=== PATIENT | male | born 1935 | race Caucasian/White ===

== ENCOUNTER 2016-11-27 09:15 | Inpatient (IN) | payer MEDICARE, BC, OTHER ==
[~2016-11-27] VITALS: Ht 175.3 cm; Wt 88.3 kg
[2016-11-27] VITALS (15 sets, daily range): BP systolic 95–121; BP diastolic 53–78; PULSE 64–70; RESP 16–18; TEMP 97.6–98.2; O2SAT 97–100
[~2016-11-27 09:15] MED LIST: AMLO2.5T PO; ARIC5TAB PO; ASPI81TA82 PO; ATEN-102 PO; CEFU1TAB43 PO; DIGO0.12 PO; FURO20TA PO; NAME10TA PO; POTA-267 PO; RIVA20 PO; SYNT175T PO
[2016-11-27] MEDS ORDERED: SODIUM CHLORIDE 0.9% FLUSH 5 ML FLUSH IVF PRN (09:30)
[2016-11-27] MEDS ORDERED: ASPIRIN 81 MG CHEW TAB CHEW ONE (09:30)
--- NOTE | 2016-11-27 09:45 | PD ---
HPI Chief Complaint: Respiratory Symptoms Time Seen by Provider: 09:29 Travel History International Travel<30 days: No Contact w/Intl Traveler<30days: No Traveled to known affect area: No History of Present Illness HPI This is an 81-year-old male who presents to the emergency department with a history of coronary artery disease and atrial fibrillation who this morning reportedly told his that he was feeling short of breath and having chest discomfort. He was transported to the emergency department. Patient has history of dementia. Currently he says he feels fine with no chest pain or shortness of breath. He says he doesn't remember what happened but he does feel somewhat nauseous. One year ago he was admitted for similar symptoms and found to have a urinary tract infection. PFSH Past Medical History Hx Anticoagulant Therapy: Yes (XARELTO) Arthritis: Yes Atrial Fibrillation: Yes Blood Disorders: No Heart Rhythm Problems: Yes (A FIB) Cancer: No Cardiac Catheterization: Yes (5 STENTS SINCE 1998) Cardiovascular Problems: Yes (5 STENTS) High Cholesterol: Yes Congestive Heart Failure: Yes Coronary Artery Disease: Yes Dementia: Yes Diabetes: No Endocrine: Yes Genitourinary: Yes Hypertension: Yes Immune Disorder: No Musculoskeletal: Yes Neurologic: No Psychiatric: Yes (DEMENTIA) Reproductive: No Respiratory: No Immunizations Current: No Thyroid Disease: Yes PNEUMOCCOCAL Vaccine (Year): 1 Past Surgical History Body Medical Devices: CORONARY STENTS Cardiac Surgery: Yes (CARDIAC CATH WITH STENTS PLACED) Coronary Stent: Yes Endocrine Surgery: Yes (THYROIDECTOMY) Other Surgery: Yes (3/4 THYROID REMOVED- BENIGN) Social History Alcohol Use: No Tobacco Use: No Substance Use: No Allergies-Medications (Allergen,Severity, Reaction): Coded Allergies: No Known Allergies (Verified , 11/27/16) Reported Meds & Prescriptions Reported Meds & Active Scripts Active Reported Aspirin 81 (Aspirin) 81 Mg Tabdr 81 Mg PO DAILY Nitrostat SL (Nitroglycerin) 0.4 Mg Subl 0.4 Mg SL DIRECTED PRN 1 tablet under the tongue as needed for chest pain. Repeat every 5 minutes for a total of 3 DOSES or call 911 if NO relief. Alprazolam 0.5 Mg Tab 0.5 Mg PO Q4H PRN Klor-Con M20 (Potassium Chloride Microencaps) 20 Meq Tab 0.5 Tab PO DAILY Donepezil 10 Mg Tab 10 Mg PO HS Memantine 10 Mg Tab 10 Mg PO BID Furosemide 40 Mg Tab 40 Mg PO DAILY Digoxin 0.25 Mg Tab 0.5 Tab PO DAILY PT TAKES THIS MEDICATION FRIDAY, FRIDAY, FRIDAY. Atorvastatin (Atorvastatin Calcium) 20 Mg Tab 20 Mg PO HS Amlodipine (Amlodipine Besylate) 2.5 Mg Tab 2.5 Mg PO DAILY Atenolol 50 Mg Tab 50 Mg PO BID Levothyroxine (Levothyroxine Sodium) 200 Mcg Tab 200 Mcg PO DAILY Xarelto (Rivaroxaban) 20 Mg Tab 20 Mg PO DAILY Review of Systems ROS Limitations: Poor Historian Physical Exam Narrative GENERAL:Well appearing, no acute distress SKIN: Warm and dry. HEAD: Atraumatic. Normocephalic. EYES: Pupils equal and round. No injection or drainage. ENT: Moist mucous membranes NECK: Trachea midline. CARDIOVASCULAR: Regular rate and rhythm. No murmur appreciated. Trace edema. RESPIRATORY: Clear to auscultation. Breath sounds equal bilaterally. GASTROINTESTINAL: Abdomen soft, non-tender, nondistended. MUSCULOSKELETAL: No obvious deformities. NEUROLOGICAL: Oriented to person but not place or time. Moving all extremities. PSYCHIATRIC: Poor insight and judgment. Data Data Last Documented VS Vital Signs Date Time Temp Pulse Resp B/P Pulse Ox O2 Delivery O2 Flow Rate FiO2 11/27/16 09:45 100 Nasal Cannula 2 11/27/16 09:45 66 18 109/56 11/27/16:15 97.8 Orders Electrocardiogram (11/27/16 09:29) Complete Blood Count With Diff (11/27/16 09:29) Comprehensive Metabolic Panel (11/27/16 09:29) Prothrombin Time / Inr (Pt) (11/27/16:29) Act Partial Throm Time (Ptt) (11/27/16 09:29) Troponin I (11/27/16 09:29) Chest, Single Ap (11/27/16:29) Ecg Monitoring (11/27/16 09:29) Bilateral Bp Monitoring (11/27/16:29) Iv Access Insert/Monitor (11/27/16:29) Oximetry (11/27/16 09:29) Oxygen Administration (11/27/16 09:29) Sodium Chloride 0.9% Flush (Ns Flush) (11/27/16 09:30) Aspirin Chew (Aspirin Chew) (2/15/17 09:30) Cath For Specimen (11/27/16 09:31) Urinalysis - C+S If Indicated (11/27/16 09:31) Digoxin (11/27/16 09:31) Type And Screen (11/27/16 10:09) B-Type Natriuretic Peptide (11/27/16 10:10) Red Blood Cells (Rbc) (11/27/16 10:10) Blood Product Administration .UPON TRANSFUSION (11/27/16 10:10) Sodium Chlor 0.9% 250 Ml Inj (Ns 250 Ml (11/27/16 10:15) Pantoprazole Inj (Protonix Inj) (11/27/16 10:15) Pantoprazole Inj (Protonix Inj) (11/27/16 10:15) Admit Order (Ed Use Only) (11/27/16 11:05) Furosemide Inj (Lasix Inj) (11/27/16 11:15) Labs Laboratory Tests Test 11/27/16 09:35 White Blood Count 9.8 TH/MM3 Red Blood Count 2.49 MIL/MM3 Hemoglobin 7.8 GM/DL Hematocrit 23.0 % Mean Corpuscular Volume 92.2 FL Mean Corpuscular Hemoglobin 31.3 PG Mean Corpuscular Hemoglobin 33.9 % Concent Red Cell Distribution Width 15.9 % Platelet Count 244 TH/MM3 Mean Platelet Volume 8.3 FL Neutrophils (%) (Auto) 68.9 % Lymphocytes (%) (Auto) 19.7 % Monocytes (%) (Auto) 9.2 % Eosinophils (%) (Auto) 1.7 % Basophils (%) (Auto) 0.5 % Neutrophils # (Auto) 6.7 TH/MM3 Lymphocytes # (Auto) 1.9 TH/MM3 Monocytes # (Auto) 0.9 TH/MM3 Eosinophils # (Auto) 0.2 TH/MM3 Basophils # (Auto) 0.1 TH/MM3 CBC Comment DIFF FINAL Differential Comment Prothrombin Time 18.1 SEC Prothromb Time International 1.6 RATIO Ratio Activated Partial 28.7 SEC Thromboplast Time Sodium Level 138 MEQ/L Potassium Level 3.8 MEQ/L Chloride Level 104 MEQ/L Carbon Dioxide Level 28.4 MEQ/L Anion Gap 6 MEQ/L Blood Urea Nitrogen 38 MG/DL Creatinine 1.16 MG/DL Estimat Glomerular Filtration 60 ML/MIN Rate Random Glucose 152 MG/DL Calcium Level 8.1 MG/DL Total Bilirubin 0.5 MG/DL Aspartate Amino Transf 21 U/L (AST/SGOT) Alanine Aminotransferase 20 U/L (ALT/SGPT) Alkaline Phosphatase 70 U/L Troponin I 0.08 NG/ML Total Protein 6.4 GM/DL Albumin 2.9 GM/DL MDM Medical Decision Making Medical Screen Exam Complete: Yes Emergency Medical Condition: Yes Interpretation(s) Afebrile, no tachycardia, normotensive No leukocytosis Hemoglobin is 7.8 BUN is 38 Troponin is 0.08 Differential Diagnosis Upper GI bleed, lower GI bleed, myocardial infarction, congestive heart failure , pneumonia Narrative Course This is an 81-year-old male who presents to the emergency Department with onset of chest pain and shortness of breath that started last evening. Patient is on xarelto and has a history of coronary artery disease. He was pale appearing on arrival. He is placed on a monitor and an IV was established. Labs are notable for hemoglobin of 7.8. Patient is Hemoccult positive. I suspect the patient's symptoms are due to GI bleed. He was started on IV pantoprazole and transfuse 1 unit of blood. He was given 40 mg IV Lasix Physician Communication Physician Communication Discussed with Resident team and Dr. Pope Diagnosis Primary Impression: GI bleed Qualified Code: K92.2 - Gastrointestinal hemorrhage, unspecified gastrointestinal hemorrhage type Admitting Information Admitting Physician Requests: Admit Barbara Castellanos MD Nov 27, 2016 09:45
--- NOTE | 2016-11-27 09:55 | RADRPT ---
EXAM DATE/TIME: 11/27/2016 09:29 [facility] COMPARISON: CHEST PA & LAT, December 14, 2014, 9:35. INDICATIONS : Chest pain, short of breath. MEDICAL HISTORY : None. SURGICAL HISTORY : Coronary artery stent. ENCOUNTER: Initial ACUITY: 1 day PAIN SCORE: 2/10 LOCATION: Bilateral chest FINDINGS: A single view of the chest demonstrates the lungs to be symmetrically aerated without evidence of mas s, infiltrate or effusion. The cardiomediastinal contours are unremarkable. Degenerative changes are present in the left glenohumeral joint with sclerosis and spurring. CONCLUSION: No acute disease. Domenic Sweeney MD on November 27, 2016 at 9:53 Board Certified Radiologist. This report was verified electronically.
[2016-11-27 09:58] LABS: AUTOMATED NEUTROPHIL # 6.7 TH/MM3 (1.8-7.7); BASOPHIL # 0.1 TH/MM3 (0-0.2); BASOPHIL % 0.5 % (0.0-2.0); EOSINOPHIL # 0.2 TH/MM3 (0-0.4); EOSINOPHIL % 1.7 % (0.0-4.0); HEMO FLAGS DIFF FINAL; LYMPH % 19.7 % (9.0-44.0); LYMPHOCYTE # 1.9 TH/MM3 (1.0-4.8); MEAN CELL VOLUME 92.2 FL (80.0-100.0); MEAN CORPUSCULAR HEMOGLOBIN 31.3 PG (27.0-34.0); MEAN CORPUSCULAR HGB CONC 33.9 % (32.0-36.0); MONO % 9.2 % (0.0-8.0); NEUT % 68.9 % (16.0-70.0); PLATELET COUNT 244 TH/MM3 (150-450); RED BLOOD COUNT 2.49 MIL/MM3 (4.50-5.90); RED CELL DISTRIBUTION WIDTH 15.9 % (11.6-17.2); WHITE BLOOD COUNT 9.8 TH/MM3 (4.0-11.0)
[2016-11-27] MEDS ORDERED: POTA-245 PO (10:06)
[2016-11-27] MEDS ORDERED: XARE20TA PO (10:06)
[2016-11-27] MEDS ORDERED: AMLO2.5T PO (10:06)
[2016-11-27] MEDS ORDERED: DIGO0.25 PO (10:06)
[2016-11-27] MEDS ORDERED: ALPR0.5T3 PO (10:06)
[2016-11-27] MEDS ORDERED: LEVO200T4 PO (10:06)
[2016-11-27] MEDS ORDERED: DONE10TA7 PO (10:06)
[2016-11-27] MEDS ORDERED: FURO40TA PO (10:06)
[2016-11-27] MEDS ORDERED: NITR0.4S SL (10:06)
[2016-11-27] MEDS ORDERED: ATEN50TA PO (10:06)
[2016-11-27] MEDS ORDERED: ASPI-110 PO (10:06)
[2016-11-27] MEDS ORDERED: MEMA1TAB2 PO (10:06)
[2016-11-27] MEDS ORDERED: ATOR20TA15 PO (10:06)
[2016-11-27 10:07] LABS: APTT (PATIENT) 28.7 SEC (24.3-30.1); INTERNATIONAL NORMALIZED RATIO 1.6 RATIO; PROTHROMBIN TIME - PATIENT 18.1 SEC (9.8-11.6)
[2016-11-27] MEDS ORDERED: PANTOPRAZOLE INJ 80 MG in SODIUM CHLORIDE 0.9% INJ 35 ML IV ONE (10:15)
[2016-11-27] MEDS ORDERED: SODIUM CHLOR 0.9% 250 ML INJ 250 ML IV ONE (10:15)
[2016-11-27 10:21] LABS: ANION GAP 6 MEQ/L (5-15); AST (GOT) 21 U/L (15-37); BICARBONATE 28.4 MEQ/L (21.0-32.0); BLOOD UREA NITROGEN 38 MG/DL (7-18); CHLORIDE 104 MEQ/L (98-107); GLOMERULAR FILTRATION RATE 60 ML/MIN (>89); POTASSIUM 3.8 MEQ/L (3.5-5.1); SODIUM (NA) 138 MEQ/L (136-145)
[2016-11-27 10:26] LABS: ALKALINE PHOSPHATASE 70 U/L (45-117); ALT (GPT) 20 U/L (12-78); TOTAL BILIRUBIN ADULT 0.5 MG/DL (0.2-1.0)
[2016-11-27] MEDS ORDERED: ONDANSETRON HCL 4 MG/2 ML VIAL IV PRN (11:15)
[2016-11-27] MEDS ORDERED: SODIUM CHLORIDE 0.9% FLUSH 5 ML FLUSH IV PRN (11:15)
[2016-11-27] MEDS ORDERED: FUROSEMIDE 40 MG/4 ML VIAL IV PUSH ONE (11:15)
--- NOTE | 2016-11-27 11:17 | HHI.HP ---
HPI Service Family Medicine Primary Care Physician No Primary Care Physician Admission Diagnosis gi bleed Diagnoses: Chief Complaint: lightheadedness International Travel<30 Days: No Contact w/Intl Traveler<30days: No Known Affected Area: No History of Present Illness 81 y/o male with history of dementia and Afib presents with overall malaise. Difficult historian due to dementia. States he woke up this morning, not feeling well. Had a headache, abdominal pain. No nausea/vomiting. No diarrhea/ constipation. Bowel movement yesterday. No blood in stool, not black or different color. Has a history of afib. No lightheadedness/dizziness. No history of GI bleed in the past. States he's never had a colonoscopy in the past. PCP is Dr. Tidwell. Called daughter, who states that he did have black stool yesterday, but otherwise had been taking medications as usual. (Gil Burkett MD R1) Review of Systems ROS Limitations: Poor Historian (Gil Burkett MD R1) Past Family Social History Past Medical History Dementia Afib CHF Past Surgical History Unable to obtain Reported Medications Reported Meds & Active Scripts Active Reported Aspirin 81 (Aspirin) 81 Mg Tabdr 81 Mg PO DAILY Nitrostat SL (Nitroglycerin) 0.4 Mg Subl 0.4 Mg SL DIRECTED PRN 1 tablet under the tongue as needed for chest pain. Repeat every 5 minutes for a total of 3 DOSES or call 911 if NO relief. Alprazolam 0.5 Mg Tab 0.5 Mg PO Q4H PRN Klor-Con M20 (Potassium Chloride Microencaps) 20 Meq Tab 0.5 Tab PO DAILY Donepezil 10 Mg Tab 10 Mg PO HS Memantine 10 Mg Tab 10 Mg PO BID Furosemide 40 Mg Tab 40 Mg PO DAILY Digoxin 0.25 Mg Tab 0.5 Tab PO DAILY PT TAKES THIS MEDICATION FRIDAY, FRIDAY, FRIDAY. Atorvastatin (Atorvastatin Calcium) 20 Mg Tab 20 Mg PO HS Amlodipine (Amlodipine Besylate) 2.5 Mg Tab 2.5 Mg PO DAILY Atenolol 50 Mg Tab 50 Mg PO BID Levothyroxine (Levothyroxine Sodium) 200 Mcg Tab 200 Mcg PO DAILY Xarelto (Rivaroxaban) 20 Mg Tab 20 Mg PO DAILY (Gil Burkett MD R1) Allergies: Coded Allergies: No Known Allergies (Verified , 11/27/16) Active Ordered Medications Active Medications Alprazolam (Xanax) 0.5 mg Q4H PRN PO; Start 11/27/16 at 11:30; Stop 11/27/16 at 11:30; Status DC Amlodipine Besylate (Norvasc) 2.5 mg DAILY PO; Start 11/28/16 at 09:00 Aspirin 162 mg 162 mg ONCE ONCE CHEW; Start 11/27/16 at 09:30; Stop 11/27/16 at 10:13; Status DC Atenolol (Tenormin) 50 mg BID PO; Start 11/27/16 at 21:00 Atorvastatin Calcium (Lipitor) 20 mg HS PO; Start 11/27/16 at 21:00 Digoxin (Lanoxin) 0.5 mg MoWeFr PO; Start 11/29/16 at 09:00 Donepezil HCl (Aricept) 10 mg HS PO; Start 11/27/16 at 21:00 Furosemide (Lasix Inj) 40 mg ONCE ONCE IV PUSH Last administered on 11/27/16t 11:53; Admin Dose 40 MG; Start 11/27/16 at 11:15; Stop 11/27/16 at 11:16; Status DC Furosemide (Lasix) 40 mg DAILY PO; Start 11/28/16 at 09:00 IV Flush (NS Flush) 2 ml BID IV; Start 11/27/16 at 21:00 IV Flush (NS Flush) 2 ml UNSCH PRN IV; Start 11/27/16 at 11:15 IV Flush (NS Flush) 2 ml UNSCH PRN IVF; Start 11/27/16 at 09:30; Stop 11/27/16 at 11:27; Status DC Levothyroxine Sodium (Synthroid) 200 mcg DAILY@0600 PO; Start 11/28/16 at 06:00 Memantine (Namenda) 10 mg BID PO; Start 11/27/16 at 21:00 Miscellaneous (Pill Splitter) 1 ea UNSCH PRN OTHER; Start 11/27/16 at 11:45 Ondansetron HCl (Zofran Inj) 4 mg Q6H PRN IV; Start 11/27/16 at 11:15 Pantoprazole Sodium (Protonix Inj) 40 mg DAILY IV; Start 11/28/16 at 09:00; Stop 11/28/16 at 09:00; Status DC Pantoprazole Sodium 80 mg/ Sodium Chloride 35 ml @ 420 mls/hr ONCE ONCE IV Last administered on 11/27/16 11:39; Admin Dose 420 MLS/HR; Start 11/27/16 at 10:15; Stop 11/27/16 at 10:19; Status DC Pantoprazole Sodium/Sodium Chloride (Protonix Inj/NS Inj) 100 ml @ 10 mls/hr Q10H IV Last administered on 11/27/16 11:39; Admin Dose 10 MLS/HR; Start at 10:15 Sodium Chloride 250 ml @ 15 mls/hr ONCE ONCE IV Last administered on 14:07; Admin Dose 15 MLS/HR; Start 11/27/16 at 10:15; Stop 11/28/16 at 02: 54 Family History Unable to obtain Social History Unable to obtain (Gil Burkett MD R1) Physical Exam Vital Signs Vital Signs Date Time Temp Pulse Resp B/P Pulse Ox O2 Delivery O2 Flow Rate FiO2 11/27/16 09:45 100 Nasal Cannula 2 11/27/16 09:45 66 18 109/56 98 Room Air 11/27/16 09:15 66 18 99 Room Air 11/27/16 09:15 97.8 66 18 95/53 97 Physical Exam GENERAL: This is a well-nourished, well-developed patient, in no apparent distress. SKIN: No rashes, ecchymoses or lesions. Cool and dry. Slight pallor. HEAD: Atraumatic. Normocephalic. No temporal or scalp tenderness. EYES: Pupils equal round and reactive. Extraocular motions intact. Conjunctival pallor. NECK: Trachea midline. No JVD or lymphadenopathy. Supple, nontender. CARDIOVASCULAR: Irregular rate and rhythm without murmurs, gallops, or rubs. RESPIRATORY: Clear to auscultation. Breath sounds equal bilaterally. No wheezes , rales, or rhonchi. GASTROINTESTINAL: Abdomen soft, non-tender, nondistended. No hepato-splenomegaly , or palpable masses. No guarding. MUSCULOSKELETAL: Extremities without clubbing, cyanosis, or edema. No joint tenderness, effusion, or edema noted. No calf tenderness. NEUROLOGICAL: Awake and alert, oriented x1. Motor and sensory grossly within normal limits. Normal speech, repeated several questions. Laboratory Laboratory Tests Test 11/27/16 09:35 White Blood Count 9.8 Red Blood Count 2.49 Hemoglobin 7.8 Hematocrit 23.0 Mean Corpuscular Volume 92.2 Mean Corpuscular Hemoglobin 31.3 Mean Corpuscular Hemoglobin 33.9 Concent Red Cell Distribution Width 15.9 Platelet Count 244 Mean Platelet Volume 8.3 Neutrophils (%) (Auto) 68.9 Lymphocytes (%) (Auto) 19.7 Monocytes (%) (Auto) 9.2 Eosinophils (%) (Auto) 1.7 Basophils (%) (Auto) 0.5 Neutrophils # (Auto) 6.7 Lymphocytes # (Auto) 1.9 Monocytes # (Auto) 0.9 Eosinophils # (Auto) 0.2 Basophils # (Auto) 0.1 CBC Comment DIFF FINAL Differential Comment Prothrombin Time 18.1 Prothromb Time International 1.6 Ratio Activated Partial 28.7 Thromboplast Time Sodium Level 138 Potassium Level 3.8 Chloride Level 104 Carbon Dioxide Level 28.4 Anion Gap 6 Blood Urea Nitrogen 38 Creatinine 1.16 Estimat Glomerular Filtration 60 Rate Random Glucose 152 Calcium Level 8.1 Total Bilirubin 0.5 Aspartate Amino Transf 21 (AST/SGOT) Alanine Aminotransferase 20 (ALT/SGPT) Alkaline Phosphatase 70 Troponin I 0.08 Total Protein 6.4 Albumin 2.9 (Gil Burkett MD R1) Result Diagram: 11/27/16 0935 11/27/16 0935 Imaging Last Impressions Chest X-Ray 11/27/16 0929 Signed Impressions: Service Date/Time: Sunday, November 27, 2016 09:29 - CONCLUSION: No acute disease. Domenic Sweeney MD (Gil Burkett MD R1) Assessment and Plan Assessment and Plan 81 y/o male with history of dementia and afib on xarelto, presents with GI bleed. Will admit for workup and management. Code Status Full Discussed Condition With Dr. Grubbs & Dr. Pimentel (Gil Burkett MD R1) Attending Attestation Patient seen and examined. Case reviewed and discussed with the resident team. Agree with plan of care as discussed with me and documented in the resident note. (Karla Grubbs MD) Problem List: (1) GI bleed Status: Acute Plan: DDx: gastric/duodenal ulcer, diverticulosis, angiodysplasia, colorectal cancer, polyps Pt has a h/o of A-fib on Coumadin. No h/o chronic NSAID use, alcohol abuse, smoking, anemia, or corticosteroids. No recent unintentional wt. loss. No reported hematemesis. Hemoccult in ED positive. H/H on admission was 7.8/23.0. MCV 92.2 BUN/Cr ratio 38/1.16; PT/INR 1.6 Ordered 1 unit of pRBC in ED Protonix 40 mg IV BID H/Hs Q6hrs- monitor results closely. Consult GI; NPO until pt. evaluated. Fall precautions. Supplemental O2 PRN. Pulse Ox. CBC, BMP, PT/INR, and Mg in the AM Zofran PRN nausea Hold all anticoagulation (Coumadin, Plavix, Aspirin). SCDs for DVT prophylaxis. (2) Dementia Status: Acute Plan: Continue home meds of donepezil and memantine (3) Atrial fibrillation Status: Acute Plan: On Eliquis at home. Atrial flutter on exam -Tele -Hold Eliquis -Continue amlodipine 2.5 mg daily and atenolol 50 mg twice a day (4) CHF (congestive heart failure) Status: Acute Plan: Continue Lasix 40 mg daily Digoxin 0.5 mg Friday (5) Hypothyroidism Status: Acute Plan: Continue home Synthroid 200 mcg daily (6) FEN Status: Acute Plan: Fluids: NS @ 15mls/hr Electrolytes: wnl Nutrition: NPO for possible intervention DVT ppx: SCDs, holding chemoprophylaxis for GI bleed (Gil Burkett MD R1) Physician Certification 2 Midnight Certification Type: Admission for Inpatient Services Order for Inpatient Services The services are ordered in accordance with Medicare regulations or non- Medicare payer requirements, as applicable. In the case of services not specified as inpatient-only, they are appropriately provided as inpatient services in accordance with the 2-midnight benchmark. Estimated LOS (days): 2 days is the estimated time the patient will need to remain in the hospital, assuming treatment plan goals are met and no additional complications. Post-Hospital Plan: Home (Gil Burkett MD R1) Problem Qualifiers (1) GI bleed: Qualified Code: K92.2 - Gastrointestinal hemorrhage, unspecified gastrointestinal hemorrhage type (2) Dementia: Qualified Code: F03.90 - Dementia without behavioral disturbance, unspecified dementia type (3) Atrial fibrillation: Qualified Code: I48.91 - Atrial fibrillation, unspecified type (4) CHF (congestive heart failure): Qualified Code: I50.9 - Congestive heart failure, unspecified congestive heart failure chronicity, unspecified congestive heart failure type (5) Hypothyroidism: Qualified Code: E03.9 - Hypothyroidism, unspecified type Gil Burkett MD R1 Nov 27, 2016 11:17 Karla Grubbs MD Nov 28, 2016 11:51
[2016-11-27] MEDS ORDERED: ALPRAZolam 0.5 MG TAB PO PRN (11:30)
[2016-11-27] MEDS: PANTOPRAZOLE INJ 80 MG in SODIUM CHLORIDE 0.9% INJ 100 ML IV SCH ×2 (11:39→22:33)
[2016-11-27] MEDS ORDERED: PILL SPLITTER OTHER PRN (11:45)
[2016-11-27 14:02] LABS: REVIEW FLAG FINAL
[2016-11-27 14:11] LABS: APTT (PATIENT) 29.4 SEC (24.3-30.1)
--- NOTE | 2016-11-27 14:24 | HHI.FPPN ---
Subjective Remarks Patient seen, examined and discussed with the medicine team. This is an 81-year-old male who awoke in the night with complaining of shortness of breath and chest discomfort. He looked very uncomfortable to his who took his blood pressure and found to be very low. She reported also that he had black stool yesterday. He is a patient of Dr. Tidwell and Dr. Ta. He is unable to give us history as he has dementia. denies any bright red blood per rectum any red myomatous. Patient is on Xarelto for atrial fibrillation. Please see history and physical examination for this patient for additional historical details which were obtained from the . Objective Vitals Vital Signs Date Time Temp Pulse Resp B/P Pulse Ox O2 Delivery O2 Flow Rate FiO2 11/27/16 14:10 97.6 66 16 115/63 100 Nasal Cannula 2 11/27/16 13:55 97.6 66 16 117/58 100 Nasal Cannula 2 11/27/16 11:52 99 Nasal Cannula 2.00 11/27/16 11:00 65 18 106/56 98 Nasal Cannula 2 11/27/16 09:45 100 Nasal Cannula 2 11/27/16 09:45 66 18 109/56 98 Room Air 11/27/16 09:15 66 18 99 Room Air 11/27/16 09:15 97.8 66 18 95/53 97 Result Diagram: 11/27/16 1325 11/27/16 0935 Other Results Laboratory Tests Test 11/27/16 11/27/16 11/27/16 11/27/16 09:35 10:10 10:20 12:27 White Blood Count 9.8 TH/MM3 Red Blood Count 2.49 MIL/MM3 Hemoglobin 7.8 GM/DL Hematocrit 23.0 % Mean Corpuscular Volume 92.2 FL Mean Corpuscular Hemoglobin 31.3 PG Mean Corpuscular Hemoglobin 33.9 % Concent Red Cell Distribution Width 15.9 % Platelet Count 244 TH/MM3 Mean Platelet Volume 8.3 FL Neutrophils (%) (Auto) 68.9 % Lymphocytes (%) (Auto) 19.7 % Monocytes (%) (Auto) 9.2 % Eosinophils (%) (Auto) 1.7 % Basophils (%) (Auto) 0.5 % Neutrophils # (Auto) 6.7 TH/MM3 Lymphocytes # (Auto) 1.9 TH/MM3 Monocytes # (Auto) 0.9 TH/MM3 Eosinophils # (Auto) 0.2 TH/MM3 Basophils # (Auto) 0.1 TH/MM3 CBC Comment DIFF FINAL Differential Comment Prothrombin Time 18.1 SEC Prothromb Time International 1.6 RATIO Ratio Activated Partial 28.7 SEC Thromboplast Time Sodium Level 138 MEQ/L Potassium Level 3.8 MEQ/L Chloride Level 104 MEQ/L Carbon Dioxide Level 28.4 MEQ/L Anion Gap 6 MEQ/L Blood Urea Nitrogen 38 MG/DL Creatinine 1.16 MG/DL Estimat Glomerular Filtration 60 ML/MIN Rate Random Glucose 152 MG/DL Calcium Level 8.1 MG/DL Total Bilirubin 0.5 MG/DL Aspartate Amino Transf 21 U/L (AST/SGOT) Alanine Aminotransferase 20 U/L (ALT/SGPT) Alkaline Phosphatase 70 U/L Troponin I 0.08 NG/ML Total Protein 6.4 GM/DL Albumin 2.9 GM/DL Crossmatch Leukocyte-Reduced Red Blood Cells Blood Bank Comment B-Type Natriuretic Peptide 250 PG/ML Digoxin Level 1.4 NG/ML Blood Type O POSITIVE O POSITIVE Antibody Screen NEGATIVE Test 11/27/16 13:25 Hemoglobin 7.9 GM/DL Hematocrit 23.0 % Activated Partial 29.4 SEC Thromboplast Time Imaging EKG shows atrial flutter with a rate of 66/m. Last Impressions Chest X-Ray 11/27/16 0978 Signed Impressions: Service Date/Time: Sunday, November 27, 2016 09:29 - CONCLUSION: No acute disease. Domenic Sweeney MD Objective Remarks O. CONSTITUTIONAL/GEN: normally nourished, in NAD. Confused and anxious. EYES: conjunctiva pale, PERRLA, EOMI. ENT: Mucous membranes moist, he has his own teeth. NECK: Supple, no lymphadenopathy noted, no supraclavicular nodes palpable LUNGS: clear A-P, respiratory effort is normal. CARDIOVASCULAR: Irregular, distant without murmur or gallop. No significant edema. GI/ABD: soft without masses, without organomegaly. Active bowel sounds NEURO: No focal deficits. SKIN: color pale, no rashes noted. HEME/LYMPH: no bruising, petechia or significant adenopathy MUSC: back is normal in appearance. Extremities are normal in appearance. PSYCH/MENTAL STATUS: Alert and oriented x 1. A/P Assessment and Plan 81-year-old male with dementia here with shortness of breath due to likely GI blood loss. History of atrial fibrillation on Xarelto. Attending Attestation Patient seen and examined. Case reviewed and discussed with the resident team. Agree with plan of care as discussed with me and documented in the resident note. Karla Grubbs MD Nov 27, 2016 14:24
--- NOTE | 2016-11-27 15:34 | PD.CONS ---
HPI History of Present Illness This is a 81 year old male who came to the ER for generalized fatigue and malaise. In the ER he was noted to have anemia with an HH of 7.8/23.0. 1 unit of PRBC was ordered and GI was consulted for further evaluation. The patient reports that he has not seen any obvious blood loss. He cannot tell me how long he has been having fatigue, but denies any shortness of breath. He denies any decreased appetite, abnormal weight loss, nausea, vomiting, heartburn, bowel changes, melena, or hematochezia. He reports that "once in a blue meyer" he will have a stomach ache, but denies any abdominal pain recently. He has never had any GI bleeding or peptic ulcer disease. He denies the use of ETOH or blood thinners. He has never had an egd or colonoscopy. D/W patient further evaluation with EGD/Colonoscopy- procedure, risks, benefits and he is okay with this, but given his hx of dementia I called and spoke to Erna Han . She is okay with procedures. She reports that he had Xarelto and atrial fibrillation this am and that shortly afterwards he did have a black stool. She also reports that he had a colonoscopy many years ago. (Ioana Garcia) PFSH Past Medical History Coronary artery disease, 5 stents Atrial Fibrillation Dementia BPH Hypothyroidism Hyperlipidemia HTN Benign growth on thyroid CHF Past Surgical History Subtotal thyroidectomy Remote hx colonoscopy (Ioana Garcia) Coded Allergies: No Known Allergies (Verified , 11/27/16) Medications Allergies Coded Allergies Type Severity Reaction Last Updated Verified No Known Allergies 11/27/16 Yes Active Scripts Medications Dose Route/Sig Days Date Category Dose Instructions Aspirin 81 (Aspirin) 81 Mg Tabdr 81 Mg PO DAILY 11/27/16 Reported Nitrostat SL (Nitroglycerin) 0.4 Mg Subl 0.4 Mg SL DIRECTED PRN 11/27/16 Reported 1 tablet under the tongue as needed for chest pain. Repeat every 5 minutes for a total of 3 DOSES or call 911 if NO relief. Alprazolam 0.5 Mg Tab 0.5 Mg PO Q4H PRN 11/27/16 Reported Klor-Con M20 (Potassium Chloride Microencaps) 20 Meq Tab 0.5 Tab PO DAILY 11/27/16 Reported Donepezil 10 Mg Tab 10 Mg PO HS 11/27/16 Reported Memantine 10 Mg Tab 10 Mg PO BID 11/27/16 Reported Furosemide 40 Mg Tab 40 Mg PO DAILY 11/27/16 Reported Digoxin 0.25 Mg Tab 0.5 Tab PO DAILY 11/27/16 Reported PT TAKES THIS MEDICATION FRIDAY, FRIDAY, FRIDAY. Atorvastatin (Atorvastatin Calcium) 20 Mg Tab 20 Mg PO HS 11/27/16 Reported Amlodipine (Amlodipine Besylate) 2.5 Mg Tab 2.5 Mg PO DAILY 11/27/16 Reported Atenolol 50 Mg Tab 50 Mg PO BID 11/27/16 Reported Levothyroxine (Levothyroxine Sodium) 200 Mcg Tab 200 Mcg PO DAILY 11/27/16 Reported Xarelto (Rivaroxaban) 20 Mg Tab 20 Mg PO DAILY 11/27/16 Reported Family History Noncontributory Social History No tobacco, ETOH (Ioana Garcia) Review of Systems Constitutional: COMPLAINS OF: Fatigue, DENIES: Weight loss, Change in appetite Respiratory: DENIES: Cough Cardiovascular: DENIES: Chest pain Gastrointestinal: COMPLAINS OF: Black stools, DENIES: Abdominal pain, Bloody stools, Constipation, Diarrhea, Nausea, Vomiting, Anorexia, Heartburn, Hematemesis Musculoskeletal: COMPLAINS OF: Joint pain Integumentary: DENIES: Abnormal pigmentation Hematologic/lymphatic: DENIES: Bruising Neurologic: DENIES: Headache Psychiatric: DENIES: Confusion (Ioana Garcia) GI Exam Vitals I&O Vital Signs Date Time Temp Pulse Resp B/P Pulse Ox O2 Delivery O2 Flow Rate FiO2 11/27/16 15:10 97.6 66 16 110/59 99 Nasal Cannula 2 11/27/16 14:10 97.6 66 16 115/63 100 Nasal Cannula 2 11/27/16 13:55 97.6 66 16 117/58 100 Nasal Cannula 2 11/27/16 13:00 64 18 110/57 98 Nasal Cannula 2 11/27/16 11:52 99 Nasal Cannula 2.00 11/27/16 11:00 65 18 106/56 98 Nasal Cannula 2 11/27/16 09:45 100 Nasal Cannula 2 11/27/16 09:45 66 18 109/56 98 Room Air 11/27/16 09:15 66 18 99 Room Air 11/27/16 09:15 97.8 66 18 95/53 97 Imaging Last Impressions Chest X-Ray 11/27/16 0929 Signed Impressions: Service Date/Time: Sunday, November 27, 2016 09:29 - CONCLUSION: No acute disease. Domenic Sweeney MD Laboratory Test 11/27/16 11/27/16 11/27/16 11/27/16 09:35 10:10 10:20 12:27 White Blood Count 9.8 TH/MM3 Red Blood Count 2.49 MIL/MM3 Hemoglobin 7.8 GM/DL Hematocrit 23.0 % Mean Corpuscular Volume 92.2 FL Mean Corpuscular Hemoglobin 31.3 PG Mean Corpuscular Hemoglobin 33.9 % Concent Red Cell Distribution Width 15.9 % Platelet Count 244 TH/MM3 Mean Platelet Volume 8.3 FL Neutrophils (%) (Auto) 68.9 % Lymphocytes (%) (Auto) 19.7 % Monocytes (%) (Auto) 9.2 % Eosinophils (%) (Auto) 1.7 % Basophils (%) (Auto) 0.5 % Neutrophils # (Auto) 6.7 TH/MM3 Lymphocytes # (Auto) 1.9 TH/MM3 Monocytes # (Auto) 0.9 TH/MM3 Eosinophils # (Auto) 0.2 TH/MM3 Basophils # (Auto) 0.1 TH/MM3 CBC Comment DIFF FINAL Differential Comment Prothrombin Time 18.1 SEC Prothromb Time International 1.6 RATIO Ratio Activated Partial 28.7 SEC Thromboplast Time Sodium Level 138 MEQ/L Potassium Level 3.8 MEQ/L Chloride Level 104 MEQ/L Carbon Dioxide Level 28.4 MEQ/L Anion Gap 6 MEQ/L Blood Urea Nitrogen 38 MG/DL Creatinine 1.16 MG/DL Estimat Glomerular Filtration 60 ML/MIN Rate Random Glucose 152 MG/DL Calcium Level 8.1 MG/DL Total Bilirubin 0.5 MG/DL Aspartate Amino Transf 21 U/L (AST/SGOT) Alanine Aminotransferase 20 U/L (ALT/SGPT) Alkaline Phosphatase 70 U/L Troponin I 0.08 NG/ML Total Protein 6.4 GM/DL Albumin 2.9 GM/DL Crossmatch Leukocyte-Reduced Red Blood Cells Blood Bank Comment B-Type Natriuretic Peptide 250 PG/ML Digoxin Level 1.4 NG/ML Blood Type O POSITIVE O POSITIVE Antibody Screen NEGATIVE Test 11/27/16 13:25 Hemoglobin 7.9 GM/DL Hematocrit 23.0 % Activated Partial 29.4 SEC Thromboplast Time Total Creatine Kinase 65 U/L Troponin I 0.07 NG/ML Physical Examination HEENT: Normocephalic; atraumatic; no jaundice. CHEST: CTA CARDIAC: Irregular ABDOMEN: Soft, nondistended, nontender; no hepatosplenomegaly; bowel sounds are present in all four quadrants. EXTREMITIES: No clubbing, cyanosis, or edema. SKIN: Normal; no rash; no jaundice. HEALTH EDUCATION SPECIALIST: No focal deficits; alert and oriented times to self and place (Ioana Garcia) Assessment and Plan Plan ASSESSMENT: - Anemia. Brought to ER and found to have HH of 7.8/23.0. 1 unit of PRBC going. Denies any GI symptoms or bleeding, but reports black stool. reports last colonoscopy was many years ago. Protonix gtt. Spoke to patient and Erna Han re: egd/colonoscopy- procedure, risks, benefits and they would both like to proceed. - Melena per - first noticed this am. - Atrial fibrillation, CAD, CHF. On Xarelto, had this earlier today per . Pt sees Dr. Rodriguez PLAN: - EGD/Colonoscopy, timing to be determined after seen by Dr. Meerdith (Had Xarelto this am- 11/27) - Obtain consents (spoke to patient and and they would like to proceed) - Clear liquids - NPO after MN - Golytely prep - Agree with transfusion - Monitor HH - Protonix Gtt - Hold Xarelto - CBC, BMP in am - Supportive care - Further recommendations to follow based on results of above - Pt seen and examined by Dr. Meredith and myself and this note is written on her behalf (Ioana Garcia) Physician Comments seen, examined agree with above (Maritza Meredith MD) Ioana Garcia Nov 27, 2016 15:34 Maritza Meredith MD Nov 27, 2016 19:11
[2016-11-27] MEDS ORDERED: PEG (High)/E-LYTE SOLN 4000 ML BTL PO ONE (16:00)
[2016-11-27 18:46] LABS: BLOOD, URINE NEG (NEG); GLUCOSE,URINE NEG (NEG); HYALINE CAST, URINE 2 /lpf (RARE); KETONE, URINE NEG (NEG); MUCUS URINE FEW /lpf (OCC); NITRITE,URINE NEG (NEG); PH, URINE 5.5 (5.0-8.5); URINE COLOR LIGHT-YELLOW (YELLW/STRAW)
[2016-11-27 18:49] LABS: COMMENT (UR) CATH-CULT NOT IND; CULTURE IF INDICATED CATH CULTURE NOT IND
[2016-11-27 20:18] LABS: HEMATOCRIT 26.1 % (39.0-51.0); REVIEW FLAG FINAL
[2016-11-27] MEDS ORDERED: HALOPERIDOL LACTATE 5 MG/ML AMP IM PRN (21:45)
[2016-11-27] MEDS ORDERED: MAGNESIUM HYDROXIDE SUSP 30 ML CUP PO PRN (22:00)
[2016-11-27] MEDS: ATENOLOL 50 MG TAB PO SCH (22:32)
[2016-11-27] MEDS: DONEPEZIL HCL 5 MG TAB PO SCH (22:32)
[2016-11-27] MEDS: MEMANTINE HCL 10 MG TAB PO SCH (22:32)
[2016-11-27] MEDS: SODIUM CHLORIDE 0.9% FLUSH 5 ML FLUSH IV SCH (22:33)
[2016-11-27] MEDS: ATORVASTATIN 20 MG TAB PO SCH (22:35)
--- NOTE | 2016-11-27 22:42 | EKG ---
Date Performed: 11/27/2016 Time Performed: 09:33:35 PTAGE: 81 years EKG: Regular rhythm Possible atrial arrhythmia Electrical interferences ABNORMAL RHYTHM ECG PREVIOUS TRACING : 12/14/2014 21.04 DOCTOR: Shara Cobian Interpretating Date/Time 11/27/2016 22:41:06
[2016-11-28] VITALS (11 sets, daily range): BP systolic 106–123; BP diastolic 58–63; PULSE 64–70; RESP 14–18; TEMP 96.3–98.4; O2SAT 96–99
[2016-11-28] MEDS: LEVOTHYROXINE SODIUM 200 MCG TAB PO SCH (06:00)
[2016-11-28 06:20] LABS: AUTOMATED NEUTROPHIL # 6.2 TH/MM3 (1.8-7.7); BASOPHIL % 0.4 % (0.0-2.0); EOSINOPHIL # 0.3 TH/MM3 (0-0.4); EOSINOPHIL % 3.1 % (0.0-4.0); HEMATOCRIT 24.3 % (39.0-51.0); HEMO FLAGS DIFF FINAL; LYMPH % 17.7 % (9.0-44.0); LYMPHOCYTE # 1.6 TH/MM3 (1.0-4.8); MEAN CELL VOLUME 91.1 FL (80.0-100.0); MEAN CORPUSCULAR HGB CONC 35.1 % (32.0-36.0); MONO % 11.4 % (0.0-8.0); NEUT % 67.4 % (16.0-70.0); PLATELET COUNT 199 TH/MM3 (150-450); RED BLOOD COUNT 2.67 MIL/MM3 (4.50-5.90); RED CELL DISTRIBUTION WIDTH 15.4 % (11.6-17.2); WHITE BLOOD COUNT 9.2 TH/MM3 (4.0-11.0)
[2016-11-28 06:43] LABS: BICARBONATE 28.5 MEQ/L (21.0-32.0); POTASSIUM 3.5 MEQ/L (3.5-5.1)
[2016-11-28] MEDS: PANTOPRAZOLE INJ 80 MG in SODIUM CHLORIDE 0.9% INJ 100 ML IV SCH ×2 (08:28→17:13)
[2016-11-28] MEDS: FUROSEMIDE 40 MG TAB PO SCH (08:29)
[2016-11-28] MEDS: DOCUSATE SODIUM 50 MG/SENNA 8.6 MG TAB PO SCH ×2 (08:29→21:00)
[2016-11-28] MEDS: MEMANTINE HCL 10 MG TAB PO SCH ×2 (08:30→21:00)
[2016-11-28] MEDS: ATENOLOL 50 MG TAB PO SCH ×2 (08:30→21:00)
[2016-11-28] MEDS: amLODIPine BESYLATE 5 MG TAB PO SCH (08:32)
[2016-11-28] MEDS: SODIUM CHLORIDE 0.9% FLUSH 5 ML FLUSH IV SCH ×2 (09:00→21:00)
[2016-11-28] MEDS ORDERED: PANTOPRAZOLE SODIUM 40 MG VIAL IV SCH (09:00)
--- NOTE | 2016-11-28 12:01 | HHI.FPPN ---
Subjective Remarks Patient seen and examined this morning. Overnight, had some confusion and took out his IV. Also, refused the Golytely prep. This morning, he states he is doing well. Demented at baseline. Called and discussed plan. She states she was unable to stay last night due to feeling ill. The pt's son will be coming in tonight to ensure he drinks the bowel prep. EGD scheduled for today. ( Gil Burkett MD R1) Objective Vitals Vital Signs Date Time Temp Pulse Resp B/P Pulse Ox O2 Delivery O2 Flow Rate FiO2 11/28/16 08:14 98 21 11/28/16 05:00 66 11/28/16 04:23 98.4 66 16 123/63 99 11/28/16 04:00 64 11/28/16 03:00 66 11/28/16 02:00 64 11/28/16 01:00 68 11/28/16 00:00 70 11/27/16 23:00 66 11/27/16 23:00 97.8 70 16 117/78 100 11/27/16 22:18 100 Nasal Cannula 2.00 11/27/16 20:00 70 11/27/16 19:57 98.2 67 16 121/67 100 11/27/16 19:00 66 11/27/16 17:30 66 18 102/55 98 Nasal Cannula 2 11/27/16 16:10 97.8 66 18 119/57 98 Nasal Cannula 2 11/27/16 16:10 66 18 119/57 98 Nasal Cannula 2 11/27/16 15:10 97.6 66 16 110/59 99 Nasal Cannula 2 11/27/16 14:10 97.6 66 16 115/63 100 Nasal Cannula 2 11/27/16 13:55 97.6 66 16 117/58 100 Nasal Cannula 2 11/27/16 13:00 64 18 110/57 98 Nasal Cannula 2 11/27/16 11:52 99 Nasal Cannula 2.00 I/O 11/27/16 11/27/16 11/27/16 11/28/16 11/28/16 11/28/16 07:00 15:00 23:00 07:00 15:00 23:00 Intake Total 250 ml 520 ml Balance 250 ml 520 ml Intake Oral 520 ml IV Total 0 ml Packed Cells 250 ml # Voids 2 # Bowel Movements 0 (Gil Burkett MD R1) Result Diagram: 11/28/1651911/28/16519 Objective Remarks O. CONSTITUTIONAL/GEN: normally nourished, in NAD. NECK: Supple, no lymphadenopathy noted LUNGS: clear A-P, respiratory effort is normal. CARDIOVASCULAR: RRR with distant without murmur or gallop. No significant edema. GI/ABD: soft without masses, without organomegaly. Active bowel sounds NEURO: No focal deficits. SKIN: color pale, no rashes noted. HEME/LYMPH: no bruising, petechia or significant adenopathy MUSC: back is normal in appearance. Extremities are normal in appearance. PSYCH/MENTAL STATUS: Alert and oriented x 1. (Gil Burkett MD R1) A/P Assessment and Plan 81 y/o male with history of dementia and afib on xarelto, presents with GI bleed. Will admit for workup and management. Discharge Planning Pending GI recs (Gil Burkett MD R1) Attending Attestation Patient seen and examined. Case reviewed and discussed with the resident team. Agree with plan of care as discussed with me and documented in the resident note. (Karla Grubbs MD) Problem List: (1) GI bleed Status: Acute Plan: DDx: gastric/duodenal ulcer, diverticulosis, angiodysplasia, colorectal cancer, polyps Pt has a h/o of A-fib on Coumadin. No h/o chronic NSAID use, alcohol abuse, smoking, anemia, or corticosteroids. No recent unintentional wt. loss. No reported hematemesis. Hemoccult in ED positive. H/H on admission was 7.8/23.0. MCV 92.2 BUN/Cr ratio 38/1.16; PT/INR 1.6 on admission s/p 1 unit of pRBC in ED -Protonix 40 mg IV BID -Consulted GI-appreciate recs -EGD today, possible colonoscopy tomorrow if bowel prep tonight -Fall precautions. Supplemental O2 PRN. Pulse Ox. -Daily CBCs -Zofran PRN nausea -Hold all oral anticoagulation -SCDs for DVT prophylaxis. (2) Dementia Status: Acute Plan: Continue home meds of donepezil and memantine (3) Atrial fibrillation Status: Acute Plan: -Continue monitor -Tele -Hold Eliquis -Continue amlodipine 2.5 mg daily and atenolol 50 mg twice a day (4) CHF (congestive heart failure) Status: Acute Plan: Continue Lasix 40 mg daily Digoxin 0.5 mg Friday (5) Hypothyroidism Status: Acute Plan: Continue home Synthroid 200 mcg daily (6) FEN Status: Acute Plan: Fluids: none, tolerating PO Electrolytes: wnl Nutrition: NPO for EGD DVT ppx: SCDs, holding chemoprophylaxis for GI bleed (Gil Burkett MD R1) Problem Qualifiers (1) GI bleed: Qualified Code: K92.2 - Gastrointestinal hemorrhage, unspecified gastrointestinal hemorrhage type (2) Dementia: Qualified Code: F03.90 - Dementia without behavioral disturbance, unspecified dementia type (3) Atrial fibrillation: Qualified Code: I48.91 - Atrial fibrillation, unspecified type (4) CHF (congestive heart failure): Qualified Code: I50.9 - Congestive heart failure, unspecified congestive heart failure chronicity, unspecified congestive heart failure type (5) Hypothyroidism: Qualified Code: E03.9 - Hypothyroidism, unspecified type Gil Burkett MD R1 Nov 28, 2016 12:01 Karla Grubbs MD Nov 28, 2016 12:19
[2016-11-28] MEDS ORDERED: PEG (High)/E-LYTE SOLN 4000 ML BTL PO ONE (16:00)
[2016-11-28] MEDS: DONEPEZIL HCL 5 MG TAB PO SCH (21:00)
[2016-11-28] MEDS: ATORVASTATIN 20 MG TAB PO SCH (21:00)
[2016-11-29] VITALS (10 sets, daily range): BP systolic 100–141; BP diastolic 51–69; PULSE 66–69; RESP 16–20; TEMP 96.5–98.2; O2SAT 94–98
[2016-11-29] MEDS: PANTOPRAZOLE INJ 80 MG in SODIUM CHLORIDE 0.9% INJ 100 ML IV SCH ×3 (02:15→21:48)
[2016-11-29] MEDS: LEVOTHYROXINE SODIUM 200 MCG TAB PO SCH (06:00)
[2016-11-29 07:01] LABS: BASOPHIL % 0.2 % (0.0-2.0); EOSINOPHIL # 0.3 TH/MM3 (0-0.4); EOSINOPHIL % 3.1 % (0.0-4.0); HEMATOCRIT 23.5 % (39.0-51.0); HEMO FLAGS DIFF FINAL; LYMPH % 22.6 % (9.0-44.0); LYMPHOCYTE # 1.9 TH/MM3 (1.0-4.8); MEAN CELL VOLUME 91.3 FL (80.0-100.0); MEAN CORPUSCULAR HEMOGLOBIN 31.3 PG (27.0-34.0); MEAN CORPUSCULAR HGB CONC 34.2 % (32.0-36.0); MONO % 13.1 % (0.0-8.0); PLATELET COUNT 208 TH/MM3 (150-450); RED BLOOD COUNT 2.58 MIL/MM3 (4.50-5.90); RED CELL DISTRIBUTION WIDTH 15.2 % (11.6-17.2); WHITE BLOOD COUNT 8.2 TH/MM3 (4.0-11.0)
[2016-11-29 07:20] LABS: BICARBONATE 30.4 MEQ/L (21.0-32.0); POTASSIUM 3.7 MEQ/L (3.5-5.1)
[2016-11-29] MEDS ORDERED: DIGOXIN 0.25 MG TAB PO SCH (09:00)
[2016-11-29] MEDS: SODIUM CHLORIDE 0.9% FLUSH 5 ML FLUSH IV SCH ×2 (09:46→21:47)
[2016-11-29] MEDS: DOCUSATE SODIUM 50 MG/SENNA 8.6 MG TAB PO SCH ×2 (09:47→21:46)
[2016-11-29] MEDS: amLODIPine BESYLATE 5 MG TAB PO SCH (09:48)
[2016-11-29] MEDS: ATENOLOL 50 MG TAB PO SCH ×2 (09:48→21:47)
[2016-11-29] MEDS: FUROSEMIDE 40 MG TAB PO SCH (09:48)
[2016-11-29] MEDS: MEMANTINE HCL 10 MG TAB PO SCH ×2 (09:48→21:47)
[2016-11-29] MEDS ORDERED: PROPOFOL 200 MG/20 ML AMP IV ONE (12:18)
--- NOTE | 2016-11-29 13:38 | HHI.FPPN ---
Subjective Remarks Pt seen and examined this morning. Did take golytely overnight. Able to answer questions, but repeats questions when talking. No complaints/concerns. Scheduled for colonoscopy today. (Gil Burkett MD R1) Objective Vitals Vital Signs Date Time Temp Pulse Resp B/P Pulse Ox O2 Delivery O2 Flow Rate FiO2 11/29/16 13:01 66 18 133/62 98 11/29/16 12:51 63 18 140/55 95 11/29/16 12:46 98.3 70 18 100/70 98 11/29/16 11:51 97.4 67 18 117/69 98 11/29/16 11:50 95 21 11/29/16 08:00 96.8 68 18 101/58 94 11/29/16 04:00 97.0 66 18 102/51 96 11/29/16 00:00 96.5 69 20 100/58 98 11/28/16 20:00 97.2 65 16 106/62 97 11/28/16 20:00 97.2 65 16 106/62 97 11/28/16 16:00 96.3 67 14 120/59 98 I/O 11/28/16 11/28/16 11/28/16 11/29/16 11/29/16 11/29/16 07:00 15:00 23:00 07:00 15:00 23:00 Intake Total 520 ml 240 ml 780 ml 200 ml Balance 520 ml 240 ml 780 ml 200 ml Intake Oral 520 ml 240 ml 780 ml IV Total 0 ml Other 200 ml # Voids 2 2 1 # Bowel Movements 0 2 6 (Gil Burkett MD R1) Result Diagram: 11/29/1633 11/29/16632 Objective Remarks O. CONSTITUTIONAL/GEN: normally nourished, in NAD. LUNGS: clear A-P, respiratory effort is normal. CARDIOVASCULAR: RRR with distant without murmur or gallop. No significant edema. GI/ABD: soft without masses, without organomegaly. Active bowel sounds NEURO: No focal deficits. SKIN: color pale, no rashes noted. HEME/LYMPH: no bruising, petechia or significant adenopathy MUSC: back is normal in appearance. Extremities are normal in appearance. PSYCH/MENTAL STATUS: Alert and oriented x 1. (Gil Burkett MD R1) A/P Assessment and Plan 81 y/o male with history of dementia and afib on xarelto, presents with GI bleed. Will admit for workup and management. Discharge Planning Pending GI recs (Gil Burkett MD R1) Attending Attestation Patient seen and examined. Case reviewed and discussed with the resident team. Agree with plan of care as discussed with me and documented in the resident note. (Karla Grubbs MD) Problem List: (1) GI bleed Status: Acute Plan: DDx: gastric/duodenal ulcer, diverticulosis, angiodysplasia, colorectal cancer, polyps Pt has a h/o of A-fib on Coumadin. Hemoccult in ED positive. H/H on admission was 7.8/23.0. MCV 92.2 BUN/Cr ratio 38/1.16; PT/INR 1.6 on admission s/p 1 unit of pRBC in ED -Protonix 40 mg IV BID -Consulted GI-appreciate recs -EGD/Colonoscopy today -Fall precautions. Supplemental O2 PRN. Pulse Ox. -Daily CBCs -Zofran PRN nausea -Hold oral anticoagulation -SCDs for DVT prophylaxis. (2) Dementia Status: Acute Plan: Continue home meds of donepezil and memantine (3) Atrial fibrillation Status: Acute Plan: -Continue monitor -Tele -Hold Eliquis -Continue amlodipine 2.5 mg daily and atenolol 50 mg twice a day (4) CHF (congestive heart failure) Status: Acute Plan: Continue Lasix 40 mg daily Digoxin 0.5 mg Friday (5) Hypothyroidism Status: Acute Plan: Continue home Synthroid 200 mcg daily (6) FEN Status: Acute Plan: Fluids: none, tolerating PO Electrolytes: wnl Nutrition: heart healthy diet after procedure DVT ppx: SCDs, holding chemoprophylaxis for GI bleed (Gil Burkett MD R1) Problem Qualifiers (1) GI bleed: Qualified Code: K92.2 - Gastrointestinal hemorrhage, unspecified gastrointestinal hemorrhage type (2) Dementia: Qualified Code: F03.90 - Dementia without behavioral disturbance, unspecified dementia type (3) Atrial fibrillation: Qualified Code: I48.91 - Atrial fibrillation, unspecified type (4) CHF (congestive heart failure): Qualified Code: I50.9 - Congestive heart failure, unspecified congestive heart failure chronicity, unspecified congestive heart failure type (5) Hypothyroidism: Qualified Code: E03.9 - Hypothyroidism, unspecified type Gil Burkett MD R1 Nov 29, 2016 13:38 Karla Grubbs MD Nov 30, 2016 12:56
[2016-11-29] MEDS ORDERED: DIATRIZOATE MEGLUM/DIATRIZOATE SOD 9 ML CUP PO ONE (15:15)
[2016-11-29] MEDS ORDERED: IOHEXOL 350 MG/ML 10 ML VIAL (for RAD DIAG) IV ONE (21:22)
[2016-11-29] MEDS: ATORVASTATIN 20 MG TAB PO SCH (21:47)
[2016-11-29] MEDS: DONEPEZIL HCL 5 MG TAB PO SCH (21:47)
--- NOTE | 2016-11-29 23:06 | RADRPT ---
EXAM DATE/TIME: 11/29/2016 21:17 [facility] COMPARISON: No previous studies available for comparison. INDICATIONS : Anemia; possible GI bleed. IV CONTRAST: 97 cc Omnipaque 350 (iohexol) IV ORAL CONTRAST: Prescribed oral contrast ingested. RADIATION DOSE: 17.91 CTDIvol (mGy) MEDICAL HISTORY : Dementia. Cardiovascular disease Hypertension. SURGICAL HISTORY : None. ENCOUNTER: Initial ACUITY: 1 day PAIN SCALE: 0/10 LOCATION: Abdomen TECHNIQUE: Volumetric scanning of the abdomen and pelvis was performed. Using automated exposure control and adjustment of the mA and/or kV according to patient size, radiation dose was kept as low as reasonably achievable to obtain optimal diagnostic quality images. FINDINGS: The liver, spleen, pancreas, and adrenal glands are normal. There is a 1.5 cm suspecte d cyst at the lateral inferior right kidney. No hydronephrosis is identified on either side. There are scattered atherosclerotic calcifications seen throughout the arterial system. No aneurysm is see n. The bowel is unremarkable. The prostate is enlarged. The prostate measures 6 cm in AP dimension , 7.5 cm transverse dimension and 6.9 cm in height. There is degenerative change throughout the lumba r spine. CONCLUSION: 1. No definite acute abnormality is seen. 2. Very prominent prostatic enlargement. 3. Degenerative change in the lumbar spine. Morgan Porter MD on November 29, 2016 at 22:10 Board Certified Radiologist. This report was verified electronically.
[2016-11-30 00:05] VITALS: BP 112/53; PULSE 66; RESP 16; TEMP 98.9; O2SAT 96
[2016-11-30 04:00] VITALS: BP 110/56; PULSE 67; RESP 16; TEMP 99.5; O2SAT 96
[2016-11-30] MEDS: LEVOTHYROXINE SODIUM 200 MCG TAB PO SCH (05:30)
[2016-11-30 07:40] LABS: AUTOMATED NEUTROPHIL # 5.3 TH/MM3 (1.8-7.7); BASOPHIL % 0.3 % (0.0-2.0); EOSINOPHIL # 0.3 TH/MM3 (0-0.4); EOSINOPHIL % 3.8 % (0.0-4.0); HEMATOCRIT 22.9 % (39.0-51.0); HEMO FLAGS DIFF FINAL; LYMPH % 18.2 % (9.0-44.0); LYMPHOCYTE # 1.5 TH/MM3 (1.0-4.8); MEAN CELL VOLUME 90.1 FL (80.0-100.0); MEAN CORPUSCULAR HEMOGLOBIN 31.3 PG (27.0-34.0); MEAN CORPUSCULAR HGB CONC 34.7 % (32.0-36.0); MONO % 12.5 % (0.0-8.0); NEUT % 65.2 % (16.0-70.0); PLATELET COUNT 212 TH/MM3 (150-450); RED BLOOD COUNT 2.54 MIL/MM3 (4.50-5.90); RED CELL DISTRIBUTION WIDTH 14.9 % (11.6-17.2); WHITE BLOOD COUNT 8.1 TH/MM3 (4.0-11.0)
[2016-11-30 08:00] VITALS: BP 119/62; PULSE 67; RESP 17; TEMP 98.3; O2SAT 94
[2016-11-30 08:03] LABS: BICARBONATE 31.4 MEQ/L (21.0-32.0); POTASSIUM 3.4 MEQ/L (3.5-5.1)
--- NOTE | 2016-11-30 08:51 | HHI.FPPN ---
Subjective Remarks Afebrile vital signs stable. No acute events overnight. Patient had his EGD/ colonoscopy done yesterday. Awaiting GI recommendations for further plan of care. Patient is pleasant and has no complaints this morning. Endorses: None Denies: Fever, chills, nausea, vomiting, shortness of breath, chest pain, headache, abdominal pain, calf pain Objective Vitals Vital Signs Date Time Temp Pulse Resp B/P Pulse Ox O2 Delivery O2 Flow Rate FiO2 11/30/16 04:00 99.5 67 16 110/56 96 11/30/16 00:05 98.9 66 16 112/53 96 11/29/16 20:54 67 11/29/16 20:00 98.2 68 16 141/62 97 11/29/16 18:58 97 21 11/29/16 17:25 97.7 69 16 120/64 97 11/29/16 13:35 97.3 66 16 116/59 97 11/29/16 13:01 66 18 133/62 98 11/29/16 12:51 63 18 140/55 95 11/29/16 12:46 98.3 70 18 100/70 98 11/29/16 11:51 97.4 67 18 117/69 98 11/29/16 11:50 95 21 I/O 11/29/16 11/29/16 11/29/16 11/30/16 11/30/16 11/30/16 07:00 15:00 23:00 07:00 15:00 23:00 Intake Total 780 ml 680 ml 160 ml 400 ml Output Total 150 ml Balance 780 ml 680 ml 160 ml 250 ml Intake Oral 780 ml 480 ml 240 ml IV Total 160 ml 160 ml Other 200 ml Output Urine Total 150 ml # Voids 1 2 # Bowel Movements 6 Result Diagram: 11/30/16 0710 11/30/16 0710 Imaging Last Impressions Chest X-Ray 11/27/16928 Signed Impressions: Service Date/Time: Sunday, November 27, 2016 09:29 - CONCLUSION: No acute disease. Domenic Sweeney MD Objective Remarks O. CONSTITUTIONAL/GEN: normally nourished, in NAD. LUNGS: clear A-P, respiratory effort is normal. CARDIOVASCULAR: RRR with distant without murmur or gallop. No significant edema. GI/ABD: soft without masses, without organomegaly. Active bowel sounds NEURO: No focal deficits. SKIN: color pale, no rashes noted. HEME/LYMPH: no bruising, petechia or significant adenopathy MUSC: back is normal in appearance. Extremities are normal in appearance. PSYCH/MENTAL STATUS: Alert and oriented x 1. Procedures 11/29/16: EGD/colonoscopy Medications and IVs Current Medications Medications (Trade) Dose Ordered Sig/Tori Route Start Time Stop Time Status Last Admin (Protonix Inj/NS Inj) 100 ml @ 10 mls/hr Q10H IV 11/27/16 10:15 11/29/16 21:48 (NS Flush) 2 ml UNSCH PRN IV 11/27/16 11:15 (NS Flush) 2 ml BID IV 11/27/16 21:00 11/29/16 21:47 (Zofran Inj) 4 mg Q6H PRN IV 11/27/16 11:15 11/28/16 11:00 (Norvasc) 2.5 mg DAILY PO 11/28/16 09:00 11/29/16 09:48 (Tenormin) 50 mg BID PO 11/27/16 21:00 11/29/16 21:47 (Lipitor) 20 mg HS PO 11/27/16 21:00 11/29/16 21:47 (Lanoxin) 0.5 mg MoWeFr PO 11/29/16 09:00 11/29/16 09:48 (Aricept) 10 mg HS PO 11/27/16 21:00 11/29/16 21:47 (Lasix) 40 mg DAILY PO 11/28/16 09:00 11/29/16 09:48 (Synthroid) 200 mcg DAILY@0600 PO 11/28/16 06:00 11/30/16 05:30 (Namenda) 10 mg BID PO 11/27/16 21:00 11/29/16 21:47 (Pill Splitter) 1 ea UNSCH PRN OTHER 11/27/16 11:45 (Nancy-Colace) 2 tab BID PO 11/28/16 09:00 11/29/16 21:46 (Milk Of Magnesia Liq) 30 ml Q6H PRN PO 11/27/16 22:00 11/29/16 21:46 A/P Assessment and Plan 81 y/o male with history of dementia and afib on xarelto, presents with GI bleed. Will admit for workup and management. Discharge Planning Discharge home today will follow up as an outpatient with GI Problem List: (1) GI bleed Status: Acute Plan: DDx: gastric/duodenal ulcer, diverticulosis, angiodysplasia, colorectal cancer, polyps Pt has a h/o of A-fib on Coumadin. Hemoccult in ED positive. H/H on admission was 7.8/23.0. MCV 92.2 BUN/Cr ratio 38/1.16; PT/INR 1.6 on admission s/p 1 unit of pRBC in ED -Protonix 40 mg IV BID -Consulted GI, patient will follow as an outpatient with GI -S/P EGD/Colonoscopy on 11/29/16, showed duodenitis, gastritis, esophagitis, diverticulosis -Fall precautions. Supplemental O2 PRN. Pulse Ox. -Will restart oral anticoagulation (2) Dementia Status: Acute Plan: Continue home meds of donepezil and memantine (3) Atrial fibrillation Status: Acute Plan: -Continue monitor -Tele -Hold Eliquis -Continue amlodipine 2.5 mg daily and atenolol 50 mg twice a day (4) CHF (congestive heart failure) Status: Acute Plan: Continue Lasix 40 mg daily Digoxin 0.5 mg Friday (5) Hypothyroidism Status: Acute Plan: Continue home Synthroid 200 mcg daily (6) FEN Status: Acute Plan: Fluids: none, tolerating PO Electrolytes: wnl Nutrition: heart healthy diet after procedure Problem Qualifiers (1) GI bleed: Qualified Code: K92.2 - Gastrointestinal hemorrhage, unspecified gastrointestinal hemorrhage type (2) Dementia: Qualified Code: F03.90 - Dementia without behavioral disturbance, unspecified dementia type (3) Atrial fibrillation: Qualified Code: I48.91 - Atrial fibrillation, unspecified type (4) CHF (congestive heart failure): Qualified Code: I50.9 - Congestive heart failure, unspecified congestive heart failure chronicity, unspecified congestive heart failure type (5) Hypothyroidism: Qualified Code: E03.9 - Hypothyroidism, unspecified type Luke Pimentel MD R2 Nov 30, 2016 08:51 (5) Hypothyroidism: Qualified Code: E03.9 - Hypothyroidism, unspecified type Luke Pimentel MD R2 Nov 30, 2016 08:51
[2016-11-30] MEDS: SODIUM CHLORIDE 0.9% FLUSH 5 ML FLUSH IV SCH (09:00)
[2016-11-30] MEDS: PANTOPRAZOLE INJ 80 MG in SODIUM CHLORIDE 0.9% INJ 100 ML IV SCH (09:27)
[2016-11-30] MEDS: amLODIPine BESYLATE 5 MG TAB PO SCH (09:27)
[2016-11-30] MEDS: FUROSEMIDE 40 MG TAB PO SCH (09:27)
[2016-11-30] MEDS: ATENOLOL 50 MG TAB PO SCH (09:27)
[2016-11-30] MEDS: DOCUSATE SODIUM 50 MG/SENNA 8.6 MG TAB PO SCH (09:27)
[2016-11-30] MEDS: MEMANTINE HCL 10 MG TAB PO SCH (09:28)
--- NOTE | 2016-11-30 11:14 | HHI.DCPOC ---
Discharge Care Plan Diagnosis: (1) GI bleed (2) Dementia (3) Chest pain Goals to Promote Your Health * To prevent worsening of your condition and complications * To maintain your health at the optimal level Taking medications as prescribed. Monitor bowel movements for bloody stools. Follow-up with PCP and GI. Directions to Meet Your Goals Take your medications as prescribed Follow your dietary instruction Follow activity as directed Keep your appointments as scheduled Take your immunizations and boosters as scheduled If your symptoms worsen call your PCP, if no PCP go to Urgent Care Center or Emergency Room Smoking is Dangerous to Your Health. Avoid second hand smoke Call the 24-hour hour crisis hotline for domestic abuse at Luke Pimentel MD R2 Nov 30, 2016 11:14
--- NOTE | 2016-11-30 11:41 | HHI.DS ---
Discharge Summary Admission Date Nov 27, 2016 at 11:06 Discharge Date: Nov 30, 2016 Admitting Diagnosis gi bleed (1) GI bleed Diagnosis: Principal Plan: DDx: gastric/duodenal ulcer, diverticulosis, angiodysplasia, colorectal cancer, polyps Pt has a h/o of A-fib on Coumadin. Hemoccult in ED positive. H/H on admission was 7.8/23.0. MCV 92.2 BUN/Cr ratio 38/1.16; PT/INR 1.6 on admission s/p 1 unit of pRBC in ED -Protonix 40 mg IV BID -Consulted GI, patient will follow as an outpatient with GI -S/P EGD/Colonoscopy on 11/29/16, showed duodenitis, gastritis, esophagitis, diverticulosis -Fall precautions. Supplemental O2 PRN. Pulse Ox. -Daily CBCs -Zofran PRN nausea -We'll restart oral anticoagulation -SCDs for DVT prophylaxis. (2) Dementia Diagnosis: Secondary Plan: Continue home meds of donepezil and memantine (3) Atrial fibrillation Diagnosis: Secondary Plan: -Continue monitor -Tele -Hold Eliquis -Continue amlodipine 2.5 mg daily and atenolol 50 mg twice a day (4) CHF (congestive heart failure) Diagnosis: Secondary Plan: Continue Lasix 40 mg daily Digoxin 0.5 mg Friday (5) Hypothyroidism Diagnosis: Secondary Plan: Continue home Synthroid 200 mcg daily (6) FEN Diagnosis: Secondary Plan: Fluids: none, tolerating PO Electrolytes: wnl Nutrition: heart healthy diet after procedure DVT ppx: SCDs, holding chemoprophylaxis for GI bleed Consultants GI Procedures 11/29/16: EGD/colonoscopy Brief History 81 y/o male with history of dementia and Afib presents with overall malaise. Difficult historian due to dementia. States he woke up this morning, not feeling well. Had a headache, abdominal pain. No nausea/vomiting. No diarrhea/ constipation. Bowel movement yesterday. No blood in stool, not black or different color. Has a history of afib. No lightheadedness/dizziness. No history of GI bleed in the past. States he's never had a colonoscopy in the past. PCP is Dr. Tidwell. Called daughter, who states that he did have black stool yesterday, but otherwise had been taking medications as usual. CBC/BMP: 11/30/16 0710 11/30/16 0710 Significant Findings Laboratory Tests Test 11/27/16 11/27/16 11/27/16 11/28/16 13:25 18:00 19:42 05:20 Hemoglobin 7.9 GM/DL 8.8 GM/DL 8.5 GM/DL (13.0-17.0) (13.0-17.0) (13.0-17.0) Hematocrit 23.0 % 26.1 % 24.3 % (39.0-51.0) (39.0-51.0) (39.0-51.0) Troponin I 0.07 NG/ML 0.08 NG/ML (0.02-0.05) (0.02-0.05) Urine Mucus FEW /lpf (OCC) Thyroid Stimulating Hormone 8.220 uIU/ML 3rd Gen (0.358-3.740) Red Blood Count 2.67 MIL/MM3 (4.50-5.90) Monocytes (%) (Auto) 11.4 % (0.0-8.0) Monocytes # (Auto) 1.1 TH/MM3 (0-0.9) Blood Urea Nitrogen 30 MG/DL (7-18) Estimat Glomerular Filtration 68 ML/MIN (>89) Rate Random Glucose 123 MG/DL (74-106) Calcium Level 8.0 MG/DL (8.5-10.1) Test 11/29/16 11/30/16 06:33 07:10 Red Blood Count 2.58 MIL/MM3 2.54 MIL/MM3 (4.50-5.90) (4.50-5.90) Hemoglobin 8.1 GM/DL 7.9 GM/DL (13.0-17.0) (13.0-17.0) Hematocrit 23.5 % 22.9 % (39.0-51.0) (39.0-51.0) Monocytes (%) (Auto) 13.1 % 12.5 % (0.0-8.0) (0.0-8.0) Monocytes # (Auto) 1.1 TH/MM3 1.0 TH/MM3 (0-0.9) (0-0.9) Blood Urea Nitrogen 20 MG/DL (7-18) Estimat Glomerular Filtration 61 ML/MIN (>89) 62 ML/MIN (>89) Rate Random Glucose 125 MG/DL 162 MG/DL (74-106) (74-106) Calcium Level 8.0 MG/DL 7.9 MG/DL (8.5-10.1) (8.5-10.1) Potassium Level 3.4 MEQ/L (3.5-5.1) Imaging Last Impressions Chest X-Ray 11/27/16 09 Signed Impressions: Service Date/Time: Sunday, November 27, 2016 09:29 - CONCLUSION: No acute disease. Domenic Sweeney MD PE at Discharge O. CONSTITUTIONAL/GEN: normally nourished, in NAD. LUNGS: clear A-P, respiratory effort is normal. CARDIOVASCULAR: RRR with distant without murmur or gallop. No significant edema. GI/ABD: soft without masses, without organomegaly. Active bowel sounds NEURO: No focal deficits. SKIN: color pale, no rashes noted. HEME/LYMPH: no bruising, petechia or significant adenopathy MUSC: back is normal in appearance. Extremities are normal in appearance. PSYCH/MENTAL STATUS: Alert and oriented x 1. Hospital Course Patient was admitted on 11/27/16 for GI bleed and chest pain. Troponins were trended and and ACS was ruled out. He has severe dementia and had some sundowning during this hospitalization. EGD and Colonoscopy was performed and no active bleeding was found. Patient's hemoglobin remains stable during the hospitalization. His bleeding had stabilized prior to being scoped. It was determined that he could go home and follow-up with GI as an outpatient. Pt Condition on Discharge: Stable Discharge Disposition: Discharge Home Discharge Instructions DIET: Follow Instructions for: As Tolerated, No Restrictions Activities you can perform: Regular-No Restrictions Follow up Referrals: Gastroenterology - 1 Week Physician - 1 Week with PCP Continued Medications: Alprazolam (Alprazolam) 0.5 Mg Tab 0.5 MG PO Q4H PRN ANXIETY Ref 0 TAB Amlodipine (Amlodipine) 2.5 Mg Tab 2.5 MG PO DAILY Blood Pressure Management #30 Ref [address] (Aspirin 81) 81 Mg Tabdr 81 MG PO DAILY Ref 0 TAB Atenolol (Atenolol) 50 Mg Tab 50 MG PO BID Blood Pressure Management #14 Ref 0 TAB Atorvastatin (Atorvastatin) 20 Mg Tab 20 MG PO HS Cholesterol Management #30 Ref 0 TAB Digoxin (Digoxin) 0.25 Mg Tab 0.5 TAB PO DAILY PT TAKES THIS MEDICATION FRIDAY, FRIDAY, FRIDAY. Regulate Heart Beat #30 Ref 0 TAB Donepezil (Donepezil) 10 Mg Tab 10 MG PO HS Dementia #30 Ref 0 TAB Furosemide (Furosemide) 40 Mg Tab 40 MG PO DAILY #30 Ref 0 TAB Levothyroxine (Levothyroxine) 200 Mcg Tab 200 MCG PO DAILY Thyroid #30 Ref 0 TAB Memantine (Memantine) 10 Mg Tab 10 MG PO BID Alzheimer's Dementia Ref 0 TAB Nitroglycerin SL (Nitrostat SL) 0.4 Mg Subl 0.4 MG SL DIRECTED 1 tablet under the tongue as needed for chest pain. Repeat every 5 minutes for a total of 3 DOSES or call 911 if NO relief. PRN CHEST PAIN #100 Ref 0 TAB.SL Potassium Chloride Microencaps (Klor-Con M20) 20 Meq Tab 0.5 TAB PO DAILY Electrolyte Replacement #30 Ref 0 TAB Rivaroxaban (Xarelto) 20 Mg Tab 20 MG PO DAILY Blood Clot Prevention Ref 0 TAB Luke Pimentel MD R2 Nov 30, 2016 11:40
[2016-11-30 12:00] VITALS: BP 108/55; PULSE 66; RESP 18; TEMP 97.8; O2SAT 98
--- NOTE | 2016-11-30 13:50 | HHI.GIFU ---
GI Follow-up Note Consult Follow-up Subjective: Patient laying in bed comfortably, confused . No active bleeding, hb stable.EGD/Colon essentially negative . CT noted Objective: PHYSICAL EXAMINATION: Vitals signs stable No fever Allergies Coded Allergies No Known Allergies (Verified11/27/16) HEENT: Pupils round and reactive to light; normocephalic; atraumatic; no jaundice. Throat is clear. NECK: Neck is supple, no JVD, no lymphadenopathy. CHEST: Chest is clear to auscultation and percussion. CARDIAC: Regular rate and rhythm with no murmur gallop or rubs. ABDOMEN: Soft, nondistended, nontender; no hepatosplenomegaly; bowel sounds are present in all four quadrants. EXTREMITIES: No clubbing, cyanosis, or edema. SKIN: Normal; no rash; no jaundice. 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 Available Data (labs, X- Rays, Procedues) : Laboratory Tests Test 11/29/16 11/30/16 06:33 07:10 White Blood Count 8.2 TH/MM3 8.1 TH/MM3 Red Blood Count 2.58 MIL/MM3 2.54 MIL/MM3 Hemoglobin 8.1 GM/DL 7.9 GM/DL Hematocrit 23.5 % 22.9 % Mean Corpuscular Volume 91.3 FL 90.1 FL Mean Corpuscular Hemoglobin 31.3 PG 31.3 PG Mean Corpuscular Hemoglobin 34.2 % 34.7 % Concent Red Cell Distribution Width 15.2 % 14.9 % Platelet Count 208 TH/MM3 212 TH/MM3 Mean Platelet Volume 7.9 FL 7.9 FL Neutrophils (%) (Auto) 61.0 % 65.2 % Lymphocytes (%) (Auto) 22.6 % 18.2 % Monocytes (%) (Auto) 13.1 % 12.5 % Eosinophils (%) (Auto) 3.1 % 3.8 % Basophils (%) (Auto) 0.2 % 0.3 % Neutrophils # (Auto) 5.0 TH/MM3 5.3 TH/MM3 Lymphocytes # (Auto) 1.9 TH/MM3 1.5 TH/MM3 Monocytes # (Auto) 1.1 TH/MM3 1.0 TH/MM3 Eosinophils # (Auto) 0.3 TH/MM3 0.3 TH/MM3 Basophils # (Auto) 0.0 TH/MM3 0.0 TH/MM3 CBC Comment DIFF FINAL DIFF FINAL Differential Comment Sodium Level 143 MEQ/L 140 MEQ/L Potassium Level 3.7 MEQ/L 3.4 MEQ/L Chloride Level 105 MEQ/L 102 MEQ/L Carbon Dioxide Level 30.4 MEQ/L 31.4 MEQ/L Anion Gap 8 MEQ/L 7 MEQ/L Blood Urea Nitrogen 20 MG/DL 16 MG/DL Creatinine 1.15 MG/DL 1.13 MG/DL Estimat Glomerular Filtration 61 ML/MIN 62 ML/MIN Rate Random Glucose 125 MG/DL 162 MG/DL Calcium Level 8.0 MG/DL 7.9 MG/DL ASSESSMENT/PLAN: anemia -egd/colon essentially negative enlarged prostate-fu urology Recommendations ok to dc home from [facility] start iron supplementation hematology consult op ok for anticoagulation from [facility] fu office capsule endoscopy op cbc next week It was a pleasure seeing Charlotte Benjamin Thank you for this consult. Entered by: Maritza Kovacs MD Nov 30, 2016 13:50
[2016-12-01] MEDS ORDERED: MULTIVITAMINS/IRON/MINERALS CHEWABLE TAB CHEW SCH (09:00)
== END 2016-11-30 16:58 | disposition home or self-care (01) | DRG 378 ==
LOC: NEPE 09:15 → NEDA 11:06 → HCIS 18:30 → N06B 11-28 11:42 → N06A 11-29 12:57
PROVIDERS: ADMIT Family Medicine; ATTEND Family Medicine
PROC: 0DB38ZX Excision of Lower Esophagus, Via Natural or Artificial Opening Endoscopic, Diagnostic (ICD-10-PCS; 2016-11-29)
PROC: 0DJD8ZZ Inspection of Lower Intestinal Tract, Via Natural or Artificial Opening Endoscopic (ICD-10-PCS; 2016-11-29)
PROC: 0DB98ZX Excision of Duodenum, Via Natural or Artificial Opening Endoscopic, Diagnostic (ICD-10-PCS; principal; 2016-11-29 12:00)
PROC: 0DB68ZX Excision of Stomach, Via Natural or Artificial Opening Endoscopic, Diagnostic (ICD-10-PCS; 2016-11-29 12:00)
DX: K92.1 Melena (principal); I48.92 Unspecified atrial flutter; I11.0 Hypertensive heart disease with heart failure; I50.9 Heart failure, unspecified; E03.9 Hypothyroidism, unspecified; N40.0 Benign prostatic hyperplasia without lower urinary tract symptoms; I25.10 Atherosclerotic heart disease of native coronary artery without angina pectoris; I48.91 Unspecified atrial fibrillation; K29.80 Duodenitis without bleeding; G30.9 Alzheimer's disease, unspecified; F02.80 Dementia in other diseases classified elsewhere, unspecified severity, without behavioral disturbance, psychotic disturbance, mood disturbance, and anxiety; K29.70 Gastritis, unspecified, without bleeding; K20.9 Esophagitis, unspecified; F41.9 Anxiety disorder, unspecified; K57.30 Diverticulosis of large intestine without perforation or abscess without bleeding; D64.9 Anemia, unspecified; Z79.01 Long term (current) use of anticoagulants; Z95.5 Presence of coronary angioplasty implant and graft
CPT/HCPCS: 36430; 71010; 74177; 76937; 80048; 80053; 80162; 81001; 82550; 83880; 84443; 84484; 85014; 85018; 85025; 85610; 85730; 86850; 86900; 86901; 86920; 88305; 93005; C9113; J1940; J2405; J7050; P9016; Q9963; Q9967

== ENCOUNTER 2016-12-05 12:10 | Inpatient (IN) | payer MEDICARE, BC ==
[~2016-12-05] VITALS: Ht 172.7 cm; Wt 85.0 kg
[2016-12-05] VITALS (8 sets, daily range): BP systolic 119–137; BP diastolic 57–63; PULSE 67–78; RESP 18–20; TEMP 97.9–98.6; O2SAT 95–100
[~2016-12-05 12:10] MED LIST changes: +ALPR0.5T3 PO; -ARIC5TAB PO; +ASPI-110 PO; -ASPI81TA82 PO; -ATEN-102 PO; +ATEN50TA PO; +ATOR20TA15 PO; -CEFU1TAB43 PO; -DIGO0.12 PO; +DIGO0.25 PO; +DONE10TA7 PO; -FURO20TA PO; +FURO40TA PO; +LEVO200T4 PO; +MEMA1TAB2 PO; -NAME10TA PO; +NITR0.4S SL; +POTA-245 PO; -POTA-267 PO; -RIVA20 PO; -SYNT175T PO; +XARE20TA PO
--- NOTE | 2016-12-05 12:58 | PD ---
HPI Chief Complaint: Chest Pain Time Seen by Provider: 12:54 Travel History International Travel<30 days: No Contact w/Intl Traveler<30days: No Traveled to known affect area: No History of Present Illness HPI 81-year-old male came to the emergency room brought by EMS with history of chest pain. Patient was sent to his supply room clerk's office this morning by his primary care because of the chest pain history and some EKG changes she had noticed. At his supply room clerk's office patient was given one sublingual nitroglycerin which brought the pain down to 0. EMS was called to transfer him to the emergency room. Patient has history of dementia and has been mostly sleeping. He pointed to pain upon asking to his substernal area. He was unable to describe any further given his dementia. He is not a reliable historian. He wakes upon calling his name and mentioned that he is chest pain- free currently. He has significant history of coronary artery disease with 5 stents. Vital signs were stable otherwise. Patient was admitted 2 weeks ago for shortness of breath, chest pain and GI bleed. Patient was given one unit of blood transfusion and upper and lower endoscopy. As per the GI consult note from there isn't any obvious source of bleeding. He was discharged home eventually. His is here who said that she did not notice any lead in his stool this time. [facility] Past Medical History Narrative Medical List of his past medical and social history is reviewed from the nursing note. Hx Anticoagulant Therapy: Yes (XARELTO) Arthritis: Yes Atrial Fibrillation: Yes Blood Disorders: No Heart Rhythm Problems: Yes (A FIB) Cancer: No Cardiac Catheterization: Yes (5 STENTS SINCE 1998) Cardiovascular Problems: Yes High Cholesterol: Yes Congestive Heart Failure: Yes Coronary Artery Disease: Yes Dementia: Yes Diabetes: No Endocrine: Yes Genitourinary: Yes Hypertension: Yes Immune Disorder: No Implanted Vascular Access Dvce: Yes Musculoskeletal: Yes Neurologic: No Psychiatric: Yes (DEMENTIA) Reproductive: No Respiratory: No Immunizations Current: No Thyroid Disease: Yes Tetanus Vaccination: Unknown PNEUMOCCOCAL Vaccine (Year): 1 Past Surgical History Body Medical Devices: CORONARY STENTS Cardiac Surgery: Yes (CARDIAC CATH WITH STENTS PLACED) Coronary Stent: Yes Endocrine Surgery: Yes (THYROIDECTOMY) Other Surgery: Yes (3/4 THYROID REMOVED- BENIGN) Social History Alcohol Use: No Tobacco Use: No Substance Use: No Allergies-Medications (Allergen,Severity, Reaction): Coded Allergies: No Known Allergies (Verified , 12/05/16) Comments No known drug allergies. Reported Meds & Prescriptions Reported Meds & Active Scripts Active Reported Aspirin 81 (Aspirin) 81 Mg Tabdr 81 Mg PO DAILY Nitrostat SL (Nitroglycerin) 0.4 Mg Subl 0.4 Mg SL DIRECTED PRN 1 tablet under the tongue as needed for chest pain. Repeat every 5 minutes for a total of 3 DOSES or call 911 if NO relief. Alprazolam 0.5 Mg Tab 0.5 Mg PO DAILY PRN Klor-Con M20 (Potassium Chloride Microencaps) 20 Meq Tab 10 Meq PO EVERY OTHER DAY Donepezil 10 Mg Tab 10 Mg PO HS Memantine 10 Mg Tab 10 Mg PO BID Furosemide 40 Mg Tab 20 Mg PO EVERY OTHER DAY Atorvastatin (Atorvastatin Calcium) 20 Mg Tab 20 Mg PO HS Amlodipine (Amlodipine Besylate) 2.5 Mg Tab 2.5 Mg PO DAILY Atenolol 50 Mg Tab 50 Mg PO BID Levothyroxine (Levothyroxine Sodium) 200 Mcg Tab 200 Mcg PO DAILY Xarelto (Rivaroxaban) 20 Mg Tab 20 Mg PO DAILY Narrative Medication List of his home medications reviewed from the nursing note. Review of Systems Except as stated in HPI: all other systems reviewed are Neg Physical Exam Narrative GENERAL: Sleeping but wakes up and calling his name, elderly, moderate distress SKIN: Warm and dry. Pale HEAD: Atraumatic. Normocephalic. EYES: Pupils equal and round. No scleral icterus. No injection or drainage. Pallor ENT: No nasal bleeding or discharge. Mucous membranes pink and moist. NECK: Trachea midline. No JVD. CARDIOVASCULAR: Regular rate and rhythm. Systolic apical murmur noticed which is 3 out of 5 RESPIRATORY: No accessory muscle use. Clear to auscultation. Breath sounds equal bilaterally. GASTROINTESTINAL: Abdomen soft, non-tender, nondistended. Hepatic and splenic margins not palpable. MUSCULOSKELETAL: No obvious deformities. No clubbing. No cyanosis. No edema. NEUROLOGICAL: Awake and alert. No obvious cranial nerve deficits. Motor grossly within normal limits. Normal speech. PSYCHIATRIC: Appropriate mood and affect; insight and judgment normal. Data Data Last Documented VS Orders Electrocardiogram (12/05/16 12:47) Basic Metabolic Panel (Bmp) (12/05/16 12:47) Ckmb (Isoenzyme) Profile (12/05/16 12:47) Complete Blood Count With Diff (12/05/16 12:47) Magnesium (Mg) (12/05/16 12:47) Prothrombin Time / Inr (Pt) (12/05/16 12:47) Act Partial Throm Time (Ptt) (12/05/16 12:47) Troponin I (12/05/16 12:47) Chest, Single Ap (12/05/16 12:47) Ecg Monitoring (12/05/16 12:47) Bilateral Bp Monitoring (12/05/16 12:47) Iv Access Insert/Monitor (12/05/16 12:47) Oximetry (12/05/16 12:47) Oxygen Administration (12/05/16 12:47) Sodium Chloride 0.9% Flush (Ns Flush) (12/05/16 13:00) Type And Screen (12/05/16 13:33) Red Blood Cells (Rbc) (12/05/16 13:33) Sodium Chlor 0.9% 250 Ml Inj (Ns 250 Ml (12/05/16 13:45) Admit Order (Ed Use Only) (12/05/16 13:56) Consult Cardiology (12/05/16 ) Labs MDM Medical Decision Making Medical Screen Exam Complete: Yes Emergency Medical Condition: Yes Medical Record Reviewed: Yes Interpretation(s) Twelve-lead EKG was reviewed by me. Normal sinus rhythm with motion artifact versus atrial flutter, left axis deviation, LVH, septal ST elevations which are unchanged from 11/27/2016. Heart rate of 68 bpm. Differential Diagnosis CAD, anemia, symptomatically anemia Narrative Course 1:42 PM blood test results are back. Patient's hemoglobin is 7.8. Given his significant coronary artery disease history have ordered 2 units of blood transfusion. I spoke with patient's supply room clerk Dr. Mendes who had called me regarding him and was concerned about the patient. He wanted the patient to be admitted and him consult it so that this could be worked up further. Given his negative troponin I a I'm not starting him on any anticoagulants yet. Patient is on Xarelto. Awaiting for the residents to call back for admission. Critical Care Narrative Aggregate critical care time was 30 minutes. Time to perform other separately billable procedures was not included in the critical care time. My time did not include minutes spent treating any other patients simultaneously or on activities that did not directly contribute to the patient's treatment. The services I provided to this patient were to treat and/or prevent clinically significant deterioration that could result in: Chest pain, rule out ACS, symptomatic anemia, units of blood transfusion I provided critical care services requiring my management, as noted below: Chart data review, documentation time, medication orders and management, vital sign assessments/reviewing monitor data, ordering and reviewing lab tests, ordering and interpreting/reviewing x-rays and diagnostic studies, care of the patient and discussion of the patient with the admitting physicians. Procedures EKG Prior to Arrival: Yes Physician Communication Physician Communication Dr. Mendes Diagnosis Primary Impression: Chest pain Qualified Code: R07.9 - Chest pain, unspecified type Additional Impression: Symptomatic anemia Admitting Information Admitting Physician Requests: Admit Scripts Isosorbide Mononitrate ER 30 Mg Taber30 Mg PO DAILY #30 TAB Prov:Serenity Collins MD R2 12/06/16 Que Aguilar MD Dec 05, 2016 12:58 Monocytes # (Auto) 0.9 TH/MM3 Eosinophils # (Auto) 0.2 TH/MM3 Basophils # (Auto) 0.0 TH/MM3 CBC Comment DIFF FINAL Differential Comment Prothrombin Time 13.4 SEC Prothromb Time International 1.2 RATIO Ratio Activated Partial 26.5 SEC Thromboplast Time Sodium Level 139 MEQ/L Potassium Level 4.1 MEQ/L Chloride Level 104 MEQ/L Carbon Dioxide Level 29.0 MEQ/L Anion Gap 6 MEQ/L Blood Urea Nitrogen 10 MG/DL Creatinine 1.03 MG/DL Estimat Glomerular Filtration 69 ML/MIN Rate Random Glucose 150 MG/DL Calcium Level 8.3 MG/DL Magnesium Level 2.2 MG/DL Total Creatine Kinase 60 U/L Troponin I 0.03 NG/ML MDM Medical Decision Making Medical Screen Exam Complete: Yes Emergency Medical Condition: Yes Medical Record Reviewed: Yes Interpretation(s) Twelve-lead EKG was reviewed by me. Normal sinus rhythm with motion artifact versus atrial flutter, left axis deviation, LVH, septal ST elevations which are unchanged from 11/27/2016. Heart rate of 68 bpm. Differential Diagnosis CAD, anemia, symptomatically anemia Narrative Course 1:42 PM blood test results are back. Patient's hemoglobin is 7.8. Given his significant coronary artery disease history have ordered 2 units of blood transfusion. I spoke with patient's supply room clerk Dr. Mendes who had called back and was concerned about the patient. He wanted the patient to be admitted and him consult it so that this could be worked up further. Given his negative troponin I a I'm not starting him on any anticoagulants yet. Patient is on Xarelto. Awaiting for the residents to call back for admission. Critical Care Narrative Aggregate critical care time was 30 minutes. Time to perform other separately billable procedures was not included in the critical care time. My time did not include minutes spent treating any other patients simultaneously or on activities that did not directly contribute to the patient's treatment. The services I provided to this patient were to treat and/or prevent clinically significant deterioration that could result in: Chest pain, rule out ACS, symptomatic anemia, units of blood transfusion I provided critical care services requiring my management, as noted below: Chart data review, documentation time, medication orders and management, vital sign assessments/reviewing monitor data, ordering and reviewing lab tests, ordering and interpreting/reviewing x-rays and diagnostic studies, care of the patient and discussion of the patient with the admitting physicians. Procedures EKG Prior to Arrival: Yes Physician Communication Physician Communication Dr. Mendes Diagnosis Primary Impression: Chest pain Qualified Code: R07.9 - Chest pain, unspecified type Additional Impression: Symptomatic anemia Admitting Information Admitting Physician Requests: Que Saldana MD Dec 05, 2016 12:58
[2016-12-05] MEDS ORDERED: SODIUM CHLORIDE 0.9% FLUSH 5 ML FLUSH IVF PRN (13:00)
[2016-12-05 13:10] LABS: AUTOMATED NEUTROPHIL # 5.6 TH/MM3 (1.8-7.7); BASOPHIL % 0.5 % (0.0-2.0); EOSINOPHIL # 0.2 TH/MM3 (0-0.4); EOSINOPHIL % 2.5 % (0.0-4.0); HEMATOCRIT 23.4 % (39.0-51.0); HEMO FLAGS DIFF FINAL; LYMPH % 14.9 % (9.0-44.0); LYMPHOCYTE # 1.2 TH/MM3 (1.0-4.8); MEAN CELL VOLUME 88.4 FL (80.0-100.0); MEAN CORPUSCULAR HEMOGLOBIN 29.3 PG (27.0-34.0); MEAN CORPUSCULAR HGB CONC 33.2 % (32.0-36.0); MONO % 11.8 % (0.0-8.0); NEUT % 70.3 % (16.0-70.0); PLATELET COUNT 279 TH/MM3 (150-450); RED BLOOD COUNT 2.65 MIL/MM3 (4.50-5.90); RED CELL DISTRIBUTION WIDTH 15.4 % (11.6-17.2)
[2016-12-05 13:25] LABS: MAGNESIUM 2.2 MG/DL (1.5-2.5); POTASSIUM 4.1 MEQ/L (3.5-5.1)
[2016-12-05 13:29] LABS: APTT (PATIENT) 26.5 SEC (24.3-30.1); INTERNATIONAL NORMALIZED RATIO 1.2 RATIO; PROTHROMBIN TIME - PATIENT 13.4 SEC (9.8-11.6)
[2016-12-05] MEDS ORDERED: SODIUM CHLOR 0.9% 250 ML INJ 250 ML IV ONE (13:45)
--- NOTE | 2016-12-05 13:52 | RADRPT ---
EXAM DATE/TIME: 12/05/2016 13:07 [facility] COMPARISON: CHEST SINGLE AP, November 27, 2016, 9:29. INDICATIONS : Short of breath and chest pain. MEDICAL HISTORY : Dementia. Cardiovascular disease Hypertension. SURGICAL HISTORY : Cardiac stents. ENCOUNTER: Initial ACUITY: 1 day PAIN SCORE: 3/10 LOCATION: Bilateral chest FINDINGS: A single view of the chest demonstrates the lungs to be symmetrically aerated without evidence of mas s, infiltrate or effusion. The cardiomediastinal contours are unremarkable. Stable tortuosity desce nding thoracic aorta. Stable advanced arthropathy in both shoulders.. CONCLUSION: The lungs are clear. Lam Richardson MD on December 05, 2016 at 13:50 Board Certified Radiologist. This report was verified electronically.
--- NOTE | 2016-12-05 14:07 | HHI.HP ---
HPI Service Family Medicine Primary Care Physician No Primary Care Physician Admission Diagnosis chest pain, symptomatic anemia Diagnoses: International Travel<30 Days: No Contact w/Intl Traveler<30days: No Known Affected Area: No History of Present Illness Patient is a 81-year-old male with PMH significant for dementia and significant CAD, A. fib, CHF. Patient was recently admitted on 11/27 and discharged on 11/30 for GI bleed. Admission H&H was 7.8 and Hemoccult was positive in the ED. EGD and colonoscopy was performed which showed duodenitis, gastritis, esophagitis, diverticulosis. GI recommended outpatient capsule endoscopy as follow-up. Per report from the ED physician and EMR review, this admission was prompted by his principal consulting engineer. Patient saw his PCP Dr. Tidwell and patient was complaining of chest pain. EKG was done in office and noted EKG changes. This prompted a follow up with his principal consulting engineer that day by Dr. Ta. While at his principal consulting engineer's office, he was given sublingual nitroglycerin which resolved his chest pain. He was then transferred via EMS to the ED. Upon my visit, patient was resting comfortably in bed. He reports no pain and understands that he is in the hospital but does not know why. He is oriented to self and place but not to time. He has no concerns at this time. Reports being asymptomatic. Further history is unobtainable and based off of EMR review. (Serenity Collins MD R2) Past Family Social History Past Medical History Per EMR Coronary artery disease, 5 stents Atrial Fibrillation Dementia BPH Hypothyroidism Hyperlipidemia HTN Benign growth on thyroid CHF Past Surgical History Per EMR Subtotal thyroidectomy (Serenity Collins MD R2) Allergies: Coded Allergies: No Known Allergies (Verified , 12/05/16) Family History Unobtainable Social History No tobacco or alcohol per EMR (Serenity Collins MD R2) Physical Exam Vital Signs Vital Signs Date Time Temp Pulse Resp B/P Pulse Ox O2 Delivery O2 Flow Rate FiO2 12/05/16 13:21 128/61 132/63 12/05/16 13:21 100 Nasal Cannula 2 12/05/16 13:21 18 100 Nasal Cannula 2 12/05/16 12:50 67 18 100 Nasal Cannula 2 12/05/16 12:27 97.9 68 20 128/61 100 Physical Exam GENERAL: This is a well-nourished, well-developed patient, in no apparent distress. Resting comfortably in bed. SKIN: No rashes, ecchymoses or lesions. Cool and dry. Mild erythema noted on left sacrum. No evidence of ulcer or lesion. EYES: Pupils equal round and reactive. Extraocular motions intact. No scleral icterus. No injection or drainage. ENT: Nose without bleeding, purulent drainage. Throat without erythema, tonsillar hypertrophy or exudate. Uvula midline. Airway patent. NECK: No JVD or lymphadenopathy. CARDIOVASCULAR: Regular rate and rhythm without murmurs, gallops, or rubs. RESPIRATORY: Clear to auscultation. Breath sounds equal bilaterally. No wheezes , rales, or rhonchi. GASTROINTESTINAL: Abdomen soft, non-tender, nondistended. No hepato-splenomegaly , or palpable masses. No guarding. ANUS: Rectal exam unremarkable. No evidence of fissures or hemorrhoids. Hemoccult negative. MUSCULOSKELETAL: Extremities without clubbing, cyanosis, or edema. No calf tenderness. NEUROLOGICAL: Awake and alert. Motor and sensory grossly within normal limits. Normal speech. Labile emotion. Laboratory Laboratory Tests Test 12/05/16 12:50 White Blood Count 8.0 Red Blood Count 2.65 Hemoglobin 7.8 Hematocrit 23.4 Mean Corpuscular Volume 88.4 Mean Corpuscular Hemoglobin 29.3 Mean Corpuscular Hemoglobin 33.2 Concent Red Cell Distribution Width 15.4 Platelet Count 279 Mean Platelet Volume 7.7 Neutrophils (%) (Auto) 70.3 Lymphocytes (%) (Auto) 14.9 Monocytes (%) (Auto) 11.8 Eosinophils (%) (Auto) 2.5 Basophils (%) (Auto) 0.5 Neutrophils # (Auto) 5.6 Lymphocytes # (Auto) 1.2 Monocytes # (Auto) 0.9 Eosinophils # (Auto) 0.2 Basophils # (Auto) 0.0 CBC Comment DIFF FINAL Differential Comment Prothrombin Time 13.4 Prothromb Time International 1.2 Ratio Activated Partial 26.5 Thromboplast Time Sodium Level 139 Potassium Level 4.1 Chloride Level 104 Carbon Dioxide Level 29.0 Anion Gap 6 Blood Urea Nitrogen 10 Creatinine 1.03 Estimat Glomerular Filtration 69 Rate Random Glucose 150 Calcium Level 8.3 Magnesium Level 2.2 Total Creatine Kinase 60 Troponin I 0.03 (Serenity Collins MD R2) Result Diagram: 12/05/16 1250 12/05/16 1250 Imaging Last Impressions Chest X-Ray 12/05/16 1247 Signed Impressions: Service Date/Time: , December 05, 2016 13:07 - CONCLUSION: The lungs are clear. Lam Richardson MD (Serenity Collins MD R2) Assessment and Plan Assessment and Plan Patient is an 81-year-old male with a PMH significant for dementia and extensive CAD. Admitted for chest pain and possible GI bleed. Code Status Full Discussed Condition With Dr. Grubbs (Serenity Collins MD R2) Attending Attestation Patient seen and examined. Case reviewed and discussed with the resident team. Agree with plan of care as discussed with me and documented in the resident note. (Karla Grubbs MD) Problem List: (1) Chest pain Status: Resolved Plan: Extensive cardiac history including A. fib, CHF, CAD. Acute chest pain that has been evaluated by patient's PCP and principal consulting engineer. Cardiology recommended admission for further evaluation. EKG had already been read by patient's principal consulting engineer and deemed to be unchanged from prior examinations. Troponin otherwise negative. -ACS evaluation -BNP, TSH ordered, pending -BMP, coags unremarkable -Cardiac telemetry -Chest x-ray normal Cardiology consulted: Appreciate recommendations * Will discuss with cardiology about using Pradaxa versus Xarelto for anticoagulation due to history of GI bleeds Medications: * Atenolol 50 mg BID * Atorvastatin 20mg HS * Digoxin 0.5mg Mon, Wed, Fri * Amlodipine 2.5 mg daily (2) GI bleed Status: Chronic Plan: Patient was admitted on 11/27 for GI bleed. EGD and colonoscopy was performed found duodenitis, gastritis, esophagitis, diverticulosis. Recommended outpatient capsule endoscopy. Patient's H&H is actually stable from the last admission. Hemoccult negative. Admission H&H 7.8/.4 -Home Xarelto held -Goal to keep hemoglobin above 8 due to cardiac history -Transfuse 1 unit, if repeat transfusion is needed, will need Lasix -Will hold on GI consult at this time as patient is clinically stable and can obtain outpatient follow-up. (3) Dementia Status: Acute Plan: Mental status limits obtaining history from patient. Currently holding home dementia medications. (4) Nutrition, metabolism, and development symptoms Status: Acute Plan: Diet: Heart healthy Fluids: None Electrolytes: Unremarkable, continue to monitor DVT prophylaxis: SCDs, patient already on anticoagulation (Xarelto) GI prophylaxis: Protonix (Serenity Collins MD R2) Physician Certification 2 Midnight Certification Type: Admission for Inpatient Services Order for Inpatient Services The services are ordered in accordance with Medicare regulations or non- Medicare payer requirements, as applicable. In the case of services not specified as inpatient-only, they are appropriately provided as inpatient services in accordance with the 2-midnight benchmark. Estimated LOS (days): 2 days is the estimated time the patient will need to remain in the hospital, assuming treatment plan goals are met and no additional complications. Post-Hospital Plan: Home (Serenity Collins MD R2) Problem Qualifiers (1) Chest pain: Qualified Code: R07.9 - Chest pain, unspecified type Serenity Collins MD R2 Dec 05, 2016 14:07 Karla Grubbs MD Dec 06, 2016 13:17
--- NOTE | 2016-12-05 14:39 | HHI.FPPN ---
Subjective Remarks Pt. seen, examined and discussed with Dr. Pepito Tolliver. this is an 81 yo male known to me from recent hospitalization for chest pain and GI bleed. He was transfused at that time and had upper and lower endoscopy and found to have gastritis, duodenitis and diverticulosis. He was to have outpatient capsule endoscopy. Today was seen by his PCP Dr. Tidwell with chest pain and was sent to see his hand compositor Dr. Ta who referred him to ED. He is seen today with no complaints but has dementia at baseline. He looks as he did a week ago. See H&P for this admission for additional historical details. ROS: no chest pain, no SOB, no abdominal pain, no cough, feels like he has to void. Objective Vitals Vital Signs Date Time Temp Pulse Resp B/P Pulse Ox O2 Delivery O2 Flow Rate FiO2 12/05/16 13:21 128/61 132/63 12/05/16 13:21 100 Nasal Cannula 2 12/05/16 13:21 18 100 Nasal Cannula 2 12/05/16 12:50 67 18 100 Nasal Cannula 2 12/05/16 12:27 97.9 68 20 128/61 100 Result Diagram: 12/05/16 1250 12/05/16 1250 Other Results H/H same as at the time of discharge from previous admission. EKG read by Dr. Ta, same as last EKG on 11-27-16. Imaging Last Impressions Chest X-Ray 12/05/16 1247 Signed Impressions: Service Date/Time: November 13:07 - CONCLUSION: The lungs are clear. Lam Richardson MD Objective Remarks O. CONSTITUTIONAL/GEN: normally nourished, in NAD. EYES: conjunctiva pale, PERRLA, EOMI. ENT: Mouth and pharynx normal. NECK: thyroid midline, carotids symmetrical. No lymphadenopathy. LUNGS: clear A-P, respiratory effort is normal. CARDIOVASCULAR: RR without murmur or gallop. No significant edema. GI/ABD: soft without masses, without organomegaly. BS +. Rectal exam hemoccult negative. NEURO: No focal deficits. SKIN: color pale, no rashes noted. HEME/LYMPH: no bruising, petechia or significant adenopathy MUSC: back is normal in appearance. Extremities are normal in appearance. PSYCH/MENTAL STATUS: Alert and oriented x 2, 2013, this is a hospital. A/P Assessment and Plan 81 yo with chest pain, seems to have resolved, also with hemoglobin 7.8 (stable ) with recent upper and lower endoscopy and negative hemoccult today. Attending Attestation Patient seen and examined. Case reviewed and discussed with the resident team. Agree with plan of care as discussed with me and documented in the resident note. Karla Grubbs MD Dec 05, 2016 14:39
[2016-12-05] MEDS ORDERED: MORPHINE SULFATE 4 MG/ML INJ IV PRN (14:45)
[2016-12-05] MEDS ORDERED: ACETAMINOPHEN/HYDROcodone 325 MG/5 MG TAB PO PRN (14:45)
[2016-12-05] MEDS ORDERED: ONDANSETRON HCL 4 MG/2 ML VIAL IVP PRN (14:45)
[2016-12-05] MEDS ORDERED: ALPRAZolam 0.5 MG TAB PO PRN (14:45)
[2016-12-05] MEDS ORDERED: ACETAMINOPHEN 325 MG TAB PO PRN (14:45)
[2016-12-05] MEDS ORDERED: ACETAMINOPHEN/HYDROcodone 325 MG/7.5 MG TAB PO PRN (14:45)
[2016-12-05] MEDS ORDERED: SODIUM CHLORIDE 0.9% FLUSH 5 ML FLUSH IV PRN (14:45)
[2016-12-05] MEDS ORDERED: PILL SPLITTER OTHER PRN (15:15)
[2016-12-05] MEDS ORDERED: ENALAPRILAT 1.25 MG/ML VIAL IV PRN (16:45)
[2016-12-05] MEDS ORDERED: ATORVASTATIN 20 MG TAB PO SCH (21:00)
--- NOTE | 2016-12-05 21:48 | MB ---
cc: MICK STRAUSS MD,EARL DANIELS,ASJRAF DATE OF CONSULTATION 12/05/16 HISTORY OF PRESENT ILLNESS Mr. Benjamin is an 80-year-old gentleman with history of dementia, persistent atrial fibrillation, coronary artery disease status post multiple PCI in the past, history of diastolic/systolic congestive heart failure in the past. He has had stable angina relieved with one nitroglycerin in the past and has been refusing ischemia evaluation and wants to continue on conservative medical therapy. He was recently admitted with GI bleed and upper and lower endoscopies that were unremarkable and GI cleared him to resume back his Xarelto. He was visiting Dr. Strauss's office today and had a bout of shortness of breath and possibly chest discomfort and was given nitroglycerin with some relief. He had an EKG in Dr. Strauss's office that showed supple lateral T-wave changes with no significant changes compared to his prior tracing. He was then sent by [facility] to the hospital for further evaluation. He is currently lying in bed getting blood transfusion, alert but disoriented to time and place (which is his usual baseline). Denies currently any chest pain or shortness of breath. He is lying flat in bed. Denies orthopnea, PND or leg swellings. Denies palpitations, dizziness or syncope. PAST MEDICAL AND SURGICAL HISTORY As mentioned above. 1. History of hyperlipidemia. 2. Hypertension. 3. Glaucoma 4. Prior stenting in 1998 and 2005. 5. Questionable history of noncompliance with medications at home. SOCIAL HISTORY Never a smoker. Denies ETOH abuse or recreational drug use. He is and lives with his . FAMILY HISTORY positive for coronary artery disease, hypertension and negative for diabetes or cancer. ALLERGIES NO KNOWN DRUG ALLERGIES. MEDICATIONS Medications at home 1. Ecotrin 81 p.o. daily. 2. Atenolol 50 mg by mouth b.i.d. 3. Atorvastatin 20 mg by mouth q.h.s. 4. Digoxin supposed to be on half 0.25 mg three times a week. 5. Donepezil 10 mg p.o. daily. 6. Namenda 10 mg by mouth b.i.d. 7. Norvasc 2.5 mg p.o. daily. 8. Xarelto 20 mg p.o. qhs 9. Levothyroxine 0.2 mg p.o. daily. 10. Lasix 20 mg three times a week with KCl 10 mEq with the Lasix. 11. Alprazolam 0.5 p.o. daily p.r.n. with anxiety and shortness of breath and it does help his symptoms. REVIEW OF SYSTEMS 12-point system review was unremarkable except what is mentioned in the history of present illness. PHYSICAL EXAMINATION GENERAL: An 80-year-old gentleman lying in bed in no apparent distress. VITAL SIGNS:: Blood pressure is 137/63 mmHg, pulse of 68 beats per minute, irregular irregular, respiration 14 per minute, afebrile. HEENT: Head is normocephalic. Pupils equal, active. Throat is within normal limits. NECK: Supple. No carotid bruit. No thyromegaly or jugular venous distension noted. LUNGS: Clear to auscultation and percussion. CARDIOVASCULAR: S1, S2 are variable in intensity with an S4 gallop and 1-2/6 systolic ejection murmur not significantly changed from prior exam. ABDOMEN: Exam is lax, nontender. Normoactive bowel sounds. No organomegaly or masses felt. EXTREMITIES: No clubbing, cyanosis or edema. Pulses 2+ bilaterally. Dorsalis pedis on the left is 1+. No bruit noted. NEUROLOGIC: Intact, nonfocal. RECTAL: Exam deferred. CARDIOLOGY STUDIES EKG shows atrial fibrillation with nonspecific ST-T wave changes, ventricular response rate of [address]-T wave changes more prominent in the lateral leads, however, not significantly changed from his baseline. LABORATORY DATA Troponin I 0.03 and 0.04. BNP nonspecific elevation 270. Sodium 139, potassium 4.1, BUN of 10, creatinine 1.03. Magnesium 2.20. On his prior admission last week, he had a digoxin level of 1.4. IMAGING STUDIES Chest x-ray was clear. ASSESSMENT 1. History of coronary artery disease status post PCI in the remote past and now with recurrent possible angina/anxiety. No evidence of acute coronary syndrome at the present time. With his age and comorbidity and his dementia, management would be conservative and that is per his wishes as well. He does not want to proceed with any invasive workup. I did discuss this also with his and she is in agreement. He is being transfused 1 unit of blood as he came with a hemoglobin of 7.8 and that should help as well. Imdur 30 mg by mouth daily will be added to his regimen and will continue on the beta blockers. 2. Atrial flutter/fibrillation. Rate is controlled. Because of his somewhat elevated level a few days ago, we will discontinue the digoxin and keep him on the metoprolol. His ventricular response rate will be followed as an outpatient. 3. Hypertension, controlled 4. Hyperlipidemia. Continue on atorvastatin and follow-up labs as an outpatient. 5. History of chronic systolic/diastolic heart failure currently no signs of congestive heart failure and will continue with same regimen. 6. Valvular heart disease can be followed as an outpatient. If he remains stable by tomorrow, can be discharged and follow up in my office in 2 weeks. I thank you for allowing me to participate in the care of this pleasant gentleman. Discussed with the patient, RN and the . MD ARLENE Clinton/ /8:31 PM /9:13 PM
[2016-12-05] MEDS: ATENOLOL 50 MG TAB PO SCH (21:59)
[2016-12-05] MEDS: SODIUM CHLORIDE 0.9% FLUSH 5 ML FLUSH IV SCH (21:59)
[2016-12-05 23:20] LABS: HEMATOCRIT 26.9 % (39.0-51.0); REVIEW FLAG FINAL
[2016-12-06] VITALS: BP 145/65; PULSE 62; RESP 18; TEMP 97.9; O2SAT 93
[2016-12-06 04:00] VITALS: BP 130/62; PULSE 65; RESP 18; TEMP 97.5; O2SAT 94
[2016-12-06] MEDS ORDERED: LEVOTHYROXINE SODIUM 200 MCG TAB PO SCH (06:00)
[2016-12-06 07:50] LABS: AUTOMATED NEUTROPHIL # 6.3 TH/MM3 (1.8-7.7); BASOPHIL % 0.4 % (0.0-2.0); EOSINOPHIL # 0.3 TH/MM3 (0-0.4); EOSINOPHIL % 3.5 % (0.0-4.0); HEMATOCRIT 25.4 % (39.0-51.0); HEMO FLAGS DIFF FINAL; LYMPH % 14.4 % (9.0-44.0); LYMPHOCYTE # 1.3 TH/MM3 (1.0-4.8); MEAN CELL VOLUME 87.6 FL (80.0-100.0); MEAN CORPUSCULAR HEMOGLOBIN 29.8 PG (27.0-34.0); MONO % 12.6 % (0.0-8.0); NEUT % 69.1 % (16.0-70.0); PLATELET COUNT 273 TH/MM3 (150-450); RED CELL DISTRIBUTION WIDTH 15.7 % (11.6-17.2); WHITE BLOOD COUNT 9.1 TH/MM3 (4.0-11.0)
[2016-12-06 08:00] VITALS: BP 141/85; PULSE 75; RESP 18; TEMP 98.3; O2SAT 93
[2016-12-06 08:04] LABS: BICARBONATE 27.3 MEQ/L (21.0-32.0)
[2016-12-06] MEDS ORDERED: ISOSORBIDE MONONITRATE 30 MG TAB PO SCH (09:00)
[2016-12-06] MEDS ORDERED: ASPIRIN EC 81 MG TABEC PO SCH (09:00)
[2016-12-06] MEDS ORDERED: PANTOPRAZOLE SOD 40 MG DELAYED RELEASE TAB PO SCH (09:00)
[2016-12-06] MEDS: SODIUM CHLORIDE 0.9% FLUSH 5 ML FLUSH IV SCH (09:00)
[2016-12-06] MEDS ORDERED: amLODIPine BESYLATE 5 MG TAB PO SCH (09:00)
[2016-12-06] MEDS: ATENOLOL 50 MG TAB PO SCH (09:53)
[2016-12-06] MEDS ORDERED: ISOS30TA3 PO (09:56)
--- NOTE | 2016-12-06 09:57 | HHI.DCPOC ---
Discharge Care Plan Diagnosis: (1) Chest pain (2) Atrial fibrillation with rapid ventricular response (3) GI bleed (4) CHF (congestive heart failure) Goals to Promote Your Health * To prevent worsening of your condition and complications * To maintain your health at the optimal level Directions to Meet Your Goals Take your medications as prescribed Follow your dietary instruction Follow activity as directed Keep your appointments as scheduled Take your immunizations and boosters as scheduled If your symptoms worsen call your PCP, if no PCP go to Urgent Care Center or Emergency Room Smoking is Dangerous to Your Health. Avoid second hand smoke Call the 24-hour hour crisis hotline for domestic abuse at Serenity Collins MD R2 Dec 06, 2016 09:57
--- NOTE | 2016-12-06 10:04 | HHI.FPPN ---
Subjective Remarks No acute events overnight. VS unremarkable. This morning patient remains asymptomatic without complaints. No change in his mental status, remains at baseline. (Serenity Collins MD R2) Objective Vitals Vital Signs Date Time Temp Pulse Resp B/P Pulse Ox O2 Delivery O2 Flow Rate FiO2 12/06/16 08:00 98.3 75 18 141/85 93 12/06/16 04:00 97.5 65 18 130/62 94 12/06/16 00:00 97.9 62 18 145/65 93 12/05/16 23:00 73 12/05/16 22:00 Room Air 12/05/16 20:45 98.6 67 20 129/60 95 12/05/16 20:00 98.6 68 20 119/57 98 12/05/16 18:20 68 18 137/63 98 Room Air 12/05/16 18:08 78 18 136/63 98 Room Air 12/05/16 14:51 98 21 12/05/16 13:21 128/61 132/63 12/05/16 13:21 100 Nasal Cannula 2 12/05/16 13:21 18 100 Nasal Cannula 2 12/05/16 12:50 67 18 100 Nasal Cannula 2 12/05/16 12:27 97.9 68 20 128/61 100 I/O 12/05/16 12/05/16 12/05/16 12/06/16 12/06/16 12/06/16 07:00 15:00 23:00 07:00 15:00 23:00 Intake Total 120 ml 50 ml Balance 120 ml 50 ml Intake Oral 120 ml 50 ml # Voids 2 2 # Bowel Movements 0 0 (Serenity Collins MD R2) Result Diagram: 12/06/16 0554 12/06/16 0554 Objective Remarks GENERAL: This is a well-nourished, well-developed patient, in no apparent distress. Resting comfortably in bed but very pleasant. CARDIOVASCULAR: Regular rate and rhythm without murmurs, gallops, or rubs. RESPIRATORY: Clear to auscultation. Breath sounds equal bilaterally. No wheezes , rales, or rhonchi. MUSCULOSKELETAL: Extremities without clubbing, cyanosis, or edema. No calf tenderness. NEUROLOGICAL: Awake and alert. Responsive and answers questions but is only oriented to self. Motor and sensory grossly within normal limits. Normal speech. (Serenity Collins MD R2) A/P Assessment and Plan Patient is an 81-year-old male with a PMH significant for dementia and extensive CAD. Admitted for chest pain and possible GI bleed. Discharge Planning Today as cleared by cardiology sdw Dr. Samayoa, Dr. Grubbs, Dr. Antunez, and Dr. Mathis (Serenity Collins MD R2) Attending Attestation Patient seen and examined. Case reviewed and discussed with the resident team. Agree with plan of care as discussed with me and documented in the resident note. (Karla Grubbs MD) Problem List: (1) Chest pain Status: Resolved Plan: Extensive cardiac history including A. fib, CHF, CAD. Acute chest pain that started as outpatient but has since resolved with no recurrence. Patient has been stable otherwise in the hospital. -ACS negative -BNP elevated at 270 bu pt is otherwise asymptomatic. -Chest x-ray normal Cardiology consulted: Appreciate recommendations * Discontinue digoxin * Add Imdur and continue with beta blockers * Okay to be discharged today with follow-up in 2 weeks if patient remains stable Medications: * Atenolol 50 mg BID * Atorvastatin 20mg HS * Imdur 30 mg daily * Amlodipine 2.5 mg daily (2) GI bleed Status: Chronic Plan: Patient was admitted on 11/27 for GI bleed. EGD and colonoscopy was performed found duodenitis, gastritis, esophagitis, diverticulosis. Recommended outpatient capsule endoscopy. Patient's H&H is actually stable from the last admission. Hemoccult negative. -Good response to transfusion, H&H currently 8.7/25.4 -Home Xarelto, resume at home -Goal to keep hemoglobin above 8 due to cardiac history -GI follow up as outpatient (3) Dementia Status: Acute Plan: Mental status limits obtaining history from patient. Currently holding home dementia medications. (4) Nutrition, metabolism, and development symptoms Status: Acute Plan: Diet: Heart healthy Fluids: None Electrolytes: Unremarkable, continue to monitor DVT prophylaxis: SCDs, patient already on anticoagulation (Xarelto) GI prophylaxis: Protonix (Serenity Collins MD R2) Problem Qualifiers (1) Chest pain: Qualified Code: R07.9 - Chest pain, unspecified type Serenity Collins MD R2 Dec 06, 2016 10:04 Karla Grubbs MD Dec 06, 2016 13:21
[2016-12-06 12:00] VITALS: BP 113/55; PULSE 66; RESP 20; TEMP 98.7; O2SAT 93
[2016-12-06] MEDS ORDERED: DIGOXIN 0.25 MG TAB PO SCH (16:00)
--- NOTE | 2016-12-06 16:38 | EKG ---
Date Performed: 12/05/2016 Time Performed: 12:25:30 PTAGE: 81 years EKG: ATRIAL FLUTTER/TACHYCARDIA NONSPECIFIC ST & T-WAVE ABNORMALITY ABNORMAL RHYTHM ECG PREVIOUS TRACING : 11/27/2016 09.33 Compared to previous tracing, the patient appears to be in atrial flutter. DOCTOR: Eneida Wilder Interpretating Date/Time 12/06/2016 16:36:54
--- NOTE | 2016-12-06 16:38 | EKG ---
Date Performed: 12/05/2016 Time Performed: 16:28:24 PTAGE: 81 years EKG: ATRIAL FLUTTER/TACHYCARDIA BORDERLINE LEFT AXIS DEVIATION POSSIBLE LEFT VENTRICULAR HYPERTR OPHY NONSPECIFIC ST & T-WAVE ABNORMALITY ABNORMAL ECG PREVIOUS TRACING : 12/05/2016 12.25 Since previous tracing, no significant change noted DOCTOR: Eneida Wilder Interpretating Date/Time 12/06/2016 16:37:56
--- NOTE | 2016-12-06 16:40 | EKG ---
Date Performed: 12/05/2016 Time Performed: 22:37:32 PTAGE: 81 years EKG: ATRIAL FLUTTER BORDERLINE LEFT AXIS DEVIATION NONSPECIFIC ST & T-WAVE ABNORMALITY ABNORMAL RHYTHM ECG PREVIOUS TRACING : 12/05/2016 16.28 Since previous tracing, no significant change noted DOCTOR: Eneida Wilder Interpretating Date/Time 12/06/2016 16:40:01
== END 2016-12-06 13:11 | disposition home or self-care (01) | DRG 313 ==
LOC: NEPE 12:10 → NEDA 13:58 → N04A 19:19
PROVIDERS: ADMIT Family Medicine; ATTEND Family Medicine
PROC: 30233N1 Transfusion of Nonautologous Red Blood Cells into Peripheral Vein, Percutaneous Approach (ICD-10-PCS; principal; 2016-12-05)
DX: R07.9 Chest pain, unspecified (principal); I25.10 Atherosclerotic heart disease of native coronary artery without angina pectoris; I38 Endocarditis, valve unspecified; F03.90 Unspecified dementia, unspecified severity, without behavioral disturbance, psychotic disturbance, mood disturbance, and anxiety; I50.42 Chronic combined systolic (congestive) and diastolic (congestive) heart failure; I48.1 Persistent atrial fibrillation; D64.9 Anemia, unspecified; Z95.5 Presence of coronary angioplasty implant and graft; E78.5 Hyperlipidemia, unspecified; I10 Essential (primary) hypertension; Z79.02 Long term (current) use of antithrombotics/antiplatelets; Z79.82 Long term (current) use of aspirin; E89.0 Postprocedural hypothyroidism; N40.0 Benign prostatic hyperplasia without lower urinary tract symptoms
CPT/HCPCS: 36430; 71010; 80048; 82550; 83735; 83880; 84443; 84484; 85014; 85018; 85025; 85610; 85730; 86850; 86900; 86901; 86920; 93005; J7050; P9016

== ENCOUNTER 2017-02-22 18:21 | Inpatient (IN) | payer MEDICARE, BC ==
[~2017-02-22] VITALS: Ht 182.9 cm; Wt 90.0 kg
[2017-02-22] VITALS (9 sets, daily range): BP systolic 150–189; BP diastolic 70–84; PULSE 65–70; RESP 17–22; TEMP 95–98.5; O2SAT 94–100
[~2017-02-22 18:21] MED LIST changes: -DIGO0.25 PO; +ISOS30TA3 PO
[2017-02-22] MEDS ORDERED: SODIUM CHLOR 0.9% 1000 ML INJ 1,000 ML IV ONE (18:30)
[2017-02-22 18:41] LABS: AUTOMATED NEUTROPHIL # 9.6 TH/MM3 (1.8-7.7); BASOPHIL % 0.3 % (0.0-2.0); EOSINOPHIL # 0.1 TH/MM3 (0-0.4); EOSINOPHIL % 0.8 % (0.0-4.0); HEMATOCRIT 35.5 % (39.0-51.0); LYMPH % 9.8 % (9.0-44.0); LYMPHOCYTE # 1.2 TH/MM3 (1.0-4.8); MEAN CELL VOLUME 70.7 FL (80.0-100.0); MEAN CORPUSCULAR HEMOGLOBIN 21.6 PG (27.0-34.0); MEAN CORPUSCULAR HGB CONC 30.5 % (32.0-36.0); NEUT % 79.1 % (16.0-70.0); PLATELET COUNT 227 TH/MM3 (150-450); RED BLOOD COUNT 5.02 MIL/MM3 (4.50-5.90); RED CELL DISTRIBUTION WIDTH 19.6 % (11.6-17.2); WHITE BLOOD COUNT 12.1 TH/MM3 (4.0-11.0)
[2017-02-22 18:45] LABS: HEMO FLAGS AUTO DIFF
--- NOTE | 2017-02-22 18:46 | RADRPT ---
EXAM DATE/TIME: 02/22/2017 18:34 [facility] COMPARISON: No previous studies available for comparison. INDICATIONS : Stroke alert. Chest pain and right facial weakness. RADIATION DOSE: 49.93 CTDIvol (mGy) MEDICAL HISTORY : Non-responsive. SURGICAL HISTORY : Non-responsive. ENCOUNTER: Initial ACUITY: 1 day PAIN SCALE: 0/10 LOCATION: Cranial TECHNIQUE: Multiple contiguous axial images were obtained of the head. Using automated exposure control and adj ustment of the mA and/or kV according to patient size, radiation dose was kept as low as reasonably a chievable to obtain optimal diagnostic quality images. FINDINGS: Severe diffuse atrophy is noted. Moderate periventricular and subcortical white matter small vessel ischemic changes are noted bilaterally. There is no acute infarct, acute hemorrhage, mass effect or extra-axial fluid collections. The bone windows are unremarkable. CONCLUSION: 1. No acute infarct, acute hemorrhage, mass effect or extra-axial fluid collections. 2. Severe diffuse atrophy. 3. Moderate periventricular and subcortical white matter small vessel ischemic changes bilaterally. 4. The findings were called to Dr. Reddy at 6:40 pm on 02/22/2017. Sherif Talley MD on February 22, 2017 at 18:40 Board Certified Radiologist. This report was verified electronically.
[2017-02-22 18:51] LABS: APTT (PATIENT) 32.7 SEC (24.3-30.1); INTERNATIONAL NORMALIZED RATIO 1.6 RATIO; PROTHROMBIN TIME - PATIENT 17.7 SEC (9.8-11.6)
[2017-02-22 18:52] LABS: I-STAT POTASSIUM 4.5 MMOL/L (3.5-4.9)
--- NOTE | 2017-02-22 19:03 | PD ---
HPI Chief Complaint: Stroke Alert Time Seen by Provider: 18:30 Travel History International Travel<30 days: No Contact w/Intl Traveler<30days: No History of Present Illness HPI 81yo M with PMH of dementia, CAD, CHF, afib on xarelto presents to the ED as stroke alert. Pt was having dinner and complained of chest pain. Then he was given a sublingual nitro. He was then found to be aphasic and leaned towards the right side with right sided weakness. Pt has dementia but normally talks but suddenly stopped talking. Pt has weakness in right arm. PFSH Past Medical History Hx Anticoagulant Therapy: Yes (xarelto) Arthritis: Yes Atrial Fibrillation: Yes Blood Disorders: No Anxiety: No Depression: No Heart Rhythm Problems: Yes (A FIB) Cancer: No Cardiac Catheterization: Yes (5 STENTS SINCE 1998) Cardiovascular Problems: Yes High Cholesterol: Yes Congestive Heart Failure: Yes Coronary Artery Disease: Yes Dementia: Yes Diabetes: No Endocrine: Yes Genitourinary: Yes Hypertension: Yes Immune Disorder: No Implanted Vascular Access Dvce: Yes Musculoskeletal: Yes Neurologic: No Psychiatric: Yes (DEMENTIA) Reproductive: No Respiratory: No Immunizations Current: No Thyroid Disease: Yes PNEUMOCCOCAL Vaccine (Year): 1 Past Surgical History Body Medical Devices: CORONARY STENTS Cardiac Surgery: Yes (CARDIAC CATH WITH STENTS PLACED) Coronary Stent: Yes Endocrine Surgery: Yes (THYROIDECTOMY) Other Surgery: Yes (3/4 THYROID REMOVED- BENIGN) Social History Alcohol Use: No Tobacco Use: No Substance Use: No Allergies-Medications (Allergen,Severity, Reaction): Coded Allergies: No Known Allergies (Verified , 12/05/16) Reported Meds & Prescriptions Reported Meds & Active Scripts Active Isosorbide Mononitrate ER (Isosorbide Mononitrate) 30 Mg Zaria 30 Mg PO DAILY Reported Aspirin 81 (Aspirin) 81 Mg Tabdr 81 Mg PO DAILY Nitrostat SL (Nitroglycerin) 0.4 Mg Subl 0.4 Mg SL DIRECTED PRN 1 tablet under the tongue as needed for chest pain. Repeat every 5 minutes for a total of 3 DOSES or call 911 if NO relief. Alprazolam 0.5 Mg Tab 0.5 Mg PO DAILY PRN Klor-Con M20 (Potassium Chloride Microencaps) 20 Meq Tab 10 Meq PO EVERY OTHER DAY Donepezil 10 Mg Tab 10 Mg PO HS Memantine 10 Mg Tab 10 Mg PO BID Furosemide 40 Mg Tab 20 Mg PO EVERY OTHER DAY Atorvastatin (Atorvastatin Calcium) 20 Mg Tab 20 Mg PO HS Amlodipine (Amlodipine Besylate) 2.5 Mg Tab 2.5 Mg PO DAILY Atenolol 50 Mg Tab 50 Mg PO BID Levothyroxine (Levothyroxine Sodium) 200 Mcg Tab 200 Mcg PO DAILY Xarelto (Rivaroxaban) 20 Mg Tab 20 Mg PO DAILY Review of Systems Except as stated in HPI: all other systems reviewed are Neg Physical Exam Narrative GENERAL: 81yo M in distress. SKIN: Focused skin assessment warm/dry. HEAD: Atraumatic. Normocephalic. EYES: Pupils equal and round. No scleral icterus. No injection or drainage. ENT: No nasal bleeding or discharge. Mucous membranes pink and moist. NECK: Trachea midline. No JVD. CARDIOVASCULAR: Regular rate and rhythm. No murmur appreciated. RESPIRATORY: No accessory muscle use. Expiratory wheezing bilaterally. Breath sounds equal bilaterally. GASTROINTESTINAL: Abdomen soft, non-tender, nondistended. Hepatic and splenic margins not palpable. MUSCULOSKELETAL: No obvious deformities. No clubbing. No cyanosis. No edema. NEUROLOGICAL: +Aphasia. Right upper extremity weakness 1/5. RLE: 3/. Data Data Last Documented VS Vital Signs Date Time Temp Pulse Resp B/P Pulse Ox O2 Delivery O2 Flow Rate FiO2 02/22/17 19:30 66 18 153/70 99 Nasal Cannula 2 02/22/17 18:32 97.8 Orders Diet Npo (02/22/17 Dinner) I-Stat Creatinine (02/22/17 18:30) I-Stat Profile (02/22/17 18:30) Prothrombin Time / Inr (Pt) (02/22/17 18:30) Act Partial Throm Time (Ptt) (02/22/17 18:30) Complete Blood Count With Diff (02/22/17 18:30) Fibrinogen (02/22/17 18:30) Creatine Kinase (Cpk) (02/22/17 18:30) Troponin I (02/22/17 18:30) Ua Includes Microscopic (02/22/17 18:30) Type And Screen (02/22/17 18:30) Ct Brain W/O Iv Contrast(Rout) (02/22/17 ) Chest, Single Ap (02/22/17 ) Cta Brain W Iv Contrast W 3d (02/22/17 18:30) Cta Neck W Iv Contrast W 3d (02/22/17 18:30) Consult Neurology (02/22/17 ) Blood Glucose (02/22/17 18:30) Ecg Monitoring (02/22/17 18:30) Neuro Checks Q2HX12,Q4H (02/22/17 18:30) Nursing Bedside Swallow Assess .ONCE (02/22/17 18:30) Iv Access Insert/Monitor (02/22/17 18:30) NPO (02/22/17 18:30) Oximetry (02/22/17 18:30) Oxygen Administration (02/22/17 18:30) Sodium Chlor 0.9% 1000 Ml Inj (Ns 1000 M (02/22/17 18:30) Resp Oxygen Jose C Titrat 1-4 L (02/22/17 18:30) Cath For Specimen (02/22/17 18:30) (Hub Use Only)Inp Phy Cons/Ref (02/22/17 ) Iohexol 350 Inj (Omnipaque 350 Inj) (02/22/17 19:15) Admit Order (Ed Use Only) (02/22/17 20:21) Labs Laboratory Tests Test 02/22/17 18:25 White Blood Count 12.1 TH/MM3 Red Blood Count 5.02 MIL/MM3 Hemoglobin 10.8 GM/DL Bedside Hemoglobin 12.9 G/DL Hematocrit 35.5 % Bedside Hematocrit 38.0 % Mean Corpuscular Volume 70.7 FL Mean Corpuscular Hemoglobin 21.6 PG Mean Corpuscular Hemoglobin 30.5 % Concent Red Cell Distribution Width 19.6 % Platelet Count 227 TH/MM3 Mean Platelet Volume 8.5 FL Neutrophils (%) (Auto) 79.1 % Lymphocytes (%) (Auto) 9.8 % Monocytes (%) (Auto) 10.0 % Eosinophils (%) (Auto) 0.8 % Basophils (%) (Auto) 0.3 % Neutrophils # (Auto) 9.6 TH/MM3 Lymphocytes # (Auto) 1.2 TH/MM3 Monocytes # (Auto) 1.2 TH/MM3 Eosinophils # (Auto) 0.1 TH/MM3 Basophils # (Auto) 0.0 TH/MM3 CBC Comment AUTO DIFF Differential Comment AUTO DIFF CONFIRMED Platelet Estimate NORMAL Platelet Morphology Comment NORMAL Ovalocytes 2+ Prothrombin Time 17.7 SEC Prothromb Time International 1.6 RATIO Ratio Activated Partial 32.7 SEC Thromboplast Time Fibrinogen 351 mg/dL Bedside Sodium 138 MMOL/L Bedside Potassium 4.5 MMOL/L Bedside Chloride 105 MMOL/L Bedside Blood Urea Nitrogen 18 MG/DL Bedside Creatinine 1.1 MG/DL Bedside Glucose 197 MG/DL Total Creatine Kinase 115 U/L Troponin I 0.05 NG/ML Blood Type O POSITIVE Antibody Screen NEGATIVE MDM Medical Decision Making Medical Screen Exam Complete: Yes Emergency Medical Condition: Yes Interpretation(s) EKG: NSR 72bpm. Normal axis. ST mildly elevated at V2, V3. Differential Diagnosis CVA vs. ICH Narrative Course 81yo M brought in as stroke alert with right sided weakness and aphasia. Pt is on xarelto for afib. Labs reviewed, mild leukocytosis. Troponin negative. CTA head and neck was ordered after I reviewed the CT joann in CT scan and it was negative for acute bleed. This was confirmed with radiology. CTA head showed focal occlusion of left middle cerebral artery approximately 8mm from its origin. CTA neck showed no significant stenosis or occlusion. CXR showed patchy perihilar infiltrates consistent with moderate pulmonary edema vs. pneumonia. Pt has CHF and likely has pulmonary edema from that. Discussed case with neurologist Dr. Conroy and pt is not a TPA candidate because he is on xarelto. Discussed with Dr. Del Cid and he is not a candidate for intervention because of the high risk of bleeding from anticoagulation. I discussed this with pt's and son at length and answered all questions. Confirmed that pt is on xarelto and last took it today. I discussed with Dr. Lockett and accepted to her service. Critical Care Narrative Aggregate critical care time was 45 minutes. Time to perform other separately billable procedures was not included in the critical care time. My time did not include minutes spent treating any other patients simultaneously or on activities that did not directly contribute to the patient's treatment. The services I provided to this patient were to treat and/or prevent clinically significant deterioration that could result in: cardiovascular collapse or . I provided critical care services requiring my management, as noted below: Chart data review, documentation time, medication orders and management, vital sign assessments/reviewing monitor data, ordering and reviewing lab tests, ordering and interpreting/reviewing x-rays and diagnostic studies, care of the patient and discussion of the patient with the admitting physicians. Diagnosis Primary Impression: CVA (cerebral vascular accident) Qualified Code: I63.412 - Cerebrovascular accident (CVA) due to embolism of left middle cerebral artery Admitting Information Admitting Physician Requests: Irma Harding DO February 22, 2017 19:03
[2017-02-22 19:05] LABS: OVALOCYTES 2+ (NORMAL)
[2017-02-22 19:06] LABS: PLATELET ESTIMATE SMEAR NORMAL (NORMAL); PLATELET MORPHOLOGY NORMAL (NORMAL); SCAN/DIFF AUTO DIFF CONFIRMED
[2017-02-22] MEDS ORDERED: IOHEXOL 350 MG/ML 10 ML VIAL (for RAD DIAG) IV ONE (19:15)
--- NOTE | 2017-02-22 19:38 | RADRPT ---
EXAM DATE/TIME: 02/22/2017 18:58 [facility] COMPARISON: No previous studies available for comparison. INDICATIONS : Stroke Alert. Right sided weakness. IV CONTRAST: 80 cc Omnipaque 350 (iohexol) IV ; Cumulative dose for multiple exams. RADIATION DOSE: 28.68 CTDIvol (mGy) ; Combined studies MEDICAL HISTORY : Non-responsive. SURGICAL HISTORY : Non-responsive. ENCOUNTER: Initial ACUITY: 1 day PAIN SCALE: Non-responsive LOCATION: carotids Elevated flow velocities and ICA/CCA ratios have been found to correlate with increased degrees of vessel stenosis, calculated as percentage of diameter relative to a normal segment of distal ICA/CCA. TECHNIQUE: Volumetric scanning was performed using a multirow detector CT scanner. The data was post processed with a variety of visualization algorithms including full-volume maximum intensity projection, multip lanar sliding thin-slab reformation, curved-planar reformation, and surface-rendering techniques. Us ing automated exposure control and adjustment of the mA and/or kV according to patient size, radiatio n dose was kept as low as reasonably achievable to obtain optimal diagnostic quality images. FINDINGS: AORTIC ARCH: There is an apparent bovine arch. No evidence of ostial narrowing. RIGHT CAROTID: The common carotid artery is intact. The carotid bulb has a normal configuration without ulceration o r narrowing. The internal carotid artery lumen is smooth without stenosis. The external carotid carl ry is intact. LEFT CAROTID: The common carotid artery is intact. The carotid bulb has a normal configuration without ulceration or narrowing. The internal carotid artery lumen is smooth without stenosis. The external carotid ar socorro is intact. VERTEBRALS: The vertebral arteries have a symmetric diameter. No stenotic lesions are seen. CONCLUSION: No significant stenosis or occlusion or aneurysm. Sherif Talley MD on February 22, 2017 at 19:33 Board Certified Radiologist. This report was verified electronically.
--- NOTE | 2017-02-22 19:40 | RADRPT ---
EXAM DATE/TIME: 02/22/2017 18:58 [facility] COMPARISON: CT BRAIN W/O CONTRAST, February 22, 2017, 18:34. INDICATIONS : Stroke Alert. Right-sided weakness. IV CONTRAST: 80 cc Omnipaque 350 (iohexol) IV ; Cumulative dose for multiple exams. RADIATION DOSE: 28.68 CTDIvol (mGy) ; Combined studies MEDICAL HISTORY : Non-responsive. SURGICAL HISTORY : Non-responsive. ENCOUNTER: Initial ACUITY: 1 day PAIN SCALE: Non-responsive LOCATION: Cranial TECHNIQUE: Volumetric scanning was performed using a multi-row detector CT scanner. The data was post processed with a variety of visualization algorithms including full volume maximum intensity projection, multi -planar sliding thin slab reformation, curved planar reformation, and surface rendering techniques. Using automated exposure control and adjustment of the mA and/or kV according to patient size, radiat ion dose was kept as low as reasonably achievable to obtain optimal diagnostic quality images. FINDINGS: There is focal occlusion of the left proximal middle cerebral artery which may be related to focal th rombus. The occlusion occurs approximately 8 mm from the origin of the left middle cerebral artery. There is some filling of the distal branches of the left middle cerebral artery. The right middle c erebral artery is patent. The anterior cerebral arteries are also patent. The basilar artery is patent without significant stenosis or occlusion. Moderate segmental stenoses are noted involving the proximal portions of the posterior cerebral arteries bilaterally. The distal branches of the posterior cerebral arteries are patent. CONCLUSION: 1. Focal occlusion of the left middle cerebral artery approximately 8 mm from its origin. 2. Focal moderate segmental stenoses involving the proximal portions of the posterior cerebral arter ies bilaterally. 3. The findings were called to Dr. Reddy at 1925 hours on 02/22/2017. Sherif Talley MD on February 22, 2017 at 19:21 Board Certified Radiologist. This report was verified electronically.
--- NOTE | 2017-02-22 19:53 | RADRPT ---
EXAM DATE/TIME: 02/22/2017 19:14 [facility] COMPARISON: CHEST SINGLE AP, December 05, 2016, 13:07. INDICATIONS : Stroke alert. Weakness. MEDICAL HISTORY : None. SURGICAL HISTORY : None. ENCOUNTER: Initial ACUITY: 1 day PAIN SCORE: Non-responsive. LOCATION: Bilateral chest FINDINGS: Perihilar infiltrates are noted consistent with moderate pulmonary edema versus pneumonia. Clinical correlation is recommended. The heart is prominent in size. Degenerative changes and scoliosis of t he thoracic spine are noted. Degenerative changes are also noted involving the shoulders bilaterally . CONCLUSION: 1. Patchy perihilar infiltrates consistent with moderate pulmonary edema versus pneumonia. Clinical correlation is recommended. 2. Degenerative changes and scoliosis of the thoracic spine. 3. Degenerative changes involving the shoulders bilaterally. Sherif Talley MD on February 22, 2017 at 19:48 Board Certified Radiologist. This report was verified electronically.
--- NOTE | 2017-02-22 20:31 | HHI.HP ---
[facility] Unknown Admission Diagnosis CVA Diagnoses: (1) CVA (cerebral vascular accident) Diagnosis: Principal (2) A-fib Diagnosis: Principal (3) Chronic anticoagulation Diagnosis: Principal (4) Leukocytosis Diagnosis: Principal (5) HTN (hypertension) Diagnosis: Principal (6) CHF (congestive heart failure) Diagnosis: Principal (7) Dementia Diagnosis: Principal Travel History International Travel<30 Days: No Contact w/Intl Traveler <30 Da: No History of Present Illness This is an 81-year-old male with a PMH of HTN, Dementia, CAD, CHF (Echo w/ EF 55-60%), Hyperlipidemia and A. fib on Xarelto who was brought to the ER by EMS as a Stroke Alert. Per report, patient had acute onset of chest pain while having dinner, had brief episode of unresponsiveness and upon arousal was found to have global aphasia, facial droop and right-sided hemiparesis. On arrival, BP 150/70, HR 68, O2 sat 98% on RA, Afebrile. WBC 12.1. Chemistry essentially unremarkable. Troponin 0.05. INR 1.6. UA negative for UTI. CT Head with no acute infarct, acute hemorrhage or mass effect. CXR with no acute findings. CTA Neck negative. CTA Head with focal occlusion of left middle cerebral artery and focal moderate segmental stenosis of proximal portions of posterior cerebral arteries bilaterally. Dr. Conroy consulted by ER physician, pt not TPA candidate in light of Xarelto. Dr. Del Cid also consulted, however pt not candidate for intervention in light of anticoagulation w/ high risk of bleed. Pt remains aphasic w/ right-sided hemiparesis. Review of Systems ROS: Unable to obtain secondary to aphasia. Past Family Social History Past Medical History PMH: HTN, Dementia, CAD, CHF (Echo 09/09/11 w/ EF 55-60%), Hyperlipidemia and A. fib on Xarelto Past Surgical History PAST SURGICAL HISTORY: Cardiac Stent, Thyroidectomy Allergies: Coded Allergies: No Known Allergies (Verified , 12/05/16) Family History PAST FAMILY HISTORY: Reviewed. No h/o DM or CAD Social History PAST SOCIAL HISTORY: Negative for alcohol, tobacco or drugs. Physical Exam Vital Signs Vital Signs Date Time Temp Pulse Resp B/P Pulse Ox O2 Delivery O2 Flow Rate FiO2 02/22/17 19:30 66 18 153/70 99 Nasal Cannula 2 02/22/17 19:14 70 20 155/70 98 Nasal Cannula 2 02/22/17 18:36 97 Nasal Cannula 5 02/22/17 18:34 98 02/22/17 18:32 97.8 68 18 150/70 98 02/22/17 18:20 98 2.00 02/22/17 18:20 100 Nasal Cannula 2.00 Physical Exam PE: GENERAL: Elderly white male in no acute distress. Aphasia HEENT: PERRLA, EOMI. No scleral icterus or conjunctival pallor. No lid lag or facial droop. CARDIOVASCULAR: Regular rate and rhythm. No obvious murmurs to auscultation. No chest tenderness to palpation. RESPIRATORY: No obvious rhonchi or wheezing. Clear to auscultation. Breath sounds equal bilaterally. GASTROINTESTINAL: Abdomen soft, non-tender, nondistended. BS normal. MUSCULOSKELETAL: Extremities without clubbing, cyanosis, or edema. No obvious deformities. NEUROLOGICAL: Awake, aphasia. Right-sided hemiparesis. Laboratory Laboratory Tests Test 02/22/17 18:25 White Blood Count 12.1 Red Blood Count 5.02 Hemoglobin 10.8 Bedside Hemoglobin 12.9 Hematocrit 35.5 Bedside Hematocrit 38.0 Mean Corpuscular Volume 70.7 Mean Corpuscular Hemoglobin 21.6 Mean Corpuscular Hemoglobin 30.5 Concent Red Cell Distribution Width 19.6 Platelet Count 227 Mean Platelet Volume 8.5 Neutrophils (%) (Auto) 79.1 Lymphocytes (%) (Auto) 9.8 Monocytes (%) (Auto) 10.0 Eosinophils (%) (Auto) 0.8 Basophils (%) (Auto) 0.3 Neutrophils # (Auto) 9.6 Lymphocytes # (Auto) 1.2 Monocytes # (Auto) 1.2 Eosinophils # (Auto) 0.1 Basophils # (Auto) 0.0 CBC Comment AUTO DIFF Differential Comment AUTO DIFF CONFIRMED Platelet Estimate NORMAL Platelet Morphology Comment NORMAL Ovalocytes 2+ Prothrombin Time 17.7 Prothromb Time International 1.6 Ratio Activated Partial 32.7 Thromboplast Time Fibrinogen 351 Bedside Sodium 138 Bedside Potassium 4.5 Bedside Chloride 105 Bedside Blood Urea Nitrogen 18 Bedside Creatinine 1.1 Bedside Glucose 197 Total Creatine Kinase 115 Troponin I 0.05 Blood Type O POSITIVE Antibody Screen NEGATIVE Result Diagram: 02/22/17 4842 Assessment and Plan Problem List: (1) CVA (cerebral vascular accident) ICD Code: I63.9 Status: Acute (2) A-fib ICD Code: I48.91 Status: Acute (3) Chronic anticoagulation ICD Code: Z79.01 Status: Acute (4) Leukocytosis ICD Code: D72.829 Status: Acute (5) HTN (hypertension) ICD Code: I10 Status: Acute (6) CHF (congestive heart failure) ICD Code: I50.9 Status: Acute (7) Dementia ICD Code: F03.90 Status: Acute Assessment and Plan A/P: 1. CVA: acute onset of aphasia, right-sided hemiparesis, CT Head w/ no acute findings, CTA Neck negative, CTA Head w/ focal occlusion of left middle cerebral artery and focal moderate segmental stenosis involving proximal portions of posterior cerebral arteries bilaterally, images reviewed by me. Dr. Conroy consulted by ER physician, not candidate for TPA in light of Xarelto. Dr. Del Cid also consulted, pt not candidate for intervention in light of anticoagulation. PT/OT/ST, NPO, IVF, HOB flat, Permissive HTN, ASA pr. 2. A-fib: Chronic. On anticoagulation w/ Xarelto. INR 1.6. Hold PO medications in light of aphasia. ASA TX 3. HTN: Will allow for permissive HTN in light of acute CVA. PRN for Systolic >220 4. CHF: Echo 09/04/16 w/ EF 55-60%, CXR w/ patchy perihilar infiltrates, pulmonary edema vs pneumonia, images reviewed by me. No evidence of PNA. Monitor for fluid overload. 5. Dementia: Hold PO meds, Ativan prn-however caution w/ acute CVA and need to assess neuro function. 6. DVT Prophylaxis: SCD/Teds. 7. Social work for d/c planning as needed. 8. Case discussed w/ ER physician at length. Physician Certification 2 Midnight Certification Type: Admission for Inpatient Services Order for Inpatient Services The services are ordered in accordance with Medicare regulations or non- Medicare payer requirements, as applicable. In the case of services not specified as inpatient-only, they are appropriately provided as inpatient services in accordance with the 2-midnight benchmark. Estimated LOS (days): 2 days is the estimated time the patient will need to remain in the hospital, assuming treatment plan goals are met and no additional complications. Post-Hospital Plan: Not yet determined Problem Qualifiers (1) CVA (cerebral vascular accident): Qualified Code: I63.412 - Cerebrovascular accident (CVA) due to embolism of left middle cerebral artery Carline Lockett MD February 22, 2017 20:31
[2017-02-22 21:42] LABS: BLOOD, URINE NEG (NEG); GLUCOSE,URINE TRACE mg/dL (NEG); KETONE, URINE NEG (NEG); MUCUS URINE FEW /lpf (OCC); NITRITE,URINE NEG (NEG); PH, URINE 5.5 (5.0-8.5); SQUAMOUS EPITHELIAL CELL URINE <1 /hpf (0-5); URINE COLOR YELLOW (YELLW/STRAW)
[2017-02-22] MEDS ORDERED: SODIUM CHLOR 0.9% 1000 ML INJ 1,000 ML IV SCH (23:20)
[2017-02-22] MEDS ORDERED: SODIUM CHLORIDE 0.9% FLUSH 10 ML FLUSH IV FLUSH PRN (23:30)
[2017-02-22] MEDS ORDERED: DEXTROSE 50% IN WATER 50 ML VIAL(D50) IV PUSH PRN (23:30)
[2017-02-22] MEDS ORDERED: GLUCAGON 1 MG/ML VIAL IM/SQ PRN (23:30)
[2017-02-22] MEDS ORDERED: ENALAPRILAT 1.25 MG/ML VIAL IV PRN (23:30)
[2017-02-23] VITALS (9 sets, daily range): BP systolic 129–163; BP diastolic 59–75; PULSE 60–72; RESP 18–28; TEMP 96.6–99.6; O2SAT 95–99
[2017-02-23] MEDS ORDERED: FUROSEMIDE 20 MG/2 ML VIAL IV PUSH ONE (04:15)
[2017-02-23] MEDS ORDERED: RESP: ALBUTEROL 2.5 MG/IPRATROPIUM 0.5 MG NEB (PRN) NEB (04:15)
[2017-02-23] MEDS ORDERED: ACETAMINOPHEN 650 MG SUPP RECTAL PRN (04:45)
[2017-02-23 06:13] LABS: BLOOD GAS CARBOXYHEMOGLOBIN 1.9 % (0-4); BLOOD GAS HCO3 25 mmol/L (22-26); BLOOD GAS METHEMOGLOBIN 0.8 % (0-2); BLOOD GAS O2 HGB SATURATION 93 % (90-100); BLOOD GAS OXYGEN CONTENT 15.3 Vol % (12.0-20.0); BLOOD GAS PCO2 40 mmHg (38-42); BLOOD GAS PO2 75 mmHg (61-120); BLOOD GAS TOTAL HGB 11.7 G/DL (12.0-16.0); CRITICAL VALUE NO; DRAW SITE LT RADIAL; LITER FLOW 3 L/M; NUMBER OF ARTERIAL PUNCTURES 1; OXYGEN DEVICE NASAL CANNULA; STAT YES; TEMP CORR TO 98.6; ULNAR PULSE PRESENT
[2017-02-23] MEDS: INSULIN ASPART SUPPLEMENTAL SCALE SQ SCH ×4 (07:00→21:00)
[2017-02-23 07:31] LABS: HDL CHOLESTEROL 43.4 MG/DL (40.0-60.0); LDL CHOLESTEROL 90 MG/DL (0-99)
[2017-02-23] MEDS: ASPIRIN 300 MG SUPP RECTAL SCH (07:51)
[2017-02-23] MEDS: SODIUM CHLORIDE 0.9% FLUSH 10 ML FLUSH IV FLUSH SCH ×2 (07:53→21:00)
--- NOTE | 2017-02-23 10:29 | HHI.PR ---
Subjective Remarks This is a pleasant 81 y/o male with Hypertension, Dementia, CAD, CHF (Echo 09/09 w/ EF 55-60%), Hyperlipidemia and A. fib on Xarelto who was brought to the ER by EMS as a Stroke Alert. Per report, patient had acute onset of chest pain while having dinner, had brief episode of unresponsiveness and upon arousal was found to have global aphasia, facial droop and right-sided hemiparesis. CT Head with no acute infarct, acute hemorrhage or mass effect. CXR with no acute findings. CTA Neck negative. CTA Head with focal occlusion of left middle cerebral artery and focal moderate segmental stenosis of proximal portions of posterior cerebral arteries bilaterally. Dr. Conroy consulted by ER physician, pt not TPA candidate in light of Xarelto. Dr. Del Cid also consulted, however pt not candidate for intervention in light of anticoagulation w/ high risk of bleed. Pt remains aphasic w/ right-sided hemiparesis. Consulted Neurology and Rehab medicine. Stable in his bedroom not following commands but stable no nausea, vomit or diarrhea, failed swallow test. Objective Vital Signs Date Time Temp Pulse Resp B/P Pulse Ox O2 Delivery O2 Flow Rate FiO2 02/23/17 08:08 99.3 71 20 163/73 95 02/23/17 08:00 72 02/23/17 04:29 95 Nasal Cannula 3.00 02/23/17 04:00 99.6 67 28 160/75 95 02/23/17 03:42 98 Nasal Cannula 3.00 02/22/17 23:05 98.5 65 22 176/79 94 02/22/17 22:41 67 18 189/84 97 Nasal Cannula 2 02/22/17 21:00 67 17 173/77 95 Nasal Cannula 2 02/22/17 19:30 66 18 153/70 99 Nasal Cannula 2 02/22/17 19:14 70 20 155/70 98 Nasal Cannula 2 02/22/17 18:36 97 Nasal Cannula 5 02/22/17 18:34 98 02/22/17 18:32 97.8 68 18 150/70 98 02/22/17 18:20 98 2.00 02/22/17 18:20 100 Nasal Cannula 2.00 I/O 02/22/17 02/22/17 02/22/17 02/23/17 02/23/17 02/23/17 07:00 15:00 23:00 07:00 15:00 23:00 Output Total 600 ml Balance -600 ml Output Urine Total 600 ml # Voids 1 # Bowel Movements 0 Result Diagram: 02/22/17 1825 Imaging Last Impressions Neck CTA 02/22/171829 Signed Impressions: Service Date/Time: Wednesday, February 22, 2017 18:58 - CONCLUSION: No significant stenosis or occlusion or aneurysm. Sherif Talley MD Head CTA 02/22/171829 Signed Impressions: Service Date/Time: Wednesday, February 22, 2017 18:58 - CONCLUSION: 1. Focal occlusion of the left middle cerebral artery approximately 8 mm from its origin. 2. Focal moderate segmental stenoses involving the proximal portions of the posterior cerebral arteries bilaterally. 3. The findings were called to Dr. Reddy at 1925 hours on 02/22/2017. Sherif Talley MD Head CT 02/22/17 0000 Signed Impressions: Service Date/Time: Wednesday, February 22, 2017 18:34 - CONCLUSION: 1. No acute infarct, acute hemorrhage, mass effect or extra-axial fluid collections. 2. Severe diffuse atrophy. 3. Moderate periventricular and subcortical white matter small vessel ischemic changes bilaterally. 4. The findings were called to Dr. Reddy at 6:40 pm on 02/22/2017. Sherif Talley MD Chest X-Ray 02/22/17 0000 Signed Impressions: Service Date/Time: Wednesday, February 22, 2017 19:14 - CONCLUSION: 1. Patchy perihilar infiltrates consistent with moderate pulmonary edema versus pneumonia. Clinical correlation is recommended. 2. Degenerative changes and scoliosis of the thoracic spine. 3. Degenerative changes involving the shoulders bilaterally. Sherif Talley MD Procedures No procedures performed. Other Results Laboratory Tests Test 02/22/17 02/22/17 02/23/17 02/23/17 18:25 21:30 05:50 06:10 White Blood Count 12.1 TH/MM3 Red Blood Count 5.02 MIL/MM3 Hemoglobin 10.8 GM/DL Bedside Hemoglobin 12.9 G/DL Hematocrit 35.5 % Bedside Hematocrit 38.0 % Mean Corpuscular Volume 70.7 FL Mean Corpuscular Hemoglobin 21.6 PG Mean Corpuscular Hemoglobin 30.5 % Concent Red Cell Distribution Width 19.6 % Platelet Count 227 TH/MM3 Mean Platelet Volume 8.5 FL Neutrophils (%) (Auto) 79.1 % Lymphocytes (%) (Auto) 9.8 % Monocytes (%) (Auto) 10.0 % Eosinophils (%) (Auto) 0.8 % Basophils (%) (Auto) 0.3 % Neutrophils # (Auto) 9.6 TH/MM3 Lymphocytes # (Auto) 1.2 TH/MM3 Monocytes # (Auto) 1.2 TH/MM3 Eosinophils # (Auto) 0.1 TH/MM3 Basophils # (Auto) 0.0 TH/MM3 CBC Comment AUTO DIFF Differential Comment AUTO DIFF CONFIRMED Platelet Estimate NORMAL Platelet Morphology Comment NORMAL Ovalocytes 2+ Prothrombin Time 17.7 SEC Prothromb Time International 1.6 RATIO Ratio Activated Partial 32.7 SEC Thromboplast Time Fibrinogen 351 mg/dL Bedside Sodium 138 MMOL/L Bedside Potassium 4.5 MMOL/L Bedside Chloride 105 MMOL/L Bedside Blood Urea Nitrogen 18 MG/DL Bedside Creatinine 1.1 MG/DL Bedside Glucose 197 MG/DL Total Creatine Kinase 115 U/L Troponin I 0.05 NG/ML Blood Type O POSITIVE Antibody Screen NEGATIVE Urine Color YELLOW Urine Turbidity CLEAR Urine pH 5.5 Urine Specific [place] 1.050 Urine Protein 30 mg/dL Urine Glucose (UA) TRACE mg/dL Urine Ketones NEG mg/dL Urine Occult Blood NEG Urine Nitrite NEG Urine Bilirubin NEG Urine Urobilinogen LESS THAN 2.0 MG/DL Urine Leukocyte Esterase NEG Urine RBC 2 /hpf Urine WBC LESS THAN 1 /hpf Urine Squamous Epithelial <1 /hpf Cells Urine Mucus FEW /lpf Microscopic Urinalysis Comment Blood Gas Puncture Site LT RADIAL Blood Gas Patient Temperature 98.6 Blood Gas HCO3 25 mmol/L Blood Gas Base Excess 1.0 mmol/L Blood Gas Oxygen Saturation 93 % Arterial Blood pH 7.41 Arterial Blood Partial 40 mmHg Pressure CO2 Arterial Blood Partial 75 mmHg Pressure O2 Arterial Blood Oxygen Content 15.3 Vol % Arterial Blood 1.9 % Carboxyhemoglobin Arterial Blood Methemoglobin 0.8 % Blood Gas Hemoglobin 11.7 G/DL Oxygen Delivery Device NASAL CANNULA Blood Gas Liter Flow 3 L/M Triglycerides Level 48 MG/DL Cholesterol Level 143 MG/DL LDL Cholesterol 90 MG/DL HDL Cholesterol 43.4 MG/DL Cholesterol/HDL Ratio 3.29 RATIO Objective Remarks GENERAL: No acute distress. Aphasia HEENT: PERRLA, EOMI. No scleral icterus or conjunctival pallor. No lid lag or facial droop. CARDIOVASCULAR: Regular rate and rhythm. No obvious murmurs to auscultation. No chest tenderness to palpation. RESPIRATORY: No obvious rhonchi or wheezing. Clear to auscultation. Breath sounds equal bilaterally. GASTROINTESTINAL: Abdomen soft, non-tender, nondistended. BS normal. MUSCULOSKELETAL: Extremities without clubbing, cyanosis, or edema. No obvious deformities. NEUROLOGICAL: Lethargic but awakes do not follow commands. . Right-sided hemiparesis. Medications and IVs Current Medications Medications (Trade) Dose Ordered Sig/Tori Route Start Time Stop Time Status Last Admin (NS Flush) 2 ml BID IV FLUSH 02/23/17 09:00 02/23/17 07:53 (NS Flush) 2 ml UNSCH PRN IV FLUSH 02/22/17 23:30 02/23/17 04:25 (Vasotec Inj) 1.25 mg Q4H PRN IV 02/22/17 23:30 (Aspirin Supp) 300 mg DAILY RECTAL 02/23/17 09:00 02/23/17 07:51 (D50w (Vial) Inj) 25 ml UNSCH PRN IV PUSH 02/22/17 23:30 (Glucagon Inj) 1 mg UNSCH PRN IM/SQ 02/22/17 23:30 (Tylenol Supp) 650 mg Q6H PRN RECTAL 02/23/17 04:45 A/P Assessment and Plan (1) CVA (cerebral vascular accident) ICD Code: I63.9 Status: Acute (2) A-fib ICD Code: I48.91 Status: Acute (3) Chronic anticoagulation ICD Code: Z79.01 Status: Acute (4) Leukocytosis ICD Code: D72.829 Status: Acute (5) HTN (hypertension) ICD Code: I10 Status: Acute (6) CHF (congestive heart failure) ICD Code: I50.9 Status: Acute (7) Dementia ICD Code: F03.90 Status: Acute 1. CVA: acute onset of aphasia, right-sided hemiparesis, CT Head w/ no acute findings, CTA Neck negative, CTA Head w/ focal occlusion of left middle cerebral artery and focal moderate segmental stenosis involving proximal portions of posterior cerebral arteries bilaterally, images reviewed by me. Dr. Conroy consulted by ER physician, not candidate for TPA in light of Xarelto. Dr. Del Cid also consulted, pt not candidate for intervention in light of anticoagulation. PT/OT/ST, NPO, IVF, HOB flat, Permissive HTN, ASA pr. Left Basal Ganglia infarct and left temporal lobe with petechial Hemorrhage. continue Lethargic but awakes try to engage but do not follow commands. 2. A-fib: Chronic. On anticoagulation w/ Xarelto. INR 1.6. Hold PO medications in light of aphasia. ASA MN 3. HTN: Will allow for permissive HTN in light of acute CVA. PRN for Systolic >220 4. CHF: Echo 09/04/16 w/ EF 55-60%, CXR w/ patchy perihilar infiltrates, No evidence of PNA. 5. Dementia: Hold PO meds, Ativan prn-however caution w/ acute CVA and need to assess neuro function. DVT Prophylaxis: SCD/Teds. Social work for d/c planning as needed. Discussed with Nurse patient with Aphasia. Discharge Planning Once cleared by Neurology and Physical therapy. Fermín Davis MD February 23, 2017 10:29
--- NOTE | 2017-02-23 10:31 | MB ---
cc: LEIGHA BOND M.D. DATE OF CONSULTATION: 02/23/2017 DATE OF : 1935 REASON FOR CONSULTATION Stroke alert. HISTORY OF PRESENT ILLNESS This is a 81-year-old man with history of hypertension, dementia, heart disease, CHF. Last echo was here in 2010 with EF of 55-60%, hyperlipidemia, atrial fibrillation, on Xarelto, brought into the ER as a stroke alert. Also had acute onset of chest pain while having dinner with a brief episode of unresponsiveness and upon arousal was found to be aphasic with a facial droop and right-sided weakness. CT of the head did not show anything acute. Chest x-ray was negative. CTA of the [id number] showed focal occluded left MCA with moderate segmental stenosis proximal portions of the posterior cerebral arteries bilaterally. The patient could not meet IV TPA criteria due to being on anticoagulation. The ER then consulted interventional radiology who also stated that he was not a candidate for intervention due to high risk of bleeding due to being on Xarelto. Currently he still remains aphasic with right-sided weakness. PAST MEDICAL HISTORY As stated. PAST SURGICAL HISTORY Cardiac stent, thyroid surgery. ALLERGIES None reported. FAMILY HISTORY Noncontributory. SOCIAL HISTORY No tobacco, alcohol or drugs. PHYSICAL EXAMINATION VITAL SIGNS: Temperature 99.3, pulse 71, respiratory rate 20, blood pressure 163/73. NECK: Neck is supple. No appreciable bruits. HEART: Currently his heart is regular. He is not in atrial fibrillation. NEURO: He is awake and alert, aphasic, nonverbal, does not understand commands, probably has both components expressive and receptive. He does exhibit a right-sided weakness. With his left hand he did squeeze and let go and he can move his left leg. He has some movement in the right leg, right toe is upgoing but cannot move his right arm. Tone is decreased. Cerebellar, gait cannot be assessed. LABORATORY DATA White count 12.1, hemoglobin 10.8, hematocrit 35.5, platelets 227,000. Coag panel PT 17.7, INR is 1.6, PTT 32.7. Chemistries, glucose 197, hemoglobin A1c is pending. Cholesterol 143, LDL 90, HDL 43.4, triglycerides 48. Urine shows few mucus, trace protein. IMAGING STUDIES Carotids were unremarkable. CT was unremarkable. [id number] shows an occluded left MCA 8 mm from the origin with focal moderate stenosis in both [place]STER bilaterally. IMPRESSION A 81-year-old man with what looks like a left MCA stroke. Unfortunately, he did not meet criteria for IV or interventional radiology procedure. At this point in time continue current stroke orders, get an MRI of the brain to better delineate the ___ of the stroke. We do not need an MRA since we have the CTA. PT, OT, speech therapy consult, rehab. Head of bed flat until this afternoon and then we can raise the head of bed. Permissible hypertension. He is already anticoagulated, I would continue with that and add aspirin rectally. We can repeat an echo. Hold his dementia meds until he has a swallow evaluation and can swallow and will continue current care. MD KYLAH Thorpe/TLL /9:47 AM /10:13 AM
[2017-02-23 10:38] LABS: HEMOGLOBIN A1a 1.4 %; HEMOGLOBIN A1b 1.6 %; HEMOGLOBIN LA1C 2.2 %; HEMOGLOBIN P3 5.3 %
[2017-02-23 11:23] LABS: AST (GOT) 34 U/L (15-37)
--- NOTE | 2017-02-23 11:33 | RADRPT ---
EXAM DATE/TIME: 02/23/2017 11:02 [facility] COMPARISON: CT BRAIN W/O CONTRAST, February 22, 2017, 18:34. INDICATIONS : Aphasia. Right side hemiparesis. Right facial droop. MEDICAL HISTORY : Hypertension. SURGICAL HISTORY : Coronary artery stent. ENCOUNTER: Initial ACUITY: 1 day PAIN SCORE: 0/10 LOCATION: cranial TECHNIQUE: Multiplanar, multisequence MRI of the brain was performed without contrast. FINDINGS: CEREBRUM: Acute infarction in the basal ganglia and left temporal lobe. Cerebral atrophy. The ventricles are pr ominent. Very minimal petechial hemorrhage within the left basal ganglia only seen on gradient echo s equences. No e vidence of midline shift, mass lesion. No extraaxial fluid collections are seen. The pituitary gland and suprasellar cistern are normal in configuration. WHITE MATTER: T2 bright signal abnormalities are seen in the periventricular white matter. POSTERIOR FOSSA: The cerebellum and brainstem are intact. The 4th ventricle is midline. The cerebellopontine angle is unremarkable. The cerebellar tonsils are normal in position. DIFFUSION IMAGING: There is restricted diffusion seen in the left basal ganglia and left temporal lobe. No evidence of acute infarction. EXTRACRANIAL: The visualized portions of the orbits and paranasal sinuses are unremarkable. CONCLUSION: 1. Acute infarction left basal ganglia and left temporal lobe. 2. Minimal petechial hemorrhage in the left basal ganglia. 3. Cerebral atrophy and chronic ischemic small vessel less likely. Maury Feng MD on February 23, 2017 at 11:26 Board Certified Radiologist. This report was verified electronically.
[2017-02-23 11:56] LABS: ALKALINE PHOSPHATASE 86 U/L (45-117); ALT (GPT) 22 U/L (12-78); FREE T4 1.47 NG/DL (0.76-1.46); INDIRECT BILIRUBIN 0.8 MG/DL (0.0-0.8)
--- NOTE | 2017-02-23 15:32 | EKG ---
Date Performed: 02/22/2017 Time Performed: 18:25:54 PTAGE: 81 years EKG: Sinus rhythm NONSPECIFIC ST & T-WAVE ABNORMALITY Nonspecific anterior ST segment elevation. Clinical corrolation is advised. When compared to previous tracing, there has been no significant Serial change. BORDERLIN E ECG PREVIOUS TRACING : 12/05/2016 22.37 DOCTOR: Lina Polk Interpretating Date/Time 02/23/2017 15:32:02
[2017-02-23] MEDS: SODIUM CHLOR 0.9% 1000 ML INJ 1,000 ML IV SCH (18:15)
[2017-02-24] VITALS (10 sets, daily range): BP systolic 126–168; BP diastolic 66–104; PULSE 52–120; RESP 18–24; TEMP 96–100.9; O2SAT 90–100
[2017-02-24] MEDS: INSULIN ASPART SUPPLEMENTAL SCALE SQ SCH ×4 (05:06→21:00)
[2017-02-24 07:02] LABS: AUTOMATED NEUTROPHIL # 9.1 TH/MM3 (1.8-7.7); BASOPHIL % 0.3 % (0.0-2.0); EOSINOPHIL # 0.1 TH/MM3 (0-0.4); EOSINOPHIL % 0.7 % (0.0-4.0); HEMATOCRIT 35.3 % (39.0-51.0); LYMPH % 8.1 % (9.0-44.0); LYMPHOCYTE # 0.9 TH/MM3 (1.0-4.8); MEAN CELL VOLUME 69.9 FL (80.0-100.0); MEAN CORPUSCULAR HGB CONC 31.5 % (32.0-36.0); MONO % 10.5 % (0.0-8.0); NEUT % 80.4 % (16.0-70.0); PLATELET COUNT 196 TH/MM3 (150-450); RED BLOOD COUNT 5.05 MIL/MM3 (4.50-5.90); RED CELL DISTRIBUTION WIDTH 19.8 % (11.6-17.2); WHITE BLOOD COUNT 11.3 TH/MM3 (4.0-11.0)
[2017-02-24 07:04] LABS: HEMO FLAGS AUTO DIFF
[2017-02-24 08:00] LABS: OVALOCYTES 1+ (NORMAL); SCAN/DIFF AUTO DIFF CONFIRMED
[2017-02-24] MEDS: ASPIRIN 300 MG SUPP RECTAL SCH (09:40)
[2017-02-24] MEDS: SODIUM CHLORIDE 0.9% FLUSH 10 ML FLUSH IV FLUSH SCH ×2 (09:42→21:00)
--- NOTE | 2017-02-24 12:02 | HHI.PR ---
Subjective Remarks more alert today tries to follow commands Objective Vital Signs Date Time Temp Pulse Resp B/P Pulse Ox O2 Delivery O2 Flow Rate FiO2 02/24/17 08:00 100.9 70 21 150/66 97 02/24/17 04:00 99.8 76 24 144/104 95 02/24/17 02:00 68 02/24/17 00:00 96.0 52 24 168/74 95 02/23/17 20:00 96.6 68 24 129/59 98 02/23/17 16:31 98.1 64 20 150/65 98 02/23/17 13:00 97.6 60 18 135/63 99 I/O 02/23/17 02/23/17 02/23/17 02/24/17 02/24/17 02/24/17 06:59 14:59 22:59 06:59 14:59 22:59 Intake Total 290 ml 570 ml Output Total 600 ml 500 ml 300 ml Balance -600 ml -210 ml 270 ml Intake IV Total 290 ml 570 ml Output Urine Total 600 ml 500 ml 300 ml # Voids 1 # Bowel Movements 0 0 0 Result Diagram: 02/24/17 0616 02/24/17 0616 Procedures No procedures performed. Other Results awake alert nad perrla aphasic right hemiparesis some gripping right hand w/d foot on right toe up Assessment and Plan Assessment and Plan left mca infarct a fib -needs AC in next few days if stable -pt-ot-st bp control scds lovenox dvt prevention. Anila Conroy MD February 24, 2017 12:02
[2017-02-24] MEDS: SODIUM CHLOR 0.9% 1000 ML INJ 1,000 ML IV SCH (17:06)
--- NOTE | 2017-02-24 18:06 | HHI.PR ---
Subjective Remarks This is a pleasant 81 y/o male with Hypertension, Dementia, CAD, CHF (Echo 09/09 w/ EF 55-60%), Hyperlipidemia and A. fib on Xarelto who was brought to the ER by EMS as a Stroke Alert. Per report, patient had acute onset of chest pain while having dinner, had brief episode of unresponsiveness and upon arousal was found to have global aphasia, facial droop and right-sided hemiparesis. CT Head with no acute infarct, acute hemorrhage or mass effect. CXR with no acute findings. CTA Neck negative. CTA Head with focal occlusion of left middle cerebral artery and focal moderate segmental stenosis of proximal portions of posterior cerebral arteries bilaterally. Dr. Conroy consulted by ER physician, pt not TPA candidate in light of Xarelto. Dr. Del Cid also consulted, however pt not candidate for intervention in light of anticoagulation w/ high risk of bleed. Pt remains aphasic w/ right-sided hemiparesis. Consulted Neurology and Rehab medicine. 02/24: Seen in the room in the presence of nurse Miss Delaney also seen in the room in the presence of Neurology specialist Doctor Marycarmen, he is trying to follow commands, will need anticoagulation in next few days if stable, to continue PT. OT and ST, blood pressure control. SCDs and Lovenox for DVT prophylaxis. Objective Vital Signs Date Time Temp Pulse Resp B/P Pulse Ox O2 Delivery O2 Flow Rate FiO2 02/24/17 16:00 99.6 67 21 159/72 100 02/24/17 13:32 99 Nasal Cannula 2.00 02/24/17 12:00 100.0 71 20 153/67 90 02/24/17 08:00 100.9 70 21 150/66 97 02/24/17 04:00 99.8 76 24 144/104 95 02/24/17 02:00 68 02/24/17 00:00 96.0 52 24 168/74 95 02/23/17 20:00 96.6 68 24 129/59 98 I/O 02/23/17 02/23/17 02/23/17 02/24/17 02/24/17 02/24/17 07:00 15:00 23:00 07:00 15:00 23:00 Intake Total 290 ml 570 ml Output Total 600 ml 500 ml 300 ml 650 ml Balance -600 ml -210 ml 270 ml -650 ml Intake IV Total 290 ml 570 ml Output Urine Total 600 ml 500 ml 300 ml 650 ml # Voids 1 # Bowel Movements 0 0 0 0 Result Diagram: 02/24/1716 02/24/1716 Imaging Last Impressions Brain MRI 02/23/17 0000 Signed Impressions: Service Date/Time: Thursday, February 23, 2017 11:02 - CONCLUSION: 1. Acute infarction left basal ganglia and left temporal lobe. 2. Minimal petechial hemorrhage in the left basal ganglia. 3. Cerebral atrophy and chronic ischemic small vessel less likely. Maury Feng MD Neck CTA 02/22/171829 Signed Impressions: Service Date/Time: Wednesday, February 22, 2017 18:58 - CONCLUSION: No significant stenosis or occlusion or aneurysm. Sherif Talley MD Head CTA 02/22/171829 Signed Impressions: Service Date/Time: Wednesday, February 22, 2017 18:58 - CONCLUSION: 1. Focal occlusion of the left middle cerebral artery approximately 8 mm from its origin. 2. Focal moderate segmental stenoses involving the proximal portions of the posterior cerebral arteries bilaterally. 3. The findings were called to Dr. Reddy at 1925 hours on 02/22/2017. Sherif Talley MD Head CT 02/22/17 0000 Signed Impressions: Service Date/Time: Wednesday, February 22, 2017 18:34 - CONCLUSION: 1. No acute infarct, acute hemorrhage, mass effect or extra-axial fluid collections. 2. Severe diffuse atrophy. 3. Moderate periventricular and subcortical white matter small vessel ischemic changes bilaterally. 4. The findings were called to Dr. Reddy at 6:40 pm on 02/22/2017. Sherif Talley MD Chest X-Ray 02/22/17 0000 Signed Impressions: Service Date/Time: Wednesday, February 22, 2017 19:14 - CONCLUSION: 1. Patchy perihilar infiltrates consistent with moderate pulmonary edema versus pneumonia. Clinical correlation is recommended. 2. Degenerative changes and scoliosis of the thoracic spine. 3. Degenerative changes involving the shoulders bilaterally. Sherif Talley MD Procedures No procedures performed. Other Results Laboratory Tests Test 02/22/17 02/22/17 02/23/17 02/23/17 18:25 21:30 05:50 06:10 Bedside Hemoglobin 12.9 G/DL Bedside Hematocrit 38.0 % Platelet Estimate NORMAL Platelet Morphology Comment NORMAL Prothrombin Time 17.7 SEC Prothromb Time International 1.6 RATIO Ratio Activated Partial 32.7 SEC Thromboplast Time Fibrinogen 351 mg/dL Bedside Sodium 138 MMOL/L Bedside Potassium 4.5 MMOL/L Bedside Chloride 105 MMOL/L Bedside Blood Urea Nitrogen 18 MG/DL Bedside Creatinine 1.1 MG/DL Bedside Glucose 197 MG/DL Total Creatine Kinase 115 U/L Troponin I 0.05 NG/ML Blood Type O POSITIVE Antibody Screen NEGATIVE Urine Color YELLOW Urine Turbidity CLEAR Urine pH 5.5 Urine Specific [place] 1.050 Urine Protein 30 mg/dL Urine Glucose (UA) TRACE mg/dL Urine Ketones NEG mg/dL Urine Occult Blood NEG Urine Nitrite NEG Urine Bilirubin NEG Urine Urobilinogen LESS THAN 2.0 MG/DL Urine Leukocyte Esterase NEG Urine RBC 2 /hpf Urine WBC LESS THAN 1 /hpf Urine Squamous Epithelial <1 /hpf Cells Urine Mucus FEW /lpf Microscopic Urinalysis Comment Blood Gas Puncture Site LT RADIAL Blood Gas Patient Temperature 98.6 Blood Gas HCO3 25 mmol/L Blood Gas Base Excess 1.0 mmol/L Blood Gas Oxygen Saturation 93 % Arterial Blood pH 7.41 Arterial Blood Partial 40 mmHg Pressure CO2 Arterial Blood Partial 75 mmHg Pressure O2 Arterial Blood Oxygen Content 15.3 Vol % Arterial Blood 1.9 % Carboxyhemoglobin Arterial Blood Methemoglobin 0.8 % Blood Gas Hemoglobin 11.7 G/DL Oxygen Delivery Device NASAL CANNULA Blood Gas Liter Flow 3 L/M Hemoglobin A1c 6.6 % Total Bilirubin 1.0 MG/DL Direct Bilirubin 0.2 MG/DL Indirect Bilirubin 0.8 MG/DL Aspartate Amino Transf 34 U/L (AST/SGOT) Alanine Aminotransferase 22 U/L (ALT/SGPT) Alkaline Phosphatase 86 U/L Total Protein 8.0 GM/DL Albumin 3.4 GM/DL Triglycerides Level 48 MG/DL Cholesterol Level 143 MG/DL LDL Cholesterol 90 MG/DL HDL Cholesterol 43.4 MG/DL Cholesterol/HDL Ratio 3.29 RATIO Vitamin B12 Level 408 PG/ML Folate GREATER THAN 20.0 NG/ML Free Thyroxine 1.47 NG/DL Thyroid Stimulating Hormone 0.664 uIU/ML 3rd Gen Test 02/24/17 06:16 White Blood Count 11.3 TH/MM3 Red Blood Count 5.05 MIL/MM3 Hemoglobin 11.1 GM/DL Hematocrit 35.3 % Mean Corpuscular Volume 69.9 FL Mean Corpuscular Hemoglobin 22.0 PG Mean Corpuscular Hemoglobin 31.5 % Concent Red Cell Distribution Width 19.8 % Platelet Count 196 TH/MM3 Mean Platelet Volume 8.5 FL Neutrophils (%) (Auto) 80.4 % Lymphocytes (%) (Auto) 8.1 % Monocytes (%) (Auto) 10.5 % Eosinophils (%) (Auto) 0.7 % Basophils (%) (Auto) 0.3 % Neutrophils # (Auto) 9.1 TH/MM3 Lymphocytes # (Auto) 0.9 TH/MM3 Monocytes # (Auto) 1.2 TH/MM3 Eosinophils # (Auto) 0.1 TH/MM3 Basophils # (Auto) 0.0 TH/MM3 CBC Comment AUTO DIFF Differential Comment AUTO DIFF CONFIRMED Ovalocytes 1+ Sodium Level 138 MEQ/L Potassium Level 4.0 MEQ/L Chloride Level 103 MEQ/L Carbon Dioxide Level 28.0 MEQ/L Anion Gap 7 MEQ/L Blood Urea Nitrogen 16 MG/DL Creatinine 0.99 MG/DL Estimat Glomerular Filtration 72 ML/MIN Rate Random Glucose 118 MG/DL Calcium Level 9.0 MG/DL B-Type Natriuretic Peptide 263 PG/ML Objective Remarks GENERAL: Elderly white male in no acute distress. Aphasia HEENT: PERRLA, EOMI. No scleral icterus or conjunctival pallor. No lid lag or facial droop. CARDIOVASCULAR: Regular rate and rhythm. No obvious murmurs to auscultation. No chest tenderness to palpation. RESPIRATORY: No obvious rhonchi or wheezing. Clear to auscultation. Breath sounds equal bilaterally. GASTROINTESTINAL: Abdomen soft, non-tender, nondistended. BS normal. MUSCULOSKELETAL: Extremities without clubbing, cyanosis, or edema. No obvious deformities. NEUROLOGICAL: Awake, aphasia. Right-sided hemiparesis. try to follow commands. Medications and IVs Current Medications Medications (Trade) Dose Ordered Sig/Tori Route Start Time Stop Time Status Last Admin (NS Flush) 2 ml BID IV FLUSH 02/23/17 09:00 02/24/17 09:42 (NS Flush) 2 ml UNSCH PRN IV FLUSH 02/22/17 23:30 02/23/17 04:25 (Vasotec Inj) 1.25 mg Q4H PRN IV 02/22/17 23:30 (Aspirin Supp) 300 mg DAILY RECTAL 02/23/17 09:00 02/24/17 09:40 (D50w (Vial) Inj) 25 ml UNSCH PRN IV PUSH 02/22/17 23:30 (Glucagon Inj) 1 mg UNSCH PRN IM/SQ 02/22/17 23:30 Acetaminophen 650 mg 650 mg Q6H PRN RECTAL 02/23/17 04:45 02/24/17 09:41 (NS 1000 ml Inj) 1,000 ml @ 84 mls/hr [id number] IV 02/23/17 18:15 02/24/17 17:06 A/P Problem List: (1) CVA (cerebral vascular accident) ICD Code: I63.9 (2) Chronic anticoagulation ICD Code: Z79.01 (3) HTN (hypertension) ICD Code: I10 (4) A-fib ICD Code: I48.91 (5) CHF (congestive heart failure) ICD Code: I50.9 (6) BPH (benign prostatic hyperplasia) ICD Code: N40.0 Assessment and Plan 1. CVA: acute onset of aphasia, right-sided hemiparesis, CT Head w/ no acute findings, CTA Neck negative, CTA Head w/ focal occlusion of left middle cerebral artery and focal moderate segmental stenosis involving proximal portions of posterior cerebral arteries bilaterally, images reviewed by me. Dr. Conroy consulted by ER physician, not candidate for TPA in light of Xarelto. Dr. Del Cid also consulted, pt not candidate for intervention in light of anticoagulation. PT/OT/ST, did not pass the Swallow test continue IV fluids, following Pulmonary congestion. as per Doctor Marycarmen he will need to get anticoagulation in the future. 2. A-fib: Chronic. On anticoagulation w/ Xarelto. INR 1.6. Hold PO medications in light of aphasia. ASA [place] 3. HTN: started on blood pressure medicines to try to control blood pressure slowly. 4. CHF: Echo 09/04/16 w/ EF 55-60%, CXR w/ patchy perihilar infiltrates, No evidence of PNA. 5. Dementia: Hold PO meds, Ativan prn-however caution w/ acute CVA and need to assess neuro function. DVT Prophylaxis: SCD/Teds. he has CVA with hemorrhage not recommended to give anticoagulation at this time Discussed with Patient who try to follow commands with nurse and with Neurology specialist Doctor Marycarmen. Discharge Planning awaiting final by Neurology to Discharge to Rehab facility. Problem Qualifiers (1) CVA (cerebral vascular accident): Qualified Code: I63.412 - Cerebrovascular accident (CVA) due to embolism of left middle cerebral artery Fermín Davis MD February 24, 2017 18:06
[2017-02-25] VITALS (10 sets, daily range): BP systolic 145–185; BP diastolic 65–87; PULSE 68–109; RESP 18–24; TEMP 97.8–99.4; O2SAT 94–97
[2017-02-25] MEDS: SODIUM CHLOR 0.9% 1000 ML INJ 1,000 ML IV SCH ×2 (06:00→15:15)
[2017-02-25] MEDS: INSULIN ASPART SUPPLEMENTAL SCALE SQ SCH ×4 (06:55→21:00)
[2017-02-25] MEDS: SODIUM CHLORIDE 0.9% FLUSH 10 ML FLUSH IV FLUSH SCH ×2 (07:33→21:31)
[2017-02-25] MEDS: LEVOTHYROXINE SODIUM 200 MCG TAB PO SCH (08:12)
[2017-02-25] MEDS ORDERED: PILL SPLITTER OTHER PRN (08:15)
[2017-02-25] MEDS: FUROSEMIDE 40 MG TAB PO SCH (08:20)
[2017-02-25] MEDS: amLODIPine BESYLATE 5 MG TAB PO SCH (08:20)
[2017-02-25] MEDS: ISOSORBIDE MONONITRATE 30 MG TAB PO SCH (08:20)
[2017-02-25] MEDS: ATENOLOL 50 MG TAB PO SCH ×2 (08:20→21:31)
[2017-02-25] MEDS: MEMANTINE HCL 10 MG TAB PO SCH ×2 (08:20→21:31)
[2017-02-25] MEDS: ASPIRIN 300 MG SUPP RECTAL SCH (08:28)
--- NOTE | 2017-02-25 17:11 | HHI.PR ---
Subjective Remarks This is a pleasant 81 y/o male with Hypertension, Dementia, CAD, CHF (Echo 09/09 w/ EF 55-60%), Hyperlipidemia and A. fib on Xarelto who was brought to the ER by EMS as a Stroke Alert. Per report, patient had acute onset of chest pain while having dinner, had brief episode of unresponsiveness and upon arousal was found to have global aphasia, facial droop and right-sided hemiparesis. CT Head with no acute infarct, acute hemorrhage or mass effect. CXR with no acute findings. CTA Neck negative. CTA Head with focal occlusion of left middle cerebral artery and focal moderate segmental stenosis of proximal portions of posterior cerebral arteries bilaterally. Dr. Conroy consulted by ER physician, pt not TPA candidate in light of Xarelto. Dr. Del Cid also consulted, however pt not candidate for intervention in light of anticoagulation w/ high risk of bleed. Pt remains aphasic w/ right-sided hemiparesis. Consulted Neurology and Rehab medicine. 02/25: Stable seen in his bedroom in the presence of his Son Mr. Petersen was commented about the basal ganglia Hemorrhage, will continue SCDs at this time and past the swallow test and now eating Heart healthy diet as Mechanical soft and Honey thickened liquids, no new issues, following recommendations for discharge. Objective Vital Signs Date Time Temp Pulse Resp B/P Pulse Ox O2 Delivery O2 Flow Rate FiO2 02/25/17 16:00 98.9 68 18 146/65 95 02/25/17 12:00 97.8 75 20 185/80 96 02/25/17 11:47 109 02/25/17 08:00 98.3 79 18 153/87 97 02/25/17 08:00 98.3 79 18 153/73 97 02/25/17 05:33 99.0 73 22 145/73 94 02/25/17 00:00 99.4 71 24 165/74 95 02/24/17 20:30 97 Nasal Cannula 2.00 02/24/17 20:00 97.4 72 24 161/73 99 02/24/17 19:00 71 I/O 02/24/17 02/24/17 02/24/17 02/25/17 02/25/17 02/25/17 07:00 15:00 23:00 07:00 15:00 23:00 Intake Total 570 ml 798 ml Output Total 300 ml 650 ml 550 ml 400 ml 375 ml Balance 270 ml -650 ml -550 ml -400 ml -375 ml 798 ml Intake IV Total 570 ml 798 ml Output Urine Total 300 ml 650 ml 550 ml 400 ml 375 ml # Voids 1 # Bowel Movements 0 0 0 0 0 Result Diagram: 02/24/17 0616 02/24/17 0616 Imaging Last Impressions Brain MRI 02/23/17 0000 Signed Impressions: Service Date/Time: Thursday, February 23, 2017 11:02 - CONCLUSION: 1. Acute infarction left basal ganglia and left temporal lobe. 2. Minimal petechial hemorrhage in the left basal ganglia. 3. Cerebral atrophy and chronic ischemic small vessel less likely. Mauyr Feng MD Neck CTA 02/22/171829 Signed Impressions: Service Date/Time: Wednesday, February 22, 2017 18:58 - CONCLUSION: No significant stenosis or occlusion or aneurysm. Sherif Talley MD Head CTA 02/22/171829 Signed Impressions: Service Date/Time: Wednesday, February 22, 2017 18:58 - CONCLUSION: 1. Focal occlusion of the left middle cerebral artery approximately 8 mm from its origin. 2. Focal moderate segmental stenoses involving the proximal portions of the posterior cerebral arteries bilaterally. 3. The findings were called to Dr. Reddy at 1925 hours on 02/22/2017. Sherif Talley MD Head CT 02/22/17 0000 Signed Impressions: Service Date/Time: Wednesday, February 22, 2017 18:34 - CONCLUSION: 1. No acute infarct, acute hemorrhage, mass effect or extra-axial fluid collections. 2. Severe diffuse atrophy. 3. Moderate periventricular and subcortical white matter small vessel ischemic changes bilaterally. 4. The findings were called to Dr. Reddy at 6:40 pm on 02/22/2017. Sherif Talley MD Chest X-Ray 02/22/17 0000 Signed Impressions: Service Date/Time: Wednesday, February 22, 2017 19:14 - CONCLUSION: 1. Patchy perihilar infiltrates consistent with moderate pulmonary edema versus pneumonia. Clinical correlation is recommended. 2. Degenerative changes and scoliosis of the thoracic spine. 3. Degenerative changes involving the shoulders bilaterally. Sherif Talley MD Procedures No procedures performed. Other Results Laboratory Tests Test 5/02/22/17 02/23/17 02/23/17 18:25 21:30 05:50 06:10 Bedside Hemoglobin 12.9 G/DL Bedside Hematocrit 38.0 % Platelet Estimate NORMAL Platelet Morphology Comment NORMAL Prothrombin Time 17.7 SEC Prothromb Time International 1.6 RATIO Ratio Activated Partial 32.7 SEC Thromboplast Time Fibrinogen 351 mg/dL Bedside Sodium 138 MMOL/L Bedside Potassium 4.5 MMOL/L Bedside Chloride 105 MMOL/L Bedside Blood Urea Nitrogen 18 MG/DL Bedside Creatinine 1.1 MG/DL Bedside Glucose 197 MG/DL Total Creatine Kinase 115 U/L Troponin I 0.05 NG/ML Blood Type O POSITIVE Antibody Screen NEGATIVE Urine Color YELLOW Urine Turbidity CLEAR Urine pH 5.5 Urine Specific [place] 1.050 Urine Protein 30 mg/dL Urine Glucose (UA) TRACE mg/dL Urine Ketones NEG mg/dL Urine Occult Blood NEG Urine Nitrite NEG Urine Bilirubin NEG Urine Urobilinogen LESS THAN 2.0 MG/DL Urine Leukocyte Esterase NEG Urine RBC 2 /hpf Urine WBC LESS THAN 1 /hpf Urine Squamous Epithelial <1 /hpf Cells Urine Mucus FEW /lpf Microscopic Urinalysis Comment Blood Gas Puncture Site LT RADIAL Blood Gas Patient Temperature 98.6 Blood Gas HCO3 25 mmol/L Blood Gas Base Excess 1.0 mmol/L Blood Gas Oxygen Saturation 93 % Arterial Blood pH 7.41 Arterial Blood Partial 40 mmHg Pressure CO2 Arterial Blood Partial 75 mmHg Pressure O2 Arterial Blood Oxygen Content 15.3 Vol % Arterial Blood 1.9 % Carboxyhemoglobin Arterial Blood Methemoglobin 0.8 % Blood Gas Hemoglobin 11.7 G/DL Oxygen Delivery Device NASAL CANNULA Blood Gas Liter Flow 3 L/M Hemoglobin A1c 6.6 % Total Bilirubin 1.0 MG/DL Direct Bilirubin 0.2 MG/DL Indirect Bilirubin 0.8 MG/DL Aspartate Amino Transf 34 U/L (AST/SGOT) Alanine Aminotransferase 22 U/L (ALT/SGPT) Alkaline Phosphatase 86 U/L Total Protein 8.0 GM/DL Albumin 3.4 GM/DL Triglycerides Level 48 MG/DL Cholesterol Level 143 MG/DL LDL Cholesterol 90 MG/DL HDL Cholesterol 43.4 MG/DL Cholesterol/HDL Ratio 3.29 RATIO Vitamin B12 Level 408 PG/ML Folate GREATER THAN 20.0 NG/ML Free Thyroxine 1.47 NG/DL Thyroid Stimulating Hormone 0.664 uIU/ML 3rd Gen Test 5/15/17 06:16 White Blood Count 11.3 TH/MM3 Red Blood Count 5.05 MIL/MM3 Hemoglobin 11.1 GM/DL Hematocrit 35.3 % Mean Corpuscular Volume 69.9 FL Mean Corpuscular Hemoglobin 22.0 PG Mean Corpuscular Hemoglobin 31.5 % Concent Red Cell Distribution Width 19.8 % Platelet Count 196 TH/MM3 Mean Platelet Volume 8.5 FL Neutrophils (%) (Auto) 80.4 % Lymphocytes (%) (Auto) 8.1 % Monocytes (%) (Auto) 10.5 % Eosinophils (%) (Auto) 0.7 % Basophils (%) (Auto) 0.3 % Neutrophils # (Auto) 9.1 TH/MM3 Lymphocytes # (Auto) 0.9 TH/MM3 Monocytes # (Auto) 1.2 TH/MM3 Eosinophils # (Auto) 0.1 TH/MM3 Basophils # (Auto) 0.0 TH/MM3 CBC Comment AUTO DIFF Differential Comment AUTO DIFF CONFIRMED Ovalocytes 1+ Sodium Level 138 MEQ/L Potassium Level 4.0 MEQ/L Chloride Level 103 MEQ/L Carbon Dioxide Level 28.0 MEQ/L Anion Gap 7 MEQ/L Blood Urea Nitrogen 16 MG/DL Creatinine 0.99 MG/DL Estimat Glomerular Filtration 72 ML/MIN Rate Random Glucose 118 MG/DL Calcium Level 9.0 MG/DL B-Type Natriuretic Peptide 263 PG/ML Objective Remarks GENERAL: No acute distress. Aphasia HEENT: PERRLA, EOMI. No scleral icterus or conjunctival pallor. No lid lag or facial droop. CARDIOVASCULAR: Regular rate and rhythm. No obvious murmurs to auscultation. No chest tenderness to palpation. RESPIRATORY: No obvious rhonchi or wheezing. Clear to auscultation. Breath sounds equal bilaterally. GASTROINTESTINAL: Abdomen soft, non-tender, nondistended. BS normal. MUSCULOSKELETAL: Extremities without clubbing, cyanosis, or edema. No obvious deformities. NEUROLOGICAL: Awake, aphasia. Right-sided hemiparesis. Medications and IVs Current Medications Medications (Trade) Dose Ordered Sig/Tori Route Start Time Stop Time Status Last Admin (NS Flush) 2 ml BID IV FLUSH 02/23/17 09:00 02/24/17 21:00 (NS Flush) 2 ml UNSCH PRN IV FLUSH 02/22/17 23:30 02/23/17 04:25 (Vasotec Inj) 1.25 mg Q4H PRN IV 02/22/17 23:30 (Aspirin Supp) 300 mg DAILY RECTAL 02/23/17 09:00 02/25/17 08:28 (D50w (Vial) Inj) 25 ml UNSCH PRN IV PUSH 02/22/17 23:30 (Glucagon Inj) 1 mg UNSCH PRN IM/SQ 02/22/17 23:30 Acetaminophen 650 mg 650 mg Q6H PRN RECTAL 02/23/17 04:45 02/24/17 09:41 (NS 1000 ml Inj) 1,000 ml @ 84 mls/hr [id number] IV 02/23/17 18:15 02/25/17 15:15 (Norvasc) 2.5 mg DAILY PO 02/25/17 09:00 (Tenormin) 50 mg BID PO 02/25/17 09:00 (Lipitor) 20 mg HS PO 02/25/17 21:00 (Aricept) 10 mg HS PO 02/25/17 21:00 (Imdur) 30 mg DAILY PO 02/25/17 09:00 (Synthroid) 200 mcg DAILY@06 PO 02/25/17 08:12 (Namenda) 10 mg BID PO 02/25/17 09:00 (Pill Splitter) 1 ea UNSCH PRN OTHER 02/25/17 08:15 A/P Problem List: (1) Atrial fibrillation with rapid ventricular response ICD Code: I48.91 (2) BPH (benign prostatic hyperplasia) ICD Code: N40.0 (3) CVA (cerebral vascular accident) ICD Code: I63.9 (4) Chronic anticoagulation ICD Code: Z79.01 (5) HTN (hypertension) ICD Code: I10 (6) Dementia ICD Code: F03.90 Assessment and Plan 1. CVA: acute onset of aphasia, right-sided hemiparesis, CT Head w/ no acute findings, CTA Neck negative, CTA Head w/ focal occlusion of left middle cerebral artery and focal moderate segmental stenosis involving proximal portions of posterior cerebral arteries bilaterally, images reviewed by me. Not Candidate for tPA in light of Xarelto Neurology specialist following Doctor Marycarmen Del Cid also consulted, pt not candidate for intervention in light of anticoagulation. past the swallow test and now on Heart Healthy diet, has Left Basal Ganglia infarct and left temporal lobe with petechial Hemorrhage. 2. A-fib: Chronic. On anticoagulation w/ Xarelto. INR 1.6. Hold PO medications in light of aphasia. ASA [place] to re start his home medicines. 3. HTN: better control now. 4. CHF: Echo 09/04/16 w/ EF 55-60%, CXR w/ patchy perihilar infiltrates, No evidence of PNA. 5. Dementia: Hold PO meds, Ativan prn-however caution w/ acute CVA and need to assess neuro function. DVT Prophylaxis: SCD/Teds. Discussed with Patient and his son in the room Mr. Petersen, all questions answered to the best of my abilities. Discharge Planning Awaiting final recommendations by Neurology for discharge. Problem Qualifiers (1) CVA (cerebral vascular accident): Qualified Code: I63.412 - Cerebrovascular accident (CVA) due to embolism of left middle cerebral artery Fermín Davis MD February 25, 2017 17:11
[2017-02-25] MEDS: ATORVASTATIN 20 MG TAB PO SCH (21:30)
[2017-02-25] MEDS: DONEPEZIL HCL 5 MG TAB PO SCH (21:31)
[2017-02-26] VITALS (9 sets, daily range): BP systolic 138–169; BP diastolic 64–78; PULSE 52–67; RESP 18–23; TEMP 96.6–99.7; O2SAT 94–100
[2017-02-26] MEDS: LEVOTHYROXINE SODIUM 200 MCG TAB PO SCH (05:41)
[2017-02-26] MEDS: SODIUM CHLOR 0.9% 1000 ML INJ 1,000 ML IV SCH (05:50)
[2017-02-26] MEDS: INSULIN ASPART SUPPLEMENTAL SCALE SQ SCH (07:00)
[2017-02-26] MEDS: SODIUM CHLORIDE 0.9% FLUSH 10 ML FLUSH IV FLUSH SCH ×2 (09:00→19:40)
[2017-02-26] MEDS: ASPIRIN 300 MG SUPP RECTAL SCH (09:11)
[2017-02-26] MEDS: ATENOLOL 50 MG TAB PO SCH ×2 (09:11→20:29)
[2017-02-26] MEDS: MEMANTINE HCL 10 MG TAB PO SCH ×2 (09:11→20:29)
[2017-02-26] MEDS: ISOSORBIDE MONONITRATE 30 MG TAB PO SCH (09:11)
[2017-02-26] MEDS: amLODIPine BESYLATE 5 MG TAB PO SCH (09:11)
--- NOTE | 2017-02-26 11:10 | RADRPT ---
EXAM DATE/TIME: 02/26/2017 10:28 [facility] COMPARISON: CHEST SINGLE AP, February 22, 2017, 19:14. INDICATIONS : Evaluate for pneumonia; shortness of breath. MEDICAL HISTORY : Dementia. Cardiovascular disease. Hypertension SURGICAL HISTORY : Cardiac stent. ENCOUNTER: Subsequent ACUITY: 4 - 6 days PAIN SCORE: 0/10 LOCATION: Bilateral chest FINDINGS: A single portable frontal view of the chest shows cardiomegaly with pulmonary vascular engorgement. P atchy parenchymal consolidation within the medial lung bases bilaterally. No effusions. A degenerativ e thoracic spine. Advanced degenerative changes of the shoulders including erosions. CONCLUSION: Cardiomegaly with pulmonary vascular engorgement. Bibasilar consolidation potentially related to belia y intra-alveolar pulmonary edema. Lam Blanton Jr., MD on February 26, 2017 at 11:08 Board Certified Radiologist. This report was verified electronically.
[2017-02-26] MEDS: ENOXAPARIN SODIUM 40 MG/0.4 ML SYRINGE SQ SCH (11:58)
--- NOTE | 2017-02-26 12:18 | HHI.PR ---
Subjective Remarks This is a pleasant 81 y/o male with Hypertension, Dementia, CAD, CHF (Echo 09/09 w/ EF 55-60%), Hyperlipidemia and A. fib on Xarelto who was brought to the ER by EMS as a Stroke Alert. Per report, patient had acute onset of chest pain while having dinner, had brief episode of unresponsiveness and upon arousal was found to have global aphasia, facial droop and right-sided hemiparesis. CT Head with no acute infarct, acute hemorrhage or mass effect. CXR with no acute findings. CTA Neck negative. CTA Head with focal occlusion of left middle cerebral artery and focal moderate segmental stenosis of proximal portions of posterior cerebral arteries bilaterally. Dr. Conroy consulted by ER physician, pt not TPA candidate in light of Xarelto. Dr. Del Cid also consulted, however pt not candidate for intervention in light of anticoagulation w/ high risk of bleed. Pt remains aphasic w/ right-sided hemiparesis. Consulted Neurology and Rehab medicine. 02/26: Seen in his bedroom, continue Improving condition, try to follow commands , discussed with nurse Miss Marquez no new issues seen by Physical therapy recommended all Rehab disciplines for discharge to Rehab facility, will discuss with Doctor Marycarmen as she wants the patient on anticoagulation in some days, will try to schedule for when she wants this to be started also now Eating heart Healthy diet, discussed with medical case worker for discharge to [facility]. Objective Vital Signs Date Time Temp Pulse Resp B/P Pulse Ox O2 Delivery O2 Flow Rate FiO2 02/26/17 10:21 57 02/26/17 08:02 96.6 55 20 139/67 100 02/26/17 06:16 98.3 58 18 169/72 99 02/26/17 00:00 98.2 67 22 148/72 100 02/25/17 20:55 71 02/25/17 20:00 99.1 73 22 166/72 97 02/25/17 18:09 95 Nasal Cannula 2.00 02/25/17 16:00 98.9 68 18 146/65 95 02/25/17 12:00 97.8 75 20 185/80 96 02/25/17 11:47 109 I/O 02/25/17 02/25/17 02/25/17 02/26/17 02/26/17 02/26/17 07:00 15:00 23:00 07:00 15:00 23:00 Intake Total 798 ml Output Total 400 ml 375 ml Balance -400 ml -375 ml 798 ml Intake IV Total 798 ml Output Urine Total 400 ml 375 ml # Voids 1 2 # Bowel Movements 0 0 0 Result Diagram: 02/24/17 0616 02/24/17 0616 Imaging Last Impressions Brain MRI 02/23/17 0000 Signed Impressions: Service Date/Time: Thursday, February 23, 2017 11:02 - CONCLUSION: 1. Acute infarction left basal ganglia and left temporal lobe. 2. Minimal petechial hemorrhage in the left basal ganglia. 3. Cerebral atrophy and chronic ischemic small vessel less likely. Maury Feng MD Neck CTA [id number]/22/[id number] Signed Impressions: Service Date/Time: Wednesday, February 22, 2017 18:58 - CONCLUSION: No significant stenosis or occlusion or aneurysm. Sherif Talley MD Head CTA [id number]/[id number] Signed Impressions: Service Date/Time: Wednesday, February 22, 2017 18:58 - CONCLUSION: 1. Focal occlusion of the left middle cerebral artery approximately 8 mm from its origin. 2. Focal moderate segmental stenoses involving the proximal portions of the posterior cerebral arteries bilaterally. 3. The findings were called to Dr. Reddy at 1925 hours on 02/22/2017. Sherif Talley MD Head CT 02/22/17 0000 Signed Impressions: Service Date/Time: Wednesday, February 22, 2017 18:34 - CONCLUSION: 1. No acute infarct, acute hemorrhage, mass effect or extra-axial fluid collections. 2. Severe diffuse atrophy. 3. Moderate periventricular and subcortical white matter small vessel ischemic changes bilaterally. 4. The findings were called to Dr. Reddy at 6:40 pm on 02/22/2017. Sherif Talley MD Chest X-Ray 02/22/17 0000 Signed Impressions: Service Date/Time: Wednesday, February 22, 2017 19:14 - CONCLUSION: 1. Patchy perihilar infiltrates consistent with moderate pulmonary edema versus pneumonia. Clinical correlation is recommended. 2. Degenerative changes and scoliosis of the thoracic spine. 3. Degenerative changes involving the shoulders bilaterally. Sherif Talley MD Procedures No procedures performed. Other Results Laboratory Tests Test 02/22/17 02/22/17 02/23/1702/23/17 18:25 21:30 05:50 06:10 Bedside Hemoglobin 12.9 G/DL Bedside Hematocrit 38.0 % Platelet Estimate NORMAL Platelet Morphology Comment NORMAL Prothrombin Time 17.7 SEC Prothromb Time International 1.6 RATIO Ratio Activated Partial 32.7 SEC Thromboplast Time Fibrinogen 351 mg/dL Bedside Sodium 138 MMOL/L Bedside Potassium 4.5 MMOL/L Bedside Chloride 105 MMOL/L Bedside Blood Urea Nitrogen 18 MG/DL Bedside Creatinine 1.1 MG/DL Bedside Glucose 197 MG/DL Total Creatine Kinase 115 U/L Troponin I 0.05 NG/ML Blood Type O POSITIVE Antibody Screen NEGATIVE Urine Color YELLOW Urine Turbidity CLEAR Urine pH 5.5 Urine Specific [place] 1.050 Urine Protein 30 mg/dL Urine Glucose (UA) TRACE mg/dL Urine Ketones NEG mg/dL Urine Occult Blood NEG Urine Nitrite NEG Urine Bilirubin NEG Urine Urobilinogen LESS THAN 2.0 MG/DL Urine Leukocyte Esterase NEG Urine RBC 2 /hpf Urine WBC LESS THAN 1 /hpf Urine Squamous Epithelial <1 /hpf Cells Urine Mucus FEW /lpf Microscopic Urinalysis Comment Blood Gas Puncture Site LT RADIAL Blood Gas Patient Temperature 98.6 Blood Gas HCO3 25 mmol/L Blood Gas Base Excess 1.0 mmol/L Blood Gas Oxygen Saturation 93 % Arterial Blood pH 7.41 Arterial Blood Partial 40 mmHg Pressure CO2 Arterial Blood Partial 75 mmHg Pressure O2 Arterial Blood Oxygen Content 15.3 Vol % Arterial Blood 1.9 % Carboxyhemoglobin Arterial Blood Methemoglobin 0.8 % Blood Gas Hemoglobin 11.7 G/DL Oxygen Delivery Device NASAL CANNULA Blood Gas Liter Flow 3 L/M Hemoglobin A1c 6.6 % Total Bilirubin 1.0 MG/DL Direct Bilirubin 0.2 MG/DL Indirect Bilirubin 0.8 MG/DL Aspartate Amino Transf 34 U/L (AST/SGOT) Alanine Aminotransferase 22 U/L (ALT/SGPT) Alkaline Phosphatase 86 U/L Total Protein 8.0 GM/DL Albumin 3.4 GM/DL Triglycerides Level 48 MG/DL Cholesterol Level 143 MG/DL LDL Cholesterol 90 MG/DL HDL Cholesterol 43.4 MG/DL Cholesterol/HDL Ratio 3.29 RATIO Vitamin B12 Level 408 PG/ML Folate GREATER THAN 20.0 NG/ML Free Thyroxine 1.47 NG/DL Thyroid Stimulating Hormone 0.664 uIU/ML 3rd Gen Test 02/24/17 06:16 White Blood Count 11.3 TH/MM3 Red Blood Count 5.05 MIL/MM3 Hemoglobin 11.1 GM/DL Hematocrit 35.3 % Mean Corpuscular Volume 69.9 FL Mean Corpuscular Hemoglobin 22.0 PG Mean Corpuscular Hemoglobin 31.5 % Concent Red Cell Distribution Width 19.8 % Platelet Count 196 TH/MM3 Mean Platelet Volume 8.5 FL Neutrophils (%) (Auto) 80.4 % Lymphocytes (%) (Auto) 8.1 % Monocytes (%) (Auto) 10.5 % Eosinophils (%) (Auto) 0.7 % Basophils (%) (Auto) 0.3 % Neutrophils # (Auto) 9.1 TH/MM3 Lymphocytes # (Auto) 0.9 TH/MM3 Monocytes # (Auto) 1.2 TH/MM3 Eosinophils # (Auto) 0.1 TH/MM3 Basophils # (Auto) 0.0 TH/MM3 CBC Comment AUTO DIFF Differential Comment AUTO DIFF CONFIRMED Ovalocytes 1+ Sodium Level 138 MEQ/L Potassium Level 4.0 MEQ/L Chloride Level 103 MEQ/L Carbon Dioxide Level 28.0 MEQ/L Anion Gap 7 MEQ/L Blood Urea Nitrogen 16 MG/DL Creatinine 0.99 MG/DL Estimat Glomerular Filtration 72 ML/MIN Rate Random Glucose 118 MG/DL Calcium Level 9.0 MG/DL B-Type Natriuretic Peptide 263 PG/ML Objective Remarks GENERAL: Aphasia, no acute distress. HEENT: PERRLA, EOMI. No scleral icterus or conjunctival pallor. No lid lag or facial droop. CARDIOVASCULAR: Regular rate and rhythm. No obvious murmurs to auscultation. No chest tenderness to palpation. RESPIRATORY: No obvious rhonchi or wheezing. Clear to auscultation. Breath sounds equal bilaterally. GASTROINTESTINAL: Abdomen soft, non-tender, nondistended. BS normal. MUSCULOSKELETAL: Extremities without clubbing, cyanosis, or edema. No obvious deformities. NEUROLOGICAL: Awake, aphasia. Right-sided hemiparesis. try to follow commands. Medications and IVs Current Medications Medications (Trade) Dose Ordered Sig/Tori Route Start Time Stop Time Status Last Admin (NS Flush) 2 ml BID IV FLUSH 02/23/17 09:00 02/24/17 21:00 (NS Flush) 2 ml UNSCH PRN IV FLUSH 02/22/17 23:30 02/23/17 04:25 (Vasotec Inj) 1.25 mg Q4H PRN IV 02/22/17 23:30 (Aspirin Supp) 300 mg DAILY RECTAL 02/23/17 09:00 02/26/17 09:11 Acetaminophen 650 mg 650 mg Q6H PRN RECTAL 02/23/17 04:45 02/24/17 09:41 (NS 1000 ml Inj) 1,000 ml @ 84 mls/hr [id number] IV 02/23/17 18:15 02/25/17 15:15 (Norvasc) 2.5 mg DAILY PO 02/25/17 09:00 02/26/17 09:11 (Tenormin) 50 mg BID PO 02/25/17 09:00 02/26/17 09:11 (Lipitor) 20 mg HS PO 02/25/17 21:00 02/25/17 21:30 (Aricept) 10 mg HS PO 02/25/17 21:00 02/25/17 21:31 (Imdur) 30 mg DAILY PO 02/25/17 09:00 02/26/17 09:11 (Synthroid) 200 mcg DAILY@06 PO 02/25/17 08:12 02/26/17 05:41 (Namenda) 10 mg BID PO 02/25/17 09:00 02/26/17 09:11 (Pill Splitter) 1 ea UNSCH PRN OTHER 02/25/17 08:15 A/P Problem List: (1) Atrial fibrillation with rapid ventricular response ICD Code: I48.91 (2) BPH (benign prostatic hyperplasia) ICD Code: N40.0 (3) CVA (cerebral vascular accident) ICD Code: I63.9 (4) Chronic anticoagulation ICD Code: Z79.01 (5) HTN (hypertension) ICD Code: I10 (6) Dementia ICD Code: F03.90 Assessment and Plan 1. CVA: acute onset of aphasia, right-sided hemiparesis, CT Head w/ no acute findings, CTA Neck negative, CTA Head w/ focal occlusion of left middle cerebral artery and focal moderate segmental stenosis involving proximal portions of posterior cerebral arteries bilaterally, images reviewed by me. Not Candidate for tPA in light of Xarelto Neurology specialist following Doctor Marycarmen Del Cid also consulted, pt not candidate for intervention in light of anticoagulation. past the swallow test and now on Heart Healthy diet, has Left Basal Ganglia infarct and left temporal lobe with petechial Hemorrhage. started on Lovenox for Prophylaxis as recommended by Neurology specialist and discussed with Upsetter Helper he can be now discharged to Rehab now that is taking by Mouth medicines. 2. A-fib: Chronic. On anticoagulation w/ Xarelto. INR 1.6. Hold PO medications in light of aphasia. ASA MT to re start his home medicines. 3. HTN: better control now. 4. CHF: Echo 09/04/16 w/ EF 55-60%, CXR w/ patchy perihilar infiltrates, No evidence of PNA. new CXR with some Congestion but do not see Pneumonia, discontinued IV fluids 5. Dementia: Hold PO meds, Ativan prn-however caution w/ acute CVA and need to assess neuro function. DVT Prophylaxis: SCD/Teds. Discussed with Patient and nurse Miss Marquez. Discharge Planning Awaiting final recommendations by Neurology for discharge. Problem Qualifiers (1) CVA (cerebral vascular accident): Qualified Code: I63.412 - Cerebrovascular accident (CVA) due to embolism of left middle cerebral artery Fermín Davis MD February 26, 2017 11:32
[2017-02-26 13:24] LABS: AUTOMATED NEUTROPHIL # 6.3 TH/MM3 (1.8-7.7); BASOPHIL % 0.4 % (0.0-2.0); EOSINOPHIL # 0.8 TH/MM3 (0-0.4); EOSINOPHIL % 8.1 % (0.0-4.0); HEMATOCRIT 33.4 % (39.0-51.0); LYMPH % 11.3 % (9.0-44.0); MEAN CELL VOLUME 70.3 FL (80.0-100.0); MEAN CORPUSCULAR HEMOGLOBIN 21.6 PG (27.0-34.0); MEAN CORPUSCULAR HGB CONC 30.8 % (32.0-36.0); NEUT % 68.2 % (16.0-70.0); PLATELET COUNT 199 TH/MM3 (150-450); RED BLOOD COUNT 4.75 MIL/MM3 (4.50-5.90); RED CELL DISTRIBUTION WIDTH 19.5 % (11.6-17.2); WHITE BLOOD COUNT 9.2 TH/MM3 (4.0-11.0)
[2017-02-26 13:25] LABS: HEMO FLAGS AUTO DIFF
[2017-02-26 13:58] LABS: OVALOCYTES 1+ (NORMAL); SCAN/DIFF AUTO DIFF CONFIRMED
[2017-02-26] MEDS: DONEPEZIL HCL 5 MG TAB PO SCH (20:29)
[2017-02-26] MEDS: ATORVASTATIN 20 MG TAB PO SCH (20:29)
--- NOTE | 2017-02-26 20:29 | PD.CONS ---
[facility] Rehabilitation Medicine Consult Requested By Anila Conroy MD Reason for Consult Comprehensive rehabilitation evaluation. Primary Care Physician Unknown History of Present Illness Charlotte Benjamin is an 81 year old male admitted to [facility] 02/22/17 after episode of chest chest pain or loss of consciousness with resultant aphasia and right hemiparesis. Head CT 02/22/17 showed no acute abnormality. Brain MRI 02/23/17 showed left basal ganglia and left temporal infarct with minimal petechial hemorrhage in left basal ganglia. Review of Systems ROS Limitations: Clinical Condition, Speech Impaired Past Family Social History Allergies: Coded Allergies: No Known Allergies (Verified , 12/05/16) Past Medical History Hypertension Dementia Coronary artery disease CHF Hyperlipidemia Atrial fibrillation Past Surgical History Cardiac stent Hemorrhoidectomy Current Medications Current Medications Medications (Trade) Dose Ordered Sig/Tori Route Start Time Stop Time Status Last Admin (NS Flush) 2 ml BID IV FLUSH 02/23/17 09:00 02/26/17 19:40 (NS Flush) 2 ml UNSCH PRN IV FLUSH 02/22/17 23:30 02/23/17 04:25 (Vasotec Inj) 1.25 mg Q4H PRN IV 02/22/17 23:30 (Aspirin Supp) 300 mg DAILY RECTAL 02/23/17 09:00 02/26/17 09:11 (Tylenol Supp) 650 mg Q6H PRN RECTAL 02/23/17 04:45 02/24/17 09:41 (Norvasc) 2.5 mg DAILY PO 02/25/17 09:00 02/26/17 09:11 (Tenormin) 50 mg BID PO 02/25/17 09:00 02/26/17 09:11 (Lipitor) 20 mg HS PO 02/25/17 21:00 02/25/17 21:30 (Aricept) 10 mg HS PO 02/25/17 21:00 02/25/17 21:31 (Imdur) 30 mg DAILY PO 02/25/17 09:00 02/26/17 09:11 (Synthroid) 200 mcg DAILY@06 PO 02/25/17 08:12 02/26/17 05:41 (Namenda) 10 mg BID PO 02/25/17 09:00 02/26/17 09:11 (Pill Splitter) 1 ea UNSCH PRN OTHER 02/25/17 08:15 (Lovenox Inj) 40 mg Q24H SQ 02/26/17 12:00 02/26/17 11:58 Family History Unable to obtain Social History Prior to admission patient lived in [place], [place] with his Exam I&O / VS 02/25/17 02/25/17 02/26/17 15:00 23:00 07:00 Intake Total 798 ml Output Total 375 ml Balance -375 ml 798 ml IV Total 798 ml Output Urine Total 375 ml # Voids 1 2 # Bowel Movements 0 0 Vital Signs Date Time Temp Pulse Resp B/P Pulse Ox O2 Delivery O2 Flow Rate FiO2 02/26/17 15:30 99.7 55 19 142/70 94 02/26/17 13:12 97.1 54 20 150/78 98 02/26/17 10:21 57 02/26/17 08:02 96.6 55 20 139/67 100 02/26/17 06:16 98.3 58 18 169/72 99 02/26/17 00:00 98.2 67 22 148/72 100 02/25/17 20:55 71 General: No acute distress Respiratory: Lungs CTA, Non-labored respirations, BS equal, Other (nasal cannula oxygen and placed) Gastrointestinal: Positive Bowel Sounds, Non-Distended Cardiovascular: Normal rate, Irregular Rhythm Skin: Other Musculoskeletal: Other Psychiatric: Cooperative Orientation: unable to asses Self, unable to asses Place, unable to asses Time , unable to asses Situation Neurologic: Pupils, EOM, Speech Motor: Right Upper Extremity (4-/5), Left Upper Extremity (5/5), Right Lower Extremity (4/5), Left Lower Extremity (5/5) Sensory Unable to accurately assess Babinski: Positive (right) Clonus: Negative Assessment and Plan Diagnosis: (1) CVA (cerebral vascular accident) CVA mechanism: embolism Precerebral and cerebral artery: middle cerebral artery Laterality of affected vessel: left Qualified Code: I63.412 - Cerebrovascular accident (CVA) due to embolism of left middle cerebral artery Assessment 1. 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 Atrial fibrillation 3. Hypertension 4. Coronary artery disease status post stent 5. Dementia 6. History of CHF 7. Hyperlipidemia Plan 1. Physical therapy is addressing mobility and patient is now max assist of 2 to transfer. Continue to mobilize to prevent deconditioning 2. Occupational therapy is addressing ADLs and currently dependent 3. Speech therapy has evaluated swallow and patient is tolerating mechanical soft diet with nectar thick liquids. Expressive and receptive aphasia being addressed 4. SCDs are in place for DVT prophylaxis 5. Patient will need ongoing inpatient rehabilitation at discharge and case management is beginning referrals in conjunction with family 6. Will follow-up hospitalized and at discharge Thank you for this consult Sharon Patel MD February 26, 2017 20:29
[2017-02-27] VITALS (7 sets, daily range): BP systolic 125–162; BP diastolic 60–70; PULSE 53–59; RESP 20–24; TEMP 95.6–98.3; O2SAT 93–97
[2017-02-27] MEDS: LEVOTHYROXINE SODIUM 200 MCG TAB PO SCH (05:16)
[2017-02-27] MEDS: ATENOLOL 50 MG TAB PO SCH (07:56)
[2017-02-27] MEDS: amLODIPine BESYLATE 5 MG TAB PO SCH (07:58)
[2017-02-27] MEDS: ISOSORBIDE MONONITRATE 30 MG TAB PO SCH (07:58)
[2017-02-27] MEDS: FUROSEMIDE 40 MG TAB PO SCH (07:58)
[2017-02-27] MEDS: MEMANTINE HCL 10 MG TAB PO SCH (07:58)
[2017-02-27] MEDS: ASPIRIN 300 MG SUPP RECTAL SCH (07:59)
[2017-02-27] MEDS: SODIUM CHLORIDE 0.9% FLUSH 10 ML FLUSH IV FLUSH SCH (07:59)
--- NOTE | 2017-02-27 09:39 | HHI.PR ---
Subjective Remarks This is a pleasant 81 y/o male with Hypertension, Dementia, CAD, CHF (Echo 09/09 w/ EF 55-60%), Hyperlipidemia and A. fib on Xarelto who was brought to the ER by EMS as a Stroke Alert. Per report, patient had acute onset of chest pain while having dinner, had brief episode of unresponsiveness and upon arousal was found to have global aphasia, facial droop and right-sided hemiparesis. CT Head with no acute infarct, acute hemorrhage or mass effect. CXR with no acute findings. CTA Neck negative. CTA Head with focal occlusion of left middle cerebral artery and focal moderate segmental stenosis of proximal portions of posterior cerebral arteries bilaterally. Dr. Conroy consulted by ER physician, pt not TPA candidate in light of Xarelto. Dr. Del Cid also consulted, however pt not candidate for intervention in light of anticoagulation w/ high risk of bleed. Pt remains aphasic w/ right-sided hemiparesis. Consulted Neurology and Rehab medicine. 02/27: Seen in his bedroom in the presence of nurse Miss Marquez, discussed with Information Clerk Cashier and with Physical Therapy team he is okay to be transferred to Inpatient Rehab, the patient is strong and wants to improve quickly and he is working with PT, OT and ST, as per Neurology specialist okay to discharge to Rehab, discussed also with his son Officer Shelton Benjamin to the Phone number [phone] also discussed with his Mrs. Erna Benjamin to the phone number [phone]. eating well with help. no nausea, vomit or diarrhea. Objective Vital Signs Date Time Temp Pulse Resp B/P Pulse Ox O2 Delivery O2 Flow Rate FiO2 02/27/17 08:00 98.3 53 20 162/70 93 02/27/17 05:00 97.7 54 23 125/60 96 02/27/17 00:15 98.0 56 24 128/65 97 02/26/17 22:00 96 Nasal Cannula 2.00 02/26/17 20:30 97.1 54 23 138/64 96 02/26/17 20:00 52 02/26/17 15:30 99.7 55 19 142/70 94 02/26/17 13:12 97.1 54 20 150/78 98 02/26/17 10:21 57 I/O 502/26/17 02/26/17 02/27/17 02/27/17 02/27/17 07:00 15:00 23:00 07:00 15:00 23:00 Intake Total 480 ml 300 ml 100 ml Output Total 550 ml 1 ml Balance -70 ml 299 ml 100 ml Intake Oral 480 ml 300 ml 100 ml Output Urine Total 550 ml 1 ml # Voids 2 # Bowel Movements 0 0 0 Result Diagram: 02/26/17 1310 02/24/17 0616 Imaging Last Impressions Chest X-Ray 02/26/17 0000 Signed Impressions: Service Date/Time: Sunday, February 26, 2017 10:28 - CONCLUSION: Cardiomegaly with pulmonary vascular engorgement. Bibasilar consolidation potentially related to early intra-alveolar pulmonary edema. Lam Blanton Jr., MD Brain MRI 02/23/17 0000 Signed Impressions: Service Date/Time: Thursday, February 23, 2017 11:02 - CONCLUSION: 1. Acute infarction left basal ganglia and left temporal lobe. 2. Minimal petechial hemorrhage in the left basal ganglia. 3. Cerebral atrophy and chronic ischemic small vessel less likely. Maury Feng MD Neck CTA 02/22/171829 Signed Impressions: Service Date/Time: Wednesday, February 22, 2017 18:58 - CONCLUSION: No significant stenosis or occlusion or aneurysm. Sherif Talley MD Head CTA 02/22/171829 Signed Impressions: Service Date/Time: Wednesday, February 22, 2017 18:58 - CONCLUSION: 1. Focal occlusion of the left middle cerebral artery approximately 8 mm from its origin. 2. Focal moderate segmental stenoses involving the proximal portions of the posterior cerebral arteries bilaterally. 3. The findings were called to Dr. Reddy at 1925 hours on 02/22/2017. Sherif Talley MD Head CT 02/22/17 0000 Signed Impressions: Service Date/Time: Wednesday, February 22, 2017 18:34 - CONCLUSION: 1. No acute infarct, acute hemorrhage, mass effect or extra-axial fluid collections. 2. Severe diffuse atrophy. 3. Moderate periventricular and subcortical white matter small vessel ischemic changes bilaterally. 4. The findings were called to Dr. Reddy at 6:40 pm on 02/22/2017. Sherif Talley MD Procedures No procedures performed. Other Results Laboratory Tests Test 02/23/17 02/23/17 02/24/17 02/26/17 05:50 06:10 06:16 13:10 Blood Gas Puncture Site LT RADIAL Blood Gas Patient Temperature 98.6 Blood Gas HCO3 25 mmol/L Blood Gas Base Excess 1.0 mmol/L Blood Gas Oxygen Saturation 93 % Arterial Blood pH 7.41 Arterial Blood Partial 40 mmHg Pressure CO2 Arterial Blood Partial 75 mmHg Pressure O2 Arterial Blood Oxygen Content 15.3 Vol % Arterial Blood 1.9 % Carboxyhemoglobin Arterial Blood Methemoglobin 0.8 % Blood Gas Hemoglobin 11.7 G/DL Oxygen Delivery Device NASAL CANNULA Blood Gas Liter Flow 3 L/M Hemoglobin A1c 6.6 % Total Bilirubin 1.0 MG/DL Direct Bilirubin 0.2 MG/DL Indirect Bilirubin 0.8 MG/DL Aspartate Amino Transf 34 U/L (AST/SGOT) Alanine Aminotransferase 22 U/L (ALT/SGPT) Alkaline Phosphatase 86 U/L Total Protein 8.0 GM/DL Albumin 3.4 GM/DL Triglycerides Level 48 MG/DL Cholesterol Level 143 MG/DL LDL Cholesterol 90 MG/DL HDL Cholesterol 43.4 MG/DL Cholesterol/HDL Ratio 3.29 RATIO Vitamin B12 Level 408 PG/ML Folate GREATER THAN 20.0 NG/ML Free Thyroxine 1.47 NG/DL Thyroid Stimulating Hormone 0.664 uIU/ML 3rd Gen Sodium Level 138 MEQ/L Potassium Level 4.0 MEQ/L Chloride Level 103 MEQ/L Carbon Dioxide Level 28.0 MEQ/L Anion Gap 7 MEQ/L Blood Urea Nitrogen 16 MG/DL Creatinine 0.99 MG/DL Estimat Glomerular Filtration 72 ML/MIN Rate Random Glucose 118 MG/DL Calcium Level 9.0 MG/DL B-Type Natriuretic Peptide 263 PG/ML White Blood Count 9.2 TH/MM3 Red Blood Count 4.75 MIL/MM3 Hemoglobin 10.3 GM/DL Hematocrit 33.4 % Mean Corpuscular Volume 70.3 FL Mean Corpuscular Hemoglobin 21.6 PG Mean Corpuscular Hemoglobin 30.8 % Concent Red Cell Distribution Width 19.5 % Platelet Count 199 TH/MM3 Mean Platelet Volume 8.5 FL Neutrophils (%) (Auto) 68.2 % Lymphocytes (%) (Auto) 11.3 % Monocytes (%) (Auto) 12.0 % Eosinophils (%) (Auto) 8.1 % Basophils (%) (Auto) 0.4 % Neutrophils # (Auto) 6.3 TH/MM3 Lymphocytes # (Auto) 1.0 TH/MM3 Monocytes # (Auto) 1.1 TH/MM3 Eosinophils # (Auto) 0.8 TH/MM3 Basophils # (Auto) 0.0 TH/MM3 CBC Comment AUTO DIFF Differential Comment AUTO DIFF CONFIRMED Ovalocytes 1+ Objective Remarks GENERAL: Aphasia, no acute distress. HEENT: PERRLA, EOMI. No scleral icterus or conjunctival pallor. No lid lag or facial droop. CARDIOVASCULAR: Regular rate and rhythm. No obvious murmurs to auscultation. No chest tenderness to palpation. RESPIRATORY: No obvious rhonchi or wheezing. Clear to auscultation. Breath sounds equal bilaterally. GASTROINTESTINAL: Abdomen soft, non-tender, nondistended. BS normal. MUSCULOSKELETAL: Extremities without clubbing, cyanosis, or edema. No obvious deformities. NEUROLOGICAL: Awake, aphasia. Right-sided hemiparesis. try to follow commands. Medications and IVs Current Medications Medications (Trade) Dose Ordered Sig/Tori Route Start Time Stop Time Status Last Admin (NS Flush) 2 ml BID IV FLUSH 02/23/17 09:00 02/27/17 07:59 (NS Flush) 2 ml UNSCH PRN IV FLUSH 02/22/17 23:30 02/23/17 04:25 (Vasotec Inj) 1.25 mg Q4H PRN IV 02/22/17 23:30 (Aspirin Supp) 300 mg DAILY RECTAL 02/23/17 09:00 02/26/17 09:11 (Tylenol Supp) 650 mg Q6H PRN RECTAL 02/23/17 04:45 02/24/17 09:41 (Norvasc) 2.5 mg DAILY PO 02/25/17 09:00 02/27/17 07:58 (Tenormin) 50 mg BID PO 02/25/17 09:00 02/26/17 20:29 (Lipitor) 20 mg HS PO 02/25/17 21:00 02/26/17 20:29 (Aricept) 10 mg HS PO 02/25/17 21:00 02/26/17 20:29 (Imdur) 30 mg DAILY PO 02/25/17 09:00 02/27/17 07:58 (Synthroid) 200 mcg DAILY@06 PO 02/25/17 08:12 02/27/17 05:16 (Namenda) 10 mg BID PO 02/25/17 09:00 02/27/17 07:58 (Pill Splitter) 1 ea UNSCH PRN OTHER 02/25/17 08:15 (Lovenox Inj) 40 mg Q24H SQ 02/26/17 12:00 02/26/17 11:58 A/P Problem List: (1) Atrial fibrillation with rapid ventricular response ICD Code: I48.91 (2) BPH (benign prostatic hyperplasia) ICD Code: N40.0 (3) CVA (cerebral vascular accident) ICD Code: I63.9 (4) Chronic anticoagulation ICD Code: Z79.01 (5) HTN (hypertension) ICD Code: I10 (6) Dementia ICD Code: F03.90 Assessment and Plan 1. CVA: acute onset of aphasia, right-sided hemiparesis, CT Head w/ no acute findings, CTA Neck negative, CTA Head w/ focal occlusion of left middle cerebral artery and focal moderate segmental stenosis involving proximal portions of posterior cerebral arteries bilaterally, images reviewed by me. Not Candidate for tPA in light of Xarelto Neurology specialist following Doctor Marycarmen Del Cid also consulted, pt not candidate for intervention in light of anticoagulation. past the swallow test and now on Heart Healthy diet, has Left Basal Ganglia infarct and left temporal lobe with petechial Hemorrhage. started on Lovenox for Prophylaxis as recommended by Neurology specialist, okay for discharge as per Neurology specialist and as per Physical Therapy. 2. A-fib: Chronic. On anticoagulation w/ Xarelto. INR 1.6. Hold PO medications in light of aphasia. ASA FL to re start his home medicines. 3. HTN: better control now. 4. CHF: Echo 09/04/16 w/ EF 55-60%, CXR w/ patchy perihilar infiltrates, No evidence of PNA. new CXR with some Congestion but do not see Pneumonia, discontinued IV fluids 5. Dementia: Hold PO meds, Ativan prn-however caution w/ acute CVA and need to assess neuro function. DVT Prophylaxis: SCD/Teds. Discussed with Patient in the room and with his Nurse Miss Marquez the patient is eating better with help, no nausea, vomit or diarrhea Physical Therapy okay to discharge Home Information Clerk Cashier patient ready to go to [facility] With his Son Becky Petersen and with his Mrs. Umanzor all questions answered to the best of my abilities. Discharge Planning Discharge to Rehab today. Problem Qualifiers (1) CVA (cerebral vascular accident): Qualified Code: I63.412 - Cerebrovascular accident (CVA) due to embolism of left middle cerebral artery Fermín Davis MD February 27, 2017 09:39
[2017-02-27] MEDS ORDERED: ASPI325T PO (10:05)
[2017-02-27] MEDS ORDERED: ATOR40TA16 PO (10:11)
--- NOTE | 2017-02-27 10:21 | HHI.DS ---
Discharge Summary Admission Date February 22, 2017 at 20:22 Discharge Date: February 27, 2017 Admitting Diagnosis CVA (1) CVA (cerebral vascular accident) ICD Code: I63.9 Diagnosis: Principal (2) A-fib ICD Code: I48.91 Diagnosis: Secondary (3) Chronic anticoagulation ICD Code: Z79.01 Diagnosis: Principal (4) HTN (hypertension) ICD Code: I10 Diagnosis: Principal (5) CHF (congestive heart failure) ICD Code: I50.9 Diagnosis: Secondary (6) Dementia ICD Code: F03.90 Diagnosis: Secondary Procedures No procedures performed. Brief History - From Admission This is an 81-year-old male with a PMH of HTN, Dementia, CAD, CHF (Echo w/ EF 55-60%), Hyperlipidemia and A. fib on Xarelto who was brought to the ER by EMS as a Stroke Alert. Per report, patient had acute onset of chest pain while having dinner, had brief episode of unresponsiveness and upon arousal was found to have global aphasia, facial droop and right-sided hemiparesis. On arrival, BP 150/70, HR 68, O2 sat 98% on RA, Afebrile. WBC 12.1. Chemistry essentially unremarkable. Troponin 0.05. INR 1.6. UA negative for UTI. CT Head with no acute infarct, acute hemorrhage or mass effect. CXR with no acute findings. CTA Neck negative. CTA Head with focal occlusion of left middle cerebral artery and focal moderate segmental stenosis of proximal portions of posterior cerebral arteries bilaterally. Dr. Conroy consulted by ER physician, pt not TPA candidate in light of Xarelto. Dr. Del Cid also consulted, however pt not candidate for intervention in light of anticoagulation w/ high risk of bleed. Pt remains aphasic w/ right-sided hemiparesis. CBC/BMP: 02/26/17 1310 02/24/17 0616 Significant Findings Laboratory Tests Test 02/26/17 13:10 Hemoglobin 10.3 GM/DL (13.0-17.0) Hematocrit 33.4 % (39.0-51.0) Mean Corpuscular Volume 70.3 FL (80.0-100.0) Mean Corpuscular Hemoglobin 21.6 PG (27.0-34.0) Mean Corpuscular Hemoglobin 30.8 % Concent (32.0-36.0) Red Cell Distribution Width 19.5 % (11.6-17.2) Monocytes (%) (Auto) 12.0 % (0.0-8.0) Eosinophils (%) (Auto) 8.1 % (0.0-4.0) Monocytes # (Auto) 1.1 TH/MM3 (0-0.9) Eosinophils # (Auto) 0.8 TH/MM3 (0-0.4) Ovalocytes 1+ (NORMAL) Imaging Last Impressions Chest X-Ray 02/26/17 0000 Signed Impressions: Service Date/Time: Sunday, February 26, 2017 10:28 - CONCLUSION: Cardiomegaly with pulmonary vascular engorgement. Bibasilar consolidation potentially related to early intra-alveolar pulmonary edema. Lam Blanton Jr., MD Brain MRI 02/23/17 0000 Signed Impressions: Service Date/Time: Thursday, February 23, 2017 11:02 - CONCLUSION: 1. Acute infarction left basal ganglia and left temporal lobe. 2. Minimal petechial hemorrhage in the left basal ganglia. 3. Cerebral atrophy and chronic ischemic small vessel less likely. Maury Feng MD Neck CTA 02/22/171829 Signed Impressions: Service Date/Time: Wednesday, February 22, 2017 18:58 - CONCLUSION: No significant stenosis or occlusion or aneurysm. Sherif Talley MD Head CTA 02/22/171829 Signed Impressions: Service Date/Time: Wednesday, February 22, 2017 18:58 - CONCLUSION: 1. Focal occlusion of the left middle cerebral artery approximately 8 mm from its origin. 2. Focal moderate segmental stenoses involving the proximal portions of the posterior cerebral arteries bilaterally. 3. The findings were called to Dr. Reddy at 1925 hours on 02/22/2017. Sherif Talley MD Head CT 02/22/17 0000 Signed Impressions: Service Date/Time: Wednesday, February 22, 2017 18:34 - CONCLUSION: 1. No acute infarct, acute hemorrhage, mass effect or extra-axial fluid collections. 2. Severe diffuse atrophy. 3. Moderate periventricular and subcortical white matter small vessel ischemic changes bilaterally. 4. The findings were called to Dr. Reddy at 6:40 pm on 02/22/2017. Sherif Talley MD PE at Discharge GENERAL: Aphasia, no acute distress. HEENT: PERRLA, EOMI. No scleral icterus or conjunctival pallor. No lid lag or facial droop. CARDIOVASCULAR: Regular rate and rhythm. No obvious murmurs to auscultation. No chest tenderness to palpation. RESPIRATORY: No obvious rhonchi or wheezing. Clear to auscultation. Breath sounds equal bilaterally. GASTROINTESTINAL: Abdomen soft, non-tender, nondistended. BS normal. MUSCULOSKELETAL: Extremities without clubbing, cyanosis, or edema. No obvious deformities. NEUROLOGICAL: Awake, aphasia. Right-sided hemiparesis. follow commands. Hospital Course This is a pleasant 81 y/o male with Hypertension, Dementia, CAD, CHF (Echo 09/09 w/ EF 55-60%), Hyperlipidemia and A. fib on Xarelto who was brought to the ER by EMS as a Stroke Alert. Per report, patient had acute onset of chest pain while having dinner, had brief episode of unresponsiveness and upon arousal was found to have global aphasia, facial droop and right-sided hemiparesis. CT Head with no acute infarct, acute hemorrhage or mass effect. CXR with no acute findings. CTA Neck negative. CTA Head with focal occlusion of left middle cerebral artery and focal moderate segmental stenosis of proximal portions of posterior cerebral arteries bilaterally. Dr. Conroy consulted by ER physician, pt not TPA candidate in light of Xarelto. Dr. Del Cid also consulted, however pt not candidate for intervention in light of anticoagulation w/ high risk of bleed. Pt remains aphasic w/ right-sided hemiparesis. Consulted Neurology and Rehab medicine. 02/27: Seen in his bedroom in the presence of nurse Miss Marquez, discussed with Metallurgical Inspector and with Physical Therapy team he is okay to be transferred to Inpatient Rehab, the patient is strong and wants to improve quickly and he is working with PT, OT and ST, as per Neurology specialist okay to discharge to Rehab, discussed also with his son Officer Shelton Benjamin to the Phone number [phone] also discussed with his Mrs. Erna Benjamin to the phone number [phone]. eating well with help. no nausea, vomit or diarrhea. Assessment and Plan 1. CVA: acute onset of aphasia, right-sided hemiparesis, CT Head w/ no acute findings, CTA Neck negative, CTA Head w/ focal occlusion of left middle cerebral artery and focal moderate segmental stenosis involving proximal portions of posterior cerebral arteries bilaterally, images reviewed by me. Not Candidate for tPA in light of Xarelto Neurology specialist following Doctor Marycarmen Del Cid also consulted, pt not candidate for intervention in light of anticoagulation. past the swallow test and now on Heart Healthy diet, has Left Basal Ganglia infarct and left temporal lobe with petechial Hemorrhage. started on Lovenox for Prophylaxis as recommended by Neurology specialist, okay for discharge as per Neurology specialist and as per Physical Therapy. 2. A-fib: Chronic. On anticoagulation w/ Xarelto. INR 1.6. Hold PO medications in light of aphasia. ASA CA to re start his home medicines. he has history of GI bleed and also petechial brain hemorrhage makes him a difficult candidate for Xarelto and he is sinus rhythm at this time will continue home medicines and follow with Neurology specialist to decide if needs to continue Xarelto this issue was discussed with relatives. 3. HTN: better control now. 4. CHF: Echo 09/04/16 w/ EF 55-60%, CXR w/ patchy perihilar infiltrates, No evidence of PNA. new CXR with some Congestion but do not see Pneumonia, discontinued IV fluids 5. Dementia: Hold PO meds, Ativan prn-however caution w/ acute CVA and need to assess neuro function. DVT Prophylaxis: SCD/Teds. Discussed with Patient in the room and with his Nurse Miss Marquez the patient is eating better with help, no nausea, vomit or diarrhea Physical Therapy okay to discharge Home Metallurgical Inspector patient ready to go to [facility] With his Son Becky Petersen and with his Mrs. Umanzor all questions answered to the best of my abilities. Discharge Planning Discharge to Rehab today. Pt Condition on Discharge: Fair Discharge Disposition: Discharge to SNF Discharge Time: > 30 minutes Discharge Instructions DIET: Follow Instructions for: Heart Healthy Diet Activities you can perform: Regular-No Restrictions Other Activity Instructions: Follow Instructions by Physical Therapy, Occupational therapy and Speech Therapy, Fermín Davis MD February 27, 2017 10:21
[2017-02-27] MEDS ORDERED: GLYCERIN ADULT 2 GM SUPP RECTAL ONE (10:30)
[2017-02-27] MEDS ORDERED: SOD PHOSPHATE/SOD BIPHOSPHATE (ADULT) ENEMA 133ML RECTAL PRN (10:30)
[2017-02-27] MEDS ORDERED: LACTULOSE SYRUP 20 GM/30 ML CUP PO ONE (10:30)
[2017-02-27] MEDS: ENOXAPARIN SODIUM 40 MG/0.4 ML SYRINGE SQ SCH (12:07)
== END 2017-02-27 18:05 | DRG 65 ==
LOC: NEPE 18:21 → NEDA 20:22 → N05B 22:56
PROVIDERS: ADMIT Internal Medicine; ATTEND Internal Medicine
DX: I63.412 Cerebral infarction due to embolism of left middle cerebral artery (principal); G81.91 Hemiplegia, unspecified affecting right dominant side; F03.90 Unspecified dementia, unspecified severity, without behavioral disturbance, psychotic disturbance, mood disturbance, and anxiety; I48.2 Chronic atrial fibrillation; I11.0 Hypertensive heart disease with heart failure; I50.9 Heart failure, unspecified; I25.10 Atherosclerotic heart disease of native coronary artery without angina pectoris; R47.01 Aphasia; E78.5 Hyperlipidemia, unspecified; N40.0 Benign prostatic hyperplasia without lower urinary tract symptoms; Z95.5 Presence of coronary angioplasty implant and graft; Z79.01 Long term (current) use of anticoagulants
CPT/HCPCS: 36600; 70450; 70496; 70498; 70551; 71010; 80048; 80061; 80076; 81001; 82435; 82550; 82565; 82607; 82746; 82805; 82947; 82948; 83036; 83880; 84132; 84295; 84439; 84443; 84484; 84520; 85025; 85384; 85610; 85730; 86850; 86900; 86901; 93005; 94664; 96360; J1650; J1940; J7030; Q9967

== ENCOUNTER 2017-03-18 14:51 | Inpatient (IN) | payer MEDICARE, BC ==
[~2017-03-18] VITALS: Ht 172.7 cm; Wt 110.4 kg
[2017-03-18] VITALS (9 sets, daily range): BP systolic 121–169; BP diastolic 56–70; PULSE 56–70; RESP 17–21; TEMP 98.2–98.5; O2SAT 95–97
[~2017-03-18 14:51] MED LIST changes: -ALPR0.5T3 PO; -ASPI-110 PO; +ASPI325T PO; -ATOR20TA15 PO; +ATOR40TA16 PO; -POTA-245 PO; -XARE20TA PO
[2017-03-18] MEDS ORDERED: SODIUM CHLORIDE 0.9% FLUSH 10 ML FLUSH IVF PRN (15:30)
[2017-03-18] MEDS ORDERED: SODIUM CHLORID 0.9% 500 ML INJ 500 ML IV ONE (15:30)
[2017-03-18] MEDS ORDERED: POTA10SO12 PO (15:36)
[2017-03-18] MEDS ORDERED: BAZACRE (15:36)
[2017-03-18] MEDS ORDERED: NAME10TA PO (15:36)
[2017-03-18] MEDS ORDERED: ISOS10TA3 PO (15:36)
[2017-03-18] MEDS ORDERED: MULT-142 (15:36)
[2017-03-18] MEDS ORDERED: DULC10SU3 RECTAL (15:36)
[2017-03-18 15:38] LABS: BASOPHIL % 0.6 % (0.0-2.0); EOSINOPHIL # 0.3 TH/MM3 (0-0.4); EOSINOPHIL % 4.2 % (0.0-4.0); HEMATOCRIT 36.3 % (39.0-51.0); HEMO FLAGS DIFF FINAL; LYMPHOCYTE # 1.5 TH/MM3 (1.0-4.8); MEAN CELL VOLUME 71.4 FL (80.0-100.0); MEAN CORPUSCULAR HGB CONC 32.3 % (32.0-36.0); MONO % 10.3 % (0.0-8.0); NEUT % 65.9 % (16.0-70.0); PLATELET COUNT 230 TH/MM3 (150-450); RED BLOOD COUNT 5.08 MIL/MM3 (4.50-5.90); WHITE BLOOD COUNT 7.7 TH/MM3 (4.0-11.0)
[2017-03-18 15:55] LABS: APTT (PATIENT) 26.6 SEC (24.3-30.1); INTERNATIONAL NORMALIZED RATIO 1.1 RATIO; PROTHROMBIN TIME - PATIENT 12.4 SEC (9.8-11.6)
--- NOTE | 2017-03-18 15:58 | RADRPT ---
EXAM DATE/TIME: 03/18/2017 15:32 [facility] COMPARISON: MRI BRAIN W/O CONTRAST, February 23, 2017, 11:02. CT BRAIN W/O CONTRAST, February 22, 2017, 18:34. INDICATIONS : Patient had CVA 3 weeks ago, right side deficit and speech loss. RADIATION DOSE: 42.22 CTDIvol (mGy) MEDICAL HISTORY : Cardiovascular disease. Hypertension. Congestive heart failure. SURGICAL HISTORY : Thyroidectomy. ENCOUNTER: Initial ACUITY: 1 day PAIN SCALE: 0/10 LOCATION: cranial TECHNIQUE: Multiple contiguous axial images were obtained of the head. Using automated exposure control and adj ustment of the mA and/or kV according to patient size, radiation dose was kept as low as reasonably a chievable to obtain optimal diagnostic quality images. FINDINGS: There is mild motion degradation of the lobe convexity images. Prior MRI on 02/23/17 had demonstrated multifocal acute infarctions in the left temporal lobe, left ba fernando ganglia, and in the cortex of the left low parietal and occipital cortex. There were some petech ial hemorrhages seen on gradient echo images located in the basal ganglia. On today's examination, there is prominent hyperdensity in the left temporal lobe correlating to the area of acute infarction; no petechial hemorrhages seen on the prior MRI in the left temporal lobe. The left basal ganglion infarction appears as a height pulled density. There is questionable subarac hnoid hemorrhage in the left mid parietal mid convexity region, best seen on image #21.. The lateral ventricles are dilated, symmetric, and similar to prior MR. The right hemisphere is grossly intact. CONCLUSION: 1. Evidence of acute or subacute blood products in the left temporal lobe developing in the same area as an acute infarction seen on 02/23/17. 2. There is also evidence of mild subarachnoid hemorrhage mid convexity left parietal region witho ut evidence of mass effect or ventricular effacement, new from 02/23/17. Lam Richardson MD on March 18, 2017 at 15:49 Board Certified Radiologist. This report was verified electronically.
--- NOTE | 2017-03-18 16:05 | PD ---
HPI Chief Complaint: General Weakness Time Seen by Provider: 15:10 Travel History International Travel<30 days: No Contact w/Intl Traveler<30days: No Traveled to known affect area: No History of Present Illness HPI Patient is an 81-year-old male with history of hypertension, dementia, coronary disease, CHF, hyperlipidemia and A. fib who was previously on Xarelto, presents to emergency room from [facility] for evaluation of generalized weakness. As per EMS, patient was recently admitted to the rehab center after he suffered a stroke on February 22, 2017. Patient was at the rehabilitation center and was doing well with his physical therapy, reports concerns as patient was weaker than normal today. Patient is aphasic, patient is unable to provide history of present illness at this time. He is currently on a full dose aspirin for his anticoagulation, he currently is not on Xarelto PFSH Past Medical History Hx Anticoagulant Therapy: Yes (xarelto) Arthritis: Yes Atrial Fibrillation: Yes Blood Disorders: No Anxiety: No Depression: No Heart Rhythm Problems: Yes (A FIB) Cancer: No Cardiac Catheterization: Yes (5 STENTS SINCE 1998) Cardiovascular Problems: Yes High Cholesterol: Yes Congestive Heart Failure: Yes Cerebrovascular Accident: Yes Coronary Artery Disease: Yes Dementia: Yes Diabetes: No Endocrine: Yes Genitourinary: Yes Hypertension: Yes Immune Disorder: No Implanted Vascular Access Dvce: Yes Medical other: Yes (hyper-hypo kalemia) Musculoskeletal: Yes Neurologic: No Psychiatric: Yes (DEMENTIA) Reproductive: No Respiratory: No Immunizations Current: No Thyroid Disease: Yes (HYPO) PNEUMOCCOCAL Vaccine (Year): 1 Past Surgical History Body Medical Devices: CORONARY STENTS Cardiac Surgery: Yes (CARDIAC CATH WITH STENTS PLACED) Coronary Stent: Yes Endocrine Surgery: Yes (THYROIDECTOMY) Other Surgery: Yes (3/4 THYROID REMOVED- BENIGN) Social History Alcohol Use: No Tobacco Use: No Substance Use: No Allergies-Medications (Allergen,Severity, Reaction): Coded Allergies: No Known Allergies (Verified , 03/18/17) Reported Meds & Prescriptions Reported Meds & Active Scripts Active Aspirin 325 Mg Tab 325 Mg PO DAILY Reported Multi Vitamin and Mineral (Multiple Vitamins W/ Minerals) 1 Tab Tab 1 Tab DAILY Gale Protect (Skin Protectants, Misc.) 1 Cre Cre DIRECTED r buttock, Q shift and PRN Isosorbide Mononitrate 10 Mg Tab 10 Mg PO TID Take 2 doses 7 hours apart. Potassium Chloride Liq (Potassium Chloride) 20 Meq/15 Ml Soln 10 Meq PO DAILY Namenda (Memantine) 10 Mg Tab 10 Mg PO BID Dulcolax Supp (Bisacodyl) 10 Mg Supp 10 Mg RECTAL DAILY PRN Nitrostat SL (Nitroglycerin) 0.4 Mg Subl 0.4 Mg SL DIRECTED PRN 1 tablet under the tongue as needed for chest pain. Repeat every 5 minutes for a total of 3 DOSES or call 911 if NO relief. Donepezil 10 Mg Tab 10 Mg PO HS Furosemide 40 Mg Tab 20 Mg PO EVERY OTHER DAY Amlodipine (Amlodipine Besylate) 2.5 Mg Tab 2.5 Mg PO DAILY Atenolol 50 Mg Tab 50 Mg PO BID Levothyroxine (Levothyroxine Sodium) 200 Mcg Tab 200 Mcg PO DAILY Review of Systems ROS Limitations: Altered Mental Status Physical Exam Narrative GENERAL: NAD SKIN: Focused skin assessment warm/dry. HEAD: Atraumatic. Normocephalic. EYES: Pupils equal and round. No scleral icterus. No injection or drainage. ENT: No nasal bleeding or discharge. Mucous membranes pink and moist. NECK: Trachea midline. No JVD. CARDIOVASCULAR: Regular rate and rhythm. No murmur appreciated. RESPIRATORY: No accessory muscle use. Clear to auscultation. Breath sounds equal bilaterally. GASTROINTESTINAL: Abdomen soft, non-tender, nondistended. Hepatic and splenic margins not palpable. MUSCULOSKELETAL: No obvious deformities. No clubbing. No cyanosis. No edema. NEUROLOGICAL: Patient responsive to painful stimuli, patient with flat affect Data Data Last Documented VS Vital Signs Date Time Temp Pulse Resp B/P Pulse Ox O2 Delivery O2 Flow Rate FiO2 03/18/17 16:05 58 17 123/58 95 Room Air 03/18/17 15:15 98.2 Orders Electrocardiogram (03/18/17 15:16) Complete Blood Count With Diff (03/18/17 15:16) Comprehensive Metabolic Panel (03/18/17 15:16) Magnesium (Mg) (03/18/17 15:16) B-Type Natriuretic Peptide (03/18/17 15:16) Ckmb (Isoenzyme) Profile (03/18/17 15:16) Troponin I (03/18/17 15:16) Act Partial Throm Time (Ptt) (03/18/17 15:16) Prothrombin Time / Inr (Pt) (03/18/17 15:16) Urinalysis - C+S If Indicated (03/18/17 15:16) Chest, Single Ap (03/18/17 15:16) Ecg Monitoring (03/18/17 15:16) Iv Access Insert/Monitor (03/18/17 15:16) Oximetry (03/18/17 15:16) Sodium Chloride 0.9% Flush (Ns Flush) (03/18/17 15:30) Sodium Chlorid 0.9% 500 Ml Inj (Ns 500 M (03/18/17 15:30) Ct Brain W/O Iv Contrast(Rout) (03/18/17 15:16) Admit To Inpatient (03/18/17 ) Vital Signs (Adult) Q4H (03/18/17 16:43) Activity Bed Rest (03/18/17 16:43) Consumer Studies Professor / Telemetry .CONTINUOUS (03/18/17 16:43) Intake + Output DANILO.QSHIFT (03/18/17 16:43) Diet Npo (03/18/17 Dinner) Sodium Chloride 0.9% Flush (Ns Flush) (03/18/17 16:45) Sodium Chloride 0.9% Flush (Ns Flush) (03/18/17 21:00) Ondansetron Inj (Zofran Inj) (03/18/17 16:45) Naloxone Inj (Narcan Inj) (03/18/17 16:45) Docusate Sodium-Senna (Nancy-Colace) (03/18/17 21:00) Magnesium Hydroxide Liq (Milk Of Magnesi (03/18/17 16:45) Sennosides (Senokot) (03/18/17 16:45) Bisacodyl Supp (Dulcolax Supp) (03/18/17 16:45) Lactulose Liq (Lactulose Liq) (03/18/17 16:45) Inpatient Certification (03/18/17 ) Consult Neurosurgery (03/18/17 ) (Hub Use Only)Inp Phy Cons/Ref (03/18/17 ) Labs Laboratory Tests Test 03/18/17 03/18/17 15:30 16:19 White Blood Count 7.7 TH/MM3 Red Blood Count 5.08 MIL/MM3 Hemoglobin 11.7 GM/DL Hematocrit 36.3 % Mean Corpuscular Volume 71.4 FL Mean Corpuscular Hemoglobin 23.0 PG Mean Corpuscular Hemoglobin 32.3 % Concent Red Cell Distribution Width 22.0 % Platelet Count 230 TH/MM3 Mean Platelet Volume 8.6 FL Neutrophils (%) (Auto) 65.9 % Lymphocytes (%) (Auto) 19.0 % Monocytes (%) (Auto) 10.3 % Eosinophils (%) (Auto) 4.2 % Basophils (%) (Auto) 0.6 % Neutrophils # (Auto) 5.0 TH/MM3 Lymphocytes # (Auto) 1.5 TH/MM3 Monocytes # (Auto) 0.8 TH/MM3 Eosinophils # (Auto) 0.3 TH/MM3 Basophils # (Auto) 0.0 TH/MM3 CBC Comment DIFF FINAL Differential Comment Prothrombin Time 12.4 SEC Prothromb Time International 1.1 RATIO Ratio Activated Partial 26.6 SEC Thromboplast Time Sodium Level 138 MEQ/L Potassium Level 4.0 MEQ/L Chloride Level 100 MEQ/L Carbon Dioxide Level 31.7 MEQ/L Anion Gap 6 MEQ/L Blood Urea Nitrogen 14 MG/DL Creatinine 0.98 MG/DL Estimat Glomerular Filtration 73 ML/MIN Rate Random Glucose 178 MG/DL Calcium Level 8.9 MG/DL Magnesium Level 2.0 MG/DL Total Bilirubin 0.3 MG/DL Aspartate Amino Transf 27 U/L (AST/SGOT) Alanine Aminotransferase 34 U/L (ALT/SGPT) Alkaline Phosphatase 100 U/L Total Creatine Kinase 69 U/L Troponin I 0.05 NG/ML B-Type Natriuretic Peptide 275 PG/ML Total Protein 7.4 GM/DL Albumin 3.0 GM/DL Urine Color YELLOW Urine Turbidity CLEAR Urine pH 5.5 Urine Specific [place] 1.017 Urine Protein NEG mg/dL Urine Glucose (UA) NEG mg/dL Urine Ketones NEG mg/dL Urine Occult Blood SMALL Urine Nitrite NEG Urine Bilirubin NEG Urine Urobilinogen LESS THAN 2.0 MG/DL Urine Leukocyte Esterase NEG Urine RBC 5 /hpf Urine WBC 1 /hpf Urine Squamous Epithelial <1 /hpf Cells Urine Hyaline Casts 7 /lpf Urine Mucus FEW /lpf Microscopic Urinalysis Comment CULT NOT INDICATED MDM Medical Decision Making Medical Screen Exam Complete: Yes Emergency Medical Condition: Yes Medical Record Reviewed: Yes Interpretation(s) EKG at 1548: Sinus francisco javier at 59bpm, qt/qtc: 445/443, st seg elevation V1-V4 - ekg is similar when compared to previous ekg from 02/22/17. Vital Signs Date Time Temp Pulse Resp B/P Pulse Ox O2 Delivery O2 Flow Rate FiO2 03/18/17 15:15 98.2 56 20 121/56 97 Differential Diagnosis CVA, pneumonia, UTI, electrolyte abnormality Narrative Course Patient is an 81-year-old male who was sent to the emergency room from his rehabilitation facility for generalized weakness. Patient has been undergoing rehabilitation as he has had a recent stroke with right-sided deficits, reports that patient has been weaker today than when compared to his baseline. Patient is unable to provide history of present illness this time. I did review patient's previous inpatient records as well as discharge summary. Patient was seen on February 22, 2017 with CVA, lytics were not given at that time as patient was on Xarelto for his afib. CTA did show focal occlusions of the left middle cervical artery as well as focal moderate segmental stenosis of the proximal portions of the posterior cerebral arteries bilaterally. Patient was discharged to rehab facility aphasic - continues to be aphasic and cannot provide hpi Patient was placed on electronic device monitor upon arrival to ER. CT of head and labs ordered. CBC & BMP Diagram 03/18/17 15:[address] 03/18/17 1516 Signed Impressions: Service Date/Time: Saturday, March 18, 2017 15:32 - CONCLUSION: 1. Evidence of acute or subacute blood products in the left temporal lobe developing in the same area as an acute infarction seen on 02/23/17. 2. There is also evidence of mild subarachnoid hemorrhage mid convexity left parietal region without evidence of mass effect or ventricular effacement, new from 02/23/17. Lam Richardson MD Chest X-Ray 03/18/17 1516 Signed Impressions: Service Date/Time: Saturday, March 18, 2017 15:30 - CONCLUSION: No infiltrate seen. No evidence of pneumothorax. Lam Richardson MD ct of head concerning for mild SAH, case reviewed with Dr. Miller, request close observation in ICU, family at bedside, son reports that patient has been moving his rue in rehab - reports that today, he appears weaker than normal. pt 's at bedside, call made to retail and promotions coordinator for admission to hospital. : madhavi [phone] son: Shelton: [phone] alejandro who accepts pt to service Critical Care Narrative Aggregate critical care time was 30 minutes. Time to perform other separately billable procedures was not included in the critical care time. My time did not include minutes spent treating any other patients simultaneously or on activities that did not directly contribute to the patient's treatment. The services I provided to this patient were to treat and/or prevent clinically significant deterioration that could result in: , decompensation, deterioration I provided critical care services requiring my management, as noted below: Chart data review, documentation time, medication orders and management, vital sign assessments/reviewing monitor data, ordering and reviewing lab tests, ordering and interpreting/reviewing x-rays and diagnostic studies, care of the patient and discussion of the patient with the admitting physicians. Diagnosis Primary Impression: Intracranial hemorrhage Additional Impression: Generalized weakness Admitting Information Admitting Physician Requests: Tamara Mclaughlin DO Mar 18, 2017 16:05
[2017-03-18 16:10] LABS: ALT (GPT) 34 U/L (12-78); ANION GAP 6 MEQ/L (5-15); AST (GOT) 27 U/L (15-37); BICARBONATE 31.7 MEQ/L (21.0-32.0); BLOOD UREA NITROGEN 14 MG/DL (7-18); CHLORIDE 100 MEQ/L (98-107); GLOMERULAR FILTRATION RATE 73 ML/MIN (>89); SODIUM (NA) 138 MEQ/L (136-145)
[2017-03-18 16:14] LABS: ALKALINE PHOSPHATASE 100 U/L (45-117); TOTAL BILIRUBIN ADULT 0.3 MG/DL (0.2-1.0)
[2017-03-18 16:17] LABS: CREATINE KINASE 69 U/L (39-308)
--- NOTE | 2017-03-18 16:26 | RADRPT ---
EXAM DATE/TIME: 03/18/2017 15:30 [facility] COMPARISON: CHEST SINGLE AP, February 26, 2017, 10:28. INDICATIONS : Syncopal episode. MEDICAL HISTORY : Dementia. Cardiovascular disease. Hypertension SURGICAL HISTORY : Cardiac stent. ENCOUNTER: Initial ACUITY: 1 day PAIN SCORE: Non-responsive. LOCATION: Bilateral chest FINDINGS: The lungs are symmetrically aerated and clear. No focal infiltrates seen. The heart is normal in si ze. Moderate tortuosity descending thoracic aorta. Both hemidiaphragms well delineated. Deformity of both humeral heads. CONCLUSION: No infiltrate seen. No evidence of pneumothorax. Lam Richardson MD on March 18, 2017 at 16:23 Board Certified Radiologist. This report was verified electronically.
[2017-03-18] MEDS ORDERED: SENNOSIDES 8.6 MG TAB PO PRN ×2 (16:45→17:45)
[2017-03-18] MEDS ORDERED: MAGNESIUM HYDROXIDE SUSP 30 ML CUP PO PRN ×2 (16:45→17:45)
[2017-03-18] MEDS ORDERED: ONDANSETRON HCL 4 MG/2 ML VIAL IVP PRN (16:45)
[2017-03-18] MEDS ORDERED: BISACODYL 10 MG SUPP RECTAL PRN ×2 (16:45→17:45)
[2017-03-18] MEDS ORDERED: SODIUM CHLORIDE 0.9% FLUSH 10 ML FLUSH IV FLUSH PRN ×2 (16:45→17:45)
[2017-03-18] MEDS ORDERED: LACTULOSE SYRUP 20 GM/30 ML CUP PO PRN ×2 (16:45→17:45)
[2017-03-18] MEDS ORDERED: NALOXONE HCL 0.4 MG/ML AMP IV PRN (16:45)
[2017-03-18 17:00] LABS: BLOOD, URINE SMALL (NEG); GLUCOSE,URINE NEG (NEG); HYALINE CAST, URINE 7 /lpf (RARE); KETONE, URINE NEG (NEG); MUCUS URINE FEW /lpf (OCC); NITRITE,URINE NEG (NEG); PH, URINE 5.5 (5.0-8.5); SQUAMOUS EPITHELIAL CELL URINE <1 /hpf (0-5); URINE COLOR YELLOW (YELLW/STRAW)
[2017-03-18 17:03] LABS: COMMENT (UR) CULT NOT INDICATED; CULTURE IF INDICATED CULT NOT INDICATED
--- NOTE | 2017-03-18 17:41 | HHI.HP ---
HPI Service Critical Care Medicine Primary Care Physician Unknown Admission Diagnosis Subarachnoid Hemorrhage Diagnosis: (1) Intracranial hemorrhage Diagnosis: Principal (2) Coronary artery disease Diagnosis: Principal (3) Incontinence Diagnosis: Principal (4) Hypertension Diagnosis: Principal (5) Hypothyroidism Diagnosis: Principal (6) Dementia Diagnosis: Principal (7) BPH (benign prostatic hyperplasia) Diagnosis: Principal (8) Subarachnoid hemorrhage Diagnosis: Principal (9) Microcytic anemia Diagnosis: Principal (10) Hyperglycemia Diagnosis: Principal (11) Hypoalbuminemia Diagnosis: Principal (12) Diverticulosis Diagnosis: Principal (13) Chronic diastolic heart failure Diagnosis: Principal Chief Complaint: Transfer from [facility] in [place] with new right-sided weakness Travel History International Travel<30 Days: No Contact w/Intl Traveler <30 Da: No Traveled to Known Affected Are: No History of Present Illness This is a 81-year-old male. Date of admission 03/18/2017. Past medical history dementia disorder, atrial fibrillation currently in sinus bradycardia, hypertension, coronary artery disease history of 5 stents, chronic diastolic heart failure with ejection fraction 55% 2010, diverticulosis, hypothyroidism, osteoarthritis, dyslipidemia. 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 CTA revealed occlusion in the left MCA distributions and focal stenosis throughout the bilateral posterior cerebral artery distributions. During this admission he was seen by neurology/Dr. Conroy. His symptomatology upon included aphasia both expressive and receptive, dysphagia, apraxia, right-sided weakness and a right facial droop. At that time he was on Xarelto due to atrial fibrillation and not deemed not a candidate for TPA. Not an interventional candidate per IR due to hypercoagulable state. Due to the petechial hemorrhage not a candidate for Xarelto. Prior to discharge patient improved strength in his right upper lower extremity with x-ray is left upper and lower extremity. He was sent to [facility] rehabilitation on aspirin 325 mill grams daily. Today, patient was noticed that facility with increasing weakness is a right upper lobe extremity. The [place] L4 CT head revealed acute versus subacute blood proximally and the prior sites of the left temporal CVA basal ganglia infarct. Also a small subarachnoid hemorrhage in the left mid parietal region. Dr. Miller was notified in which patient be admitted to neuro ICU overnight. Review of Systems Constitutional: COMPLAINS OF: Weight loss, DENIES: Weight gain, Chills, Dizziness Endocrine: DENIES: Polydipsia, Polyuria Eyes: DENIES: Diplopia, Double Vision Ears, nose, mouth, throat: COMPLAINS OF: Hearing loss, DENIES: Tinnitus, Odynophagia Respiratory: DENIES: Sputum production, Shortness of breath Cardiovascular: DENIES: Chest pain Gastrointestinal: DENIES: Abdominal pain Genitourinary: COMPLAINS OF: Urgency Musculoskeletal: COMPLAINS OF: Joint pain Integumentary: DENIES: Abnormal pigmentation Hematologic/lymphatic: DENIES: Bruising Immunologic/allergic: DENIES: Eczema Neurologic: COMPLAINS OF: Localized weakness, Poor Balance, DENIES: Abnormal gait, Headache, Speech Problems Psychiatric: COMPLAINS OF: Confusion Past Family Social History Allergies: Coded Allergies: No Known Allergies (Verified , 03/18/17) Past Medical History Dementia disorder NOS Atrial fibrillation Hypertension Dyslipidemia Chronic diastolic heart failure Osteoarthritis Coronary artery disease history of 5 stents Diverticulosis Hypothyroidism Microcytic anemia Past Surgical History Partial thyroidectomy Colonoscopy Coronary artery catheterization status post 5 stents Reported Medications Active Aspirin 325 Mg Tab 325 Mg PO DAILY Reported Multi Vitamin and Mineral (Multiple Vitamins W/ Minerals) 1 Tab Tab 1 Tab DAILY Gale Protect (Skin Protectants, Misc.) 1 Cre Cre DIRECTED r buttock, Q shift and PRN Isosorbide Mononitrate 10 Mg Tab 10 Mg PO TID Take 2 doses 7 hours apart. Potassium Chloride Liq (Potassium Chloride) 20 Meq/15 Ml Soln 10 Meq PO DAILY Namenda (Memantine) 10 Mg Tab 10 Mg PO BID Dulcolax Supp (Bisacodyl) 10 Mg Supp 10 Mg RECTAL DAILY PRN Nitrostat SL (Nitroglycerin) 0.4 Mg Subl 0.4 Mg SL DIRECTED PRN 1 tablet under the tongue as needed for chest pain. Repeat every 5 minutes for a total of 3 DOSES or call 911 if NO relief. Donepezil 10 Mg Tab 10 Mg PO HS Furosemide 40 Mg Tab 20 Mg PO EVERY OTHER DAY Amlodipine (Amlodipine Besylate) 2.5 Mg Tab 2.5 Mg PO DAILY Atenolol 50 Mg Tab 50 Mg PO BID Levothyroxine (Levothyroxine Sodium) 200 Mcg Tab 200 Mcg PO DAILY Active Ordered Medications Reviewed in EMR Family History Positive for coronary artery disease and hypertension Social History No documentation of tobaccoism, alcohol use or IV drug use. Physical Exam Vital Signs Vital Signs Date Time Temp Pulse Resp B/P Pulse Ox O2 Delivery O2 Flow Rate FiO2 03/18/17 16:05 58 17 123/58 95 Room Air 03/18/17 16:03 97 Room Air 03/18/17 15:15 98.2 56 20 121/56 97 Physical Exam GENERAL: 81-year-old male, critically ill currently resting in bed in no acute distress SKIN: Warm and dry. Rash to bilateral buttocks stage 0 ulcer HEAD: Atraumatic. Normocephalic. EYES: Pupils equal and round about 3 mm bilaterally. Positive arcus senilis. No scleral icterus. No injection or drainage. ENT: No nasal bleeding or discharge. Mucous membranes pink and moist. NECK: Trachea midline. No JVD. CARDIOVASCULAR: Ada cardiac, RRR. S1, S2. No S4. RESPIRATORY: clear to auscultation. Breath sounds equal bilaterally. GASTROINTESTINAL: Abdomen soft, non-tender, nondistended. Hypoactive sounds MUSCULOSKELETAL: Extremities without difficulty and peripheral edema. No obvious deformities. NEUROLOGICAL: GCS11 (E3,V2,M6) Awake and arousable and follows simple commands with yes and no answers. Tongue midline. Able to squeeze left upper extremity to command with 4-5 strength. Unable to move toes bilateral lower extremities. Strength one out of 5. Right upper extremity is flaccid. Sensation appears to be intact. DTRs are equal symmetric bilaterally. Gait and cerebellar not assessed.. Laboratory Laboratory Tests Test 03/18/17 03/18/17 15:30 16:19 White Blood Count 7.7 Red Blood Count 5.08 Hemoglobin 11.7 Hematocrit 36.3 Mean Corpuscular Volume 71.4 Mean Corpuscular Hemoglobin 23.0 Mean Corpuscular Hemoglobin 32.3 Concent Red Cell Distribution Width 22.0 Platelet Count 230 Mean Platelet Volume 8.6 Neutrophils (%) (Auto) 65.9 Lymphocytes (%) (Auto) 19.0 Monocytes (%) (Auto) 10.3 Eosinophils (%) (Auto) 4.2 Basophils (%) (Auto) 0.6 Neutrophils # (Auto) 5.0 Lymphocytes # (Auto) 1.5 Monocytes # (Auto) 0.8 Eosinophils # (Auto) 0.3 Basophils # (Auto) 0.0 CBC Comment DIFF FINAL Differential Comment Prothrombin Time 12.4 Prothromb Time International 1.1 Ratio Activated Partial 26.6 Thromboplast Time Sodium Level 138 Potassium Level 4.0 Chloride Level 100 Carbon Dioxide Level 31.7 Anion Gap 6 Blood Urea Nitrogen 14 Creatinine 0.98 Estimat Glomerular Filtration 73 Rate Random Glucose 178 Calcium Level 8.9 Magnesium Level 2.0 Total Bilirubin 0.3 Aspartate Amino Transf 27 (AST/SGOT) Alanine Aminotransferase 34 (ALT/SGPT) Alkaline Phosphatase 100 Total Creatine Kinase 69 Troponin I 0.05 B-Type Natriuretic Peptide 275 Total Protein 7.4 Albumin 3.0 Urine Color YELLOW Urine Turbidity CLEAR Urine pH 5.5 Urine Specific [place] 1.017 Urine Protein NEG Urine Glucose (UA) NEG Urine Ketones NEG Urine Occult Blood SMALL Urine Nitrite NEG Urine Bilirubin NEG Urine Urobilinogen LESS THAN 2.0 Urine Leukocyte Esterase NEG Urine RBC 5 Urine WBC 1 Urine Squamous Epithelial <1 Cells Urine Hyaline Casts 7 Urine Mucus FEW Microscopic Urinalysis Comment CULT NOT INDICATED Result Diagram: 03/18/17 1530 03/18/17 1530 Imaging Last Impressions Head CT 03/18/17 151 Signed Impressions: Service Date/Time: Saturday, March 18, 2017 15:32 - CONCLUSION: 1. Evidence of acute or subacute blood products in the left temporal lobe developing in the same area as an acute infarction seen on 02/23/17. 2. There is also evidence of mild subarachnoid hemorrhage mid convexity left parietal region without evidence of mass effect or ventricular effacement, new from 02/23/17. Lam Richardson MD Chest X-Ray 03/18/17 1516 Signed Impressions: Service Date/Time: Saturday, March 18, 2017 15:30 - CONCLUSION: No infiltrate seen. No evidence of pneumothorax. Lam Richardson MD Assessment and Plan Assessment and Plan Neuro/Psych: Left temporal intraparenchymal hemorrhage Left basal ganglia hemorrhage Left mid parietal subarachnoid hemorrhage/small Recent history of left MCA CVA with petechial hemorrhage left basal ganglia 02/26 Dementia disorder NOS Neurosurgery/Dr. Miller has been consulted. Recommended observation in ISC Goal keep systolic blood pressure less than 150 Neurochecks per [facility] protocol Keppra 500 mg IV twice a day 7 days for seizure prophylaxis Repeat head CT in a.m. and a CTA brain today Resume Aricept 10 mg daily and Namenda 10 mg twice a day in a.m. for dementia once passed swallow evaluation CV: Hypertension Coronary artery disease status post stents 5 Chronic diastolic heart failure ejection fraction 55-60% 2010 Dyslipidemia History of atrial fibrillation currently in sinus bradycardia Atherosclerotic vascular disease Home medications are atenolol 50 mg twice a day and Norvasc 2.5 mg daily for hypertension. Resume Home medications include Isordil 10 mg 3 times a day for underlying coronary disease. Hold in light of subarachnoid hemorrhage.. Patient is on aspirin 325 mg by mouth daily. Hold in light of acute intracranial hemorrhage. Patient is on Lasix 20 jennifer grams every other day. Resume when clinically indicated. EKG revealed sinus bradycardia rate of 59. Normal [place], QRS and QT intervals. Nonspecific ST-T changes in the anterior leads. Resp: Nasal cannula to maintain saturations greater than equal to 92% Incentive spirometry while awake Chest x-ray on admission 03/18/17 reveals no acute cardio pulmonary findings GI: History diverticulosis History of gastritis/esophagitis and duodenitis 11/29 Mild protein calorie malnutrition with hypoalbuminemia Patient is currently nothing by mouth Protonix for GI prophylaxis Nancy-Colace twice a day for bowel regimen : BPH Ball if indicated to maintain accurate I's and O's in a critically ill patient Endo: Hyperglycemia Hypothyroidism Sliding-scale insulin with Accu-Cheks to maintain euglycemia/low regimen Resume Levoxyl 200 mics grams daily. Recheck TSH in a.m. Renal: History of right renal cyst 1.5 cm Creatinine currently within normal limits Accurate I's and O's Currently on normal saline at 70 cc an hour Recheck BMP in a.m. Heme: Microcytic anemia Follow-up CBC in AM. ID: Monitor for infection UA shows no signs of infection FEN: History of hypokalemia Replace electrolytes as clinically indicated Only home medication of potassium chloride 10 mEq daily. If clinically indicated MSK: Osteoarthritis Lumbar degenerative disc disease PT evaluate and treat Access - Utilize peripheral IV. Central line if indicated Prophylaxis - GI - Protonix - DVT - SCD/pharmacological prophylaxis held in light of acute intracranial hemorrhage Level III admission Code Status Full code Discussed Condition With ED physician Dr. Bruno and spouse Erna Benjamin [phone]. Care plan discussed and all questions answered Problem Qualifiers (1) Coronary artery disease: Qualified Code: I25.10 - Coronary artery disease without angina pectoris, unspecified vessel or lesion type, unspecified whether [place] or transplanted heart (2) Incontinence: Qualified Code: R32 - Urinary incontinence, unspecified type (3) Hypertension: Qualified Code: I10 - Essential hypertension (4) Hypothyroidism: Qualified Code: E89.0 - Postoperative hypothyroidism (5) Dementia: Qualified Code: F03.90 - Dementia without behavioral disturbance, unspecified dementia type (6) BPH (benign prostatic hyperplasia): Qualified Code: N40.1 - Benign prostatic hyperplasia with lower urinary tract symptoms, unspecified morphology (7) Diverticulosis: Qualified Code: K57.90 - Diverticulosis of intestine without bleeding, unspecified intestinal tract location Talha Matthew MD Mar 18, 2017 17:41
[2017-03-18] MEDS ORDERED: DEXTROSE 50% IN WATER 50 ML VIAL(D50) IV PRN (17:45)
[2017-03-18] MEDS ORDERED: GLUCAGON 1 MG/ML VIAL OTHER PRN (17:45)
[2017-03-18] MEDS ORDERED: MISCELLANEOUS NURSING INFORMATION XX SCH (17:45)
[2017-03-18] MEDS ORDERED: cloNIDine HCL 0.1 MG TAB PO PRN (17:45)
[2017-03-18] MEDS ORDERED: LABETALOL HCL 100 MG/20 ML VIAL IV PRN ×2 (17:45→19:00)
[2017-03-18] MEDS ORDERED: ONDANSETRON HCL 4 MG/2 ML VIAL IV PRN (17:45)
[2017-03-18] MEDS ORDERED: CHLORHEXIDINE GLUCONATE 2 % 1 PACK (2 CLOTHS) TOP PRN (17:45)
[2017-03-18] MEDS ORDERED: GLUCAGON 1 MG/ML VIAL IM PRN (17:45)
[2017-03-18] MEDS ORDERED: RESP: ALBUTEROL 2.5 MG/3 ML NEB (PRN) INH (17:45)
[2017-03-18] MEDS ORDERED: niCARdipine INJ 25 MG in SODIUM CHLOR 0.9% 250 ML INJ 250 ML IV SCH (17:45)
[2017-03-18] MEDS: ARTIFICIAL TEARS OPTH SOLN 15 ML BTL EACH EYE SCH (18:00)
[2017-03-18] MEDS ORDERED: POTASSIUM PHOSPHATE MONOBASIC 500 MG TAB PO/TUBE PRN (18:15)
[2017-03-18] MEDS ORDERED: POTASSIUM PHOSPHATE INJ 30 MMOL in SODIUM CHLOR 0.9% 250 ML INJ 250 ML IV PRN (18:15)
[2017-03-18] MEDS ORDERED: POTASSIUM CHLOR 40 MEQ PREMIX 100 ML IV PRN ×2 (18:15)
[2017-03-18] MEDS ORDERED: NITROGLYCERIN 2% OINT 1 GM PACKET TOPICAL PRN (18:15)
[2017-03-18] MEDS ORDERED: SODIUM PHOSPHATE INJ 30 MMOL in SODIUM CHLOR 0.9% 250 ML INJ 240 ML IV PRN (18:15)
[2017-03-18] MEDS ORDERED: MAGNESIUM SULFATE INJ 4 GM in SODIUM CHLORIDE 0.9% INJ 92 ML IV PRN (18:15)
[2017-03-18] MEDS ORDERED: POTASSIUM CHLORIDE 25 MEQ EFFERVESCENT TAB PO PRN (18:15)
[2017-03-18] MEDS ORDERED: POTASSIUM PHOSPHATE MONOBASIC 500 MG TAB PO PRN (18:15)
[2017-03-18] MEDS ORDERED: MAGNESIUM OXIDE 400 MG TAB PO PRN (18:15)
[2017-03-18] MEDS ORDERED: ENALAPRILAT 1.25 MG/ML VIAL IV PUSH PRN (18:15)
[2017-03-18] MEDS ORDERED: POTASSIUM CHLOR 20 MEQ PREMIX 100 ML IV PRN ×2 (18:15)
[2017-03-18] MEDS ORDERED: MAGNESIUM SULFATE INJ 2 GM in SODIUM CHLORIDE 0.9% INJ 96 ML IV PRN (18:15)
[2017-03-18] MEDS ORDERED: hydrALAZINE HCL 20 MG/ML VIAL IV PUSH PRN (18:15)
[2017-03-18] MEDS ORDERED: PILL SPLITTER OTHER PRN (18:30)
[2017-03-18] MEDS: INSULIN NovoLIN REGULAR SUPPLEMENTAL SCALE SQ SCH ×2 (18:45→23:39)
[2017-03-18] MEDS: levETIRAcetam INJ 500 MG in SODIUM CHLORIDE 0.9% INJ 100 ML IV SCH (18:47)
[2017-03-18] MEDS: SODIUM CHLOR 0.9% 1000 ML INJ 1,000 ML IV SCH (18:49)
[2017-03-18] MEDS: niCARdipine INJ 25 MG in SODIUM CHLOR 0.9% 250 ML INJ 250 ML IV SCH ×2 (18:57→21:28)
--- NOTE | 2017-03-18 20:03 | MB ---
cc: FESTUS KAMARA M.D. DATE OF CONSULTATION 03/18/17 REASON FOR CONSULTATION Left temporal lobe hemorrhage. HISTORY OF PRESENT ILLNESS This is an 81-year-old gentleman who suffered from a stroke about 3 weeks ago on the left hemisphere with associated aphasia and right hemiplegia. He was on Xarelto for chronic atrial fibrillation prior to that which was discontinued and was placed on aspirin. 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 A CTA of the neck did not reveal any carotid stenosis. He had an MRI scan which revealed an acute infarction involving the left temporal lobe and basal ganglia with some small petechial hemorrhage in the basal ganglia. He was subsequently discharged to a snf home rehab facility. He is starting to move slightly on the right side and verbalize some words but this declined today and was sent to the emergency room. A CT scan of the head obtained reveals small areas of acute and subacute hemorrhages in the left temporal lobe. I do not appreciate any subarachnoid hemorrhage associated with this. There is no mass effect or midline shift. The patient has been started on Cardene drip for his hypertension. He does not verbalize or follow any commands given his aphasia but will open his eyes to verbal commands. No family currently is available. PAST MEDICAL HISTORY Recent left hemisphere stroke with MCA occlusion, atrial fibrillation, hypertension, congestive heart failure, coronary artery disease with multiple stents in the past, dementia, hyperlipidemia, osteoarthritis, hypothyroidism, chronic anemia, diverticulosis, partial thyroidectomy, colonoscopy, sinus bradycardia. MEDICATIONS Include: 1. Aspirin 325 milligrams daily. 2. Amlodipine 2.5 milligrams daily. 3. Atenolol 50 milligrams b.i.d. 4. Dulcolax suppository daily p.r.n. 5. Donepezil 10 milligrams q.h.s. 6. Lasix 20 milligrams every other day. 7. Isosorbide 10 milligrams t.i.d. 8. Synthroid 200 micrograms daily. 9. Namenda 10 milligrams b.i.d. 10. Nitroglycerin 0.4 milligrams sublingual p.r.n. 11. Potassium chloride supplements 10 milliequivalents daily. 12. Multivitamins. ALLERGIES NO KNOWN DRUG ALLERGIES. SOCIAL HISTORY He is . Currently resides in a snf home. There is no alcohol, tobacco use reported. LABORATORY FINDINGS White blood cell count 7.7, hemoglobin 11.7, platelet count of 230. PT 12.4, INR 1.1, PTT 26.6. Sodium 138, potassium 4.0, BUN 14, creatinine 0.98, glucose 178. REVIEW OF SYSTEMS Unobtainable, the patient is aphasic and cannot relate any history. PHYSICAL EXAMINATION VITAL SIGNS: Temperature 98.5, pulse is 58, respiratory rate 19, blood pressure 169/70, oxygen saturation 97% on room air. HEAD: Head no Moss's or raccoon sign. NECK: Neck is supple. CHEST: Clear. HEART: Irregular rhythm. Normal S1-S2. ABDOMEN: Soft, nontender. EXTREMITIES: No cyanosis or edema. NEUROLOGIC: He opens his eyes to command. He will track but does not verbalize or follow commands. He moves his left arm and left leg spontaneously and has hemiplegia on the right side with a slight withdrawal to painful stimulation. Pupils are 3 mm and reactive bilaterally. IMPRESSION 1. 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 He appears to have some small areas of hemorrhagic conversion, left temporal lobe stroke. 2. Multiple medical comorbidities in an elderly patient as mentioned above. PLAN The patient does not require any neurosurgical intervention at this point. Recommend be monitored closely for any hemorrhage progression or neurologic decline and regulation of his hypertension. Keep his head of bed elevated at 30 degrees. Sequential compression devices used for DVT prophylaxis. A followup CT scan of the head will be obtained tomorrow morning to rule out any progression of these areas of hemorrhage. MD CORNELIA Velazquez/LAZARO /7:16 PM /7:49 PM
[2017-03-18] MEDS ORDERED: IOHEXOL 350 MG/ML 10 ML VIAL (for RAD DIAG) IV ONE (20:41)
[2017-03-18] MEDS ORDERED: DOCUSATE SODIUM 50 MG/SENNA 8.6 MG TAB PO SCH (21:00)
[2017-03-18] MEDS ORDERED: SODIUM CHLORIDE 0.9% FLUSH 10 ML FLUSH IV FLUSH SCH ×2 (21:00)
[2017-03-18] MEDS: MEMANTINE HCL 10 MG TAB PO SCH (21:00)
[2017-03-18] MEDS: ATENOLOL 50 MG TAB PO SCH (21:00)
[2017-03-18] MEDS: DOCUSATE SODIUM 50 MG/SENNA 8.6 MG TAB PO SCH (21:00)
[2017-03-18] MEDS: DONEPEZIL HCL 5 MG TAB PO SCH (21:00)
--- NOTE | 2017-03-18 21:24 | RADRPT ---
EXAM DATE/TIME: 03/18/2017 20:13 [place] COMPARISON: No previous studies available for comparison. INDICATIONS : AV malformation,increasing weakness. IV CONTRAST: 70 cc Omnipaque 350 (iohexol) IV RADIATION DOSE: 18.42 CTDIvol (mGy) MEDICAL HISTORY : Cerebrovascular disease. Dementia. Cardiovascular diseaseHTN SURGICAL HISTORY : Thyroidectomy. ENCOUNTER: Initial ACUITY: 1 day PAIN SCALE: 0/10 LOCATION: CTA BRAIN TECHNIQUE: Volumetric scanning was performed using a multi-row detector CT scanner. The data was post processed with a variety of visualization algorithms including full volume maximum intensity pr ojection, multi-planar sliding thin slab reformation, curved planar reformation, and surface renderin g techniques. Using automated exposure control and adjustment of the mA and/or kV according to patie nt size, radiation dose was kept as low as reasonably achievable to obtain optimal diagnostic quality images. FINDINGS: No arteriovenous malformation. Left vertebral artery not seen. Dominant right vertebral artery. Ther e is irregularity of the posterior cerebral arteries and mild narrowing proximally. There is mild aimee rowing of the left A1 segment on the left. There is some irregularity of the anterior cerebral arteri es without significant stenosis. Anterior commuting artery noted. Hypoplastic posterior committing ar teries. CONCLUSION: 1. No arteriovenous malformation. 2. Atherosclerotic changes without significant large vessel stenosis. Maury Feng MD on March 18, 2017 at 21:15 Board Certified Radiologist. This report was verified electronically.
[2017-03-18] MEDS: SODIUM CHLORIDE 0.9% FLUSH 10 ML FLUSH IV FLUSH SCH (21:28)
[2017-03-19] VITALS (14 sets, daily range): BP systolic 123–152; BP diastolic 60–70; PULSE 50–67; RESP 18–20; TEMP 98–99.3; O2SAT 96–100
[2017-03-19] MEDS: CHLORHEXIDINE GLUCONATE 2 % 1 PACK (2 CLOTHS) TOP SCH (04:12)
[2017-03-19] MEDS: levETIRAcetam INJ 500 MG in SODIUM CHLORIDE 0.9% INJ 100 ML IV SCH ×2 (04:14→18:58)
[2017-03-19 05:07] LABS: AUTOMATED NEUTROPHIL # 6.4 TH/MM3 (1.8-7.7); BASOPHIL # 0.1 TH/MM3 (0-0.2); BASOPHIL % 0.7 % (0.0-2.0); EOSINOPHIL # 0.3 TH/MM3 (0-0.4); EOSINOPHIL % 3.2 % (0.0-4.0); HEMO FLAGS DIFF FINAL; LYMPH % 16.2 % (9.0-44.0); LYMPHOCYTE # 1.5 TH/MM3 (1.0-4.8); MEAN CELL VOLUME 72.4 FL (80.0-100.0); MEAN CORPUSCULAR HEMOGLOBIN 22.6 PG (27.0-34.0); MEAN CORPUSCULAR HGB CONC 31.2 % (32.0-36.0); MONO % 10.5 % (0.0-8.0); NEUT % 69.4 % (16.0-70.0); PLATELET COUNT 188 TH/MM3 (150-450); RED BLOOD COUNT 5.25 MIL/MM3 (4.50-5.90); RED CELL DISTRIBUTION WIDTH 21.9 % (11.6-17.2); WHITE BLOOD COUNT 9.3 TH/MM3 (4.0-11.0)
[2017-03-19 05:22] LABS: APTT (PATIENT) 27.8 SEC (24.3-30.1); INTERNATIONAL NORMALIZED RATIO 1.1 RATIO; PROTHROMBIN TIME - PATIENT 12.3 SEC (9.8-11.6)
[2017-03-19 05:29] LABS: ANION GAP 7 MEQ/L (5-15); AST (GOT) 25 U/L (15-37); BICARBONATE 29.2 MEQ/L (21.0-32.0); BLOOD UREA NITROGEN 9 MG/DL (7-18); CHLORIDE 102 MEQ/L (98-107); GLOMERULAR FILTRATION RATE 95 ML/MIN (>89); MAGNESIUM 1.9 MG/DL (1.5-2.5); SODIUM (NA) 138 MEQ/L (136-145)
[2017-03-19 05:41] LABS: ALKALINE PHOSPHATASE 93 U/L (45-117); ALT (GPT) 31 U/L (12-78); TOTAL BILIRUBIN ADULT 0.4 MG/DL (0.2-1.0)
[2017-03-19] MEDS: INSULIN NovoLIN REGULAR SUPPLEMENTAL SCALE SQ SCH ×4 (06:00→21:00)
[2017-03-19] MEDS ORDERED: LEVOTHYROXINE SODIUM 200 MCG TAB PO SCH (06:00)
[2017-03-19] MEDS: niCARdipine INJ 25 MG in SODIUM CHLOR 0.9% 250 ML INJ 250 ML IV SCH ×2 (06:10→12:39)
[2017-03-19] MEDS: SODIUM CHLOR 0.9% 1000 ML INJ 1,000 ML IV SCH ×2 (06:10→23:16)
--- NOTE | 2017-03-19 08:19 | HHI.CCPN ---
Subjective Remarks/Hospital Course This is a 81-year-old male. Date of admission 03/18/2017. Past medical history dementia disorder, atrial fibrillation currently in sinus bradycardia, hypertension, coronary artery disease history of 5 stents, chronic diastolic heart failure with ejection fraction 55% 2010, diverticulosis, hypothyroidism, osteoarthritis, dyslipidemia. 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 CTA revealed occlusion in the left MCA distributions and focal stenosis throughout the bilateral posterior cerebral artery distributions. During this admission he was seen by neurology/Dr. Conroy. His symptomatology upon included aphasia both expressive and receptive, dysphagia, apraxia, right-sided weakness and a right facial droop. At that time he was on Xarelto due to atrial fibrillation and not deemed not a candidate for TPA. Not an interventional candidate per IR due to hypercoagulable state. Due to the petechial hemorrhage not a candidate for Xarelto. Prior to discharge patient improved strength in his right upper lower extremity with x-ray is left upper and lower extremity. He was sent to [facility] on aspirin 325 mill grams daily. Today, patient was noticed that facility with increasing weakness is a right upper lobe extremity. The [place] L4 CT head revealed acute versus subacute blood proximally and the prior sites of the left temporal CVA basal ganglia infarct. Also a small subarachnoid hemorrhage in the left mid parietal region. Dr. Miller was notified in which patient be admitted to neuro ICU overnight. Subjective 03/19: Seen and examined. More lethargic this a.m. Will follow commands of left upper extremity only. Able to withdrawal and non-purposefully move left lower extremity. Right upper extremity flaccid. Inconsistent right lower extremity examination.. A.m. head CT pending Objective Vital Signs Date Time Temp Pulse Resp B/P Pulse Ox O2 Delivery O2 Flow Rate FiO2 03/19/17 08:01 96 03/19/17 06:00 64 03/19/17 04:00 98.3 18 152/70 03/18/17 20:40 Room Air 95 Intake and Output 03/18/17 03/18/17 03/19/17 08:00 16:00 00:00 Intake Total 288 ml Output Total 700 ml Balance -412 ml Result Diagram: 03/19/17 0409 03/19/17 0409 Imaging Last Impressions Head CT 03/18/17 1516 Signed Impressions: Service Date/Time: Saturday, March 18, 2017 15:32 - CONCLUSION: 1. Evidence of acute or subacute blood products in the left temporal lobe developing in the same area as an acute infarction seen on 02/23/17. 2. There is also evidence of mild subarachnoid hemorrhage mid convexity left parietal region without evidence of mass effect or ventricular effacement, new from 02/23/17. Lam Richardson MD Chest X-Ray 03/18/17 1516 Signed Impressions: Service Date/Time: Saturday, March 18, 2017 15:30 - CONCLUSION: No infiltrate seen. No evidence of pneumothorax. Lam Richardson MD Head CTA 03/18/17 0000 Signed Impressions: Service Date/Time: Saturday, March 18, 2017 20:13 - CONCLUSION: 1. No arteriovenous malformation. 2. Atherosclerotic changes without significant large vessel stenosis. Maury Feng MD Objective Remarks GENERAL: 81-year-old male, critically ill currently resting in bed in no acute distress SKIN: Warm and dry. Rash to bilateral buttocks stage 0 ulcer HEAD: Atraumatic. Normocephalic. EYES: Pupils equal and round about 3 mm bilaterally. Positive arcus senilis. No scleral icterus. No injection or drainage. ENT: No nasal bleeding or discharge. Mucous membranes pink and moist. NECK: Trachea midline. No JVD. CARDIOVASCULAR: Ada cardiac, RRR. S1, S2. No S4. RESPIRATORY: clear to auscultation. Breath sounds equal bilaterally. GASTROINTESTINAL: Abdomen soft, non-tender, nondistended. Hypoactive sounds MUSCULOSKELETAL: Extremities without difficulty and peripheral edema. No obvious deformities. NEUROLOGICAL: GCS11 (E3,V2,M6) Awake and arousable and follows simple commands with yes and no answers. Tongue midline. Able to squeeze left upper extremity to command with 4-5 strength. Unable to move toes bilateral lower extremities. Strength one out of 5. Right upper extremity is flaccid. Sensation appears to be intact. DTRs are equal symmetric bilaterally. Gait and cerebellar not assessed.. A/P Assessment and Plan Neuro/Psych: Left temporal intraparenchymal hemorrhage Left basal ganglia hemorrhage Left mid parietal subarachnoid hemorrhage/small Recent history of left MCA CVA with petechial hemorrhage left basal ganglia 02/26 Dementia disorder NOS Neurosurgery/Dr. Miller has been consulted. Recommended observation in [facility] Goal keep systolic blood pressure less than 150 Neurochecks per [facility] protocol Keppra 500 mg IV twice a day 7 days for seizure prophylaxis Repeat head CT in a.m. 03/19 pending CTA brain 03/18 revealed no aneurysm Resume Aricept 10 mg daily and Namenda 10 mg twice a day in a.m. for dementia once passed swallow evaluation CV: Sinus bradycardia Hypertension Coronary artery disease status post stents 5 Chronic diastolic heart failure ejection fraction 55-60% 2010 Dyslipidemia History of atrial fibrillation currently in sinus bradycardia Atherosclerotic vascular disease Home medications are atenolol 50 mg twice a day and Norvasc 2.5 mg daily for hypertension. Resume as clinically indicated Home medications include Isordil 10 mg 3 times a day for underlying coronary disease. Hold in light of subarachnoid hemorrhage.. Patient is on aspirin 325 mg by mouth daily. Hold in light of acute intracranial hemorrhage. Patient is on Lasix 20 jennifer grams every other day. Resume when clinically indicated. EKG revealed sinus bradycardia rate of 59. Normal AR, QRS and QT intervals. Nonspecific ST-T changes in the anterior leads. Resp: Nasal cannula to maintain saturations greater than equal to 92% Incentive spirometry while awake Chest x-ray on admission 03/18/17 reveals no acute cardio pulmonary findings GI: History diverticulosis History of gastritis/esophagitis and duodenitis 11/29 Mild protein calorie malnutrition with hypoalbuminemia Patient is currently nothing by mouth pending swallow evaluation Protonix for GI prophylaxis Nancy-Colace twice a day for bowel regimen : BPH Ball if indicated to maintain accurate I's and O's in a critically ill patient Endo: Hyperglycemia Hypothyroidism Sliding-scale insulin with Accu-Cheks to maintain euglycemia/low regimen Home medication Levoxyl 200 mics grams daily. Will be decreased to 175 mics grams daily. Recheck TSH in 3-6 weeks TSH in 0.223. Renal: History of right renal cyst 1.5 cm Creatinine currently within normal limits Accurate I's and O's Currently on normal saline at 70 cc an hour Recheck BMP in a.m. Heme: Microcytic anemia CBC essentially stable ID: Monitor for infection UA shows no signs of infection FEN: History of hypokalemia Replace electrolytes as clinically indicated Only home medication of potassium chloride 10 mEq daily. If clinically indicated MSK: Osteoarthritis Lumbar degenerative disc disease PT evaluate and treat Access - Utilize peripheral IV. Central line if indicated Prophylaxis - GI - Protonix - DVT - SCD/pharmacological prophylaxis held in light of acute intracranial hemorrhage Level II Talha Matthew MD Mar 19, 2017 08:19
[2017-03-19] MEDS ORDERED: amLODIPine BESYLATE 5 MG TAB PO SCH ×2 (09:00→21:00)
[2017-03-19] MEDS: ARTIFICIAL TEARS OPTH SOLN 15 ML BTL EACH EYE SCH ×3 (09:00→18:00)
[2017-03-19] MEDS: ATENOLOL 50 MG TAB PO SCH (09:00)
[2017-03-19] MEDS: ISOSORBIDE MONONITRATE 20 MG TAB PO SCH ×3 (09:00→18:00)
[2017-03-19] MEDS ORDERED: ATROPINE SULFATE 1 MG/10 ML SYRINGE ONE (09:03)
--- NOTE | 2017-03-19 09:43 | RADRPT ---
EXAM DATE/TIME: 03/19/2017 09:24 [place] COMPARISON: CT BRAIN W/O CONTRAST, March 18, 2017, 15:32. CTA BRAIN W 3D RECON, March 18, 2017, 20:13. INDICATIONS : Follow up, hemorrhagic stroke. RADIATION DOSE: 69.2 CTDIvol (mGy) MEDICAL HISTORY : Hypertension. Cardiac SURGICAL HISTORY : Cardiac stents, Thyroidectomy ENCOUNTER: Subsequent ACUITY: 2 days PAIN SCALE: Non-responsive LOCATION: cranial TECHNIQUE: Multiple contiguous axial images were obtained of the head. Using automated exposure control and adj ustment of the mA and/or kV according to patient size, radiation dose was kept as low as reasonably a chievable to obtain optimal diagnostic quality images. FINDINGS: The examination demonstrates an area of parenchymal hemorrhage involving the anterior aspect of the l eft temporal lobe. This is compared to previous dated 03/18/17 and is stable. No new areas of hemorrha ge within the brain are identified. No mass lesion is seen. The exam demonstrates advanced cortical atrophy. There is ventricular dilation with appears in propor tion to sulcal atrophy. The appearance of the posterior fossa is unremarkable. The osseous structures of the skull are grossly intact. CONCLUSION: 1. Intraparenchymal and extra-axial hemorrhage involving the anterior aspect of the left temporal lob e most consistent with hemorrhagic stroke this is relatively unchanged in appearance compared to prev ious exam. 2. Advanced cortical atrophy and microvascular ischemic demyelinative change. There is dilation of th e ventricular system. This appears in proportion to sulcal atrophy. This is stable compared to previo us exam. Jairon Bustos MD on March 19, 2017 at 9:40 Board Certified Radiologist. This report was verified electronically.
--- NOTE | 2017-03-19 10:27 | HHI.NSPN ---
(Maury Cooley) History Chief Complaint: ICH. (Maury Cooley) Interval History This is an 81-year-old gentleman who suffered from a stroke about 3 weeks ago on the left hemisphere with associated aphasia and right hemiplegia. He was on Xarelto for chronic atrial fibrillation prior to that which was discontinued and was placed on aspirin. 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 A CTA of the neck did not reveal any carotid stenosis. He had an MRI scan which revealed an acute infarction involving the left temporal lobe and basal ganglia with some small petechial hemorrhage in the basal ganglia. He was subsequently discharged to a assisted home rehab facility. He is starting to move slightly on the right side and verbalize some words but this declined today and was sent to the emergency room. A CT scan of the head obtained reveals small areas of acute and subacute hemorrhages in the left temporal lobe. I do not appreciate any subarachnoid hemorrhage associated with this. There is no mass effect or midline shift. The patient has been started on Cardene drip for his hypertension. He does not verbalize or follow any commands given his aphasia but will open his eyes to verbal commands. No family currently is available. 03/19/17: Pt opens eyes. Not following commands. Aphasic. Nods head to questions. Special Procedure Technologist left hand spontaneously. Right hemiparesis. (Maury Cooley) Exam Results Vital Signs Date Time Temp Pulse Resp B/P Pulse Ox O2 Delivery O2 Flow Rate FiO2 03/19/17 08:01 96 03/19/17 07:00 Room Air 03/19/17 06:00 64 03/19/17 04:00 98.3 18 152/70 03/18/17 20:40 95 Intake and Output 03/18/17 03/18/17 03/19/17 08:00 16:00 00:00 Intake Total 288 ml Output Total 700 ml Balance -412 ml (Maury Cooley) Physical Examination Resp: CTA bilaterally Heart: NSR no murmurs Abd: Soft positive bs Skin: No cyanosis or erythema Muscle: Not following commands for muscle testing. Special Procedure Technologist left hand spontaneously. Right hemiparesis compared to the left side. Neuro: Pt awakens to voice. Pupils equal. Not following commands. Special Procedure Technologist left hand spontaneously but not following commands. (Maury Cooley) Lab, Micro, Other Results Last Impressions Head CT 03/19/17 0000 Signed Impressions: Service Date/Time: Sunday, March 19, 2017 09:24 - CONCLUSION: 1. Intraparenchymal and extra-axial hemorrhage involving the anterior aspect of the left temporal lobe most consistent with hemorrhagic stroke this is relatively unchanged in appearance compared to previous exam. 2. Advanced cortical atrophy and microvascular ischemic demyelinative change. There is dilation of the ventricular system. This appears in proportion to sulcal atrophy. This is stable compared to previous exam. Jairon Busots MD Chest X-Ray 03/18/17 1516 Signed Impressions: Service Date/Time: Saturday, March 18, 2017 15:30 - CONCLUSION: No infiltrate seen. No evidence of pneumothorax. Lam Richardson MD Head CTA 03/18/17 0000 Signed Impressions: Service Date/Time: Saturday, March 18, 2017 20:13 - CONCLUSION: 1. No arteriovenous malformation. 2. Atherosclerotic changes without significant large vessel stenosis. Maury Feng MD Laboratory Tests Test 03/18/17 03/18/17 03/18/17 03/18/17 15:30 16:19 18:48 19:40 White Blood Count 7.7 TH/MM3 Red Blood Count 5.08 MIL/MM3 Hemoglobin 11.7 GM/DL Hematocrit 36.3 % Mean Corpuscular Volume 71.4 FL Mean Corpuscular Hemoglobin 23.0 PG Mean Corpuscular Hemoglobin 32.3 % Concent Red Cell Distribution Width 22.0 % Platelet Count 230 TH/MM3 Mean Platelet Volume 8.6 FL Neutrophils (%) (Auto) 65.9 % Lymphocytes (%) (Auto) 19.0 % Monocytes (%) (Auto) 10.3 % Eosinophils (%) (Auto) 4.2 % Basophils (%) (Auto) 0.6 % Neutrophils # (Auto) 5.0 TH/MM3 Lymphocytes # (Auto) 1.5 TH/MM3 Monocytes # (Auto) 0.8 TH/MM3 Eosinophils # (Auto) 0.3 TH/MM3 Basophils # (Auto) 0.0 TH/MM3 CBC Comment DIFF FINAL Differential Comment Prothrombin Time 12.4 SEC Prothromb Time International 1.1 RATIO Ratio Activated Partial 26.6 SEC Thromboplast Time Sodium Level 138 MEQ/L Potassium Level 4.0 MEQ/L Chloride Level 100 MEQ/L Carbon Dioxide Level 31.7 MEQ/L Anion Gap 6 MEQ/L Blood Urea Nitrogen 14 MG/DL Creatinine 0.98 MG/DL Estimat Glomerular Filtration 73 ML/MIN Rate Random Glucose 178 MG/DL 167 MG/DL Calcium Level 8.9 MG/DL Phosphorus Level 2.9 MG/DL Magnesium Level 2.0 MG/DL Total Bilirubin 0.3 MG/DL Aspartate Amino Transf 27 U/L (AST/SGOT) Alanine Aminotransferase 34 U/L (ALT/SGPT) Alkaline Phosphatase 100 U/L Total Creatine Kinase 69 U/L Troponin I 0.05 NG/ML B-Type Natriuretic Peptide 275 PG/ML Total Protein 7.4 GM/DL Albumin 3.0 GM/DL Urine Color YELLOW Urine Turbidity CLEAR Urine pH 5.5 Urine Specific [place] 1.017 Urine Protein NEG mg/dL Urine Glucose (UA) NEG mg/dL Urine Ketones NEG mg/dL Urine Occult Blood SMALL Urine Nitrite NEG Urine Bilirubin NEG Urine Urobilinogen LESS THAN 2.0 MG/DL Urine Leukocyte Esterase NEG Urine RBC 5 /hpf Urine WBC 1 /hpf Urine Squamous Epithelial <1 /hpf Cells Urine Hyaline Casts 7 /lpf Urine Mucus FEW /lpf Microscopic Urinalysis Comment CULT NOT INDICATED Blood Type O POSITIVE Antibody Screen NEGATIVE Test 03/18/17 03/19/17 21:00 04:09 Nasal Screen MRSA (PCR) MRSA NOT DETECTED White Blood Count 9.3 TH/MM3 Red Blood Count 5.25 MIL/MM3 Hemoglobin 11.8 GM/DL Hematocrit 38.0 % Mean Corpuscular Volume 72.4 FL Mean Corpuscular Hemoglobin 22.6 PG Mean Corpuscular Hemoglobin 31.2 % Concent Red Cell Distribution Width 21.9 % Platelet Count 188 TH/MM3 Mean Platelet Volume 8.3 FL Neutrophils (%) (Auto) 69.4 % Lymphocytes (%) (Auto) 16.2 % Monocytes (%) (Auto) 10.5 % Eosinophils (%) (Auto) 3.2 % Basophils (%) (Auto) 0.7 % Neutrophils # (Auto) 6.4 TH/MM3 Lymphocytes # (Auto) 1.5 TH/MM3 Monocytes # (Auto) 1.0 TH/MM3 Eosinophils # (Auto) 0.3 TH/MM3 Basophils # (Auto) 0.1 TH/MM3 CBC Comment DIFF FINAL Differential Comment Prothrombin Time 12.3 SEC Prothromb Time International 1.1 RATIO Ratio Activated Partial 27.8 SEC Thromboplast Time Sodium Level 138 MEQ/L Potassium Level 4.0 MEQ/L Chloride Level 102 MEQ/L Carbon Dioxide Level 29.2 MEQ/L Anion Gap 7 MEQ/L Blood Urea Nitrogen 9 MG/DL Creatinine 0.78 MG/DL Estimat Glomerular Filtration 95 ML/MIN Rate Random Glucose 125 MG/DL Calcium Level 8.7 MG/DL Phosphorus Level 2.9 MG/DL Magnesium Level 1.9 MG/DL Total Bilirubin 0.4 MG/DL Aspartate Amino Transf 25 U/L (AST/SGOT) Alanine Aminotransferase 31 U/L (ALT/SGPT) Alkaline Phosphatase 93 U/L Total Protein 7.3 GM/DL Albumin 2.9 GM/DL Thyroid Stimulating Hormone 0.223 uIU/ML 3rd Gen (Maury Cooley) Medical Decision Making Impression and Plan A: 81 y/o M with history of recent stroke involving the left basal ganglia and the temporal lobe with the MCA occlusion and 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 He appears to have some small areas of hemorrhagic conversion, left temporal lobe stroke. Follow up CT head this morning stable. 2. Multiple medical comorbidities in an elderly patient as mentioned above. PLAN Continue with current care. Continue with blood pressure control (Maury Cooley) Impression and Plan The exam, history, and the medical decision-making described in the above note were completed with the assistance of the mid-level provider. I reviewed and agree with the findings presented. I attest that I had a [id number] encounter with the patient on the same day, and personally performed and documented my assessment and findings in the medical record. Stable neurologic examination and follow-up CT scan head this morning. Continue with medical management and rehabilitation. (Chace Miller MD) Maury Cooley Mar 19, 2017 10:27 Chace Miller MD Mar 19, 2017 16:24
[2017-03-19] MEDS: PANTOPRAZOLE SODIUM 40 MG VIAL IVP SCH (10:42)
[2017-03-19] MEDS: SODIUM CHLORIDE 0.9% FLUSH 10 ML FLUSH IV FLUSH SCH ×2 (10:42→21:06)
[2017-03-19] MEDS: DOCUSATE SODIUM 50 MG/SENNA 8.6 MG TAB PO SCH ×2 (11:43→21:06)
[2017-03-19] MEDS: MEMANTINE HCL 10 MG TAB PO SCH ×2 (11:43→21:04)
[2017-03-19] MEDS: NUTRISOURCE FIBER POWDER 1 PACK G-TUBE SCH ×2 (13:00→18:00)
--- NOTE | 2017-03-19 16:54 | MG ---
cc: KIERA OQUENDO Lab No: [id number] Date: 03/19/17 Age: 81 Sex: M Race: TECHNIQUE 17 channel EEG. DESCRIPTION The background rhythm reveals generalized slow activity in the theta frequency at 6 Hz which appears to be more prominent over the left hemisphere. There are no epileptiform features seen. Photic stimulation was done with no significant driving response. INTERPRETATION Abnormal study on the basis of generalized slowing consistent with an encephalopathy. There is more prominent slowing over the left hemisphere, rule out left hemisphere structural lesion. MD ALLISON Palomino/LAZARO /4:29 PM /4:43 PM
--- NOTE | 2017-03-19 17:02 | ECHRPT ---
Indication: CVA/TIA CONCLUSIONS Normal left ventricular size. Wall thickness is measured at the upper limits of normal. The left ventricular systolic function is normal with an estimated ejection fraction of 60%. No regional wall motion abnormalities are present. The right ventricular wall thickness is normal. Mild mitral annular calcification. Trace mitral valve regurgitation. Mild aortic valve regurgitation. Aortic valve sclerosis and calcification. Mild to moderate aortic valve stenosis. There is trace tricuspid valve regurgitation. Normal estimated pulmonary pressures. There is no pericardial effusion. BP: 123 / 58 HR: 58 Rhythm: Sinus MEASUREMENTS (Male / Female) Normal Values Technical Quality:Fair 2D ECHO LV Diastolic Diameter PLAX 4.2 cm 4.2 - 5.9 / 3.9 - 5.3 cm LV Systolic Diameter PLAX 2.9 cm IVS Diastolic Thickness 1.3 cm 0.6 - 1.0 / 0.6 - 0.9 cm LVPW Diastolic Thickness 1.3 cm 0.6 - 1.0 / 0.6 - 0.9 cm LV Relative Wall Thickness 0.6 RV Internal Dim ED PLAX 2.6 cm LVOT Diameter 2.1 cm LA Systolic Diameter LX 4.0 cm 3.0 - 4.0 / 2.7 - 3.8 cm M-MODE Aortic Root Diameter MM 3.0 cm AV Cusp Separation MM 1.0 cm DOPPLER AV Peak Velocity 297.0 cm/s AV Peak Gradient 35.3 mmHg AV Mean Gradient 15.0 mmHg AV Velocity Time Integral 60.7 cm AI Peak Velocity 363.0 cm/s AI Peak Gradient 52.7 mmHg AI Pressure Half Time 497.0 ms LVOT Peak Velocity 100.0 cm/s LVOT Peak Gradient 4.0 mmHg LVOT Velocity Time Integral 24.5 cm LVOT Cardiac Index 2437.2 cm/minm AV Area Cont Eq vti 1.4 cm AV Area Cont Eq pk 1.2 cm MV Peak Velocity 109.0 cm/s MV Peak Gradient 4.8 mmHg MV Mean Velocity 50.2 cm/s MV Mean Gradient 1.0 mmHg MV Area PHT 3.5 cm Mitral E Point Velocity 88.4 cm/s Mitral A Point Velocity 39.0 cm/s Mitral E to A Ratio 2.3 LV E' Lateral Velocity 6.8 cm/s Mitral E to LV E' Lateral Ratio 13.0 LV E' Septal Velocity 3.3 cm/s Mitral E to LV E' Septal Ratio 26.7 TV Peak Velocity 181.0 cm/s PV Peak Velocity 93.7 cm/s PV Peak Gradient 3.5 mmHg FINDINGS Left Ventricle The left ventricular systolic function is normal with an estimated ejection fraction of 60%. No regional wall motion abnormalities are present. Right Ventricle Normal right ventricular size and systolic function. Left Atrium The left atrial size is normal. Right Atrium The right atrial size is normal. Atrial Septum Normal atrial septal thickness without atrial level shunting by limited color doppler interrogation. Aorta The aortic root and proximal ascending aorta are normal in size on limited imaging. Mitral Valve Mild mitral annular calcification. Trace mitral valve regurgitation. Aortic Valve Trileaflet aortic valve. Mild aortic valve regurgitation. Mild to moderate aortic valve stenosis. Aortic sclerosis and calcification. Tricuspid Valve There is trace tricuspid valve regurgitation. Vessels The inferior vena cava is normal in size. Pericardium No pericardial effusion. Lawanda Sanchez MD, FACC Edited by: Locish CV Chief Port Director (Electronically Signed) Final Date:19 March 2017 17:02 Amended: 20 March 2017 13:26 MTDD
--- NOTE | 2017-03-19 19:39 | EKG ---
Date Performed: 03/18/2017 Time Performed: 15:48:13 PTAGE: 81 years EKG: SINUS BRADYCARDIA NONSPECIFIC ST & T-WAVE ABNORMALITY ABNORMAL ECG PREVIOUS TRACING : 02/22/2017 18.25 Compared to prior tracing no significant change DOCTOR: Fredy Anguiano Interpretating Date/Time 03/19/2017 19:37:50
[2017-03-19] MEDS ORDERED: LISINOPRIL 5 MG TAB PO SCH (21:00)
[2017-03-19] MEDS: DONEPEZIL HCL 5 MG TAB PO SCH (21:04)
[2017-03-20] VITALS (13 sets, daily range): BP systolic 112–138; BP diastolic 59–74; PULSE 62–129; RESP 14–21; TEMP 98.3–99.2; O2SAT 96–100
[2017-03-20] MEDS: CHLORHEXIDINE GLUCONATE 2 % 1 PACK (2 CLOTHS) TOP SCH (04:00)
[2017-03-20 04:11] LABS: HEMATOCRIT 37.5 % (39.0-51.0); MEAN CELL VOLUME 71.8 FL (80.0-100.0); MEAN CORPUSCULAR HEMOGLOBIN 22.7 PG (27.0-34.0); MEAN CORPUSCULAR HGB CONC 31.6 % (32.0-36.0); PLATELET COUNT 176 TH/MM3 (150-450); RED BLOOD COUNT 5.23 MIL/MM3 (4.50-5.90); RED CELL DISTRIBUTION WIDTH 22.6 % (11.6-17.2); REVIEW FLAG FINAL
[2017-03-20 04:50] LABS: BICARBONATE 27.5 MEQ/L (21.0-32.0); POTASSIUM 3.9 MEQ/L (3.5-5.1)
[2017-03-20 04:52] LABS: FREE T4 1.41 NG/DL (0.76-1.46)
[2017-03-20] MEDS ORDERED: METOPROLOL TARTRATE 5 MG/5 ML VIAL ONE (05:49)
[2017-03-20] MEDS ORDERED: MAGNESIUM SULFATE 1 GM PREMIX 100 ML IV ONE (06:00)
[2017-03-20] MEDS ORDERED: METOPROLOL TARTRATE 5 MG/5 ML VIAL IV PUSH ONE (06:00)
[2017-03-20] MEDS ORDERED: SODIUM CHLOR 0.9% 1000 ML INJ 1,000 ML IV ONE (06:00)
[2017-03-20] MEDS: INSULIN NovoLIN REGULAR SUPPLEMENTAL SCALE SQ SCH ×4 (06:22→21:00)
[2017-03-20] MEDS: levETIRAcetam INJ 500 MG in SODIUM CHLORIDE 0.9% INJ 100 ML IV SCH ×2 (06:22→17:32)
[2017-03-20] MEDS: LEVOTHYROXINE SODIUM 150 MCG TAB PO SCH (06:22)
[2017-03-20] MEDS: amLODIPine BESYLATE 5 MG TAB PO SCH (06:22)
[2017-03-20] MEDS: LEVOTHYROXINE SODIUM 25 MCG TAB PO SCH (06:22)
[2017-03-20] MEDS: ARTIFICIAL TEARS OPTH SOLN 15 ML BTL EACH EYE SCH ×3 (08:30→17:09)
[2017-03-20] MEDS: SODIUM CHLORIDE 0.9% FLUSH 10 ML FLUSH IV FLUSH SCH ×2 (08:30→21:39)
[2017-03-20] MEDS: MEMANTINE HCL 10 MG TAB PO SCH ×2 (08:30→20:21)
[2017-03-20] MEDS: ISOSORBIDE MONONITRATE 20 MG TAB PO SCH ×3 (08:30→17:08)
[2017-03-20] MEDS: PANTOPRAZOLE SODIUM 40 MG VIAL IVP SCH (08:30)
[2017-03-20] MEDS: NUTRISOURCE FIBER POWDER 1 PACK G-TUBE SCH ×3 (08:30→17:08)
[2017-03-20] MEDS: DOCUSATE SODIUM 50 MG/SENNA 8.6 MG TAB PO SCH ×2 (08:31→20:21)
--- NOTE | 2017-03-20 08:57 | HHI.NSPN ---
(Maury Cooley) History Chief Complaint: ICH. (Maury Cooley) Interval History This is an 81-year-old gentleman who suffered from a stroke about 3 weeks ago on the left hemisphere with associated aphasia and right hemiplegia. He was on Xarelto for chronic atrial fibrillation prior to that which was discontinued and was placed on aspirin. 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 A CTA of the neck did not reveal any carotid stenosis. He had an MRI scan which revealed an acute infarction involving the left temporal lobe and basal ganglia with some small petechial hemorrhage in the basal ganglia. He was subsequently [facility]. He is starting to move slightly on the right side and verbalize some words but this declined today and was sent to the emergency room. A CT scan of the head obtained reveals small areas of acute and subacute hemorrhages in the left temporal lobe. I do not appreciate any subarachnoid hemorrhage associated with this. There is no mass effect or midline shift. The patient has been started on Cardene drip for his hypertension. He does not verbalize or follow any commands given his aphasia but will open his eyes to verbal commands. No family currently is available. 03/19/17: Pt opens eyes. Not following commands. Aphasic. Nods head to questions. 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 Right hemiparesis. 03/20/17: Pt opens eyes. Not following commands. Global aphasia. Nods head yes to all questions. 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 Right hemiparesis. ( Maury Cooley) System Review Comments Not able to obtain given clinical exam. (Maury Cooley) Exam Results Vital Signs Date Time Temp Pulse Resp B/P Pulse Ox O2 Delivery O2 Flow Rate FiO2 03/20/17 07:00 95 Room Air 03/20/17 06:00 122 03/20/17 04:00 98.9 18 138/59 03/19/17 19:00 1.50 99 Intake and Output 03/19/17 03/19/17 03/20/17 08:00 16:00 00:00 Intake Total 931 ml 1088 ml 531 ml Output Total 1350 ml 1050 ml 350 ml Balance -419 ml 38 ml 181 ml (Maury Cooley) Physical Examination Resp: CTA bilaterally Heart: NSR no murmurs Abd: Soft positive bs Skin: No cyanosis or erythema Muscle: Not following commands for muscle testing. 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 Right hemiparesis compared to the left side. Neuro: Pt awakens to voice. Pupils equal. Not following commands. 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 (Maury Cooley) Lab, Micro, Other Results Last Impressions Head CT 03/19/17 0000 Signed Impressions: Service Date/Time: Sunday, March 19, 2017 09:24 - CONCLUSION: 1. Intraparenchymal and extra-axial hemorrhage involving the anterior aspect of the left temporal lobe most consistent with hemorrhagic stroke this is relatively unchanged in appearance compared to previous exam. 2. Advanced cortical atrophy and microvascular ischemic demyelinative change. There is dilation of the ventricular system. This appears in proportion to sulcal atrophy. This is stable compared to previous exam. Jairon Bustos MD Chest X-Ray 03/18/17 1516 Signed Impressions: Service Date/Time: Saturday, March 18, 2017 15:30 - CONCLUSION: No infiltrate seen. No evidence of pneumothorax. Lam Richardson MD Head CTA 03/18/17 0000 Signed Impressions: Service Date/Time: Saturday, March 18, 2017 20:13 - CONCLUSION: 1. No arteriovenous malformation. 2. Atherosclerotic changes without significant large vessel stenosis. Maury Feng MD Laboratory Tests Test 03/20/17 03:36 White Blood Count 9.0 TH/MM3 Red Blood Count 5.23 MIL/MM3 Hemoglobin 11.9 GM/DL Hematocrit 37.5 % Mean Corpuscular Volume 71.8 FL Mean Corpuscular Hemoglobin 22.7 PG Mean Corpuscular Hemoglobin 31.6 % Concent Red Cell Distribution Width 22.6 % Platelet Count 176 TH/MM3 Mean Platelet Volume 8.4 FL Sodium Level 137 MEQ/L Potassium Level 3.9 MEQ/L Chloride Level 100 MEQ/L Carbon Dioxide Level 27.5 MEQ/L Anion Gap 10 MEQ/L Blood Urea Nitrogen 11 MG/DL Creatinine 0.79 MG/DL Estimat Glomerular Filtration 94 ML/MIN Rate Random Glucose 114 MG/DL Calcium Level 8.8 MG/DL Free Thyroxine 1.41 NG/DL 03/19/17 03/19/17 03/20/17 15:00 23:00 07:00 Intake Total 1088 ml 531 ml 636 ml Output Total 1050 ml 350 ml 650 ml Balance 38 ml 181 ml -14 ml IV Total 1088 ml 531 ml 636 ml Output Urine Total 1050 ml 350 ml 650 ml (Maury Cooley) Medical Decision Making Impression and Plan A: 81 y/o M with history of recent stroke involving the left basal ganglia and the temporal lobe with the MCA occlusion and 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 He appears to have some small areas of hemorrhagic conversion, left temporal lobe stroke. Follow up CT head this morning stable. 2. Multiple medical comorbidities in an elderly patient as mentioned above. PLAN Continue with current care. Continue with blood pressure control Rehab efforts. (Maury Cooley) Attending Statement The exam, history, and the medical decision-making described in the above note were completed with the assistance of the mid-level provider. I reviewed and agree with the findings presented. I attest that I had a [id number] encounter with the patient on the same day, and personally performed and documented my assessment and findings in the medical record. No change in his neurologic examination. He does have a pulmonary embolus on CT angiogram of the lungs and now is to given the recent left temporal lobe hemorrhage is not a candidate for full anticoagulation but okay for DVT prophylaxis doses of Lovenox. 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 Continue with rehabilitation and supportive care. (Chace Miller MD) Maury Cooley Mar 20, 2017 08:57 Chace Miller MD Mar 20, 2017 16:14
--- NOTE | 2017-03-20 08:57 | HHI.CCPN ---
Subjective Remarks/Hospital Course This is a 81-year-old male. Date of admission 03/18/2017. Past medical history dementia disorder, atrial fibrillation currently in sinus bradycardia, hypertension, coronary artery disease history of 5 stents, chronic diastolic heart failure with ejection fraction 55% 2010, diverticulosis, hypothyroidism, osteoarthritis, dyslipidemia. 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 CTA revealed occlusion in the left MCA distributions and focal stenosis throughout the bilateral posterior cerebral artery distributions. During this admission he was seen by neurology/Dr. Conroy. His symptomatology upon included aphasia both expressive and receptive, dysphagia, apraxia, right-sided weakness and a right facial droop. At that time he was on Xarelto due to atrial fibrillation and not deemed not a candidate for TPA. Not an interventional candidate per IR due to hypercoagulable state. Due to the petechial hemorrhage not a candidate for Xarelto. Prior to discharge patient improved strength in his right upper lower extremity with x-ray is left upper and lower extremity. He was sent to [facility] on aspirin 325 mill grams daily. Today, patient was noticed that facility with increasing weakness is a right upper lobe extremity. The [place] L4 CT head revealed acute versus subacute blood proximally and the prior sites of the left temporal CVA basal ganglia infarct. Also a small subarachnoid hemorrhage in the left mid parietal region. Dr. Miller was notified in which patient be admitted to neuro ICU overnight. 03/19: Seen and examined. More lethargic this a.m. Will follow commands of left upper extremity only. Able to withdrawal and non-purposefully move left lower extremity. Right upper extremity flaccid. Inconsistent right lower extremity examination.. A.m. head CT pending Subjective 03/20: Examination neurologically similar. Arousable. He consumes bites mouth. GCS currently 9 [id number] Objective Vital Signs Date Time Temp Pulse Resp B/P Pulse Ox O2 Delivery O2 Flow Rate FiO2 03/20/17 07:00 95 Room Air 03/20/17 06:00 122 03/20/17 04:00 98.9 18 138/59 03/19/17 19:00 1.50 99 Intake and Output 03/19/17 03/19/17 03/20/17 08:00 16:00 00:00 Intake Total 931 ml 1088 ml 531 ml Output Total 1350 ml 1050 ml 350 ml Balance -419 ml 38 ml 181 ml Result Diagram: 03/20/17 0336 03/20/17 0336 Imaging Last Impressions Head CT 03/18/17 1516 Signed Impressions: Service Date/Time: Saturday, March 18, 2017 15:32 - CONCLUSION: 1. Evidence of acute or subacute blood products in the left temporal lobe developing in the same area as an acute infarction seen on 02/23/17. 2. There is also evidence of mild subarachnoid hemorrhage mid convexity left parietal region without evidence of mass effect or ventricular effacement, new from 02/23/17. Lam Richardson MD Chest X-Ray 03/18/176 Signed Impressions: Service Date/Time: Saturday, March 18, 2017 15:30 - CONCLUSION: No infiltrate seen. No evidence of pneumothorax. Lam Richardson MD Head CTA 03/18/17 0000 Signed Impressions: Service Date/Time: Saturday, March 18, 2017 20:13 - CONCLUSION: 1. No arteriovenous malformation. 2. Atherosclerotic changes without significant large vessel stenosis. Maury Feng MD Objective Remarks GENERAL: 81-year-old male, critically ill currently resting in bed in no acute distress SKIN: Warm and dry. Rash to bilateral buttocks stage 0 ulcer HEAD: Atraumatic. Normocephalic. EYES: Pupils equal and round about 3 mm bilaterally. Positive arcus senilis. No scleral icterus. No injection or drainage. ENT: No nasal bleeding or discharge. Mucous membranes pink and moist. NECK: Trachea midline. No JVD. CARDIOVASCULAR: Ada cardiac, RRR. S1, S2. No S4. RESPIRATORY: clear to auscultation. Breath sounds equal bilaterally. GASTROINTESTINAL: Abdomen soft, non-tender, nondistended. Hypoactive sounds MUSCULOSKELETAL: Extremities without difficulty and peripheral edema. No obvious deformities. NEUROLOGICAL: GCS11 (E3,V2,M6) Awake and arousable and follows simple commands with yes and no answers. Tongue midline. Able to squeeze left upper extremity to command with 4-5 strength. Unable to move toes bilateral lower extremities. Strength one out of 5. Right upper extremity is flaccid. Sensation appears to be intact. DTRs are equal symmetric bilaterally. Gait and cerebellar not assessed.. A/P Assessment and Plan Neuro/Psych: Left temporal intraparenchymal hemorrhage Left basal ganglia hemorrhage Left mid parietal subarachnoid hemorrhage/small Recent history of left MCA CVA with petechial hemorrhage left basal ganglia 02/26 Dementia disorder NOS Neurosurgery/Dr. Miller has been consulted. Recommended observation in [facility] Goal keep systolic blood pressure less than 150 Neurochecks per [facility] protocol Keppra 500 mg IV twice a day 7 days for seizure prophylaxis Repeat head CT in a.m. 03/19 V stable delayed hemorrhage CTA brain 03/18 revealed no aneurysm Resume Aricept 10 mg daily and Namenda 10 mg twice a day in a.m. for dementia as patient has passed swallow evaluation CV: Sinus bradycardia sinus tachycardia while off atenolol Hypertension Coronary artery disease status post stents 5 Chronic diastolic heart failure ejection fraction 55-60% 2010 Dyslipidemia History of atrial fibrillation currently in sinus bradycardia Atherosclerotic vascular disease Home medications are atenolol 50 mg twice a day and Norvasc 2.5 mg daily for hypertension. Resume as clinically indicated Home medications include Isordil 10 mg 3 times a day for underlying coronary disease. Hold in light of subarachnoid hemorrhage.. Patient is on aspirin 325 mg by mouth daily. Hold in light of acute intracranial hemorrhage. Patient is on Lasix 20 jennifer grams every other day. Resume when clinically indicated. Possibly tomorrow EKG revealed sinus bradycardia rate of 59. Normal [place], QRS and QT intervals. Nonspecific ST-T changes in the anterior leads. Lopressor 5 mg IV 1 now. Restart atenolol. EKG revealed likely sinus tachycardia with a P waves hidden Resp: Nasal cannula to maintain saturations greater than equal to 92% Incentive spirometry while awake Chest x-ray on admission 03/18/17 reveals no acute cardio pulmonary findings GI: History diverticulosis History of gastritis/esophagitis and duodenitis 11/29 Mild protein calorie malnutrition with hypoalbuminemia Patient is on nectar thick and pured diet or poor intake Protonix for GI prophylaxis Nancy-Colace twice a day for bowel regimen : BPH Ball if indicated to maintain accurate I's and O's in a critically ill patient Endo: Hyperglycemia Hypothyroidism Sliding-scale insulin with Accu-Cheks to maintain euglycemia/low regimen Home medication Levoxyl 200 mics grams daily. Will be decreased to 175 mics grams daily. Recheck TSH in 3-6 weeks TSH in 0.223. Renal: History of right renal cyst 1.5 cm Creatinine currently within normal limits Accurate I's and O's Currently on normal saline at 70 cc an hour Recheck BMP in a.m. Heme: Microcytic anemia CBC essentially stable ID: Monitor for infection UA shows no signs of infection FEN: History of hypokalemia Replace electrolytes as clinically indicated Only home medication of potassium chloride 10 mEq daily. If clinically indicated MSK: Osteoarthritis Lumbar degenerative disc disease PT evaluate and treat Access - Utilize peripheral IV. Central line if indicated Prophylaxis - GI - Protonix - DVT - SCD/pharmacological prophylaxis held in light of acute intracranial hemorrhage Level II CTA of the chest was performed secondary to sinus tachycardia in a patient with left thalamic/left basal ganglia hemorrhage. Positive for right lower lobe pulmonary embolism. Call out to Dr. Miller regarding anticoagulation with Lovenox and he recommends DVT prophylaxis only 30 mg subcutaneous twice a day. Extreme high risk for full anticoagulation omar risk outweigh benefits.. Bilateral lower extremity Dopplers ordered. Discussed with Erna. IR consult IVC filter ordered today. She expresses understanding regarding her huthband's current condition. Care plan discussed all questions answered. Discussed with RN at bedside. Talha Matthew MD Mar 20, 2017 08:57
[2017-03-20] MEDS: ATENOLOL 50 MG TAB PO SCH ×2 (09:00→20:21)
[2017-03-20] MEDS ORDERED: IOHEXOL 350 MG/ML 10 ML VIAL (for RAD DIAG) IV ONE ×2 (11:45→11:54)
[2017-03-20] MEDS: SODIUM CHLOR 0.9% 1000 ML INJ 1,000 ML IV SCH (12:14)
--- NOTE | 2017-03-20 12:25 | RADRPT ---
EXAM DATE/TIME: 03/20/2017 11:37 [facility] COMPARISON: CT BRAIN W/O CONTRAST, March 19, 2017, 9:24. INDICATIONS : Tachycardia; evaluate for embolism. IV CONTRAST: 61 cc Omnipaque 350 (iohexol) IV RADIATION DOSE: 23.03 CTDIvol (mGy) MEDICAL HISTORY : Cardiovascular disease. Dementia. SURGICAL HISTORY : Thyroidectomy. ENCOUNTER: Initial ACUITY: 1 day PAIN SCALE: Non-responsive LOCATION: chest TECHNIQUE: Volumetric scanning of the chest was performed using a pulmonary embolism protocol MIP images were re constructed. Using automated exposure control and adjustment of the mA and/or kV according to patien t size, radiation dose was kept as low as reasonably achievable to obtain optimal diagnostic quality images. FINDINGS: The examination is of good diagnostic quality. Note is made of pulmonary embolus in the second order pulmonary arterial branches to the right lower lobe. The heart is mildly enlarged. There is atherosclerotic plaquing in the coronary arteries. There is ca lcification of the aortic annulus and leaflets of the aortic valve. No hilar or mediastinal adenopathy is seen. No axillary adenopathy is present. The pulmonary parenchyma demonstrates chronic interstitial changes but is otherwise clear. The limited portions of upper abdomen visualized are unremarkable There degenerative changes within the spine. Note is made of advanced arthritic changes within the shoulders bilaterally. CONCLUSION: 1. The examination is positive for pulmonary embolus. 2. Incidental findings as noted above. Jairon Bustos MD on March 20, 2017 at 12:20 Board Certified Radiologist. This report was verified electronically.
--- NOTE | 2017-03-20 14:27 | EKG ---
Date Performed: 03/20/2017 Time Performed: 04:56:46 PTAGE: 81 years EKG: Sinus vs atrial tachycardia Possible left anterior fascicular block Anterolateral ST elevat ion - possible early repolarization Abnormal ECG Compared to PREVIOUS TRACING , the complex tachycardia as described above is new. J-point elevation i s seen in V3 through V6 but given the patients age, early repolarization is less common. Would consid er an acute myocardial injury in an appropriate clinical setting. Clinical correlation is required. Conrad NATH TRACIN03/18/2017 15.48 DOCTOR: Luke Lucero Interpretating Date/Time 03/20/2017 14:25:03
--- NOTE | 2017-03-20 16:40 | RADRPT ---
EXAM DATE/TIME: 03/20/2017 14:53 [facility] COMPARISON: US ABDOMEN - COMPLETE, March 20, 2017, 14:37. INDICATIONS : Bilateral leg swelling. MEDICAL HISTORY : Hypercholesterolemia. Hypertension. Congestive heart failure. Dementia. CVA. CAD. A-fib. BPH. SURGICAL HISTORY : Coronary artery stent. Cardiac cath. ENCOUNTER: Initial ACUITY: 1 day PAIN SCORE: Non-responsive LOCATION: Bilateral legs. TECHNIQUE: Venous ultrasound of the left and right leg was performed from the inguinal ligament to the proximal calf. Real-time, color Doppler and spectral tracing, compression and augmentation techniques were us ed. FINDINGS: RIGHT LEG: There is normal compressibility of the deep venous system from the inguinal region to the proximal ca lf. No echogenic clot is seen in the lumen of the common femoral, femoral, popliteal, and posterior tibial veins. There is a normal response of the venous system to proximal and distal augmentation an d respiration. LEFT LEG: There is normal compressibility of the deep venous system from the inguinal region to the proximal ca lf. No echogenic clot is seen in the lumen of the common femoral, femoral, popliteal, and posterior tibial veins. There is a normal response of the venous system to proximal and distal augmentation an d respiration. CONCLUSION: 1. No DVT identified within either lower extremity. Jairon Bustos MD on March 20, 2017 at 16:38 Board Certified Radiologist. This report was verified electronically.
--- NOTE | 2017-03-20 16:51 | RADRPT ---
EXAM DATE/TIME: 03/20/2017 14:37 [facility] COMPARISON: No previous studies available for comparison. INDICATIONS : Abdomen pain. MEDICAL HISTORY : Hypercholesterolemia. Congestive heart failure. Hypertension. Dementia. CVA. CAD. A-fib. BPH. SURGICAL HISTORY : Coronary artery stent. Cardiac cath. ENCOUNTER: Initial ACUITY: 1 day PAIN SCORE: Nonresponsive. LOCATION: Abdomen. MEASUREMENTS: LIVER: 17.6 cm length COMMON DUCT: 4 mm RIGHT KIDNEY: 11.1 x 5.4 x 5.4 cm LEFT KIDNEY: 11.4 x 6.1 x 5.0 cm SPLEEN: 10.5 cm length AORTA: 1.6cm maximal FINDINGS: the the examination was limited due to overlying bowel gas. LIVER: The left lobe of the liver was not well-visualized. The right lobe of the liver is intact without magali dence of mass or intrahepatic biliary ductal dilation. COMMON DUCT: No intraluminal mass or stone visualized. GALLBLADDER: There is a small amount of sludge within the dependent portion of the gallbladder. No significant gal lbladder wall thickening or pericholecystic fluid is identified. PANCREAS: The pancreas was not visualized due to to overlying bowel gas. RIGHT KIDNEY: No hydronephrosis, stone or mass. LEFT KIDNEY: No hydronephrosis, stone or mass. SPLEEN: No focal lesion. AORTA: Not visualized IVC: Nonvisualized CONCLUSION: 1. There is a small amount of sludge within the dependent portion the gallbladder. There is no signif icant pericholecystic fluid. The common duct is normal in caliber. 2. Limited examination due to overlying bowel gas. Jairon Bustos MD on March 20, 2017 at 16:46 Board Certified Radiologist. This report was verified electronically.
--- NOTE | 2017-03-20 19:48 | MB ---
cc: YASHIRA HATCH MD DATE OF CONSULTATION 03/20/[address] Matthew REASON FOR CONSULTATION Hematology is consulted to render an opinion regarding patient with intracerebral hemorrhage and pulmonary embolism. HISTORY OF PRESENT ILLNESS The patient is an 81-year-old male with a history of dementia and multiple medical problems brought in from the nursing facility with increased right upper extremity weakness. He was admitted in the middle of February with left MCA stroke with petechial hemorrhage. At that time, he was on Xarelto which was discontinued due to the hemorrhage. He was also not a candidate for TPA at that time. He was then discharged to a [facility]. He has now developed increased right upper extremity weakness. CT showed acute blood product in the left temporal lobe in the same area as previous stroke. There was also a small subarachnoid hemorrhage in the left parietal area. He was admitted to the ICU for observation. This morning, he was noted to have sinus tachycardia. CT angiogram showed right lower lobe pulmonary embolism. The patient is not able to provide any history. There is no family members at the bedside. He as able to open eyes and follow simple command. He, however, is not able to talk. PAST MEDICAL HISTORY 1. Dementia. 2. Chronic atrial fibrillation, 3. Hypertension. 4. Coronary artery disease 5. Congestive heart failure 6. Hypothyroidism 7. Diverticulosis 8. Osteoarthritis 9. Hyperlipidemia. 10. Recent stroke 11. Chronic anemia. PAST SURGICAL HISTORY 1. Coronary stent times five. 2. Partial thyroidectomy 3. Colonoscopy. FAMILY HISTORY Noncontributory. SOCIAL HISTORY No reported tobacco or alcohol use. ALLERGIES No known drug allergies. MEDICATIONS Current, 1. Lovenox 30 mg q.12 h 2. Levothyroxine 3. Amlodipine. 4. Nancy-Colace. 5. Atenolol 6. Aricept 7. Namenda. 8. Keppra. REVIEW OF SYSTEMS Not obtainable. PHYSICAL EXAMINATION VITAL SIGNS: Temperature 98.3, blood pressure 132/74, O2 saturation 97%. GENERAL: He is awake and opens his eyes. He is not able to communicate. HEENT: Atraumatic, normocephalic. Pupils equal round reactive to light. NECK: No thyromegaly. No palpable mass. LYMPHATICS: No palpable cervical, clavicular, axillary lymph node CARDIOVASCULAR: Irregular S1-S2. LUNGS: Clear to auscultation anteriorly. ABDOMEN: Soft, nontender. I Could not palpate liver or spleen. EXTREMITIES: No cyanosis, trace ankle edema. No calf tenderness. SKIN: No rash or petechia. NEUROLOGIC: He is not talking, able to move his left upper extremity. He is only able to move the left lower extremity slightly. He is very weak on the right side. LABORATORY DATA Reviewed ASSESSMENT 1. Pulmonary embolism. He developed sinus tachycardia this morning. CT angiogram showed pulmonary embolism in the right lower lobe second order pulmonary arteries. Ultrasound of lower extremity did not show any residual deep venous thrombosis. I think patient may have developed a thromboembolic event due to immobility. He presented with increased right-sided weakness and CT showed acute and subacute intracerebral hemorrhage. He is not a candidate for full anticoagulation. Neurosurgery has cleared the patient to receive low dose Lovenox for DVT prophylaxis. Given the fact that he cannot have full anticoagulation, I agree that he will be a good candidate for IVC filter placement. 2. Hemorrhagic stroke. He first presented in February with cerebral stroke with petechial hemorrhage. At that time, he was on Xarelto which was stopped. He now has developed a hemorrhagic stroke in the same area as his previous stroke. There is also small subarachnoid hemorrhage in the left parietal area. He is currently being monitored. 3. Dementia. 4. Chronic atrial fibrillation 5. Hypertension. 6. Hypothyroidism. 7. Hyperlipidemia. 8. Coronary artery disease. RECOMMENDATIONS 1. Agree that IVC filter placement is indicated given that the patient has pulmonary embolism and not a candidate for full anticoagulation due to intracerebral hemorrhage. 2. Agree with low-dose Lovenox for DVT prophylaxis. 3. I discussed case with Dr. Matthew. Thank you, Dr. Matthew, for asking me to see this patient. MD KATHERINE Deleon/ /6:04 PM /7:13 PM [facility]
[2017-03-20] MEDS: DONEPEZIL HCL 5 MG TAB PO SCH (20:21)
[2017-03-20] MEDS: ENOXAPARIN SODIUM 30 MG/0.3 ML SYRINGE SQ SCH (20:22)
[2017-03-21] VITALS (14 sets, daily range): BP systolic 100–124; BP diastolic 63–82; PULSE 126–132; RESP 13–22; TEMP 97.9–98.9; O2SAT 94–100
[2017-03-21 04:24] LABS: AUTOMATED NEUTROPHIL # 4.7 TH/MM3 (1.8-7.7); BASOPHIL % 0.4 % (0.0-2.0); EOSINOPHIL # 0.3 TH/MM3 (0-0.4); EOSINOPHIL % 3.6 % (0.0-4.0); HEMATOCRIT 37.7 % (39.0-51.0); HEMO FLAGS DIFF FINAL; LYMPHOCYTE # 1.6 TH/MM3 (1.0-4.8); MEAN CELL VOLUME 71.8 FL (80.0-100.0); MEAN CORPUSCULAR HEMOGLOBIN 22.8 PG (27.0-34.0); MEAN CORPUSCULAR HGB CONC 31.8 % (32.0-36.0); MONO % 12.6 % (0.0-8.0); NEUT % 62.4 % (16.0-70.0); PLATELET COUNT 184 TH/MM3 (150-450); RED BLOOD COUNT 5.25 MIL/MM3 (4.50-5.90); RED CELL DISTRIBUTION WIDTH 22.3 % (11.6-17.2); WHITE BLOOD COUNT 7.5 TH/MM3 (4.0-11.0)
--- NOTE | 2017-03-21 04:53 | RADRPT ---
EXAM DATE/TIME: 03/21/2017 04:22 [facility] COMPARISON: CT BRAIN W/O CONTRAST, March 19, 2017, 9:24. INDICATIONS : Follow up hemorrhage. RADIATION DOSE: 46.88 CTDIvol (mGy) MEDICAL HISTORY : Cardiovascular disease. Dementia. SURGICAL HISTORY : None. ENCOUNTER: Subsequent ACUITY: 2 days PAIN SCALE: Non-responsive LOCATION: TECHNIQUE: Multiple contiguous axial images were obtained of the head. Using automated exposure control and adj ustment of the mA and/or kV according to patient size, radiation dose was kept as low as reasonably a chievable to obtain optimal diagnostic quality images. FINDINGS: Mild parenchymal hemorrhage anteriorly the left temporal lobe again noted. There is a small amount of adjacent subdural blood that is coming lower in density and not significantly changed in size. There is no associated mass effect or midline shift. No new or increasing hemorrhage demonstrated. Chronic low attenuation in the periventricular white matter again seen. No mass lesion. No evide nce of an acute ischemic event. CONCLUSION: Small left temporal parenchymal and subdural blood unchanged. No new/acute intracranial abnormality. Chronic white matter changes are again noted. Morgan Perkins MD on March 21, 2017 at 4:50 Board Certified Radiologist. This report was verified electronically.
[2017-03-21 04:55] LABS: BICARBONATE 25.9 MEQ/L (21.0-32.0); MAGNESIUM 1.9 MG/DL (1.5-2.5)
[2017-03-21] MEDS: levETIRAcetam INJ 500 MG in SODIUM CHLORIDE 0.9% INJ 100 ML IV SCH ×2 (06:00→17:51)
[2017-03-21] MEDS: LEVOTHYROXINE SODIUM 150 MCG TAB PO SCH (06:00)
[2017-03-21] MEDS: amLODIPine BESYLATE 5 MG TAB PO SCH (06:00)
[2017-03-21] MEDS: LEVOTHYROXINE SODIUM 25 MCG TAB PO SCH (06:00)
[2017-03-21] MEDS: CHLORHEXIDINE GLUCONATE 2 % 1 PACK (2 CLOTHS) TOP SCH (06:02)
--- NOTE | 2017-03-21 06:20 | HHI.CCPN ---
Subjective Remarks/Hospital Course This is a 81-year-old male. Date of admission 03/18/2017. Past medical history dementia disorder, atrial fibrillation currently in sinus bradycardia, hypertension, coronary artery disease history of 5 stents, chronic diastolic heart failure with ejection fraction 55% 2010, diverticulosis, hypothyroidism, osteoarthritis, dyslipidemia. 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 CTA revealed occlusion in the left MCA distributions and focal stenosis throughout the bilateral posterior cerebral artery distributions. During this admission he was seen by neurology/Dr. Conroy. His symptomatology upon included aphasia both expressive and receptive, dysphagia, apraxia, right-sided weakness and a right facial droop. At that time he was on Xarelto due to atrial fibrillation and not deemed not a candidate for TPA. Not an interventional candidate per IR due to hypercoagulable state. Due to the petechial hemorrhage not a candidate for Xarelto. Prior to discharge patient improved strength in his right upper lower extremity with x-ray is left upper and lower extremity. He was sent to [facility] on aspirin 325 mill grams daily. Today, patient was noticed that facility with increasing weakness is a right upper lobe extremity. The [place] L4 CT head revealed acute versus subacute blood proximally and the prior sites of the left temporal CVA basal ganglia infarct. Also a small subarachnoid hemorrhage in the left mid parietal region. Dr. Miller was notified in which patient be admitted to neuro ICU overnight. 03/19: Seen and examined. More lethargic this a.m. Will follow commands of left upper extremity only. Able to withdrawal and non-purposefully move left lower extremity. Right upper extremity flaccid. Inconsistent right lower extremity examination.. A.m. head CT pending 03/20: Examination neurologically similar. Arousable. He consumes bites mouth. GCS currently 9 [id number] Subjective 03/21: Tmax 99.1. Patient with slightly with cough this AM. Will reassess swallow evaluation today. Plan iron to place IVC filter today. Dopplers legs negative. No obvious signs of infection. Will check chest x-ray for possible silent aspiration. Objective Vital Signs Date Time Temp Pulse Resp B/P Pulse Ox O2 Delivery O2 Flow Rate FiO2 03/21/17 06:00 128 03/20/17 22:10 96 21 03/20/17 20:00 99.1 18 112/71 03/20/17 19:00 Nasal Cannula 2.00 Intake and Output 03/20/17 03/20/17 03/21/17 08:00 16:00 00:00 Intake Total 636 ml 1788 ml 575 ml Output Total 650 ml 1400 ml 1600 ml Balance -14 ml 388 ml -1025 ml Result Diagram: 03/21/17 0331 03/21/17 0331 Imaging Last Impressions Head CT 03/21/17 0600 Signed Impressions: Service Date/Time: Tuesday, March 21, 2017 04:22 - CONCLUSION: Small left temporal parenchymal and subdural blood unchanged. No new/acute intracranial abnormality. Chronic white matter changes are again noted. Morgan Perkins MD Lower Extremity Ultrasound 03/20/17 0000 Signed Impressions: Service Date/Time: March 14:53 - CONCLUSION: 1. No DVT identified within either lower extremity. Jairon Bustos MD CT Angiography 03/20/17 0000 Signed Impressions: Service Date/Time: March 11:37 - CONCLUSION: 1. The examination is positive for pulmonary embolus. 2. Incidental findings as noted above. Jairon Bustos MD Abdomen Ultrasound 03/20/17 0000 Signed Impressions: Service Date/Time: March 14:37 - CONCLUSION: 1. There is a small amount of sludge within the dependent portion the gallbladder. There is no significant pericholecystic fluid. The common duct is normal in caliber. 2. Limited examination due to overlying bowel gas. Jairon Bustos MD Chest X-Ray 03/18/17 1516 Signed Impressions: Service Date/Time: Saturday, March 18, 2017 15:30 - CONCLUSION: No infiltrate seen. No evidence of pneumothorax. Lam Richardson MD Head CTA 03/18/17 0000 Signed Impressions: Service Date/Time: Saturday, March 18, 2017 20:13 - CONCLUSION: 1. No arteriovenous malformation. 2. Atherosclerotic changes without significant large vessel stenosis. Maury Feng MD Objective Remarks GENERAL: 81-year-old male, critically ill currently resting in bed in no acute distress SKIN: Warm and dry. Rash to bilateral buttocks stage 0 ulcer HEAD: Atraumatic. Normocephalic. EYES: Pupils equal and round about 3 mm bilaterally. Positive arcus senilis. No scleral icterus. No injection or drainage. ENT: No nasal bleeding or discharge. Mucous membranes pink and moist. NECK: Trachea midline. No JVD. CARDIOVASCULAR: Ada cardiac, RRR. S1, S2. No S4. RESPIRATORY: clear to auscultation. Breath sounds equal bilaterally. GASTROINTESTINAL: Abdomen soft, non-tender, nondistended. Hypoactive sounds MUSCULOSKELETAL: Extremities without difficulty and peripheral edema. No obvious deformities. NEUROLOGICAL: GCS9 (E2,V1,M6) Awake and arousable and follows simple commands with yes and no answers. Tongue midline. Able to squeeze left upper extremity to command with 4-5 strength. Unable to move toes bilateral lower extremities. Did withdraw to left lower extremity. Strength one out of 5. Right upper extremity is flaccid. Sensation appears to be intact. DTRs are equal symmetric bilaterally. Gait and cerebellar not assessed.. A/P Assessment and Plan Neuro/Psych: Left temporal intraparenchymal hemorrhage Left basal ganglia hemorrhage Left mid parietal subarachnoid hemorrhage/small Recent history of left MCA CVA with petechial hemorrhage left basal ganglia 02/26 Dementia disorder NOS Neurosurgery/Dr. Miller has been consulted. Recommended observation in ISC Goal keep systolic blood pressure less than 150 Neurochecks per [facility] protocol Keppra 500 mg IV twice a day 7 days for seizure prophylaxis Repeat head CT in a.m. 03/19 revealed stable delayed hemorrhage CTA brain 03/18 revealed no aneurysm Repeat head CT 03/21 revealed no expansion of current interpretable hemorrhage left thalamus/basal ganglia. Continue Aricept 10 mg daily and Namenda 10 mg twice a day in a.m. for dementia as patient has passed swallow evaluation CV: Sinus tachycardia Hypertension Coronary artery disease status post stents 5 Chronic diastolic heart failure ejection fraction 55-60% 2010 Dyslipidemia History of atrial fibrillation currently in sinus bradycardia Atherosclerotic vascular disease Home medications are atenolol 50 mg twice a day and Norvasc 2.5 mg daily for hypertension. On atenolol 25 twice a day and Norvasc 2.5 mg daily with holding parameters for heart rate and blood pressure Home medications include Isordil 10 mg 3 times a day for underlying coronary disease. Patient is on aspirin 325 mg by mouth daily. Hold in light of acute intracranial hemorrhage. Patient is on Lasix 20 jennifer grams every other day. Resume when clinically indicated. Possibly tomorrow EKG revealed sinus bradycardia rate of 59. Normal NV, QRS and QT intervals. Nonspecific ST-T changes in the anterior leads. Resp: Right lower lobe PE CT pulmonary angiogram 03/20 revealed second subsegmental right lower lobe pulmonary embolus. Dopplers bilateral lower extremity negative See Heme Nasal cannula to maintain saturations greater than equal to 92% Incentive spirometry while awake Chest x-ray on admission 03/18/17 reveals no acute cardio pulmonary findings GI: History diverticulosis History of gastritis/esophagitis and duodenitis 11/29 Mild protein calorie malnutrition with hypoalbuminemia Patient is on nectar thick and pured diet but with poor intake Protonix for GI prophylaxis Nancy-Colace twice a day for bowel regimen Abdominal ultrasound 03/20 revealed some sludge in the gallbladder LFTs negative/ asymptomatic examination. Otherwise negative : BPH Ball if indicated to maintain accurate I's and O's in a critically ill patient Endo: Hyperglycemia Hypothyroidism Sliding-scale insulin with Accu-Cheks to maintain euglycemia/low regimen Home medication Levoxyl 200 mics grams daily. Will be decreased to 175 mics grams daily. Recheck TSH in 3-6 weeks TSH in 0.223. Renal: History of right renal cyst 1.5 cm Creatinine currently within normal limits Accurate I's and O's Currently on normal saline at 70 cc an hour with poor oral intake Recheck BMP in a.m. Heme: Microcytic anemia On Lovenox 30 mg subcutaneous twice a day for PE. Unable to fully anticoagulate secondary to intracerebral hemorrhage. Dr. Feldman/hematology oncology has seen the patient. Okay with IVC filter. To be placed today Bilateral lower extremities negative for DVT CBC stable ID: Monitor for infection UA shows no signs of infection FEN: History of hypokalemia Replace electrolytes as clinically indicated Only home medication of potassium chloride 10 mEq daily. If clinically indicated MSK: Osteoarthritis Lumbar degenerative disc disease PT evaluate and treat Access - Utilize peripheral IV. Central line if indicated Prophylaxis - GI - Protonix - DVT - SCD/pharmacological prophylaxis held in light of acute intracranial hemorrhage Level II Talha Matthew MD Mar 21, 2017 06:20
[2017-03-21] MEDS: INSULIN NovoLIN REGULAR SUPPLEMENTAL SCALE SQ SCH ×4 (06:41→21:00)
--- NOTE | 2017-03-21 06:51 | RADRPT ---
EXAM DATE/TIME: 03/21/2017 06:27 [facility] COMPARISON: CHEST SINGLE AP, March 18, 2017, 15:30. INDICATIONS : Evaluate aspiration. MEDICAL HISTORY : Cardiovascular disease. Thyroid disease SURGICAL HISTORY : None. ENCOUNTER: Subsequent ACUITY: 2 days PAIN SCORE: 7/10 LOCATION: Bilateral chest FINDINGS: No infiltrate, effusion or pneumothorax demonstrated. Heart size stable, thin normal limits. Thoracic aorta and other mediastinal vessels are tortuous. Severe arthropathy seen of the right glenohumeral joint. There is chronic-appearing fragmentation of the right humeral head. CONCLUSION: No infiltrate or other acute cardiopulmonary disease demonstrated. Morgan Perkins MD on March 21, 2017 at 6:48 Board Certified Radiologist. This report was verified electronically.
[2017-03-21] MEDS ORDERED: ROCURONIUM INJ 50 MG/5 ML VIAL IV ONE (07:00)
[2017-03-21] MEDS ORDERED: ETOMIDATE 20 MG/10 ML VIAL IV PUSH ONE (07:00)
[2017-03-21] MEDS ORDERED: fentaNYL DRIP 250 ML IV SCH (07:00)
[2017-03-21] MEDS ORDERED: PROPOFOL 1000 MG/100 ML INJ 100 ML IV SCH (07:00)
[2017-03-21] MEDS: SODIUM CHLOR 0.9% 1000 ML INJ 1,000 ML IV SCH ×2 (07:24→16:20)
[2017-03-21] MEDS: ARTIFICIAL TEARS OPTH SOLN 15 ML BTL EACH EYE SCH ×3 (07:25→18:27)
[2017-03-21] MEDS: MEMANTINE HCL 10 MG TAB PO SCH ×2 (07:25→20:10)
[2017-03-21] MEDS: NUTRISOURCE FIBER POWDER 1 PACK G-TUBE SCH ×3 (07:25→18:00)
[2017-03-21] MEDS: SODIUM CHLORIDE 0.9% FLUSH 10 ML FLUSH IV FLUSH SCH ×2 (07:25→20:07)
[2017-03-21] MEDS: DOCUSATE SODIUM 50 MG/SENNA 8.6 MG TAB PO SCH ×2 (07:25→20:06)
[2017-03-21] MEDS: ISOSORBIDE MONONITRATE 20 MG TAB PO SCH ×3 (07:25→17:51)
[2017-03-21] MEDS ORDERED: MAGNESIUM SULFATE 1 GM PREMIX 100 ML IV ONE (07:30)
[2017-03-21] MEDS: CHLORHEXIDINE 0.12% (ORAL KIT) 15 ML CUP MT SCH ×2 (07:45→19:51)
[2017-03-21] MEDS: ENOXAPARIN SODIUM 30 MG/0.3 ML SYRINGE SQ SCH ×2 (07:47→19:50)
[2017-03-21 08:27] LABS: BLOOD GAS CARBOXYHEMOGLOBIN 1.5 % (0-4); BLOOD GAS HCO3 25 mmol/L (22-26); BLOOD GAS METHEMOGLOBIN 0.9 % (0-2); BLOOD GAS O2 HGB SATURATION 95 % (90-100); BLOOD GAS OXYGEN CONTENT 16.5 Vol % (12.0-20.0); BLOOD GAS PCO2 40 mmHg (38-42); BLOOD GAS PO2 91 mmHg (61-120); BLOOD GAS TOTAL HGB 12.3 G/DL (12.0-16.0); CRITICAL VALUE NO; DRAW SITE LT RADIAL; FIO2 21 %; NUMBER OF ARTERIAL PUNCTURES 1; STAT NO; TEMP CORR TO 98.6; ULNAR PULSE PRESENT
[2017-03-21] MEDS: BENEPROTEIN POWDER 1 PACK G-TUBE SCH ×3 (08:50→18:00)
[2017-03-21] MEDS: ATENOLOL 50 MG TAB PO SCH ×2 (08:51→20:07)
[2017-03-21] MEDS ORDERED: IOHEXOL 350 MG/ML 50 ML BTL (for RAD DIAG) IV ONE (09:48)
--- NOTE | 2017-03-21 09:55 | PD.RAD ---
Post Procedure Progress Note Pre Procedure Diagnosis: (1) Subarachnoid hemorrhage (2) Chronic anticoagulation Post Procedure Diagnosis: (1) Subarachnoid hemorrhage (2) Chronic anticoagulation Procedure Date: Mar 21, 2017 Supervising Radiologist: Nelson Menendez Proceduralist/Assist: Mustapha Jordan, RT(R), Francisco Medina RT(R)() Estimated blood loss: <5 ml Anesthesia: Local Plan of Activity Patient to Unit: Nursing Unit Patient Condition: Good Additional Comments: Placed IVC filter See PACS Report for procedural detail/treatment Nelson Menendez MD Mar 21, 2017 09:55
--- NOTE | 2017-03-21 10:31 | RADRPT ---
EXAM DATE/TIME: 03/21/2017 09:49 [facility] COMPARISON: No previous studies available for comparison. INDICATIONS : Patient with history of intracerebral and pulomary embolism in need of IVC filter placement. MEDICAL HISTORY : Dementia disorder NOS Atrial fibrillation Hypertension Dyslipidemia Chronic diastolic heart failure Osteoarthritis Coronary artery disease history of 5 stents Diverticulosis Hypothyroidism Microcytic anemia SURGICAL HISTORY : Partial thyroidectomy Colonoscopy Coronary artery catheterization status post 5 stents Reported Medications ENCOUNTER: Initial ACUITY: 1 week PAIN SCORE: 0/10 FLUORO TIME: 2.8 minutes IMAGE SERIES: ACCESS SITE: Right Internal jugular vein CONTRAST: 1.) 20 cc Omnipaque (iohexol) 350 DEVICE(S): 1.) Inferior vena cava B Trinidad Venatech filter PROCEDURE : 1. Ultrasound-guided venipuncture. 2. Inferior venacavogram. 3. Inferior vena cava filter placement. 4. Conscious sedation with continuous EKG and oximetry monitoring. The risks, benefits and alternatives to the procedure were explained and verbal and written consent w as obtained. The site was prepped in sterile fashion. Full sterile technique was used, including ca p, mask, sterile gloves and gown and a large sterile sheet. Hand hygiene and 2% chlorhexidine and/or betadine/alcohol prep was utilized per protocol for cutaneous antisepsis. The skin and subcutaneous tissues were infiltrated with local anesthetic solution. With ultrasound and fluoroscopic guidance the targeted vein was punctured and a vascular sheath was p laced. Inferior venacavogram was performed to demonstrate level of renal veins. No caval thrombus was identified. The prescribed filter was deployed in the infrarenal inferior vena cava. Following deplo yment the filter was identified in good position. Conscious sedation was performed with the prescribed dosages and duration as above in the presence of an independent trained radiology nurse to assist in the monitoring of the patient. EKG and oximetry remained stable throughout the procedure. The patient tolerated the procedure well and there were n o complications. The patient was sent to post anesthesia recovery in stable condition. CONCLUSION: Uncomplicated inferior vena cava filter placement as above. Nelson Menendez MD on March 21, 2017 at 10:15 Board Certified Radiologist. This report was verified electronically.
[2017-03-21] MEDS: PANTOPRAZOLE SODIUM 40 MG VIAL IVP SCH (10:35)
--- NOTE | 2017-03-21 11:26 | PD.ONC.PN ---
Subjective Subjective Remarks Afebrile overnight. Just back from IVC filter placement this morning. Somnolent and non-verbal, per nursing this is his baseline. Objective Data Date Time Temp Pulse Resp B/P Pulse Ox O2 Delivery O2 Flow Rate FiO2 03/21/17 11:00 94 21 03/21/17 10:00 126 03/21/17 08:00 98.2 128 13 119/77 100 03/21/17 08:00 128 03/21/17 07:00 100 Nasal Cannula 2.00 03/21/17 06:00 128 03/21/17 04:00 127 03/21/17 04:00 97.9 128 14 106/69 100 03/21/17 02:00 128 03/21/17 00:00 126 03/21/17 00:00 98.9 127 20 100/63 100 03/20/17 22:10 96 21 03/20/17 22:00 125 03/20/17 20:00 99.1 129 18 112/71 99 03/20/17 20:00 125 03/20/17 19:00 98 Nasal Cannula 2.00 03/20/17 18:00 128 03/20/17 16:00 127 03/20/17 16:00 98.3 127 21 132/74 97 03/20/17 14:00 127 03/20/17 12:00 98.7 122 14 117/67 96 03/20/17 12:00 122 03/21/17 03/21/17 03/21/17 07:00 15:00 23:00 Intake Total 331 ml Output Total 200 ml Balance 131 ml Result Diagram: 03/21/17 0331 03/21/17 0331 Laboratory Results Laboratory Tests Test 03/21/17 03/21/17 03:31 08:12 White Blood Count 7.5 TH/MM3 Red Blood Count 5.25 MIL/MM3 Hemoglobin 12.0 GM/DL Hematocrit 37.7 % Mean Corpuscular Volume 71.8 FL Mean Corpuscular Hemoglobin 22.8 PG Mean Corpuscular Hemoglobin 31.8 % Concent Red Cell Distribution Width 22.3 % Platelet Count 184 TH/MM3 Mean Platelet Volume 8.5 FL Neutrophils (%) (Auto) 62.4 % Lymphocytes (%) (Auto) 21.0 % Monocytes (%) (Auto) 12.6 % Eosinophils (%) (Auto) 3.6 % Basophils (%) (Auto) 0.4 % Neutrophils # (Auto) 4.7 TH/MM3 Lymphocytes # (Auto) 1.6 TH/MM3 Monocytes # (Auto) 0.9 TH/MM3 Eosinophils # (Auto) 0.3 TH/MM3 Basophils # (Auto) 0.0 TH/MM3 CBC Comment DIFF FINAL Differential Comment Sodium Level 136 MEQ/L Potassium Level 4.0 MEQ/L Chloride Level 101 MEQ/L Carbon Dioxide Level 25.9 MEQ/L Anion Gap 9 MEQ/L Blood Urea Nitrogen 11 MG/DL Creatinine 0.85 MG/DL Estimat Glomerular Filtration 86 ML/MIN Rate Random Glucose 119 MG/DL Calcium Level 8.4 MG/DL Phosphorus Level 3.4 MG/DL Magnesium Level 1.9 MG/DL Blood Gas Puncture Site LT RADIAL Blood Gas Patient Temperature 98.6 Blood Gas HCO3 25 mmol/L Blood Gas Base Excess 1.0 mmol/L Blood Gas Oxygen Saturation 95 % Arterial Blood pH 7.42 Arterial Blood Partial 40 mmHg Pressure CO2 Arterial Blood Partial 91 mmHg Pressure O2 Arterial Blood Oxygen Content 16.5 Vol % Arterial Blood 1.5 % Carboxyhemoglobin Arterial Blood Methemoglobin 0.9 % Blood Gas Hemoglobin 12.3 G/DL Blood Gas Inspired Oxygen 21 % Imaging Studies Last [address] 03/21/17 0600 Signed Impressions: Service Date/Time: Tuesday, March 21, 2017 04:22 - CONCLUSION: Small left temporal parenchymal and subdural blood unchanged. No new/acute intracranial abnormality. Chronic white matter changes are again noted. Morgan Perkins MD IVC Filter Placement X-Ray 03/21/17 0000 Signed Impressions: Service Date/Time: Tuesday, March 21, 2017 09:49 - CONCLUSION: Uncomplicated inferior vena cava filter placement as above. Nelson Menendez MD Chest X-Ray 03/21/17 0000 Signed Impressions: Service Date/Time: Tuesday, March 21, 2017 06:27 - CONCLUSION: No infiltrate or other acute cardiopulmonary disease demonstrated. Morgan Perkins MD Administered Medications Medications (Trade) Dose Ordered Sig/Tori Route PRN Reason Start Time Stop Time Status Last Admin Dose Admin Sodium Chloride (NS 1000 ml Inj) 1,000 ml @ 70 mls/hr [id number] IV 03/18/17 18:00 03/21/17 07:24 Pantoprazole Sodium 40 mg 40 mg DAILY IVP 03/19/17 09:00 03/21/17 10:35 Levetriacetam/ Sodium Chloride (Keppra Inj/NS Inj) 105 ml @ 400 mls/hr Q12H IV 03/18/17 18:00 03/21/17 06:00 Sodium Chloride (NS Flush) 2 ml BID IV FLUSH 03/18/17 21:00 03/20/17 21:39 Artificial Tears (Tears Naturale Opth Soln) 1 drop TID EACH EYE 03/18/17 18:00 03/21/17 07:25 Chlorhexidine Gluconate (Chlorhexidine 2% Cloth) 3 pack Taper DAILY@04 TOP 03/19/17 04:00 03/15/18 03:59 03/21/17 06:02 Senna/Docusate Sodium (Nancy-Colace) 1 tab BID PO 03/18/17 21:00 03/20/17 20:21 Donepezil HCl (Aricept) 10 mg HS PO 03/18/17 21:00 03/20/17 20:21 Memantine 10 mg 10 mg BID PO 03/18/17 21:00 03/20/17 20:21 Nicardipine HCl/ Sodium Chloride (Cardene Inj/NS 250 ml Inj) 260 ml @ 0 mls/hr TITRATE IV 03/18/17 20:00 03/19/17 12:39 Levothyroxine Sodium (Synthroid) 150 mcg DAILY@06 PO 03/20/17 06:00 03/20/17 06:22 Levothyroxine Sodium (Synthroid) 25 mcg DAILY@06 PO 03/20/17 06:00 03/20/17 06:22 Amlodipine Besylate (Norvasc) 2.5 mg DAILY@0600 PO 03/20/17 06:00 03/20/17 06:22 Enoxaparin Sodium 30 mg 30 mg Q12HR SQ 03/20/17 21:00 03/20/17 20:22 Propofol (Diprivan 1000 Mg/100ml Inj) 100 ml @ 0 mls/hr TITRATE IV 03/21/17 07:00 03/21/17 06:58 Objective Remarks GENERAL: Elderly male, lying in bed, somnolent. SKIN: Warm and dry. HEAD: Normocephalic. EYES: No injection or drainage. NECK: Supple, trachea midline. CARDIOVASCULAR: +S1/S2, tachy RESPIRATORY: anterior zurita clear. GASTROINTESTINAL: Abdomen soft nondistended. EXTREMITIES: No cyanosis MUSCULOSKELETAL: Adequate muscle tone. Assessment/Plan Problem List: (1) Pulmonary embolism Status: Acute Plan: --CTA showed pulmonary embolism in the right lower lobe --Ultrasound of lower extremity did not show any residual deep venous thrombosis. --s/p IVC filter placement; (2) Intracranial hemorrhage Status: Acute Plan: --first presented in February with cerebral stroke with petechial hemorrhage. At that time, he was on Xarelto which was stopped. --now has hemorrhagic stroke in the same area as his previous stroke. --also small subarachnoid hemorrhage in the left parietal area. Assessment 81y/o male with h/o intracerebral hemorrhage and pulmonary embolism. h/o Dementia. Chronic atrial fibrillation, Hypertension. Coronary artery disease. Congestive heart failure. Hypothyroidism. Diverticulosis. Osteoarthritis hyperlipidemia. Recent stroke. Chronic anemia. Coronary stent times five. Partial thyroidectomy. Colonoscopy. Plan 1. IVC filter placement 2. continue Lovenox for DVT prophylaxis 3. supportive care Attending Statement The exam, history, and the medical decision-making described in the above note were completed with the assistance of the mid-level provider. I reviewed and agree with the findings presented. I attest that I had a [id number] encounter with the patient on the same day, and personally performed and documented my assessment and findings in the medical record. Pt is somnolent, not following command. CT head stable. He will have IVC filter placement, Continue lovenox for DVT prophy. Anna Boyd Mar 21, 2017 11:26 Mookie Feldman MD Mar 21, 2017 16:55
--- NOTE | 2017-03-21 12:08 | HHI.NSPN ---
(Maury Cooley) History Chief Complaint: ICH. (Mauyr Cooley) Interval History This is an 81-year-old gentleman who suffered from a stroke about 3 weeks ago on the left hemisphere with associated aphasia and right hemiplegia. He was on Xarelto for chronic atrial fibrillation prior to that which was discontinued and was placed on aspirin. 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 A CTA of the neck did not reveal any carotid stenosis. He had an MRI scan which revealed an acute infarction involving the left temporal lobe and basal ganglia with some small petechial hemorrhage in the basal ganglia. He was subsequently [facility]. He is starting to move slightly on the right side and verbalize some words but this declined today and was sent to the emergency room. A CT scan of the head obtained reveals small areas of acute and subacute hemorrhages in the left temporal lobe. I do not appreciate any subarachnoid hemorrhage associated with this. There is no mass effect or midline shift. The patient has been started on Cardene drip for his hypertension. He does not verbalize or follow any commands given his aphasia but will open his eyes to verbal commands. No family currently is available. 03/19/17: Pt opens eyes. Not following commands. Aphasic. Nods head to questions. Research Geologist left hand spontaneously. Right hemiparesis. 03/20/17: Pt opens eyes. Not following commands. Global aphasia. Nods head yes to all questions. Research Geologist left hand spontaneously. Right hemiparesis. 03/21/17: Patient opens eyes to voice. He is a aphasic. He nods head to all questions. Patient does not follow commands. He icu clerk his left hand spontaneously. He has a right hemiparesis. (Maury Cooley) System Review Comments Not able to obtain given clinical condition. (Maury Cooley) Exam Results Vital Signs Date Time Temp Pulse Resp B/P Pulse Ox O2 Delivery O2 Flow Rate FiO2 03/21/17 11:00 94 21 03/21/17 10:00 126 03/21/17 08:00 98.2 13 119/77 03/21/17 07:00 Nasal Cannula 2.00 Intake and Output 03/20/17 03/20/17 03/21/17 08:00 16:00 00:00 Intake Total 636 ml 1788 ml 575 ml Output Total 650 ml 1400 ml 1600 ml Balance -14 ml 388 ml -1025 ml (Maury Cooley) Physical Examination Resp: CTA bilaterally Heart: NSR no murmurs Abd: Soft positive bs Skin: No cyanosis or erythema Muscle: Not following commands for muscle testing. Research Geologist left hand spontaneously. Right hemiparesis compared to the left side. Neuro: Pt awakens to voice. Pupils equal 3mm bilaterally. Not following commands. Research Geologist left hand spontaneously but not following commands. (Maury Cooley) Lab, Micro, Other Results Last Impressions Head CT 03/21/17 0600 Signed Impressions: Service Date/Time: Tuesday, March 21, 2017 04:22 - CONCLUSION: Small left temporal parenchymal and subdural blood unchanged. No new/acute intracranial abnormality. Chronic white matter changes are again noted. Morgan Perkins MD IVC Filter Placement X-Ray 03/21/17 0000 Signed Impressions: Service Date/Time: Tuesday, March 21, 2017 09:49 - CONCLUSION: Uncomplicated inferior vena cava filter placement as above. Nelson Menendez MD Chest X-Ray 03/21/17 0000 Signed Impressions: Service Date/Time: Tuesday, March 21, 2017 06:27 - CONCLUSION: No infiltrate or other acute cardiopulmonary disease demonstrated. Morgan Perkins MD Lower Extremity Ultrasound 03/20/17 0000 Signed Impressions: Service Date/Time: March 14:53 - CONCLUSION: 1. No DVT identified within either lower extremity. Jairon Bustos MD CT Angiography 03/20/17 0000 Signed Impressions: Service Date/Time: March 11:37 - CONCLUSION: 1. The examination is positive for pulmonary embolus. 2. Incidental findings as noted above. Jairon Bustos MD Abdomen Ultrasound 6/8/17 0000 Signed Impressions: Service Date/Time: March 14:37 - CONCLUSION: 1. There is a small amount of sludge within the dependent portion the gallbladder. There is no significant pericholecystic fluid. The common duct is normal in caliber. 2. Limited examination due to overlying bowel gas. Jairon Bustos MD Head CTA 03/18/17 0000 Signed Impressions: Service Date/Time: Saturday, March 18, 2017 20:13 - CONCLUSION: 1. No arteriovenous malformation. 2. Atherosclerotic changes without significant large vessel stenosis. Maury Feng MD Laboratory Tests Test 03/21/17 03/21/17 03:31 08:12 White Blood Count 7.5 TH/MM3 Red Blood Count 5.25 MIL/MM3 Hemoglobin 12.0 GM/DL Hematocrit 37.7 % Mean Corpuscular Volume 71.8 FL Mean Corpuscular Hemoglobin 22.8 PG Mean Corpuscular Hemoglobin 31.8 % Concent Red Cell Distribution Width 22.3 % Platelet Count 184 TH/MM3 Mean Platelet Volume 8.5 FL Neutrophils (%) (Auto) 62.4 % Lymphocytes (%) (Auto) 21.0 % Monocytes (%) (Auto) 12.6 % Eosinophils (%) (Auto) 3.6 % Basophils (%) (Auto) 0.4 % Neutrophils # (Auto) 4.7 TH/MM3 Lymphocytes # (Auto) 1.6 TH/MM3 Monocytes # (Auto) 0.9 TH/MM3 Eosinophils # (Auto) 0.3 TH/MM3 Basophils # (Auto) 0.0 TH/MM3 CBC Comment DIFF FINAL Differential Comment Sodium Level 136 MEQ/L Potassium Level 4.0 MEQ/L Chloride Level 101 MEQ/L Carbon Dioxide Level 25.9 MEQ/L Anion Gap 9 MEQ/L Blood Urea Nitrogen 11 MG/DL Creatinine 0.85 MG/DL Estimat Glomerular Filtration 86 ML/MIN Rate Random Glucose 119 MG/DL Calcium Level 8.4 MG/DL Phosphorus Level 3.4 MG/DL Magnesium Level 1.9 MG/DL Blood Gas Puncture Site LT RADIAL Blood Gas Patient Temperature 98.6 Blood Gas HCO3 25 mmol/L Blood Gas Base Excess 1.0 mmol/L Blood Gas Oxygen Saturation 95 % Arterial Blood pH 7.42 Arterial Blood Partial 40 mmHg Pressure CO2 Arterial Blood Partial 91 mmHg Pressure O2 Arterial Blood Oxygen Content 16.5 Vol % Arterial Blood 1.5 % Carboxyhemoglobin Arterial Blood Methemoglobin 0.9 % Blood Gas Hemoglobin 12.3 G/DL Blood Gas Inspired Oxygen 21 % 03/20/17 03/20/17 03/21/17 15:00 23:00 07:00 Intake Total 1788 ml 575 ml 331 ml Output Total 1400 ml 1600 ml 200 ml Balance 388 ml -1025 ml 131 ml Intake Oral 480 ml IV Total 1308 ml 575 ml 331 ml Output Urine Total 1400 ml 1600 ml 200 ml Stool Total 0 ml (Maury Cooley) Medical Decision Making Impression and Plan A: 81 y/o M with history of recent stroke involving the left basal ganglia and the temporal lobe with the MCA occlusion and moderate stenosis of bilateral continuous drier helper. He appears to have some small areas of hemorrhagic conversion, left temporal lobe stroke. Follow up CT head this morning stable. 2. Multiple medical comorbidities in an elderly patient as mentioned above. 3. Pulmonary embolus. Pt had zoila filter placed this morning. PLAN Continue with current care. Continue with blood pressure control Rehab efforts. (Maury Cooley) Attending Statement The exam, history, and the medical decision-making described in the above note were completed with the assistance of the mid-level provider. I reviewed and agree with the findings presented. I attest that I had a [id number] encounter with the patient on the same day, and personally performed and documented my assessment and findings in the medical record. (Chace Miller MD) Maury Cooley Mar 21, 2017 12:08 Chace Miller MD Mar 21, 2017 14:33
--- NOTE | 2017-03-21 12:16 | PD.CONS ---
Consult Service Palliative Care Consult Requested By Dr. Matthew . Primary Care Physician Unknown . Reason for Consultation a. To assist with evaluation and management of symptoms including: Dysphagia , restlessness b. To assist medical decision maker(s) with: better understanding of current medical conditions; weighing benefits/burdens of medical treatment options; making medical treatment decisions. . HPI History of Present Illness This 81-year-old male, with a past history of ischemic stroke 02/22/17, as well as dementia, atrial fibrillation, CHF, CAD, and GI bleeding, has been declining significantly over the past year. The patient was admitted to the hospital here 11/27/16 because of GI bleeding, and was found to have duodenitis/esophagitis/gastritis, and he required transfusion. He was then admitted again on 12/05/16 because of chest pain. The patient suffered an acute ischemic stroke left MCA distribution on 02/22/17 resulting in aphasia and right hemiplegia. He was not a candidate for TPA or for an interventional radiology procedure. He was transferred to [facility] , and was reportedly beginning to make some improvements in right arm movement and strength and to be able to say a few words. However, on 03/18/17 the patient was noted to be weaker, was nonverbal again, and his right arm was weaker again. He was brought back to the emergency department, where findings included : * Nonverbal, lethargic * Temp 98.2, pulse 58, respirations 17, blood pressure 123/58, oxygen saturation 95% on room air * White count 7.7, hemoglobin 11.7 * Sodium 138, creatinine 0.98, albumin 3.0 * CT brain scan revealed some acute hemorrhage in the area of the previous ischemic infarct on the left and in the left basal ganglia, as well as some acute subarachnoid blood in the left parietal area. * Chest x-ray revealed no acute disease Neurosurgery saw the patient and did not feel that any surgical intervention was warranted. The patient was admitted to the [facility], and by the next day was noted to be more lethargic. An EEG at that time revealed encephalopathy, worse on the left. By 03/20/17, his GCS was 9 but the patient was able to swallow. The patient became more tachycardic, and a CT angiogram revealed an acute right lower lobe pulmonary embolism. Follow-up scanning of the legs did not reveal any residual clot. The patient became even more lethargic. On the morning of , the patient was taken to IR where an IVC filter was placed. He had been noted to have some apneic episodes during the night, and he seemed to be having more dysphagia with some coughing this morning. Palliative Care was consulted to assist with symptom management, and to enter into discussions with the patient's and family regarding the recent history, the current medical problems, and the benefits and burdens of the various treatment options going forward. . Function/Cognitive Trajectory The patient has had moderate dementia with significant confusion, but was able to carry on a conversation prior to his stroke 3 weeks ago. The patient had "good days and bad days," and he was still feeding himself, but he did have some difficulty getting around independently, and his "looked after him all the time." . Review of Systems ROS Limitations: Altered Mental Status Constitutional: COMPLAINS OF: Fatigue, DENIES: Weight gain Endocrine: DENIES: Polyuria Eyes: DENIES: Eye inflammation Ears, nose, mouth, throat: DENIES: Oral lesions, Epistaxis Respiratory: COMPLAINS OF: Cough (apparently due to dysphagia), DENIES: Shortness of breath Cardiovascular: COMPLAINS OF: Chest pain (in November) Gastrointestinal: DENIES: Bloody stools, Constipation, Vomiting Genitourinary: DENIES: Hematuria Musculoskeletal: DENIES: Joint Swelling, Back pain Integumentary: DENIES: Rash Hematologic/Lymphatics: DENIES: Bruising Immunologic/Allergic: DENIES: Urticaria Neurologic: COMPLAINS OF: Localized weakness (R), DENIES: Seizures Psychiatric: COMPLAINS OF: Confusion Past Family Social History Coded Allergies: No Known Allergies (Verified , 03/18/17) Past Medical History * Acute and subacute strokes, with lethargy, aphasia, right hemiplegia, dysphagia * Moderate dementia * Atrial fibrillation, recently on aspirin * Anemia * CHF * CAD, status post multiple stents * Hypertension * Hyperlipidemia * BPH * Hypothyroidism * GI bleeding secondary to duodenitis/esophagitis/gastritis November 2016 * Diverticulosis * Degenerative joint disease . Past Surgical History * Multiple coronary stents * Subtotal thyroidectomy for benign disease . Reported Medications Aspirin 325 Mg Tab 325 Mg PO DAILY Reported Multi Vitamin and Mineral (Multiple Vitamins W/ Minerals) 1 Tab Tab 1 Tab DAILY Gale Protect (Skin Protectants, Misc.) 1 Cre Cre DIRECTED r buttock, Q shift and PRN Isosorbide Mononitrate 10 Mg Tab 10 Mg PO TID Take 2 doses 7 hours apart. Potassium Chloride Liq (Potassium Chloride) 20 Meq/15 Ml Soln 10 Meq PO DAILY Namenda (Memantine) 10 Mg Tab 10 Mg PO BID Dulcolax Supp (Bisacodyl) 10 Mg Supp 10 Mg RECTAL DAILY PRN Nitrostat SL (Nitroglycerin) 0.4 Mg Subl 0.4 Mg SL DIRECTED PRN 1 tablet under the tongue as needed for chest pain. Repeat every 5 minutes for a total of 3 DOSES or call 911 if NO relief. Donepezil 10 Mg Tab 10 Mg PO HS Furosemide 40 Mg Tab 20 Mg PO EVERY OTHER DAY Amlodipine (Amlodipine Besylate) 2.5 Mg Tab 2.5 Mg PO DAILY Atenolol 50 Mg Tab 50 Mg PO BID Levothyroxine (Levothyroxine Sodium) 200 Mcg Tab 200 Mcg PO DAILY . Current Medications Medications (Trade) Dose Ordered Sig/Tori Route Start Time Stop Time Status Last Admin Naloxone HCl 0.4 mg 0.4 mg UNSCH PRN IV 03/18/17 16:45 (NS 1000 ml Inj) 1,000 ml @ 70 mls/hr [id number] IV 03/18/17 18:00 03/21/17 07:24 (Catapres) 0.1 mg Q6H PRN PO 03/18/17 17:45 Pantoprazole Sodium 40 mg 40 mg DAILY IVP 03/19/17 09:00 03/21/17 10:35 (Keppra Inj/NS Inj) 105 ml @ 400 mls/hr Q12H IV 03/18/17 18:00 03/21/17 06:00 (NS Flush) 2 ml UNSCH PRN IV FLUSH 03/18/17 17:45 (NS Flush) 2 ml BID IV FLUSH 03/18/17 21:00 03/20/17 21:39 (Tylenol) 650 mg Q6H PRN PO 03/18/17 17:45 ([place] 5-325 Mg) 1 tab Q4H PRN PO 03/18/17 17:45 (Morphine Inj) 2 mg Q2H PRN IV 03/18/17 17:45 (Tears Naturale Opth Soln) 1 drop TID EACH EYE 03/18/17 18:00 03/21/17 07:25 (Zofran Inj) 4 mg Q6H PRN IV 03/18/17 17:45 Miscellaneous Information 1 [id number] XX 03/18/17 17:45 (Chlorhexidine 2% Cloth) 3 pack Taper DAILY@04 TOP 03/19/17 04:00 03/15/18 03:59 03/21/17 06:02 (Chlorhexidine 2% Cloth) 3 pack UNSCH PRN TOP 03/18/17 17:45 (Nancy-Colace) 1 tab BID PO 03/18/17 21:00 03/20/17 20:21 (Milk Of Magnesia Liq) 30 ml Q12H PRN PO 03/18/17 17:45 (Senokot) 17.2 mg Q12H PRN PO 03/18/17 17:45 (Dulcolax Supp) 10 mg DAILY PRN RECTAL 03/18/17 17:45 (Lactulose Liq) 30 ml DAILY PRN PO 03/18/17 17:45 (D50w (Vial) Inj) 50 ml UNSCH PRN IV 03/18/17 17:45 (Glucagon Inj) 1 mg UNSCH PRN OTHER 03/18/17 17:45 (Aricept) 10 mg HS PO 03/18/17 21:00 03/20/17 20:21 (Ismo) 10 mg TID PO 03/19/17 09:00 Memantine 10 mg 10 mg BID PO 03/18/17 21:00 03/20/17 20:21 Potassium Chloride 100 ml @ 50 mls/hr Q2H PRN IV 03/18/17 18:15 (KCl 20 Meq Premix Inj) 100 ml @ 50 mls/hr Q2H PRN IV 03/18/17 18:15 Potassium Bicarb/ Potassium Chloride 50 meq 50 meq UNSCH PRN PO 03/18/17 18:15 Potassium Chloride 100 ml @ 25 mls/hr UNSCH PRN IV 03/18/17 18:15 Potassium Chloride 100 ml @ 50 mls/hr Q2H PRN IV 03/18/17 18:15 (Magnesium Sulfate Inj/NS Inj) 100 ml @ 50 mls/hr UNSCH PRN IV 03/18/17 18:15 Magnesium Oxide 800 mg 800 mg UNSCH PRN PO 03/18/17 18:15 (Magnesium Sulfate Inj/NS Inj) 100 ml @ 50 mls/hr UNSCH PRN IV 03/18/17 18:15 Potassium Phosphate 2000 mg 2,000 mg Q4H PRN PO 03/18/17 18:15 (Sodium Phosphate Inj/NS 250 ml Inj) 250 ml @ 42 mls/hr UNSCH PRN IV 03/18/17 18:15 Potassium Phosphate 2000 mg 2,000 mg UNSCH PRN PO/TUBE 03/18/17 18:15 (Cardene Inj/NS 250 ml Inj) 260 ml @ 0 mls/hr TITRATE IV 03/18/17 20:00 03/19/17 12:39 (Trandate Inj) 10 mg Q1HR PRN IV 03/18/17 19:00 (Apresoline Inj) 10 mg Q1HR PRN IV PUSH 03/18/17 18:15 (Nitroglycerin 2% Oint) 2 inch Q6HR PRN TOPICAL 03/18/17 18:15 (Vasotec Inj) 1.25 mg Q6H PRN IV PUSH 03/18/17 18:15 (Pill Splitter) 1 ea UNSCH PRN OTHER 03/18/17 18:30 (Synthroid) 150 mcg DAILY@06 PO 03/20/17 06:00 03/20/17 06:22 (Synthroid) 25 mcg DAILY@06 PO 03/20/17 06:00 03/20/17 06:22 (Nutrisource Fiber Powder) 1 pack TID G-TUBE 03/19/17 13:00 (NovoLIN R SUPPLEMENTAL SCALE) 1 ACHS SQ 03/19/17 16:00 (Norvasc) 2.5 mg DAILY@0600 PO 03/20/17 06:00 03/20/17 06:22 (Lovenox Inj) 30 mg Q12HR SQ 03/20/17 21:00 03/20/17 20:22 (Tenormin) 25 mg BID PO 03/21/17 09:00 Chlorhexidine Gluconate 15 ml 15 ml BID@08,20 MT 03/21/17 08:00 Propofol 100 ml @ 0 mls/hr TITRATE IV 03/21/17 07:00 03/21/17 06:58 (fentaNYL DRIP) 250 ml @ 0 mls/hr TITRATE IV 03/21/17 07:00 (Beneprotein Powder) 1 pack TID G-TUBE 03/21/17 09:00 Family History There is no family history of stroke or brain tumor or diabetes, but there is a family history of coronary disease. . Substance Use Tobacco: None Alcohol: None Prescription med abuse: None Illicits: None . Psychosocial History The patient was born and raised in [place], and lived to their until moving to this area 13 years ago. His lived with his , and their son lives next door and helps them at times. 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 He has been once, for more than 60 years to Erna (they met in elementary school and went through high school together), and they have one son living here, and one son and a daughter living in [place]. . Spiritual/Cultural Factors The patient is [employer], and the family does think that the patient would want a cotton gin yard supervisor to visit him. . Living Will: Never completed Health Care Surrogate: Never completed Durable Power of Residence Supervisor: Never completed Today's verbally stated goals: Patient is not able to participate in the discussion of goals. . Family/friends goals: The patient's says "we have to keep him alive longer," and the patient's son wants to honor her wishes. 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 . Ethical and Legal Issues There are no ethical issues that would impact her care or decision-making at this time. The patient lacks capacity for decision-making, and he will not regain that capacity. The patient's spouse would be the decision-maker, but she wants to defer decision making to her 3 children but at the same time participate in the discussions about goals and treatment choices. The patient's and his son Van both request that any phone calls go first to the son and not to the . . Physical Exam Vital Signs Date Time Temp Pulse Resp B/P Pulse Ox O2 Delivery O2 Flow Rate FiO2 03/21/17 11:00 94 21 03/21/17 10:00 126 03/21/17 08:00 98.2 128 13 119/77 100 03/21/17 08:00 128 03/21/17 07:00 100 Nasal Cannula 2.00 03/21/17 06:00 128 03/21/17 04:00 127 03/21/17 04:00 97.9 128 14 106/69 100 03/21/17 02:00 128 03/21/17 00:00 126 03/21/17 00:00 98.9 127 20 100/63 100 03/20/17 22:10 96 21 03/20/17 22:00 125 03/20/17 20:00 99.1 129 18 112/71 99 03/20/17 20:00 125 03/20/17 19:00 98 Nasal Cannula 2.00 03/20/17 18:00 128 03/20/17 16:00 127 03/20/17 16:00 98.3 127 21 132/74 97 03/20/17 14:00 127 03/20/17 12:00 98.7 122 14 117/67 96 03/20/17 12:00 122 03/20/17 03/21/17 19:00 07:00 Intake Total 1788 ml 906 ml Output Total 1400 ml 1800 ml Balance 388 ml -894 ml Intake Oral 480 ml IV Total 1308 ml 906 ml Output Urine Total 1400 ml 1800 ml Stool Total 0 ml Exam CONSTITUTIONAL/GENERAL: This is an adequately nourished patient, very lethargic , in no apparent distress. TUBES/LINES/DRAINS: Nasal cannula oxygen, Ball catheter, Dobbhoff tube SKIN: No jaundice, rashes, or lesions. Ecchymoses on upper extremities. No wounds seen anteriorly. Skin temperature appropriate. Not diaphoretic. HEAD: Atraumatic. Normocephalic. EYES: Pupils equal and round and reactive. No scleral icterus. No injection or drainage. Fundi not examined. ENT: Nose without bleeding or purulent drainage. NECK: Trachea midline. Supple, nontender. No palpable thyroid enlargement or nodularity. CARDIOVASCULAR: Regular rate and rhythm, with grade 1-2 systolic murmur. No JVD. RESPIRATORY/CHEST: Symmetric, unlabored respirations. Scattered rhonchi GASTROINTESTINAL: Abdomen soft, non-tender, nondistended. No hepato-splenomegaly , or palpable masses. No guarding. Bowel sounds present. GENITOURINARY: Without palpable bladder distension. Ball catheter in place. MUSCULOSKELETAL: Extremities without clubbing, cyanosis, or edema. No joint tenderness or effusion noted. No calf tenderness. No mottling or clubbing. LYMPHATICS: No palpable cervical or supraclavicular adenopathy. NEUROLOGICAL: Quite lethargic, opens eyes briefly when his name is called loudly , does not follow commands, right hemiplegia, occasionally moves left hand/ fingers. PSYCHIATRIC: No obvious anxiety/agitation . Diagnostic Tests Laboratory Laboratory Tests Test 03/18/17 03/18/17 03/18/17 03/18/17 15:30 16:19 18:48 19:40 White Blood Count 7.7 TH/MM3 (4.0-11.0) Red Blood Count 5.08 MIL/MM3 (4.50-5.90) Hemoglobin 11.7 GM/DL (13.0-17.0) Hematocrit 36.3 % (39.0-51.0) Mean Corpuscular Volume 71.4 FL (80.0-100.0) Mean Corpuscular Hemoglobin 23.0 PG (27.0-34.0) Mean Corpuscular Hemoglobin 32.3 % Concent (32.0-36.0) Red Cell Distribution Width 22.0 % (11.6-17.2) Platelet Count 230 TH/MM3 (150-450) Mean Platelet Volume 8.6 FL (7.0-11.0) Neutrophils (%) (Auto) 65.9 % (16.0-70.0) Lymphocytes (%) (Auto) 19.0 % (9.0-44.0) Monocytes (%) (Auto) 10.3 % (0.0-8.0) Eosinophils (%) (Auto) 4.2 % (0.0-4.0) Basophils (%) (Auto) 0.6 % (0.0-2.0) Neutrophils # (Auto) 5.0 TH/MM3 (1.8-7.7) Lymphocytes # (Auto) 1.5 TH/MM3 (1.0-4.8) Monocytes # (Auto) 0.8 TH/MM3 (0-0.9) Eosinophils # (Auto) 0.3 TH/MM3 (0-0.4) Basophils # (Auto) 0.0 TH/MM3 (0-0.2) CBC Comment DIFF FINAL Differential Comment Prothrombin Time 12.4 SEC (9.8-11.6) Prothromb Time International 1.1 RATIO Ratio Activated Partial 26.6 SEC Thromboplast Time (24.3-30.1) Sodium Level 138 MEQ/L (136-145) Potassium Level 4.0 MEQ/L (3.5-5.1) Chloride Level 100 MEQ/L (98-107) Carbon Dioxide Level 31.7 MEQ/L (21.0-32.0) Anion Gap 6 MEQ/L (5-15) Blood Urea Nitrogen 14 MG/DL (7-18) Creatinine 0.98 MG/DL (0.60-1.30) Estimat Glomerular Filtration 73 ML/MIN (>89) Rate Random Glucose 178 MG/DL 167 MG/DL (74-106) (74-106) Calcium Level 8.9 MG/DL (8.5-10.1) Phosphorus Level 2.9 MG/DL (2.5-4.9) Magnesium Level 2.0 MG/DL (1.5-2.5) Total Bilirubin 0.3 MG/DL (0.2-1.0) Aspartate Amino Transf 27 U/L (15-37) (AST/SGOT) Alanine Aminotransferase 34 U/L (12-78) (ALT/SGPT) Alkaline Phosphatase 100 U/L (45-117) Total Creatine Kinase 69 U/L (39-308) Troponin I 0.05 NG/ML (0.02-0.05) B-Type Natriuretic Peptide 275 PG/ML (0-100) Total Protein 7.4 GM/DL (6.4-8.2) Albumin 3.0 GM/DL (3.4-5.0) Urine Color YELLOW (YELLW/STRAW) Urine Turbidity CLEAR (CLEAR) Urine pH 5.5 (5.0-8.5) Urine Specific [place] 1.017 (1.002-1.035) Urine Protein NEG mg/dL (NEG-TRACE) Urine Glucose (UA) NEG mg/dL (NEG) Urine Ketones NEG mg/dL (NEG) Urine Occult Blood SMALL (NEG) Urine Nitrite NEG (NEG) Urine Bilirubin NEG (NEG) Urine Urobilinogen LESS THAN 2.0 MG/DL (LESS THAN 2.0) Urine Leukocyte Esterase NEG (NEG) Urine RBC 5 /hpf (0-3) Urine WBC 1 /hpf (0-5) Urine Squamous Epithelial <1 /hpf (0-5) Cells Urine Hyaline Casts 7 /lpf (RARE) Urine Mucus FEW /lpf (OCC) Microscopic Urinalysis Comment CULT NOT INDICATED Blood Type O POSITIVE Antibody Screen NEGATIVE Test 03/18/17 03/19/17 03/20/17 03/21/17 21:00 04:09 03:36 03:31 Nasal Screen MRSA (PCR) MRSA NOT DETECTED (NOT DETECT) White Blood Count 9.3 TH/MM3 9.0 TH/MM3 7.5 TH/MM3 (4.0-11.0) (4.0-11.0) (4.0-11.0) Red Blood Count 5.25 MIL/MM3 5.23 MIL/MM3 5.25 MIL/MM3 (4.50-5.90) (4.50-5.90) (4.50-5.90) Hemoglobin 11.8 GM/DL 11.9 GM/DL 12.0 GM/DL (13.0-17.0) (13.0-17.0) (13.0-17.0) Hematocrit 38.0 % 37.5 % 37.7 % (39.0-51.0) (39.0-51.0) (39.0-51.0) Mean Corpuscular Volume 72.4 FL 71.8 FL 71.8 FL (80.0-100.0) (80.0-100.0) (80.0-100.0) Mean Corpuscular Hemoglobin 22.6 PG 22.7 PG 22.8 PG (27.0-34.0) (27.0-34.0) (27.0-34.0) Mean Corpuscular Hemoglobin 31.2 % 31.6 % 31.8 % Concent (32.0-36.0) (32.0-36.0) (32.0-36.0) Red Cell Distribution Width 21.9 % 22.6 % 22.3 % (11.6-17.2) (11.6-17.2) (11.6-17.2) Platelet Count 188 TH/MM3 176 TH/MM3 184 TH/MM3 (150-450) (150-450) (150-450) Mean Platelet Volume 8.3 FL 8.4 FL 8.5 FL (7.0-11.0) (7.0-11.0) (7.0-11.0) Neutrophils (%) (Auto) 69.4 % 62.4 % (16.0-70.0) (16.0-70.0) Lymphocytes (%) (Auto) 16.2 % 21.0 % (9.0-44.0) (9.0-44.0) Monocytes (%) (Auto) 10.5 % 12.6 % (0.0-8.0) (0.0-8.0) Eosinophils (%) (Auto) 3.2 % (0.0-4.0) 3.6 % (0.0-4.0) Basophils (%) (Auto) 0.7 % (0.0-2.0) 0.4 % (0.0-2.0) Neutrophils # (Auto) 6.4 TH/MM3 4.7 TH/MM3 (1.8-7.7) (1.8-7.7) Lymphocytes # (Auto) 1.5 TH/MM3 1.6 TH/MM3 (1.0-4.8) (1.0-4.8) Monocytes # (Auto) 1.0 TH/MM3 0.9 TH/MM3 (0-0.9) (0-0.9) Eosinophils # (Auto) 0.3 TH/MM3 0.3 TH/MM3 (0-0.4) (0-0.4) Basophils # (Auto) 0.1 TH/MM3 0.0 TH/MM3 (0-0.2) (0-0.2) CBC Comment DIFF FINAL DIFF FINAL Differential Comment Prothrombin Time 12.3 SEC (9.8-11.6) Prothromb Time International 1.1 RATIO Ratio Activated Partial 27.8 SEC Thromboplast Time (24.3-30.1) Sodium Level 138 MEQ/L 137 MEQ/L 136 MEQ/L (136-145) (136-145) (136-145) Potassium Level 4.0 MEQ/L 3.9 MEQ/L 4.0 MEQ/L (3.5-5.1) (3.5-5.1) (3.5-5.1) Chloride Level 102 MEQ/L 100 MEQ/L 101 MEQ/L (98-107) (98-107) (98-107) Carbon Dioxide Level 29.2 MEQ/L 27.5 MEQ/L 25.9 MEQ/L (21.0-32.0) (21.0-32.0) (21.0-32.0) Anion Gap 7 MEQ/L (5-15) 10 MEQ/L (5-15) 9 MEQ/L (5-15) Blood Urea Nitrogen 9 MG/DL (7-18) 11 MG/DL (7-18) 11 MG/DL (7-18) Creatinine 0.78 MG/DL 0.79 MG/DL 0.85 MG/DL (0.60-1.30) (0.60-1.30) (0.60-1.30) Estimat Glomerular Filtration 95 ML/MIN (>89) 94 ML/MIN (>89) 86 ML/MIN (>89) Rate Random Glucose 125 MG/DL 114 MG/DL 119 MG/DL (74-106) (74-106) (74-106) Calcium Level 8.7 MG/DL 8.8 MG/DL 8.4 MG/DL (8.5-10.1) (8.5-10.1) (8.5-10.1) Phosphorus Level 2.9 MG/DL 3.4 MG/DL (2.5-4.9) (2.5-4.9) Magnesium Level 1.9 MG/DL 1.9 MG/DL (1.5-2.5) (1.5-2.5) Total Bilirubin 0.4 MG/DL (0.2-1.0) Aspartate Amino Transf 25 U/L (15-37) (AST/SGOT) Alanine Aminotransferase 31 U/L (12-78) (ALT/SGPT) Alkaline Phosphatase 93 U/L (45-117) Total Protein 7.3 GM/DL (6.4-8.2) Albumin 2.9 GM/DL (3.4-5.0) Thyroid Stimulating Hormone 0.223 uIU/ML 3rd Gen (0.358-3.740) Free Thyroxine 1.41 NG/DL (0.76-1.46) Test 03/21/17 08:12 Blood Gas Puncture Site LT RADIAL Blood Gas Patient Temperature 98.6 Blood Gas HCO3 25 mmol/L (22-26) Blood Gas Base Excess 1.0 mmol/L (-2-2) Blood Gas Oxygen Saturation 95 % (90-100) Arterial Blood pH 7.42 (7.380-7.420) Arterial Blood Partial 40 mmHg (38-42) Pressure CO2 Arterial Blood Partial 91 mmHg Pressure O2 (61-120) Arterial Blood Oxygen Content 16.5 Vol % (12.0-20.0) Arterial Blood 1.5 % (0-4) Carboxyhemoglobin Arterial Blood Methemoglobin 0.9 % (0-2) Blood Gas Hemoglobin 12.3 G/DL (12.0-16.0) Blood Gas Inspired Oxygen 21 % Result Diagram: 03/21/17 0331 03/21/17 0331 Imaging Last Impressions Head CT 03/21/17 0600 Signed Impressions: Service Date/Time: Tuesday, March 21, 2017 04:22 - CONCLUSION: Small left temporal parenchymal and subdural blood unchanged. No new/acute intracranial abnormality. Chronic white matter changes are again noted. Morgan Perkins MD IVC Filter Placement X-Ray 03/21/17 0000 Signed Impressions: Service Date/Time: Tuesday, March 21, 2017 09:49 - CONCLUSION: Uncomplicated inferior vena cava filter placement as above. Nelson Menendez MD Chest X-Ray 03/21/17 0000 Signed Impressions: Service Date/Time: Tuesday, March 21, 2017 06:27 - CONCLUSION: No infiltrate or other acute cardiopulmonary disease demonstrated. Morgan Perkins MD Abdomen X-Ray 03/21/17 0000 Signed Impressions: Service Date/Time: Tuesday, March 21, 2017 10:17 - CONCLUSION: 1. Weighted feeding tube with the tip in the expected location of the gastric body. 2. Nonobstructive bowel gas pattern. No pneumoperitoneum. Cedric Tran MD Lower Extremity Ultrasound 03/20/17 0000 Signed Impressions: Service Date/Time: March 14:53 - CONCLUSION: 1. No DVT identified within either lower extremity. Jairon Bustos MD CT Angiography 03/20/17 0000 Signed Impressions: Service Date/Time: March 11:37 - CONCLUSION: 1. The examination is positive for pulmonary embolus. 2. Incidental findings as noted above. Jairon Bustos MD Abdomen Ultrasound 03/20/17 0000 Signed Impressions: Service Date/Time: March 14:37 - CONCLUSION: 1. There is a small amount of sludge within the dependent portion the gallbladder. There is no significant pericholecystic fluid. The common duct is normal in caliber. 2. Limited examination due to overlying bowel gas. Jairon Bustos MD Head CTA 03/18/17 0000 Signed Impressions: Service Date/Time: Saturday, March 18, 2017 20:13 - CONCLUSION: 1. No arteriovenous malformation. 2. Atherosclerotic changes without significant large vessel stenosis. Maury Feng MD Patient/Family Conference Present at Family Conference: Erna, son Shelton . Family Conference Time (mins): 42 Family Conference Location: Other (parking lot with the , comfort room with the son) Issues Discussed: * Palliative care role, purpose, approach * Hospice care role, purpose, approach * Additional medical, psychosocial, and spiritual history * Patients general health, functional status, and cognitive changes in the months leading up to the current hospitalization * Patient/family understanding of the current medical problems * Patient/family understanding of prognosis * Patients goals of care as best understood from advance directives and/or conversations and/or values * Current medical treatment options and benefits/burdens of those options * Likely scenarios comparing ongoing aggressive care with a transition to comfort measures only * Questions answered to the best of my ability * Palliative care contact information provided The patient's says "we have to keep him alive longer," and the patient's son wants to honor her wishes. 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 . Assessment and Plan Disease Oriented Problem List: (1) acute and subacute strokes, with lethargy, aphasia, right hemiplegia, (2) moderate dementia (3) CAD, status post multiple stents (4) GI bleeding, November 2016, secondary to duodenitis/esophagitis/gastritis (5) atrial fibrillation, recently on aspirin (6) diverticulosis (7) Pulmonary embolism (8) degenerative joint disease (9) hyperlipidemia (10) hypertension (11) hypothyroidism (12) anemia (13) CHF Symptom Scale: (1) restlessness 0-10 Scale: Unable to quantify (2) dyspnea 0-10 Scale: Unable to quantify (3) pain 0-10 Scale: Unable to quantify Pertinent Non-Medical Issues Psychosocial: , 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 Legal: The patient lacks capacity for decision-making, and he will not regain that capacity. The patient's spouse would be the decision-maker, but she wants to defer decision making to her 3 children but at the same time participate in the discussions about goals and treatment choices. Ethical issues impacting care: None . Important Contacts Son: Shelton Benjamin (CALL FIRST) [phone] Spouse: Erna [phone] Son: Tony (in [place]) Daughter: Shalini (in [place]) . Prognosis The patient's prognosis is quite poor. He has underlying moderate dementia, has been declining for the past year, suffered an ischemic stroke with right hemiplegia 3 weeks prior to this admission, and now has hemorrhagic stroke. He is appropriate for hospice services if/when the goals become comfort oriented. . Code Status: Full Code Plan * FULL CODE * DECISION-MAKING: The patient lacks capacity for decision-making, and he will not regain that capacity. The patient's spouse would be the proxy decision- maker, but she wants to defer decision making to her 3 children but at the same time participate in the discussions about goals and treatment choices. The patient's and his son Shelton both request that any phone calls go first to the son (Shelton [phone]) and not to the . * GOALS: The patient's says "we have to keep him alive longer," and the patient's son wants to honor her wishes. 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 * Note: The says she is unable to come into the hospital or see her " in this condition." I met her in the parking lot for the initial discussion, and she does not think she will be able to come into the hospital in the upcoming days. Their son Shelton will be the one coming to the patient's room and interacting with healthcare providers. * SYMPTOMS: The patient does not appear to be in pain or to be dyspneic at this time. He has significant dysphagia, is not protecting his airway well, and I anticipate that he will develop respiratory failure and be intubated. * Palliative Care will continue to follow the patient during this hospitalization. . Time Spent Total Floor Time (mins): 78 Face to Face Time (mins): 13 >50% Counseling/Coord of Care: Yes (discussed with Dr. Matthew and with RN) Thank you for the opportunity to participate in the care of Mr. Benjamin. Attestation To help prompt me to consider important information that might be impacting today's encounter and assessment, information from prior notes written by myself or my colleagues may have been "brought forward" into today's note. My signature on this note, however, is an attestation that I personally performed the exam, history, and/or decision-making noted today, and, unless otherwise indicated, the interactions with patient, family, and staff as well as the review of records all occurred today. I also attest that the listed assessment and stated plan reflect my best clinical judgment today based on the combination of historical information, prior notes, and today's exam/ interactions. When time spent is documented, it refers only to time spent today by the signer, or if indicated, combined time spent today by collaborating physician/nurse practitioner. Katie Martínez MD Mar 21, 2017 12:15
--- NOTE | 2017-03-21 12:53 | RADRPT ---
EXAM DATE/TIME: 03/21/2017 10:17 [facility] COMPARISON: No previous studies available for comparison. INDICATIONS : Confirm nasogastric tube placement. MEDICAL HISTORY : Cardiovascular disease. Hypertension dementia SURGICAL HISTORY : None. cardiac stents ENCOUNTER: Initial ACUITY: 3 days PAIN SCORE: Non-responsive. LOCATION: Bilateral abdomen FINDINGS: Examination of the abdomen demonstrates a normal bowel gas pattern. No free air is identified. No o rganomegaly is evident. Osseous structures are intact with some degenerative changes in the thoracol umbar spine. [id number] filter projects over the expected location of the IVC. Weighted feeding t ube is identified with the tip expected location of the gastric body. CONCLUSION: 1. Weighted feeding tube with the tip in the expected location of the gastric body. 2. Nonobstructive bowel gas pattern. No pneumoperitoneum. Cedric Tran MD on March 21, 2017 at 12:49 Board Certified Radiologist. This report was verified electronically.
--- NOTE | 2017-03-21 17:40 | RADRPT ---
EXAM DATE/TIME: 03/21/2017 17:00 [facility] COMPARISON: ABDOMEN SINGLE VIEW, March 21, 2017, 10:17. INDICATIONS : Evaluate for Dobbhoff placement. MEDICAL HISTORY : None. SURGICAL HISTORY : None. ENCOUNTER: Subsequent ACUITY: 1 day PAIN SCORE: Non-responsive. LOCATION: Abdomen FINDINGS: Feeding tube is coiled in the stomach. Vena cava filter is noted. Scattered small and large bowel g as is evident without dilatation. CONCLUSION: Feeding tube is coiled in the stomach. Po Bustos MD FACR on March 21, 2017 at 17:37 Board Certified Radiologist. This report was verified electronically.
[2017-03-21] MEDS: DONEPEZIL HCL 5 MG TAB PO SCH (20:06)
[2017-03-22] VITALS (15 sets, daily range): BP systolic 120–131; BP diastolic 61–88; PULSE 76–131; RESP 15–21; TEMP 97.5–98.6; O2SAT 95–99
[2017-03-22] MEDS ORDERED: AMIODARONE 200 MG TAB PO SCH (01:15)
[2017-03-22] MEDS: CHLORHEXIDINE GLUCONATE 2 % 1 PACK (2 CLOTHS) TOP SCH (04:00)
[2017-03-22 04:28] LABS: HEMATOCRIT 38.4 % (39.0-51.0); MEAN CELL VOLUME 72.3 FL (80.0-100.0); MEAN CORPUSCULAR HEMOGLOBIN 23.1 PG (27.0-34.0); PLATELET COUNT 172 TH/MM3 (150-450); RED BLOOD COUNT 5.32 MIL/MM3 (4.50-5.90); RED CELL DISTRIBUTION WIDTH 22.2 % (11.6-17.2); REVIEW FLAG FINAL; WHITE BLOOD COUNT 8.4 TH/MM3 (4.0-11.0)
[2017-03-22 04:58] LABS: BICARBONATE 25.9 MEQ/L (21.0-32.0); POTASSIUM 3.9 MEQ/L (3.5-5.1)
[2017-03-22] MEDS: LEVOTHYROXINE SODIUM 150 MCG TAB PO SCH (05:23)
[2017-03-22] MEDS: amLODIPine BESYLATE 5 MG TAB PO SCH (05:23)
[2017-03-22] MEDS: LEVOTHYROXINE SODIUM 25 MCG TAB PO SCH (05:23)
[2017-03-22] MEDS: levETIRAcetam INJ 500 MG in SODIUM CHLORIDE 0.9% INJ 100 ML IV SCH ×2 (05:23→18:22)
[2017-03-22] MEDS: INSULIN NovoLIN REGULAR SUPPLEMENTAL SCALE SQ SCH ×4 (06:41→21:31)
[2017-03-22] MEDS: CHLORHEXIDINE 0.12% (ORAL KIT) 15 ML CUP MT SCH ×2 (07:44→20:00)
[2017-03-22] MEDS: NUTRISOURCE FIBER POWDER 1 PACK G-TUBE SCH ×3 (07:45→16:59)
[2017-03-22] MEDS: BENEPROTEIN POWDER 1 PACK G-TUBE SCH ×3 (07:45→17:00)
[2017-03-22] MEDS: SODIUM CHLORIDE 0.9% FLUSH 10 ML FLUSH IV FLUSH SCH ×2 (07:45→21:16)
[2017-03-22] MEDS: SODIUM CHLOR 0.9% 1000 ML INJ 1,000 ML IV SCH ×2 (07:45→21:16)
[2017-03-22] MEDS: ARTIFICIAL TEARS OPTH SOLN 15 ML BTL EACH EYE SCH ×3 (07:45→17:00)
[2017-03-22] MEDS: ISOSORBIDE MONONITRATE 20 MG TAB PO SCH ×3 (07:46→17:00)
--- NOTE | 2017-03-22 08:03 | HHI.CCPN ---
Subjective Remarks/Hospital Course This is a 81-year-old male. Date of admission 03/18/2017. Past medical history dementia disorder, atrial fibrillation currently in sinus bradycardia, hypertension, coronary artery disease history of 5 stents, chronic diastolic heart failure with ejection fraction 55% 2010, diverticulosis, hypothyroidism, osteoarthritis, dyslipidemia. 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 CTA revealed occlusion in the left MCA distributions and focal stenosis throughout the bilateral posterior cerebral artery distributions. During this admission he was seen by neurology/Dr. Conroy. His symptomatology upon included aphasia both expressive and receptive, dysphagia, apraxia, right-sided weakness and a right facial droop. At that time he was on Xarelto due to atrial fibrillation and not deemed not a candidate for TPA. Not an interventional candidate per IR due to hypercoagulable state. Due to the petechial hemorrhage not a candidate for Xarelto. Prior to discharge patient improved strength in his right upper lower extremity with x-ray is left upper and lower extremity. He was sent to [facility] on aspirin 325 mill grams daily. Today, patient was noticed that facility with increasing weakness is a right upper lobe extremity. The [place] L4 CT head revealed acute versus subacute blood proximally and the prior sites of the left temporal CVA basal ganglia infarct. Also a small subarachnoid hemorrhage in the left mid parietal region. Dr. Miller was notified in which patient be admitted to neuro ICU overnight. 03/19: Seen and examined. More lethargic this a.m. Will follow commands of left upper extremity only. Able to withdrawal and non-purposefully move left lower extremity. Right upper extremity flaccid. Inconsistent right lower extremity examination.. A.m. head CT pending 03/20: Examination neurologically similar. Arousable. He consumes bites mouth. GCS currently 9 [id number] 03/21: Tmax 99.1. Patient with slightly with cough this AM. Will reassess swallow evaluation today. Plan ir to place IVC filter today. Dopplers legs negative. No obvious signs of infection. Will check chest x-ray for possible silent aspiration. Subjective 03/22: Afebrile. Protecting airway. Moves left upper extremity to command and spontaneously. Pulled out NG tube yesterday. Objective Vital Signs Date Time Temp Pulse Resp B/P Pulse Ox O2 Delivery O2 Flow Rate FiO2 03/22/17 07:00 98 Room Air 03/22/17 06:00 129 03/22/17 05:00 97.7 17 125/85 03/21/17 11:00 21 03/21/17 07:00 2.00 Intake and Output 03/21/17 03/21/17 03/22/17 08:00 16:00 00:00 Intake Total 331 ml 459 ml 881 ml Output Total 200 ml 401 ml 400 ml Balance 131 ml 58 ml 481 ml Result Diagram: 03/22/17 0352 03/22/17 0352 Imaging Last Impressions Head CT 03/21/17 0600 Signed Impressions: Service Date/Time: Tuesday, March 21, 2017 04:22 - CONCLUSION: Small left temporal parenchymal and subdural blood unchanged. No new/acute intracranial abnormality. Chronic white matter changes are again noted. Morgan Perkins MD Lower Extremity Ultrasound 03/20/17 0000 Signed Impressions: Service Date/Time: March 14:53 - CONCLUSION: 1. No DVT identified within either lower extremity. Jairon Bustos MD CT Angiography 03/20/17 0000 Signed Impressions: Service Date/Time: March 11:37 - CONCLUSION: 1. The examination is positive for pulmonary embolus. 2. Incidental findings as noted above. Jairon Bustos MD Abdomen Ultrasound 03/20/17 0000 Signed Impressions: Service Date/Time: March 14:37 - CONCLUSION: 1. There is a small amount of sludge within the dependent portion the gallbladder. There is no significant pericholecystic fluid. The common duct is normal in caliber. 2. Limited examination due to overlying bowel gas. Jairon Bustos MD Chest X-Ray 03/18/17 1516 Signed Impressions: Service Date/Time: Saturday, March 18, 2017 15:30 - CONCLUSION: No infiltrate seen. No evidence of pneumothorax. Lam Richardson MD Head CTA 03/18/17 0000 Signed Impressions: Service Date/Time: Saturday, March 18, 2017 20:13 - CONCLUSION: 1. No arteriovenous malformation. 2. Atherosclerotic changes without significant large vessel stenosis. Maury Feng MD Objective Remarks GENERAL: 81-year-old male, critically ill currently resting in bed in no acute distress SKIN: Warm and dry. Rash to bilateral buttocks stage 0 ulcer HEAD: Atraumatic. Normocephalic. EYES: Pupils equal and round about 3 mm bilaterally. Positive arcus senilis. No scleral icterus. No injection or drainage. ENT: No nasal bleeding or discharge. Mucous membranes pink and moist. NECK: Trachea midline. No JVD. CARDIOVASCULAR: Ada cardiac, RRR. S1, S2. No S4. RESPIRATORY: clear to auscultation. Breath sounds equal bilaterally. GASTROINTESTINAL: Abdomen soft, non-tender, nondistended. Hypoactive sounds MUSCULOSKELETAL: Extremities without difficulty and peripheral edema. No obvious deformities. NEUROLOGICAL: GCS9 (E2,V1,M6) Awake and arousable and follows simple commands with yes and no answers. Tongue midline. Able to squeeze left upper extremity to command with 4-5 strength. Unable to move toes bilateral lower extremities. Did withdraw to left lower extremity. Strength one out of 5. Right upper extremity is flaccid. Sensation appears to be intact. DTRs are equal symmetric bilaterally. Gait and cerebellar not assessed.. A/P Assessment and Plan Neuro/Psych: Left temporal intraparenchymal hemorrhage Left basal ganglia hemorrhage Left mid parietal subarachnoid hemorrhage/small Recent history of left MCA CVA with petechial hemorrhage left basal ganglia 02/26 Dementia disorder NOS Neurosurgery/Dr. Miller has been consulted. Recommended observation in [facility] Goal keep systolic blood pressure less than 150 Neurochecks per [facility] protocol Keppra 500 mg IV twice a day 7 days for seizure prophylaxis Repeat head CT in a.m. 03/19 revealed stable delayed hemorrhage CTA brain 03/18 revealed no aneurysm Repeat head CT 03/21 revealed no expansion of current interpretable hemorrhage left thalamus/basal ganglia. Continue Aricept 10 mg daily and Namenda 10 mg twice a day in a.m. for dementia as patient has passed swallow evaluation CV: Sinus tachycardia Hypertension Coronary artery disease status post stents 5 Chronic diastolic heart failure ejection fraction 55-60% 2010 Dyslipidemia History of atrial fibrillation currently in sinus bradycardia Atherosclerotic vascular disease Home medications are atenolol 50 mg twice a day and Norvasc 2.5 mg daily for hypertension. On atenolol 25 twice a day and Norvasc 2.5 mg daily with holding parameters for heart rate and blood pressure Home medications include Isordil 10 mg 3 times a day for underlying coronary disease. Patient is on aspirin 325 mg by mouth daily. Hold in light of acute intracranial hemorrhage. Patient is on Lasix 20 jennifer grams every other day. Resume when clinically indicated. Possibly tomorrow EKG revealed sinus bradycardia rate of 59. Normal CT, QRS and QT intervals. Nonspecific ST-T changes in the anterior leads. Resp: Right lower lobe PE CT pulmonary angiogram 03/20 revealed second subsegmental right lower lobe pulmonary embolus. Dopplers bilateral lower extremity negative See Heme Nasal cannula to maintain saturations greater than equal to 92% Incentive spirometry while awake Chest x-ray on admission 03/18/17 reveals no acute cardio pulmonary findings GI: History diverticulosis History of gastritis/esophagitis and duodenitis 11/29 Mild protein calorie malnutrition with hypoalbuminemia Patient is on nectar thick and pured diet but with poor intake Protonix for GI prophylaxis Nancy-Colace twice a day for bowel regimen Abdominal ultrasound 03/20 revealed some sludge in the gallbladder LFTs negative/ asymptomatic examination. Otherwise negative : BPH Ball if indicated to maintain accurate I's and O's in a critically ill patient Endo: Hyperglycemia Hypothyroidism Sliding-scale insulin with Accu-Cheks to maintain euglycemia/low regimen Home medication Levoxyl 200 mics grams daily. Will be decreased to 175 mics grams daily. Recheck TSH in 3-6 weeks TSH in 0.223. Renal: History of right renal cyst 1.5 cm Creatinine currently within normal limits Accurate I's and O's Currently on normal saline at 70 cc an hour with poor oral intake Recheck BMP in a.m. Heme: Microcytic anemia On Lovenox 30 mg subcutaneous twice a day for PE. Unable to fully anticoagulate secondary to intracerebral hemorrhage. Dr. Feldman/hematology oncology has seen the patient. Okay with IVC filter. To be placed today Bilateral lower extremities negative for DVT CBC stable ID: Monitor for infection UA shows no signs of infection FEN: History of hypokalemia Replace electrolytes as clinically indicated Only home medication is potassium chloride 10 mEq daily. Resume only if clinically indicated MSK: Osteoarthritis Lumbar degenerative disc disease PT evaluate and treat Access - Utilize peripheral IV. Central line if indicated Prophylaxis - GI - Protonix - DVT - SCD/pharmacological prophylaxis held in light of acute intracranial hemorrhage Level II Noted palliative care consulted yesterday. Patient remains full code. We'll intubate if needed. Talha Matthew MD Mar 22, 2017 08:03 Accurate I's and O's Currently on normal saline at 70 cc an hour with poor oral intake Recheck BMP in a.m. Heme: Microcytic anemia On Lovenox 30 mg subcutaneous twice a day for PE. Unable to fully anticoagulate secondary to intracerebral hemorrhage. Dr. Feldman/hematology oncology has seen the patient. Okay with IVC filter. To be placed today Bilateral lower extremities negative for DVT CBC stable ID: Monitor for infection UA shows no signs of infection FEN: History of hypokalemia Replace electrolytes as clinically indicated Only home medication of potassium chloride 10 mEq daily. If clinically indicated MSK: Osteoarthritis Lumbar degenerative disc disease PT evaluate and treat Access - Utilize peripheral IV. Central line if indicated Prophylaxis - GI - Protonix - DVT - SCD/pharmacological prophylaxis held in light of acute intracranial hemorrhage Level II Talha Matthew MD Mar 22, 2017 08:03
[2017-03-22] MEDS ORDERED: METOPROLOL TARTRATE 5 MG/5 ML VIAL IV PUSH ONE (08:15)
[2017-03-22] MEDS: DOCUSATE SODIUM 50 MG/SENNA 8.6 MG TAB PO SCH ×2 (08:51→21:16)
[2017-03-22] MEDS: ENOXAPARIN SODIUM 30 MG/0.3 ML SYRINGE SQ SCH ×2 (08:51→21:16)
[2017-03-22] MEDS: PANTOPRAZOLE SODIUM 40 MG VIAL IVP SCH (08:52)
[2017-03-22] MEDS: MEMANTINE HCL 10 MG TAB PO SCH ×2 (08:52→21:16)
[2017-03-22] MEDS: ATENOLOL 50 MG TAB PO SCH (08:52)
--- NOTE | 2017-03-22 08:53 | HHI.NSPN ---
(Maury Cooley) History Chief Complaint: ICH. (Maury Cooley) Interval History This is an 81-year-old gentleman who suffered from a stroke about 3 weeks ago on the left hemisphere with associated aphasia and right hemiplegia. He was on Xarelto for chronic atrial fibrillation prior to that which was discontinued and was placed on aspirin. 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 A CTA of the neck did not reveal any carotid stenosis. He had an MRI scan which revealed an acute infarction involving the left temporal lobe and basal ganglia with some small petechial hemorrhage in the basal ganglia. [facility] He is starting to move slightly on the right side and verbalize some words but this declined today and was sent to the emergency room. A CT scan of the head obtained reveals small areas of acute and subacute hemorrhages in the left temporal lobe. I do not appreciate any subarachnoid hemorrhage associated with this. There is no mass effect or midline shift. The patient has been started on Cardene drip for his hypertension. He does not verbalize or follow any commands given his aphasia but will open his eyes to verbal commands. No family currently is available. 03/19/17: Pt opens eyes. Not following commands. Aphasic. Nods head to questions. 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 Right hemiparesis. 03/20/17: Pt opens eyes. Not following commands. Global aphasia. Nods head yes to all questions. 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 Right hemiparesis. 03/21/17: Patient opens eyes to voice. He is a aphasic. He nods head to all questions. Patient does not follow commands. 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 He has a right hemiparesis. 03/22/17: Patient opens eyes to voice. Pupils are equal. He is aphasic. Does not follow commands. Right hemiparesis. 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 (Maury Cooley) System Review Comments Not able to obtain given clinical condition. (Maury Cooley) Exam Results Vital Signs Date Time Temp Pulse Resp B/P Pulse Ox O2 Delivery O2 Flow Rate FiO2 03/22/17 08:27 95 21 03/22/17 08:00 97.7 123 16 126/87 03/22/17 07:00 Room Air 03/21/17 07:00 2.00 Intake and Output 03/21/17 03/21/17 03/22/17 08:00 16:00 00:00 Intake Total 331 ml 459 ml 881 ml Output Total 200 ml 401 ml 400 ml Balance 131 ml 58 ml 481 ml (Maury Cooley) Physical Examination Resp: CTA bilaterally Heart: Tachycardia. no murmurs Abd: Soft positive bs Skin: No cyanosis or erythema Muscle: Not following commands for muscle testing. 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 Right hemiparesis compared to the left side. Neuro: Pt awakens to voice. Pupils equal 3mm bilaterally. Not following commands. 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 (Maury Cooley) Lab, Micro, Other Results Last Impressions Head CT 03/21/17 0600 Signed Impressions: Service Date/Time: Tuesday, March 21, 2017 04:22 - CONCLUSION: Small left temporal parenchymal and subdural blood unchanged. No new/acute intracranial abnormality. Chronic white matter changes are again noted. Morgan Perkins MD IVC Filter Placement X-Ray 03/21/17 0000 Signed Impressions: Service Date/Time: Tuesday, March 21, 2017 09:49 - CONCLUSION: Uncomplicated inferior vena cava filter placement as above. Nelson Menendez MD Chest X-Ray 03/21/17 0000 Signed Impressions: Service Date/Time: Tuesday, March 21, 2017 06:27 - CONCLUSION: No infiltrate or other acute cardiopulmonary disease demonstrated. Morgan Perkins MD Abdomen X-Ray 03/21/17 0000 Signed Impressions: Service Date/Time: Tuesday, March 21, 2017 17:00 - CONCLUSION: Feeding tube is coiled in the stomach. Po Bustos MD FACR Lower Extremity Ultrasound 03/20/17 0000 Signed Impressions: Service Date/Time: March 14:53 - CONCLUSION: 1. No DVT identified within either lower extremity. Jairon Bustos MD CT Angiography 03/20/17 0000 Signed Impressions: Service Date/Time: March 11:37 - CONCLUSION: 1. The examination is positive for pulmonary embolus. 2. Incidental findings as noted above. Jairon Bustos MD Abdomen Ultrasound 03/20/17 0000 Signed Impressions: Service Date/Time: March 14:37 - CONCLUSION: 1. There is a small amount of sludge within the dependent portion the gallbladder. There is no significant pericholecystic fluid. The common duct is normal in caliber. 2. Limited examination due to overlying bowel gas. Jairon Bustos MD Head CTA 03/18/17 0000 Signed Impressions: Service Date/Time: Saturday, March 18, 2017 20:13 - CONCLUSION: 1. No arteriovenous malformation. 2. Atherosclerotic changes without significant large vessel stenosis. Maury Feng MD Laboratory Tests Test 03/22/17 03:52 White Blood Count 8.4 TH/MM3 Red Blood Count 5.32 MIL/MM3 Hemoglobin 12.3 GM/DL Hematocrit 38.4 % Mean Corpuscular Volume 72.3 FL Mean Corpuscular Hemoglobin 23.1 PG Mean Corpuscular Hemoglobin 32.0 % Concent Red Cell Distribution Width 22.2 % Platelet Count 172 TH/MM3 Mean Platelet Volume 8.5 FL Sodium Level 138 MEQ/L Potassium Level 3.9 MEQ/L Chloride Level 104 MEQ/L Carbon Dioxide Level 25.9 MEQ/L Anion Gap 8 MEQ/L Blood Urea Nitrogen 14 MG/DL Creatinine 0.79 MG/DL Estimat Glomerular Filtration 94 ML/MIN Rate Random Glucose 139 MG/DL Calcium Level 8.6 MG/DL 03/21/17 03/21/17 03/22/17 15:00 23:00 07:00 Intake Total 459 ml 881 ml 1097 ml Output Total 401 ml 400 ml 401 ml Balance 58 ml 481 ml 696 ml IV Total 459 ml 659 ml 700 ml Tube Feeding 102 ml 277 ml Tube Irrigant 120 ml 120 ml Output Urine Total 400 ml 400 ml 400 ml Stool Total 1 ml 0 ml 1 ml (Maury Cooley) Medical Decision Making Impression and Plan A: 81 y/o M with history of recent stroke involving the left basal ganglia and the temporal lobe with the MCA occlusion and 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 He appears to have some small areas of hemorrhagic conversion, left temporal lobe stroke. Follow up CT head this morning stable. 2. Multiple medical comorbidities in an elderly patient as mentioned above. 3. Pulmonary embolus. Pt had zoila filter placed. PLAN Continue with current care. Continue with blood pressure control Rehab efforts. (Maury Cooley) Attending Statement The exam, history, and the medical decision-making described in the above note were completed with the assistance of the mid-level provider. I reviewed and agree with the findings presented. I attest that I had a [id number] encounter with the patient on the same day, and personally performed and documented my assessment and findings in the medical record. (Chace Miller MD) Maury Cooley Mar 22, 2017 08:53 Chace Miller MD Mar 22, 2017 11:02
[2017-03-22] MEDS ORDERED: DILTIAZEM HCL 25 MG/5 ML VIAL IV ONE ×2 (12:30→16:15)
[2017-03-22] MEDS: DILTIAZEM INJ 125 MG in SODIUM CHLORIDE 0.9% INJ 100 ML IV SCH (12:54)
[2017-03-22] MEDS ORDERED: AMIODARONE INJ 150 MG in DEXTROSE 5% IN WATER 100ML INJ 97 ML IV ONE ×2 (14:00)
[2017-03-22] MEDS ORDERED: AMIODARONE INJ 900 MG in D5W 500 ML (EXCEL BAG) 482 ML IV SCH (14:00)
[2017-03-22] MEDS ORDERED: AMIODARONE INJ 450 MG in DEXTROSE 5% IN WATE(EXCEL) INJ 241 ML IV SCH ×2 (14:15)
[2017-03-22] MEDS ORDERED: ESMOLOL DRIP INJ PREMIX 250 ML IV SCH (16:45)
[2017-03-22] MEDS ORDERED: ESMOLOL HCL 100 MG/10 ML VIAL IV PUSH ONE (16:45)
[2017-03-22] MEDS: DILTIAZEM HCL 30 MG TAB PO SCH ×2 (18:21→21:16)
--- NOTE | 2017-03-22 19:22 | MB ---
cc: ESTHER GOLDSTEIN DATE OF CONSULTATION 03/22/17 Mr. Benjamin is an 81-year-old white male, a patient of Dr. Ta, who was admitted on 03/18 with subarachnoid hemorrhage. He was on Xarelto for atrial fibrillation. He was previously admitted for a left MCA stroke with occlusion of the left MCA. He has history of chronic atrial fibrillation and has had increased ventricular response, despite therapy with amiodarone and IV diltiazem. His heart rate is now better controlled. He is awake but not communicating well. PAST MEDICAL HISTORY 1. Atrial fibrillation, 2. Dementia, 3. Hypertension, 4. Coronary artery disease, 5. History of coronary stenting, 6. Chronic diastolic heart failure, 7. Diverticulosis, 8. Hypothyroidism, 9. Osteoarthritis 10. Dyslipidemia, 11. Recent MCA stroke, 12. Microcytic anemia 13. History of partial thyroidectomy. MEDICATIONS 1. Diltiazem 7 mg q.i.d. per NG 2. Amiodarone 3. Atenolol 25 mg twice a day, 4. Lovenox 5. Levothyroxine. 6. Pantoprazole 7. Isosorbide mononitrate 10 mg three times a day ALLERGIES None. SOCIAL HISTORY The patient does not smoke. He does not drink alcohol. FAMILY HISTORY Positive for heart disease. REVIEW OF SYSTEMS Otherwise negative. PHYSICAL EXAMINATION VITAL SIGNS: Blood pressure 120/75, pulse 65 and irregular. HEENT: Negative. The patient has nasogastric tube in place. NECK: Supple. 2+ carotid upstrokes LUNGS: Clear. HEART: Irregularly irregular with no murmur, gallop, rub. ABDOMEN: Soft. No bruits. EXTREMITIES: Without edema, 1-2 distal pulses. NEUROLOGIC: Right hemiparesis. LABORATORY DATA Hemoglobin 12.3, potassium 3.9, creatinine 0.8, troponin 0.53. CARDIOLOGY STUDIES EKG was reviewed and showed atrial fibrillation/flutter, left axis, anteroseptal ST elevation, no reciprocal changes. DIAGNOSES 1. Atrial fibrillation/flutter with rapid ventricular response, persistent 2. Subarachnoid hemorrhage 3. Intracranial hemorrhage 4. Recent left MCA stroke. 5. Dementia 6. Coronary artery disease, history of coronary stenting. 7. Chronic diastolic heart failure. 8. Hypertension. 9. Dyslipidemia DISPOSITION Mr. Benjamin will continue his current medical program. His heart rate is intermittently elevated up to 130s bpm. I recommend to restart IV diltiazem drip and titrate to keep the heart rate below 100. He can be later switched to p.o. diltiazem. I recommend to continue beta cecile. His recent echocardiogram showed preserved left ventricular systolic function and mild to moderate aortic stenosis. We will continue monitoring in the ICU. I discussed the plan with Dr. Matthew. Dr. Ta, his primary administrative office clerk, will take over his cardiology care on Friday. MD LISA Randolph/ /4:40 PM /7:05 PM HALLE
[2017-03-22 20:46] LABS: MAGNESIUM 1.9 MG/DL (1.5-2.5)
[2017-03-22] MEDS: DONEPEZIL HCL 5 MG TAB PO SCH (21:16)
[2017-03-23] VITALS (15 sets, daily range): BP systolic 129–166; BP diastolic 60–76; PULSE 66–141; RESP 15–23; TEMP 97.7–100.3; O2SAT 94–98
[2017-03-23] MEDS: DILTIAZEM INJ 125 MG in SODIUM CHLORIDE 0.9% INJ 100 ML IV SCH ×2 (03:22→16:06)
[2017-03-23] MEDS: CHLORHEXIDINE GLUCONATE 2 % 1 PACK (2 CLOTHS) TOP SCH (03:34)
[2017-03-23 04:11] LABS: HEMATOCRIT 35.9 % (39.0-51.0); MEAN CELL VOLUME 71.1 FL (80.0-100.0); MEAN CORPUSCULAR HEMOGLOBIN 23.6 PG (27.0-34.0); MEAN CORPUSCULAR HGB CONC 33.2 % (32.0-36.0); PLATELET COUNT 162 TH/MM3 (150-450); RED BLOOD COUNT 5.05 MIL/MM3 (4.50-5.90); RED CELL DISTRIBUTION WIDTH 22.5 % (11.6-17.2); REVIEW FLAG FINAL; WHITE BLOOD COUNT 8.4 TH/MM3 (4.0-11.0)
[2017-03-23 04:37] LABS: BICARBONATE 25.1 MEQ/L (21.0-32.0); MAGNESIUM 1.9 MG/DL (1.5-2.5); POTASSIUM 3.6 MEQ/L (3.5-5.1)
[2017-03-23 04:40] LABS: INDIRECT BILIRUBIN 0.3 MG/DL (0.0-0.8); TOTAL BILIRUBIN ADULT 0.4 MG/DL (0.2-1.0)
[2017-03-23] MEDS: levETIRAcetam INJ 500 MG in SODIUM CHLORIDE 0.9% INJ 100 ML IV SCH ×2 (05:39→17:07)
[2017-03-23] MEDS: LEVOTHYROXINE SODIUM 150 MCG TAB PO SCH (05:39)
[2017-03-23] MEDS: LEVOTHYROXINE SODIUM 25 MCG TAB PO SCH (05:39)
[2017-03-23] MEDS: INSULIN NovoLIN REGULAR SUPPLEMENTAL SCALE SQ SCH ×3 (05:48→18:00)
[2017-03-23] MEDS: CHLORHEXIDINE 0.12% (ORAL KIT) 15 ML CUP MT SCH ×2 (08:00→20:00)
--- NOTE | 2017-03-23 08:12 | HHI.CCPN ---
Subjective Remarks/Hospital Course This is a 81-year-old male. Date of admission 03/18/2017. Past medical history dementia disorder, atrial fibrillation currently in sinus bradycardia, hypertension, coronary artery disease history of 5 stents, chronic diastolic heart failure with ejection fraction 55% 2010, diverticulosis, hypothyroidism, osteoarthritis, dyslipidemia. 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 CTA revealed occlusion in the left MCA distributions and focal stenosis throughout the bilateral posterior cerebral artery distributions. During this admission he was seen by neurology/Dr. Conroy. His symptomatology upon included aphasia both expressive and receptive, dysphagia, apraxia, right-sided weakness and a right facial droop. At that time he was on Xarelto due to atrial fibrillation and not deemed not a candidate for TPA. Not an interventional candidate per IR due to hypercoagulable state. Due to the petechial hemorrhage not a candidate for Xarelto. Prior to discharge patient improved strength in his right upper lower extremity with x-ray is left upper and lower extremity. He was sent to [facility] on aspirin 325 mill grams daily. Today, patient was noticed that facility with increasing weakness is a right upper lobe extremity. The [facility] L4 CT head revealed acute versus subacute blood proximally and the prior sites of the left temporal CVA basal ganglia infarct. Also a small subarachnoid hemorrhage in the left mid parietal region. Dr. Miller was notified in which patient be admitted to neuro ICU overnight. 03/19: Seen and examined. More lethargic this a.m. Will follow commands of left upper extremity only. Able to withdrawal and non-purposefully move left lower extremity. Right upper extremity flaccid. Inconsistent right lower extremity examination.. A.m. head CT pending 03/20: Examination neurologically similar. Arousable. He consumes bites mouth. GCS currently 9 [id number] 03/21: Tmax 99.1. Patient with slightly with cough this AM. Will reassess swallow evaluation today. Plan ir to place IVC filter today. Dopplers legs negative. No obvious signs of infection. Will check chest x-ray for possible silent aspiration. 03/22: Afebrile. Protecting airway. Moves left upper extremity to command and spontaneously. Pulled out NG tube yesterday. Subjective 6/11: Afebrile. Protecting airway. Hematuria per overnight relationship executive checkout online. Not apparent this AM. Continues to move left lower extremity. Says "what" yesterday. Heart rate better controlled on Cardizem drip 10 mg an hour/oral Cardizem. DNR. Objective Vital Signs Date Time Temp Pulse Resp B/P Pulse Ox O2 Delivery O2 Flow Rate FiO2 03/23/17 06:00 66 03/23/17 04:00 98.8 19 146/70 98 03/22/17 21:23 21 03/22/17 19:00 Room Air 03/21/17 07:00 2.00 Intake and Output 03/22/17 03/22/17 03/23/17 08:00 16:00 00:00 Intake Total 1097 ml 786 ml 1202 ml Output Total 401 ml 300 ml 750 ml Balance 696 ml 486 ml 452 ml Result Diagram: 03/23/17 0335 03/23/17 0335 Imaging Last Impressions Head CT 03/21/17 0600 Signed Impressions: Service Date/Time: Tuesday, March 21, 2017 04:22 - CONCLUSION: Small left temporal parenchymal and subdural blood unchanged. No new/acute intracranial abnormality. Chronic white matter changes are again noted. Morgan Perkins MD Lower Extremity Ultrasound 03/20/17 0000 Signed Impressions: Service Date/Time: March 14:53 - CONCLUSION: 1. No DVT identified within either lower extremity. Jairon Bustos MD CT Angiography 03/20/17 0000 Signed Impressions: Service Date/Time: March 11:37 - CONCLUSION: 1. The examination is positive for pulmonary embolus. 2. Incidental findings as noted above. Jairon Bustos MD Abdomen Ultrasound 03/20/17 0000 Signed Impressions: Service Date/Time: March 14:37 - CONCLUSION: 1. There is a small amount of sludge within the dependent portion the gallbladder. There is no significant pericholecystic fluid. The common duct is normal in caliber. 2. Limited examination due to overlying bowel gas. Jairon Bustos MD Chest X-Ray 03/18/17 1516 Signed Impressions: Service Date/Time: Saturday, March 18, 2017 15:30 - CONCLUSION: No infiltrate seen. No evidence of pneumothorax. Lam Richardson MD Head CTA 03/18/17 0000 Signed Impressions: Service Date/Time: Saturday, March 18, 2017 20:13 - CONCLUSION: 1. No arteriovenous malformation. 2. Atherosclerotic changes without significant large vessel stenosis. Maury Feng MD Objective Remarks GENERAL: 81-year-old male, critically ill currently resting in bed in no acute distress SKIN: Warm and dry. Rash to bilateral buttocks stage 0 ulcer HEAD: Atraumatic. Normocephalic. EYES: Pupils equal and round about 3 mm bilaterally. Positive arcus senilis. No scleral icterus. No injection or drainage. ENT: No nasal bleeding or discharge. Mucous membranes pink and moist. As he is sedated in right nares NECK: Trachea midline. No JVD. CARDIOVASCULAR: IRR. S1, S2. No S4. No murmur appreciated RESPIRATORY: clear to auscultation. Breath sounds equal bilaterally. GASTROINTESTINAL: Abdomen soft, non-tender, nondistended. Hypoactive sounds MUSCULOSKELETAL: Extremities without difficulty and peripheral edema. No obvious deformities. NEUROLOGICAL: GCS9 (E2,V1,M6) Awake and arousable and follows simple commands. Tongue midline. Able to squeeze left upper extremity to command with 4-5 strength. Unable to move toes bilateral lower extremities. Did withdraw to left lower extremity. Strength one out of 5. Right upper extremity is flaccid. Sensation appears to be intact. DTRs are equal symmetric bilaterally. Gait and cerebellar not assessed.. A/P Assessment and Plan Neuro/Psych: Left temporal intraparenchymal hemorrhage Left basal ganglia hemorrhage Left mid parietal subarachnoid hemorrhage/small Recent history of left MCA CVA with petechial hemorrhage left basal ganglia 02/26 Dementia disorder NOS Neurosurgery/Dr. Miller has been consulted. Recommended observation in ISC Goal keep systolic blood pressure less than 150 Neurochecks per [facility] protocol Keppra 500 mg IV twice a day 7 days for seizure prophylaxis Repeat head CT in a.m. 03/19 revealed stable delayed hemorrhage CTA brain 03/18 revealed no aneurysm Repeat head CT 03/21 revealed no expansion of current interpretable hemorrhage left thalamus/basal ganglia. Continue Aricept 10 mg daily and Namenda 10 mg twice a day in a.m. for dementia as patient has passed swallow evaluation CV: Sinus tachycardia - a flutter Hypertension Coronary artery disease status post stents 5 - Dr. Ta Chronic diastolic heart failure ejection fraction 55-60% 2010 Dyslipidemia History of atrial fibrillation currently in sinus bradycardia Atherosclerotic vascular disease Elevated troponin Home medications are atenolol 50 mg twice a day and Norvasc 2.5 mg daily for hypertension. Currently on Cardizem drip at 10 mg hour with oral Cardizem 30 mg every 6 hours for rate control Troponin trending down currently 0.44. Cardiology consulted. No intervention planned at this time. Home medications include Isordil 10 mg 3 times a day for underlying coronary disease. Patient is on aspirin 325 mg by mouth daily. Early held in light of acute intracranial hemorrhage. Patient is on Lasix 20 jennifer grams every other day. Resume when clinically indicated. EKG on admission revealed sinus bradycardia rate of 59. Normal ME, QRS and QT intervals. Nonspecific ST-T changes in the anterior leads. Patient is currently in a flutter. Likely early repolarization anterior/ lateral leads. Documented in chart 11/[address] Ta requests no further cardiac intervention due to underlying dementia and comorbidities Resp: Right lower lobe PE CT pulmonary angiogram 03/20 revealed second subsegmental right lower lobe pulmonary embolus. Dopplers bilateral lower extremity negative See Heme Nasal cannula to maintain saturations greater than equal to 92% Incentive spirometry while awake Chest x-ray on admission 03/18/17 reveals no acute cardio pulmonary findings GI: History diverticulosis History of gastritis/esophagitis and duodenitis 11/29 Mild protein calorie malnutrition with hypoalbuminemia Patient is on nectar thick and pured diet but with poor intake NG tube placed right nares. Currently on Vital 1.5 at 60 cc at hour Protonix for GI prophylaxis Nancy-Colace twice a day for bowel regimen Abdominal ultrasound 03/20 revealed some sludge in the gallbladder LFTs negative/ asymptomatic examination. Otherwise negative : BPH Hematuria Ball to be maintained for accurate I's and O's in a critically ill patient With hematuria overnight documented, will flush Ball as needed. Remove once hematuria abates condom catheter. Endo: Hyperglycemia Hypothyroidism Sliding-scale insulin with Accu-Cheks to maintain euglycemia/low regimen Home medication Levoxyl 200 mics grams daily. Will be decreased to 175 mics grams daily. Recheck TSH in 3-6 weeks TSH in 0.223. Renal: History of right renal cyst 1.5 cm Creatinine currently within normal limits Accurate I's and O's Recheck BMP in a.m. Heme: Microcytic anemia IVC filter placement On Lovenox 30 mg subcutaneous twice a day for PE. Unable to fully anticoagulate secondary to intracerebral hemorrhage. Dr. Feldman/hematology oncology has seen the patient. Okay with IVC filter. Placed 03/21 Bilateral lower extremities negative for DVT CBC stable ID: Monitor for infection UA shows no signs of infection FEN: History of hypokalemia Replace electrolytes as clinically indicated Only home medication is potassium chloride 10 mEq daily. Resume only if clinically indicated Discontinue normal saline. MSK: Osteoarthritis Lumbar degenerative disc disease PT evaluate and treat Access - Utilize peripheral IV. Central line if indicated Prophylaxis - GI - Protonix - DVT - SCD/pharmacological prophylaxis held in light of acute intracranial hemorrhage Level II DNR status Talha Matthew MD Mar 23, 2017 08:12
[2017-03-23] MEDS: SODIUM CHLORIDE 0.9% FLUSH 10 ML FLUSH IV FLUSH SCH ×2 (08:42→21:34)
[2017-03-23] MEDS: NUTRISOURCE FIBER POWDER 1 PACK G-TUBE SCH ×3 (08:42→16:08)
[2017-03-23] MEDS: ARTIFICIAL TEARS OPTH SOLN 15 ML BTL EACH EYE SCH ×3 (08:42→16:08)
[2017-03-23] MEDS: BENEPROTEIN POWDER 1 PACK G-TUBE SCH ×3 (08:42→16:08)
[2017-03-23] MEDS: PANTOPRAZOLE SODIUM 40 MG VIAL IVP SCH (08:51)
[2017-03-23] MEDS: ISOSORBIDE MONONITRATE 20 MG TAB PO SCH ×3 (08:51→17:07)
[2017-03-23] MEDS: MEMANTINE HCL 10 MG TAB PO SCH ×2 (08:51→21:35)
[2017-03-23] MEDS: DILTIAZEM HCL 30 MG TAB PO SCH ×4 (08:52→21:35)
[2017-03-23] MEDS: ENOXAPARIN SODIUM 30 MG/0.3 ML SYRINGE SQ SCH ×2 (08:52→21:33)
[2017-03-23] MEDS: DOCUSATE SODIUM 50 MG/SENNA 8.6 MG TAB PO SCH ×2 (08:53→21:35)
--- NOTE | 2017-03-23 09:24 | HHI.NSPN ---
(Maury Cooley) History Chief Complaint: ICH. (Maury Cooley) Interval History This is an 81-year-old gentleman who suffered from a stroke about 3 weeks ago on the left hemisphere with associated aphasia and right hemiplegia. He was on Xarelto for chronic atrial fibrillation prior to that which was discontinued and was placed on aspirin. 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 A CTA of the neck did not reveal any carotid stenosis. He had an MRI scan which revealed an acute infarction involving the left temporal lobe and basal ganglia with some small petechial hemorrhage in the basal ganglia. He was subsequently discharged to a long term home rehab facility. He is starting to move slightly on the right side and verbalize some words but this declined today and was sent to the emergency room. A CT scan of the head obtained reveals small areas of acute and subacute hemorrhages in the left temporal lobe. I do not appreciate any subarachnoid hemorrhage associated with this. There is no mass effect or midline shift. The patient has been started on Cardene drip for his hypertension. He does not verbalize or follow any commands given his aphasia but will open his eyes to verbal commands. No family currently is available. 03/19/17: Pt opens eyes. Not following commands. Aphasic. Nods head to questions. Coat Repair Inspector left hand spontaneously. Right hemiparesis. 03/20/17: Pt opens eyes. Not following commands. Global aphasia. Nods head yes to all questions. Coat Repair Inspector left hand spontaneously. Right hemiparesis. 03/21/17: Patient opens eyes to voice. He is a aphasic. He nods head to all questions. Patient does not follow commands. He junior mechanical engineer his left hand spontaneously. He has a right hemiparesis. 03/22/17: Patient opens eyes to voice. Pupils are equal. He is aphasic. Does not follow commands. Right hemiparesis. He junior mechanical engineer his left hand spontaneously. 03/23/17: Patient opens eyes to voice. Nods head to all questions. Aphasic. Not following commands. Right hemiparesis. he junior mechanical engineer left hand spontaneously. ( Maury Cooley) System Review Comments Not able to obtain given clinical condition. (Maury Cooley) Exam Results Vital Signs Date Time Temp Pulse Resp B/P Pulse Ox O2 Delivery O2 Flow Rate FiO2 03/23/17 09:01 98 21 03/23/17 07:00 Room Air 2.00 03/23/17 06:00 66 03/23/17 04:00 98.8 19 146/70 Intake and Output 03/22/17 03/22/17 03/23/17 08:00 16:00 00:00 Intake Total 1097 ml 786 ml 1202 ml Output Total 401 ml 300 ml 750 ml Balance 696 ml 486 ml 452 ml (Maury Cooley) Physical Examination Resp: CTA bilaterally Heart: Tachycardia. no murmurs Abd: Soft positive bs Skin: No cyanosis or erythema Muscle: Not following commands for muscle testing. Coat Repair Inspector left hand spontaneously. Right hemiparesis compared to the left side. Neuro: Pt awakens to voice. Pupils equal 3mm bilaterally. Not following commands. Coat Repair Inspector left hand spontaneously but not following commands. (Maury Cooley) Lab, Micro, Other Results Last Impressions Head CT 03/21/17 0600 Signed Impressions: Service Date/Time: Tuesday, March 21, 2017 04:22 - CONCLUSION: Small left temporal parenchymal and subdural blood unchanged. No new/acute intracranial abnormality. Chronic white matter changes are again noted. Morgan Perkins MD IVC Filter Placement X-Ray 03/21/17 0000 Signed Impressions: Service Date/Time: Tuesday, March 21, 2017 09:49 - CONCLUSION: Uncomplicated inferior vena cava filter placement as above. Nelson Menendez MD Chest X-Ray 03/21/17 0000 Signed Impressions: Service Date/Time: Tuesday, March 21, 2017 06:27 - CONCLUSION: No infiltrate or other acute cardiopulmonary disease demonstrated. Morgan Perkins MD Abdomen X-Ray 03/21/17 0000 Signed Impressions: Service Date/Time: Tuesday, March 21, 2017 17:00 - CONCLUSION: Feeding tube is coiled in the stomach. Po Bustos MD FACR Lower Extremity Ultrasound 03/20/17 0000 Signed Impressions: Service Date/Time: March 14:53 - CONCLUSION: 1. No DVT identified within either lower extremity. Jairon Bustos MD CT Angiography 03/20/17 0000 Signed Impressions: Service Date/Time: March 11:37 - CONCLUSION: 1. The examination is positive for pulmonary embolus. 2. Incidental findings as noted above. Jairon Bustos MD Abdomen Ultrasound 03/20/17 0000 Signed Impressions: Service Date/Time: March 14:37 - CONCLUSION: 1. There is a small amount of sludge within the dependent portion the gallbladder. There is no significant pericholecystic fluid. The common duct is normal in caliber. 2. Limited examination due to overlying bowel gas. Jairon Bustos MD Head CTA 03/18/17 0000 Signed Impressions: Service Date/Time: Saturday, March 18, 2017 20:13 - CONCLUSION: 1. No arteriovenous malformation. 2. Atherosclerotic changes without significant large vessel stenosis. Maury Feng MD Laboratory Tests Test 03/22/17 03/22/17 03/23/17 10:39 20:14 03:35 Troponin I 0.53 NG/ML 0.58 NG/ML 0.44 NG/ML Magnesium Level 1.9 MG/DL 1.9 MG/DL White Blood Count 8.4 TH/MM3 Red Blood Count 5.05 MIL/MM3 Hemoglobin 11.9 GM/DL Hematocrit 35.9 % Mean Corpuscular Volume 71.1 FL Mean Corpuscular Hemoglobin 23.6 PG Mean Corpuscular Hemoglobin 33.2 % Concent Red Cell Distribution Width 22.5 % Platelet Count 162 TH/MM3 Mean Platelet Volume 8.8 FL Sodium Level 139 MEQ/L Potassium Level 3.6 MEQ/L Chloride Level 106 MEQ/L Carbon Dioxide Level 25.1 MEQ/L Anion Gap 8 MEQ/L Blood Urea Nitrogen 12 MG/DL Creatinine 0.76 MG/DL Estimat Glomerular Filtration 98 ML/MIN Rate Random Glucose 180 MG/DL Calcium Level 8.4 MG/DL Phosphorus Level 1.8 MG/DL Total Bilirubin 0.4 MG/DL Direct Bilirubin 0.1 MG/DL Indirect Bilirubin 0.3 MG/DL Aspartate Amino Transf 40 U/L (AST/SGOT) Alanine Aminotransferase 37 U/L (ALT/SGPT) Alkaline Phosphatase 90 U/L Total Creatine Kinase 117 U/L Total Protein 6.7 GM/DL Albumin 2.6 GM/DL 03/22/17 03/22/17 03/23/17 15:00 23:00 07:00 Intake Total 786 ml 1202 ml 1017 ml Output Total 300 ml 750 ml 550 ml Balance 486 ml 452 ml 467 ml IV Total 503 ml 715 ml 557 ml Tube Feeding 223 ml 367 ml 340 ml Tube Irrigant 60 ml 120 ml 120 ml Output Urine Total 300 ml 750 ml 550 ml Stool Total 0 ml 0 ml 0 ml (Maury Cooley) Medical Decision Making Impression and Plan A: 81 y/o M with history of recent stroke involving the left basal ganglia and the temporal lobe with the MCA occlusion and moderate stenosis of bilateral line erector apprentice. He appears to have some small areas of hemorrhagic conversion, left temporal lobe stroke. Follow up CT head this morning stable. 2. Multiple medical comorbidities in an elderly patient as mentioned above. 3. Pulmonary embolus. Pt had zoila filter placed. PLAN Continue with current care. Continue with blood pressure control Rehab efforts. (Maury Cooley) Attending Statement The exam, history, and the medical decision-making described in the above note were completed with the assistance of the mid-level provider. I reviewed and agree with the findings presented. I attest that I had a [id number] encounter with the patient on the same day, and personally performed and documented my assessment and findings in the medical record. (Chace Miller MD) Maury Cooley Mar 23, 2017 09:24 Chace Miller MD Mar 23, 2017 11:53
--- NOTE | 2017-03-23 09:45 | EKG ---
Date Performed: 03/22/2017 Time Performed: 13:11:26 PTAGE: 81 years EKG: CONSIDER ACUTE ST ELEVATION ID Sinus rhythm . Right bundle branch block Anteroseptal ST elevation, CONSIDER ACUTE INFARCT Lateral T wave changes are nonspecific Abnormal ECG PREVIOUS TRACING : 03/20/2017 04.56 DOCTOR: Romain Avalos Interpretating Date/Time 03/23/2017 09:36:26
[2017-03-23] MEDS: ACETAMINOPHEN 325 MG TAB PO PRN ×2 (15:26→21:56)
--- NOTE | 2017-03-23 16:18 | PD.CARD.PN ---
Subjective Subjective Remarks Sleeping, comfortable Objective Medications Current Medications Medications (Trade) Dose Ordered Sig/Tori Route Start Time Stop Time Status Last Admin (Narcan Inj) 0.4 mg UNSCH PRN IV 03/18/17 16:45 (Catapres) 0.1 mg Q6H PRN PO 03/18/17 17:45 Pantoprazole Sodium 40 mg 40 mg DAILY IVP 03/19/17 09:00 03/23/17 08:51 (Keppra Inj/NS Inj) 105 ml @ 400 mls/hr Q12H IV 03/18/17 18:00 03/23/17 05:39 (NS Flush) 2 ml UNSCH PRN IV FLUSH 03/18/17 17:45 (NS Flush) 2 ml BID IV FLUSH 03/18/17 21:00 03/23/17 08:42 (Tylenol) 650 mg Q6H PRN PO 03/18/17 17:45 03/23/17 15:26 ([place] 5-325 Mg) 1 tab Q4H PRN PO 03/18/17 17:45 (Morphine Inj) 2 mg Q2H PRN IV 03/18/17 17:45 (Tears Naturale Opth Soln) 1 drop TID EACH EYE 03/18/17 18:00 03/23/17 16:08 (Zofran Inj) 4 mg Q6H PRN IV 03/18/17 17:45 Miscellaneous Information 1 Q361D XX 03/18/17 17:45 (Chlorhexidine 2% Cloth) 3 pack Taper DAILY@04 TOP 03/19/17 04:00 03/15/18 03:59 03/23/17 03:34 (Chlorhexidine 2% Cloth) 3 pack UNSCH PRN TOP 03/18/17 17:45 (Nancy-Colace) 1 tab BID PO 03/18/17 21:00 03/23/17 08:53 (Milk Of Magnesia Liq) 30 ml Q12H PRN PO 03/18/17 17:45 (Senokot) 17.2 mg Q12H PRN PO 03/18/17 17:45 (Dulcolax Supp) 10 mg DAILY PRN RECTAL 03/18/17 17:45 (Lactulose Liq) 30 ml DAILY PRN PO 03/18/17 17:45 (D50w (Vial) Inj) 50 ml UNSCH PRN IV 03/18/17 17:45 (Glucagon Inj) 1 mg UNSCH PRN OTHER 03/18/17 17:45 (Aricept) 10 mg HS PO 03/18/17 21:00 03/22/17 21:16 (Ismo) 10 mg TID PO 03/19/17 09:00 03/23/17 12:08 Memantine 10 mg 10 mg BID PO 03/18/17 21:00 03/23/17 08:51 Potassium Chloride 100 ml @ 50 mls/hr Q2H PRN IV 03/18/17 18:15 (KCl 20 Meq Premix Inj) 100 ml @ 50 mls/hr Q2H PRN IV 03/18/17 18:15 Potassium Bicarb/ Potassium Chloride 50 meq 50 meq UNSCH PRN PO 03/18/17 18:15 Potassium Chloride 100 ml @ 25 mls/hr UNSCH PRN IV 03/18/17 18:15 Potassium Chloride 100 ml @ 50 mls/hr Q2H PRN IV 03/18/17 18:15 (Magnesium Sulfate Inj/NS Inj) 100 ml @ 50 mls/hr UNSCH PRN IV 03/18/17 18:15 Magnesium Oxide 800 mg 800 mg UNSCH PRN PO 03/18/17 18:15 (Magnesium Sulfate Inj/NS Inj) 100 ml @ 50 mls/hr UNSCH PRN IV 03/18/17 18:15 Potassium Phosphate 2000 mg 2,000 mg Q4H PRN PO 03/18/17 18:15 (Sodium Phosphate Inj/NS 250 ml Inj) 250 ml @ 42 mls/hr UNSCH PRN IV 03/18/17 18:15 03/23/17 05:51 (K-Phos) 2,000 mg UNSCH PRN PO/TUBE 03/18/17 18:15 (Trandate Inj) 10 mg Q1HR PRN IV 03/18/17 19:00 (Apresoline Inj) 10 mg Q1HR PRN IV PUSH 03/18/17 18:15 (Nitroglycerin 2% Oint) 2 inch Q6HR PRN TOPICAL 03/18/17 18:15 (Vasotec Inj) 1.25 mg Q6H PRN IV PUSH 03/18/17 18:15 (Pill Splitter) 1 ea UNSCH PRN OTHER 03/18/17 18:30 (Synthroid) 150 mcg DAILY@06 PO 03/20/17 06:00 03/23/17 05:39 (Synthroid) 25 mcg DAILY@06 PO 03/20/17 06:00 03/23/17 05:39 (Nutrisource Fiber Powder) 1 pack TID G-TUBE 03/19/17 13:00 03/23/17 16:08 (Lovenox Inj) 30 mg Q12HR SQ 03/20/17 21:00 03/23/17 08:52 (Peridex 0.12% Liq) 15 ml BID@08,20 MT 03/21/17 08:00 03/23/17 08:00 Protein 1 pack 1 pack TID G-TUBE 03/21/17 09:00 03/23/17 16:08 (Cardizem Inj/NS Inj) 125 ml @ 0 mls/hr TITRATE IV 03/22/17 13:00 03/23/17 16:06 (Cardizem) 30 mg QID PO 03/22/17 18:00 03/23/17 12:08 (NovoLIN R SUPPLEMENTAL SCALE) 1 Q6HR SQ 03/23/17 12:00 03/23/17 11:38 Vital Signs / I&O Vital Signs Date Time Temp Pulse Resp B/P Pulse Ox O2 Delivery O2 Flow Rate FiO2 03/23/17 14:00 80 03/23/17 12:00 98.5 91 15 130/69 97 03/23/17 12:00 91 03/23/17 10:00 68 03/23/17 09:01 98 21 03/23/17 08:00 71 03/23/17 08:00 97.7 67 17 129/66 94 03/23/17 07:00 98 Room Air 2.00 21 03/23/17 06:00 66 03/23/17 04:00 69 03/23/17 04:00 98.8 69 19 146/70 98 03/23/17 02:00 90 03/23/17 00:00 66 03/23/17 00:00 98.4 66 22 144/69 98 03/22/17 22:00 76 03/22/17 21:23 97 21 03/22/17 20:00 98.6 94 20 126/61 97 03/22/17 20:00 87 03/22/17 19:00 98 Room Air 03/22/17 18:00 87 I/O 03/22/17 03/22/17 03/22/17 03/23/17 03/23/17 03/23/17 07:00 15:00 23:00 07:00 15:00 23:00 Intake Total 1097 ml 786 ml 1202 ml 1017 ml 1302 ml Output Total 401 ml 300 ml 750 ml 550 ml 675 ml Balance 696 ml 486 ml 452 ml 467 ml 627 ml IV Total 700 ml 503 ml 715 ml 557 ml 588 ml Tube Feeding 277 ml 223 ml 367 ml 340 ml 414 ml Tube Irrigant 120 ml 60 ml 120 ml 120 ml Other 300 ml Output Urine Total 400 ml 300 ml 750 ml 550 ml 675 ml Stool Total 1 ml 0 ml 0 ml 0 ml # Bowel Movements 0 Physical Exam GENERAL: In NAD SKIN: Warm and dry. HEAD: Normocephalic. EYES: No scleral icterus. No injection or drainage. NECK: Supple, trachea midline. No JVD or lymphadenopathy. CARDIOVASCULAR: Regular rate and rhythm without murmurs, gallops, or rubs. RESPIRATORY: Breath sounds equal bilaterally. No accessory muscle use. GASTROINTESTINAL: Abdomen soft, non-tender, nondistended. MUSCULOSKELETAL: No cyanosis, or edema. Laboratory Laboratory Tests Test 03/22/17 03/23/17 20:14 03:35 Magnesium Level 1.9 MG/DL 1.9 MG/DL Troponin I 0.58 NG/ML 0.44 NG/ML White Blood Count 8.4 TH/MM3 Red Blood Count 5.05 MIL/MM3 Hemoglobin 11.9 GM/DL Hematocrit 35.9 % Mean Corpuscular Volume 71.1 FL Mean Corpuscular Hemoglobin 23.6 PG Mean Corpuscular Hemoglobin 33.2 % Concent Red Cell Distribution Width 22.5 % Platelet Count 162 TH/MM3 Mean Platelet Volume 8.8 FL Sodium Level 139 MEQ/L Potassium Level 3.6 MEQ/L Chloride Level 106 MEQ/L Carbon Dioxide Level 25.1 MEQ/L Anion Gap 8 MEQ/L Blood Urea Nitrogen 12 MG/DL Creatinine 0.76 MG/DL Estimat Glomerular Filtration 98 ML/MIN Rate Random Glucose 180 MG/DL Calcium Level 8.4 MG/DL Phosphorus Level 1.8 MG/DL Total Bilirubin 0.4 MG/DL Direct Bilirubin 0.1 MG/DL Indirect Bilirubin 0.3 MG/DL Aspartate Amino Transf 40 U/L (AST/SGOT) Alanine Aminotransferase 37 U/L (ALT/SGPT) Alkaline Phosphatase 90 U/L Total Creatine Kinase 117 U/L Total Protein 6.7 GM/DL Albumin 2.6 GM/DL Imaging Last Impressions Head CT 03/21/17 0600 Signed Impressions: Service Date/Time: Tuesday, March 21, 2017 04:22 - CONCLUSION: Small left temporal parenchymal and subdural blood unchanged. No new/acute intracranial abnormality. Chronic white matter changes are again noted. Morgan Perkins MD IVC Filter Placement X-Ray 03/21/17 Signed Impressions: Service Date/Time: Tuesday, March 21, 2017 09:49 - CONCLUSION: Uncomplicated inferior vena cava filter placement as above. Nelson Menendez MD Chest X-Ray 03/21/17 Signed Impressions: Service Date/Time: Tuesday, March 21, 2017 06:27 - CONCLUSION: No infiltrate or other acute cardiopulmonary disease demonstrated. Morgan Perkins MD Abdomen X-Ray 03/21/17 Signed Impressions: Service Date/Time: Tuesday, March 21, 2017 17:00 - CONCLUSION: Feeding tube is coiled in the stomach. Po Bustos MD FACR Lower Extremity Ultrasound 03/20/17 Signed Impressions: Service Date/Time: March 14:53 - CONCLUSION: 1. No DVT identified within either lower extremity. Jairon Bustos MD CT Angiography 03/20/17 Signed Impressions: Service Date/Time: March 11:37 - CONCLUSION: 1. The examination is positive for pulmonary embolus. 2. Incidental findings as noted above. Jairon Bustos MD Abdomen Ultrasound 03/20/17 Signed Impressions: Service Date/Time: March 14:37 - CONCLUSION: 1. There is a small amount of sludge within the dependent portion the gallbladder. There is no significant pericholecystic fluid. The common duct is normal in caliber. 2. Limited examination due to overlying bowel gas. Jairon Bustos MD Head CTA 03/18/17 Signed Impressions: Service Date/Time: Saturday, March 18, 2017 20:13 - CONCLUSION: 1. No arteriovenous malformation. 2. Atherosclerotic changes without significant large vessel stenosis. Maury Feng MD Assessment and Plan Problem List: (1) Atrial fibrillation with rapid ventricular response (2) Intracranial hemorrhage (3) Subarachnoid hemorrhage (4) CVA (cerebral vascular accident) (5) HTN (hypertension) (6) CAD, status post multiple stents (7) moderate dementia (8) Hypertension Assessment and Plan Rate well controlled. Wean IV diltiazem and increase PO diltiazem to maintain rate control. Continue ICU care as per Dr. Matthew. No new cardiac issues. Dr. Ta will take over cardiology care tomorrow. Problem Qualifiers (1) Hypertension: Qualified Code: I10 - Essential hypertension Lawanda Sanchez MD Mar 23, 2017 16:18
--- NOTE | 2017-03-23 17:59 | RADRPT ---
EXAM DATE/TIME: 03/23/2017 17:38 [facility] COMPARISON: CHEST SINGLE AP, March 21, 2017, 6:27. INDICATIONS : Shortness of breath. MEDICAL HISTORY : Cardiovascular disease. Thyroid disease. SURGICAL HISTORY : None. ENCOUNTER: Subsequent ACUITY: 2 weeks PAIN SCORE: 0/10 LOCATION: Bilateral chest FINDINGS: A single view of the chest demonstrates the lungs to be symmetrically aerated without evidence of mas s, infiltrate or effusion. The cardiomediastinal contours are unremarkable. CONCLUSION: No acute cardiopulmonary disease demonstrated. Morgan Perkins MD on March 23, 2017 at 17:56 Board Certified Radiologist. This report was verified electronically.
[2017-03-23] MEDS: PIPERACIL-TAZO 4.5 GM PREMIX 100 ML IV SCH (18:03)
[2017-03-23] MEDS ORDERED: VANCOMYCIN INJ 1,250 MG in SODIUM CHLOR 0.9% 250 ML INJ 250 ML IV ONE (20:00)
[2017-03-23] MEDS: DONEPEZIL HCL 5 MG TAB PO SCH (21:34)
[2017-03-24] VITALS (14 sets, daily range): BP systolic 119–144; BP diastolic 57–87; PULSE 66–99; RESP 15–26; TEMP 98.3–99.1; O2SAT 93–99
[2017-03-24] MEDS: INSULIN NovoLIN REGULAR SUPPLEMENTAL SCALE SQ SCH ×4 (00:54→18:08)
[2017-03-24] MEDS: PIPERACIL-TAZO 4.5 GM PREMIX 100 ML IV SCH ×3 (02:05→17:31)
[2017-03-24] MEDS: CHLORHEXIDINE GLUCONATE 2 % 1 PACK (2 CLOTHS) TOP SCH (03:15)
[2017-03-24] MEDS: DILTIAZEM INJ 125 MG in SODIUM CHLORIDE 0.9% INJ 100 ML IV SCH (03:43)
[2017-03-24] MEDS: levETIRAcetam INJ 500 MG in SODIUM CHLORIDE 0.9% INJ 100 ML IV SCH ×2 (05:47→17:30)
[2017-03-24] MEDS: LEVOTHYROXINE SODIUM 25 MCG TAB PO SCH (05:47)
[2017-03-24] MEDS: LEVOTHYROXINE SODIUM 150 MCG TAB PO SCH (05:47)
[2017-03-24] MEDS: NUTRISOURCE FIBER POWDER 1 PACK G-TUBE SCH ×3 (09:00→17:31)
[2017-03-24] MEDS: BENEPROTEIN POWDER 1 PACK G-TUBE SCH ×3 (09:00→17:31)
[2017-03-24] MEDS: ARTIFICIAL TEARS OPTH SOLN 15 ML BTL EACH EYE SCH ×3 (09:27→17:32)
[2017-03-24] MEDS: ENOXAPARIN SODIUM 30 MG/0.3 ML SYRINGE SQ SCH ×2 (09:27→21:00)
[2017-03-24] MEDS: PANTOPRAZOLE SODIUM 40 MG VIAL IVP SCH (09:28)
[2017-03-24] MEDS: SODIUM CHLORIDE 0.9% FLUSH 10 ML FLUSH IV FLUSH SCH ×2 (09:28→21:00)
[2017-03-24] MEDS: DILTIAZEM HCL 30 MG TAB PO SCH ×4 (09:28→23:25)
[2017-03-24] MEDS: DOCUSATE SODIUM 50 MG/SENNA 8.6 MG TAB PO SCH ×2 (09:28→21:00)
[2017-03-24] MEDS: ISOSORBIDE MONONITRATE 20 MG TAB PO SCH ×2 (09:28→12:35)
[2017-03-24] MEDS: CHLORHEXIDINE 0.12% (ORAL KIT) 15 ML CUP MT SCH ×2 (09:29→21:00)
[2017-03-24] MEDS: MEMANTINE HCL 10 MG TAB PO SCH ×2 (09:37→21:00)
--- NOTE | 2017-03-24 10:51 | HHI.HCPN ---
Reason for visit a. To assist with evaluation and management of symptoms including: Dysphagia , restlessness b. To assist medical decision maker(s) with: better understanding of current medical conditions; weighing benefits/burdens of medical treatment options; making medical treatment decisions. . Subjective/Interval History In summary, this is an 81 year old patient, with a history of : CHF, CAD, afbi, gi bleed, dementia, cva, who was admitted 03/18/17 due to acute hemorrhage in the areas of previous infarct (left temporal parenchymal and subdural). We have met in the family 03/21 and goals of care was aggressive despite the overall poor prognosis given his advance age, dementia, clinical decline over the past year ( suffered an ischemic stroke with right hemiplegia 3 weeks prior to this admission, and now has hemorrhagic stroke). Over the weekend, pt have been protecting the airway. He did pulled his NG tube. He had hematuria. . His code status was change to an DNR on 03/22/2017. Being weaned off cardizem drip. No cardiopulmonary disease. Remains an aspiration risk. He is very lethargic, sleeping on my visit. Stirs and coughs. Could not elicit history. Some grimacing noted. Family/friend interactions Spoke with pt's son Shelton. He states to continue all medical measures short of intubation and resucitation. His brother will stop by in around 12:30 pm and will be amenable to meet me. Advance Directives Living Will: Never completed Health Care Surrogate: Never completed Durable Power of Wave Soldering Machine Operator: Never completed Objective Vital Signs Date Time Temp Pulse Resp B/P Pulse Ox O2 Delivery O2 Flow Rate FiO2 03/24/17 06:00 68 03/24/17 04:00 98.4 90 21 137/65 96 03/24/17 04:00 90 03/24/17 02:00 66 03/24/17 00:00 67 03/24/17 00:00 98.3 67 15 126/59 96 03/23/17 22:00 139 03/23/17 20:48 97 03/23/17 20:04 125 03/23/17 20:00 99.5 141 22 138/60 98 03/23/17 20:00 95 Room Air 03/23/17 18:00 70 03/23/17 16:00 79 03/23/17 16:00 100.3 79 23 166/76 95 03/23/17 14:00 80 03/23/17 12:00 98.5 91 15 130/69 97 03/23/17 12:00 91 Intake & Output 03/24/17 03/24/17 07:00 19:00 Intake Total 1745 ml Output Total 1250 ml Balance 495 ml IV Total 944 ml Tube Feeding 481 ml Other 320 ml Output Urine Total 1250 ml # Bowel Movements 1 Physical Exam CONSTITUTIONAL/GENERAL: This is an adequately nourished patient, very lethargic , in no apparent distress. TUBES/LINES/DRAINS: Nasal cannula oxygen, Ball catheter, Dobbhoff tube SKIN: No jaundice, rashes, or lesions. Ecchymoses on upper extremities. No wounds seen anteriorly. Skin temperature appropriate. Not diaphoretic. HEAD: Atraumatic. Normocephalic. EYES: Pupils equal and round and reactive. No scleral icterus. No injection or drainage. Fundi not examined. ENT: Nose without bleeding or purulent drainage. NECK: Trachea midline. Supple, nontender. No palpable thyroid enlargement or nodularity. CARDIOVASCULAR: Regular rate and rhythm, with grade 1-2 systolic murmur. No JVD. RESPIRATORY/CHEST: Symmetric, unlabored respirations. Scattered rhonchi GASTROINTESTINAL: Abdomen soft, non-tender, nondistended. No hepato-splenomegaly , or palpable masses. No guarding. Bowel sounds present. GENITOURINARY: Without palpable bladder distension. Ball catheter in place. MUSCULOSKELETAL: Extremities without clubbing, cyanosis, or edema. No joint tenderness or effusion noted. No calf tenderness. No mottling or clubbing. LYMPHATICS: No palpable cervical or supraclavicular adenopathy. NEUROLOGICAL: Quite lethargic, opens eyes briefly when his name is called loudly , does not follow commands, right hemiplegia, occasionally moves left hand/ fingers. PSYCHIATRIC: No obvious anxiety/agitation . Diagnostic Tests Laboratory Laboratory Tests Test 03/22/17 03/22/17 03/22/17 03/23/17 03:52 10:39 20:14 03:35 White Blood Count 8.4 TH/MM3 8.4 TH/MM3 (4.0-11.0) (4.0-11.0) Red Blood Count 5.32 MIL/MM3 5.05 MIL/MM3 (4.50-5.90) (4.50-5.90) Hemoglobin 12.3 GM/DL 11.9 GM/DL (13.0-17.0) (13.0-17.0) Hematocrit 38.4 % 35.9 % (39.0-51.0) (39.0-51.0) Mean Corpuscular Volume 72.3 FL 71.1 FL (80.0-100.0) (80.0-100.0) Mean Corpuscular Hemoglobin 23.1 PG 23.6 PG (27.0-34.0) (27.0-34.0) Mean Corpuscular Hemoglobin 32.0 % 33.2 % Concent (32.0-36.0) (32.0-36.0) Red Cell Distribution Width 22.2 % 22.5 % (11.6-17.2) (11.6-17.2) Platelet Count 172 TH/MM3 162 TH/MM3 (150-450) (150-450) Mean Platelet Volume 8.5 FL 8.8 FL (7.0-11.0) (7.0-11.0) Sodium Level 138 MEQ/L 139 MEQ/L (136-145) (136-145) Potassium Level 3.9 MEQ/L 3.6 MEQ/L (3.5-5.1) (3.5-5.1) Chloride Level 104 MEQ/L 106 MEQ/L (98-107) (98-107) Carbon Dioxide Level 25.9 MEQ/L 25.1 MEQ/L (21.0-32.0) (21.0-32.0) Anion Gap 8 MEQ/L (5-15) 8 MEQ/L (5-15) Blood Urea Nitrogen 14 MG/DL (7-18) 12 MG/DL (7-18) Creatinine 0.79 MG/DL 0.76 MG/DL (0.60-1.30) (0.60-1.30) Estimat Glomerular Filtration 94 ML/MIN (>89) 98 ML/MIN (>89) Rate Random Glucose 139 MG/DL 180 MG/DL (74-106) (74-106) Calcium Level 8.6 MG/DL 8.4 MG/DL (8.5-10.1) (8.5-10.1) Troponin I 0.53 NG/ML 0.58 NG/ML 0.44 NG/ML (0.02-0.05) (0.02-0.05) (0.02-0.05) Magnesium Level 1.9 MG/DL 1.9 MG/DL (1.5-2.5) (1.5-2.5) Phosphorus Level 1.8 MG/DL (2.5-4.9) Total Bilirubin 0.4 MG/DL (0.2-1.0) Direct Bilirubin 0.1 MG/DL (0.0-0.2) Indirect Bilirubin 0.3 MG/DL (0.0-0.8) Aspartate Amino Transf 40 U/L (15-37) (AST/SGOT) Alanine Aminotransferase 37 U/L (12-78) (ALT/SGPT) Alkaline Phosphatase 90 U/L (45-117) Total Creatine Kinase 117 U/L (39-308) Total Protein 6.7 GM/DL (6.4-8.2) Albumin 2.6 GM/DL (3.4-5.0) Test 03/23/17 16:58 Phosphorus Level 2.6 MG/DL (2.5-4.9) Result Diagram: 03/23/17 0335 03/23/17 0335 Microbiology Microbiology Date/Time Procedure Status Source Growth 03/23/17 18:50 Aerobic Blood Culture Received Blood Peripheral Pending 03/23/17 18:50 Anaerobic Blood Culture Received Blood Peripheral Pending 03/23/17 19:00 Aerobic Blood Culture Received Blood Peripheral Pending 03/23/17 19:00 Anaerobic Blood Culture Received Blood Peripheral Pending Imaging Last Impressions Chest X-Ray 03/23/17 0000 Signed Impressions: Service Date/Time: Thursday, March 23, 2017 17:38 - CONCLUSION: No acute cardiopulmonary disease demonstrated. Morgan Perkins MD Head CT 03/21/17 0600 Signed Impressions: Service Date/Time: Tuesday, March 21, 2017 04:22 - CONCLUSION: Small left temporal parenchymal and subdural blood unchanged. No new/acute intracranial abnormality. Chronic white matter changes are again noted. Morgan Perkins MD IVC Filter Placement X-Ray 03/21/17 0000 Signed Impressions: Service Date/Time: Tuesday, March 21, 2017 09:49 - CONCLUSION: Uncomplicated inferior vena cava filter placement as above. Nelson Menendez MD Abdomen X-Ray 03/21/17 Signed Impressions: Service Date/Time: Tuesday, March 21, 2017 17:00 - CONCLUSION: Feeding tube is coiled in the stomach. Po Bustos MD FACR Lower Extremity Ultrasound 03/20/17 Signed Impressions: Service Date/Time: March 14:53 - CONCLUSION: 1. No DVT identified within either lower extremity. Jairon Bustos MD CT Angiography 03/20/17 Signed Impressions: Service Date/Time: March 11:37 - CONCLUSION: 1. The examination is positive for pulmonary embolus. 2. Incidental findings as noted above. Jairon Bustos MD Abdomen Ultrasound 03/20/17 Signed Impressions: Service Date/Time: March 14:37 - CONCLUSION: 1. There is a small amount of sludge within the dependent portion the gallbladder. There is no significant pericholecystic fluid. The common duct is normal in caliber. 2. Limited examination due to overlying bowel gas. Jairon Bustos MD Head CTA 03/18/17 Signed Impressions: Service Date/Time: Saturday, March 18, 2017 20:13 - CONCLUSION: 1. No arteriovenous malformation. 2. Atherosclerotic changes without significant large vessel stenosis. Maury Feng MD Assessment and Plan Disease Oriented Problem List: (1) acute and subacute strokes, with lethargy, aphasia, right hemiplegia, (2) moderate dementia (3) CAD, status post multiple stents (4) GI bleeding, November 2016, secondary to duodenitis/esophagitis/gastritis (5) atrial fibrillation, recently on aspirin (6) diverticulosis (7) Pulmonary embolism (8) degenerative joint disease (9) hyperlipidemia (10) hypertension (11) hypothyroidism (12) anemia (13) CHF Symptom Scale: (1) restlessness 0-10 Scale: Unable to quantify (2) dyspnea 0-10 Scale: Unable to quantify (3) pain 0-10 Scale: Unable to quantify Pertinent Non-Medical Issues Psychosocial: , 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 Spiritual: The patient is Am[employer], and the family does think that the patient would want a supervisor telephone clerks to visit him. Legal: The patient lacks capacity for decision-making, and he will not regain that capacity. The patient's spouse would be the decision-maker, but she wants to defer decision making to her 3 children but at the same time participate in the discussions about goals and treatment choices. Ethical issues impacting care: None . Important Contacts Son: Shelton Benjamin (CALL FIRST) [phone] Spouse: Erna [phone] Son: Tony (in [place]) Daughter: Shalini (in [place]) . Prognosis The patient's prognosis is quite poor. He has underlying moderate dementia, has been declining for the past year, suffered an ischemic stroke with right hemiplegia 3 weeks prior to this admission, and now has hemorrhagic stroke. He is appropriate for hospice services if/when the goals become comfort oriented. . Code Status: No Code Plan * DNR * DECISION-MAKING: The patient lacks capacity for decision-making, and he will not regain that capacity. The patient's spouse would be the proxy decision- maker, but she wants to defer decision making to her 3 children but at the same time participate in the discussions about goals and treatment choices. The patient's and his son Shelton both request that any phone calls go first to the son (Shelton [phone]) and not to the . * GOALS: Family states to continue all medical measures short of intubation and resucitation. Shelton, his brother will stop by in around 12:30 pm and will be amenable to meet me. * SYMPTOMS: The patient does not appear to be in pain or to be dyspneic at this time. He has significant dysphagia, is not protecting his airway well, and I anticipate that he will develop respiratory failure. * Palliative Care will continue to follow the patient during this hospitalization. . Time Spent Total Floor Time (mins): 40 Face to Face Time (mins): 25 Attestation To help prompt me to consider important information that might be impacting today's encounter and assessment, information from prior notes written by myself or my colleagues may have been "brought forward" into today's note. My signature on this note, however, is an attestation that I personally performed the exam, history, and/or decision-making noted today, and, unless otherwise indicated, the interactions with patient, family, and staff as well as the review of records all occurred today. I also attest that the listed assessment and stated plan reflect my best clinical judgment today based on the combination of historical information, prior notes, and today's exam/ interactions. When time spent is documented, it refers only to time spent today by the signer, or if indicated, combined time spent today by collaborating physician/nurse practitioner. Benedicto Bruno MD Mar 24, 2017 10:51
--- NOTE | 2017-03-24 11:05 | HHI.CCPN ---
Subjective Remarks/Hospital Course This is a 81-year-old male. Date of admission 03/18/2017. Past medical history dementia disorder, atrial fibrillation currently in sinus bradycardia, hypertension, coronary artery disease history of 5 stents, chronic diastolic heart failure with ejection fraction 55% 2010, diverticulosis, hypothyroidism, osteoarthritis, dyslipidemia. 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 CTA revealed occlusion in the left MCA distributions and focal stenosis throughout the bilateral posterior cerebral artery distributions. During this admission he was seen by neurology/Dr. Conroy. His symptomatology upon included aphasia both expressive and receptive, dysphagia, apraxia, right-sided weakness and a right facial droop. At that time he was on Xarelto due to atrial fibrillation and not deemed not a candidate for TPA. Not an interventional candidate per IR due to hypercoagulable state. Due to the petechial hemorrhage not a candidate for Xarelto. Prior to discharge patient improved strength in his right upper lower extremity with x-ray is left upper and lower extremity. He was sent to [facility] on aspirin 325 mill grams daily. Today, patient was noticed that facility with increasing weakness is a right upper lobe extremity. The [place] L4 CT head revealed acute versus subacute blood proximally and the prior sites of the left temporal CVA basal ganglia infarct. Also a small subarachnoid hemorrhage in the left mid parietal region. Dr. Miller was notified in which patient be admitted to neuro ICU overnight. 03/19: Seen and examined. More lethargic this a.m. Will follow commands of left upper extremity only. Able to withdrawal and non-purposefully move left lower extremity. Right upper extremity flaccid. Inconsistent right lower extremity examination.. A.m. head CT pending 03/20: Examination neurologically similar. Arousable. He consumes bites mouth. GCS currently 9 [id number] 03/21: Tmax 99.1. Patient with slightly with cough this AM. Will reassess swallow evaluation today. Plan ir to place IVC filter today. Dopplers legs negative. No obvious signs of infection. Will check chest x-ray for possible silent aspiration. 03/22: Afebrile. Protecting airway. Moves left upper extremity to command and spontaneously. Pulled out NG tube yesterday. Subjective 6/11: Afebrile. Protecting airway. Hematuria per overnight bookseamer blindstitch checkout online. Not apparent this AM. Continues to move left lower extremity. Says "what" yesterday. Heart rate better controlled on Cardizem drip 10 mg an hour/oral Cardizem. DNR. 03/24: Dobbhoff in place. Remains encephalopathic, on Cardizem drip for rate control. Objective Vital Signs Date Time Temp Pulse Resp B/P Pulse Ox O2 Delivery O2 Flow Rate FiO2 03/24/17 06:00 68 03/24/17 04:00 98.4 21 137/65 96 03/23/17 20:00 Room Air 03/23/17 09:01 21 03/23/17 07:00 2.00 Intake and Output 03/23/17 03/23/17 03/24/17 08:00 16:00 00:00 Intake Total 1017 ml 1302 ml 718 ml Output Total 550 ml 675 ml 400 ml Balance 467 ml 627 ml 318 ml Result Diagram: 03/23/17 0335 03/23/17 0335 Imaging Last Impressions Head CT 03/21/17 0600 Signed Impressions: Service Date/Time: Tuesday, March 21, 2017 04:22 - CONCLUSION: Small left temporal parenchymal and subdural blood unchanged. No new/acute intracranial abnormality. Chronic white matter changes are again noted. Morgan Perkins MD Lower Extremity Ultrasound 03/20/17 0000 Signed Impressions: Service Date/Time: March 14:53 - CONCLUSION: 1. No DVT identified within either lower extremity. Jairon Bustos MD CT Angiography 03/20/17 0000 Signed Impressions: Service Date/Time: March 11:37 - CONCLUSION: 1. The examination is positive for pulmonary embolus. 2. Incidental findings as noted above. Jairon Bustos MD Abdomen Ultrasound 03/20/17 0000 Signed Impressions: Service Date/Time: March 14:37 - CONCLUSION: 1. There is a small amount of sludge within the dependent portion the gallbladder. There is no significant pericholecystic fluid. The common duct is normal in caliber. 2. Limited examination due to overlying bowel gas. Jairon Bustos MD Chest X-Ray 03/18/17 9966 Signed Impressions: Service Date/Time: Saturday, March 18, 2017 15:30 - CONCLUSION: No infiltrate seen. No evidence of pneumothorax. Lam Richardson MD Head CTA 03/18/17 0000 Signed Impressions: Service Date/Time: Saturday, March 18, 2017 20:13 - CONCLUSION: 1. No arteriovenous malformation. 2. Atherosclerotic changes without significant large vessel stenosis. Maury Feng MD Objective Remarks GENERAL: 81-year-old male, currently resting in bed in no acute distress SKIN: Warm and dry. Rash to bilateral buttocks stage 0 ulcer HEAD: Atraumatic. Normocephalic. EYES: Pupils equal and round about 3 mm bilaterally. Positive arcus senilis. No scleral icterus. No injection or drainage. ENT: No nasal bleeding or discharge. Mucous membranes pink and moist. As he is sedated in right nares NECK: Trachea midline. No JVD. CARDIOVASCULAR: IRR. S1, S2. No S4. No murmur appreciated RESPIRATORY: clear to auscultation. Breath sounds equal bilaterally. GASTROINTESTINAL: Abdomen soft, non-tender, nondistended. Hypoactive sounds MUSCULOSKELETAL: Extremities without difficulty and peripheral edema. No obvious deformities. NEUROLOGICAL: Drowsy, arousable, encephalopathic. Tongue midline. Withdraws left upper extremity to pain. Unable to move toes bilateral lower extremities. Did withdraw left lower extremity to pain. Strength one out of 5. Right upper extremity is flaccid. Sensation appears to be intact. DTRs are equal symmetric bilaterally. Gait and cerebellar not assessed.. A/P Assessment and Plan Neuro/Psych: Left temporal intraparenchymal hemorrhage Left basal ganglia hemorrhage Left mid parietal subarachnoid hemorrhage/small Recent history of left MCA CVA with petechial hemorrhage left basal ganglia 02/26 Dementia disorder NOS Neurosurgery/Dr. Miller has been consulted. Recommended observation in [facility] Goal keep systolic blood pressure less than 150 Neurochecks per [facility] protocol Keppra 500 mg IV twice a day 7 days for seizure prophylaxis Repeat head CT in a.m. 03/19 revealed stable delayed hemorrhage CTA brain 03/18 revealed no aneurysm Repeat head CT 03/21 revealed no expansion of current interpretable hemorrhage left thalamus/basal ganglia. Continue Aricept 10 mg daily and Namenda 10 mg twice a day in a.m. for dementia as patient has passed swallow evaluation CV: Sinus tachycardia - a flutter Hypertension Coronary artery disease status post stents 5 - Dr. Ta Chronic diastolic heart failure ejection fraction 55-60% 2010 Dyslipidemia History of atrial fibrillation currently in sinus bradycardia Atherosclerotic vascular disease Elevated troponin Home medications are atenolol 50 mg twice a day and Norvasc 2.5 mg daily for hypertension. Currently on Cardizem drip at 7 mg/ hour. Increase oral Cardizem to 45 mg every 6 hours for rate control Troponin trending down currently 0.44. Cardiology consulted. No intervention planned at this time. Home medications include Isordil 10 mg 3 times a day for underlying coronary disease. Patient is on aspirin 325 mg by mouth daily. Early held in light of acute intracranial hemorrhage. Patient is on Lasix 20 jennifer grams every other day. Resume when clinically indicated. EKG on admission revealed sinus bradycardia rate of 59. Normal NH, QRS and QT intervals. Nonspecific ST-T changes in the anterior leads. Patient is currently in a flutter. Likely early repolarization anterior/ lateral leads. Documented in chart 11/[address] Ta requests no further cardiac intervention due to underlying dementia and comorbidities Resp: Right lower lobe PE CT pulmonary angiogram 03/20 revealed second subsegmental right lower lobe pulmonary embolus. Dopplers bilateral lower extremity negative See Heme Nasal cannula to maintain saturations greater than equal to 92% Incentive spirometry while awake Chest x-ray on admission 03/18/17 reveals no acute cardio pulmonary findings GI: History diverticulosis History of gastritis/esophagitis and duodenitis 11/29 Mild protein calorie malnutrition with hypoalbuminemia Patient is on nectar thick and pured diet but with poor intake NG tube placed right nares. Currently on Vital 1.5 at 60 cc at hour Protonix for GI prophylaxis Nancy-Colace twice a day for bowel regimen Abdominal ultrasound 03/20 revealed some sludge in the gallbladder LFTs negative/ asymptomatic examination. Otherwise negative : BPH Hematuria Ball to be maintained for accurate I's and O's With hematuria overnight documented, will flush Ball as needed. Remove once hematuria abates condom catheter. Endo: Hyperglycemia Hypothyroidism Sliding-scale insulin with Accu-Cheks to maintain euglycemia/low regimen Home medication Levoxyl 200 mics grams daily. Decreased to 175 mics grams daily. Recheck TSH in 3-6 weeks TSH in 0.223. Renal: History of right renal cyst 1.5 cm Creatinine currently within normal limits Strict intake output, monitor and replete electrolytes, follow BUN/creatinine. Heme: Microcytic anemia IVC filter placement On Lovenox 30 mg subcutaneous twice a day for PE. Unable to fully anticoagulate secondary to intracerebral hemorrhage. Dr. Feldman/hematology oncology has seen the patient. Okay with IVC filter. Placed 03/21 Bilateral lower extremities negative for DVT CBC stable ID: Monitor for infection UA shows no signs of infection FEN: History of hypokalemia Replace electrolytes as clinically indicated Only home medication is potassium chloride 10 mEq daily. Resume only if clinically indicated Discontinue normal saline. MSK: Osteoarthritis Lumbar degenerative disc disease PT evaluate and treat Access - Utilize peripheral IV. Central line if indicated Prophylaxis - GI - Protonix - DVT - SCD/pharmacological prophylaxis held in light of acute intracranial hemorrhage Level II DNR status Johnathon Martinez MD Mar 24, 2017 11:05
[2017-03-24] MEDS: ACETAMINOPHEN/HYDROcodone 325 MG/5 MG TAB PO PRN (13:22)
--- NOTE | 2017-03-24 13:52 | HHI.HCPN ---
Met with son, Tony, at bedside. Mr. Benjamin currently sleeping, minimally responsive to verbal stimuli while conversing with son in room. Son, Tony, attempted to shake and speak loudly to Mr. Benjamin to get him to open his eyes. Reports he was just provided pain medication. Introduced palliative care. Attempted to set up family meeting. Tony reports more family is coming into town Friday, "may be good then when everyone can be together". Also states Shelton (another son) is providing the family with updates. Reports his mother, the patient's , will probably not come up to the room. Tony is appropriately tearful throughout conversation. Offered emotional support. Palliative care will continue to follow. Will continue to attempt to set up family meeting. Palliative care number provided. Selina Blanton, STEAM FIN[employer] Mar 24, 2017 13:52
[2017-03-24] MEDS: DONEPEZIL HCL 5 MG TAB PO SCH (21:01)
[2017-03-25] VITALS (12 sets, daily range): BP systolic 111–145; BP diastolic 54–86; PULSE 66–132; RESP 15–24; TEMP 96.7–98.7; O2SAT 93–99
[2017-03-25] MEDS: PIPERACIL-TAZO 4.5 GM PREMIX 100 ML IV SCH ×3 (01:16→18:59)
[2017-03-25] MEDS: CHLORHEXIDINE GLUCONATE 2 % 1 PACK (2 CLOTHS) TOP SCH (02:07)
[2017-03-25] MEDS: ACETAMINOPHEN/HYDROcodone 325 MG/5 MG TAB PO PRN ×2 (02:34→12:55)
[2017-03-25] MEDS: LEVOTHYROXINE SODIUM 25 MCG TAB PO SCH (05:27)
[2017-03-25] MEDS: LEVOTHYROXINE SODIUM 150 MCG TAB PO SCH (05:28)
[2017-03-25] MEDS: levETIRAcetam INJ 500 MG in SODIUM CHLORIDE 0.9% INJ 100 ML IV SCH ×2 (05:28→18:59)
[2017-03-25] MEDS: INSULIN NovoLIN REGULAR SUPPLEMENTAL SCALE SQ SCH ×5 (06:18→23:32)
[2017-03-25] MEDS: CHLORHEXIDINE 0.12% (ORAL KIT) 15 ML CUP MT SCH ×2 (08:00→20:00)
[2017-03-25] MEDS: BENEPROTEIN POWDER 1 PACK G-TUBE SCH ×3 (09:00→18:00)
[2017-03-25] MEDS: NUTRISOURCE FIBER POWDER 1 PACK G-TUBE SCH ×3 (09:00→18:58)
[2017-03-25] MEDS: ARTIFICIAL TEARS OPTH SOLN 15 ML BTL EACH EYE SCH ×3 (09:00→18:00)
[2017-03-25] MEDS: ATENOLOL 50 MG TAB PO SCH ×2 (10:00→21:06)
[2017-03-25] MEDS: MEMANTINE HCL 10 MG TAB PO SCH ×2 (10:35→21:05)
[2017-03-25] MEDS: DOCUSATE SODIUM 50 MG/SENNA 8.6 MG TAB PO SCH ×2 (10:35→21:00)
[2017-03-25] MEDS: PANTOPRAZOLE SODIUM 40 MG VIAL IVP SCH (10:36)
[2017-03-25] MEDS: SODIUM CHLORIDE 0.9% FLUSH 10 ML FLUSH IV FLUSH SCH ×2 (10:37→21:07)
[2017-03-25] MEDS: ENOXAPARIN SODIUM 30 MG/0.3 ML SYRINGE SQ SCH ×2 (10:38→21:07)
[2017-03-25] MEDS: ISOSORBIDE MONONITRATE 20 MG TAB PO SCH ×2 (12:56→18:00)
--- NOTE | 2017-03-25 14:07 | HHI.PR ---
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 Date of admission 03/18/2017. Past medical history dementia disorder, atrial fibrillation currently in sinus bradycardia, hypertension, coronary artery disease history of 5 stents, chronic diastolic heart failure with ejection fraction 55% 2010, diverticulosis, hypothyroidism, osteoarthritis, dyslipidemia. 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 CTA revealed occlusion in the left MCA distributions and focal stenosis throughout the bilateral posterior cerebral artery distributions. During this admission he was seen by neurology/Dr. Conroy. His symptomatology upon included aphasia both expressive and receptive, dysphagia, apraxia, right-sided weakness and a right facial droop. At that time he was on Xarelto due to atrial fibrillation and not deemed not a candidate for TPA. Not an interventional candidate per IR due to hypercoagulable state. Due to the petechial hemorrhage not a candidate for Xarelto. Prior to discharge patient improved strength in his right upper lower extremity with x-ray is left upper and lower extremity. He was sent to [facility] on aspirin 325 mill grams daily. Today, patient was noticed that facility with increasing weakness is a right upper lobe extremity. The [place] L4 CT head revealed acute versus subacute blood proximally and the prior sites of the left temporal CVA basal ganglia infarct. Also a small subarachnoid hemorrhage in the left mid parietal region. Dr. Miller was notified in which patient be admitted to neuro ICU overnight. 03/19: Seen and examined. More lethargic this a.m. Will follow commands of left upper extremity only. Able to withdrawal and non-purposefully move left lower extremity. Right upper extremity flaccid. Inconsistent right lower extremity examination.. A.m. head CT pending 03/20: Examination neurologically similar. Arousable. He consumes bites mouth. GCS currently 9 [id number] 03/21: Tmax 99.1. Patient with slightly with cough this AM. Will reassess swallow evaluation today. Plan ir to place IVC filter today. Dopplers legs negative. No obvious signs of infection. Will check chest x-ray for possible silent aspiration. 03/22: Afebrile. Protecting airway. Moves left upper extremity to command and spontaneously. Pulled out NG tube yesterday. 03/23: Afebrile. Protecting airway. Hematuria per overnight assistant professor of biology checkout online. Not apparent this AM. Continues to move left lower extremity. Says "what" yesterday. Heart rate better controlled on Cardizem drip 10 mg an hour/oral Cardizem. DNR. 03/24: Dobbhoff in place. Remains encephalopathic, on Cardizem drip for rate control. Hospitalist Notes: 03/25: Patient seen in his bedroom, stable, discussed with Charge nurse, he may be transferred to Medical floor with Telemetry, Neurosurgery following and career specialist no further hematuria removed Ball Catheter. no nausea, vomit or diarrhea. Objective Vital Signs Date Time Temp Pulse Resp B/P Pulse Ox O2 Delivery O2 Flow Rate FiO2 03/25/17 13:36 18 03/25/17 06:00 66 03/25/17 04:00 67 03/25/17 04:00 98.7 67 15 111/54 93 03/25/17 02:00 66 03/25/17 00:00 67 03/25/17 00:00 98.7 67 19 145/67 99 03/24/17 22:00 99 03/24/17 21:01 99 03/24/17 20:00 83 03/24/17 20:00 99.1 92 19 122/87 97 03/24/17 19:00 97 Room Air 03/24/17 18:00 83 03/24/17 16:00 98.3 68 18 119/57 97 03/24/17 16:00 68 03/24/17 14:00 68 I/O 03/24/17 03/24/17 03/24/17 03/25/17 03/25/17 03/25/17 07:00 15:00 23:00 07:00 15:00 23:00 Intake Total 1027 ml 798 ml 520 ml 648 ml Output Total 850 ml 700 ml 450 ml 650 ml Balance 177 ml 98 ml 70 ml -2 ml IV Total 396 ml 200 ml 40 ml 128 ml Tube Feeding 431 ml 538 ml 480 ml 520 ml Other 200 ml 60 ml Output Urine Total 850 ml 700 ml 450 ml 650 ml # Bowel Movements 1 0 1 0 Result Diagram: 03/23/17 0335 03/23/17 0335 Imaging Last Impressions Chest X-Ray 03/23/17 0000 Signed Impressions: Service Date/Time: Thursday, March 23, 2017 17:38 - CONCLUSION: No acute cardiopulmonary disease demonstrated. Morgan Perkins MD Head CT 03/21/17 0600 Signed Impressions: Service Date/Time: Tuesday, March 21, 2017 04:22 - CONCLUSION: Small left temporal parenchymal and subdural blood unchanged. No new/acute intracranial abnormality. Chronic white matter changes are again noted. Morgan Perkins MD IVC Filter Placement X-Ray 03/21/17 0000 Signed Impressions: Service Date/Time: Tuesday, March 21, 2017 09:49 - CONCLUSION: Uncomplicated inferior vena cava filter placement as above. Nelson Menendez MD Abdomen X-Ray 03/21/17 0000 Signed Impressions: Service Date/Time: Tuesday, March 21, 2017 17:00 - CONCLUSION: Feeding tube is coiled in the stomach. Po Bustos MD FACR Lower Extremity Ultrasound 03/20/17 0000 Signed Impressions: Service Date/Time: March 14:53 - CONCLUSION: 1. No DVT identified within either lower extremity. Jairon Bustos MD CT Angiography 03/20/17 0000 Signed Impressions: Service Date/Time: March 11:37 - CONCLUSION: 1. The examination is positive for pulmonary embolus. 2. Incidental findings as noted above. Jairon Bustos MD Abdomen Ultrasound 03/20/17 0000 Signed Impressions: Service Date/Time: March 14:37 - CONCLUSION: 1. There is a small amount of sludge within the dependent portion the gallbladder. There is no significant pericholecystic fluid. The common duct is normal in caliber. 2. Limited examination due to overlying bowel gas. Jairon Bustos MD Head CTA 03/18/17 0000 Signed Impressions: Service Date/Time: Saturday, March 18, 2017 20:13 - CONCLUSION: 1. No arteriovenous malformation. 2. Atherosclerotic changes without significant large vessel stenosis. Maury Feng MD Procedures No procedures. Other Results GENERAL: No acute distress SKIN: Warm and dry. Rash to bilateral buttocks stage 0 ulcer HEAD: Atraumatic. Normocephalic. EYES: Pupils equal and round about 3 mm bilaterally. Positive arcus senilis. No scleral icterus. No injection or drainage. ENT: No nasal bleeding or discharge. Mucous membranes pink and moist. As he is sedated in right nares NECK: Trachea midline. No JVD. CARDIOVASCULAR: IRR. S1, S2. No S4. No murmur appreciated RESPIRATORY: clear to auscultation. Breath sounds equal bilaterally. GASTROINTESTINAL: Abdomen soft, non-tender, nondistended. Hypoactive sounds MUSCULOSKELETAL: Extremities without difficulty and peripheral edema. No obvious deformities. NEUROLOGICAL: Drowsy, arousable, encephalopathic. Tongue midline. Withdraws left upper extremity to pain. Unable to move toes bilateral lower extremities. Did withdraw left lower extremity to pain. Strength one out of 5. Right upper extremity is flaccid. Sensation appears to be intact. DTRs are equal symmetric bilaterally. Gait and cerebellar not assessed.. Objective Remarks Laboratory Tests Test 03/21/17 03/21/17 03/23/17 03/23/17 03:31 08:12 03:35 16:58 Neutrophils (%) (Auto) 62.4 % Lymphocytes (%) (Auto) 21.0 % Monocytes (%) (Auto) 12.6 % Eosinophils (%) (Auto) 3.6 % Basophils (%) (Auto) 0.4 % Neutrophils # (Auto) 4.7 TH/MM3 Lymphocytes # (Auto) 1.6 TH/MM3 Monocytes # (Auto) 0.9 TH/MM3 Eosinophils # (Auto) 0.3 TH/MM3 Basophils # (Auto) 0.0 TH/MM3 CBC Comment DIFF FINAL Differential Comment Blood Gas Puncture Site LT RADIAL Blood Gas Patient Temperature 98.6 Blood Gas HCO3 25 mmol/L Blood Gas Base Excess 1.0 mmol/L Blood Gas Oxygen Saturation 95 % Arterial Blood pH 7.42 Arterial Blood Partial 40 mmHg Pressure CO2 Arterial Blood Partial 91 mmHg Pressure O2 Arterial Blood Oxygen Content 16.5 Vol % Arterial Blood 1.5 % Carboxyhemoglobin Arterial Blood Methemoglobin 0.9 % Blood Gas Hemoglobin 12.3 G/DL Blood Gas Inspired Oxygen 21 % White Blood Count 8.4 TH/MM3 Red Blood Count 5.05 MIL/MM3 Hemoglobin 11.9 GM/DL Hematocrit 35.9 % Mean Corpuscular Volume 71.1 FL Mean Corpuscular Hemoglobin 23.6 PG Mean Corpuscular Hemoglobin 33.2 % Concent Red Cell Distribution Width 22.5 % Platelet Count 162 TH/MM3 Mean Platelet Volume 8.8 FL Sodium Level 139 MEQ/L Potassium Level 3.6 MEQ/L Chloride Level 106 MEQ/L Carbon Dioxide Level 25.1 MEQ/L Anion Gap 8 MEQ/L Blood Urea Nitrogen 12 MG/DL Creatinine 0.76 MG/DL Estimat Glomerular Filtration 98 ML/MIN Rate Random Glucose 180 MG/DL Calcium Level 8.4 MG/DL Magnesium Level 1.9 MG/DL Total Bilirubin 0.4 MG/DL Direct Bilirubin 0.1 MG/DL Indirect Bilirubin 0.3 MG/DL Aspartate Amino Transf 40 U/L (AST/SGOT) Alanine Aminotransferase 37 U/L (ALT/SGPT) Alkaline Phosphatase 90 U/L Total Creatine Kinase 117 U/L Troponin I 0.44 NG/ML Total Protein 6.7 GM/DL Albumin 2.6 GM/DL Phosphorus Level 2.6 MG/DL Medications and IVs Current Medications Medications (Trade) Dose Ordered Sig/Tori Route Start Time Stop Time Status Last Admin (Narcan Inj) 0.4 mg UNSCH PRN IV 03/18/17 16:45 (Catapres) 0.1 mg Q6H PRN PO 03/18/17 17:45 Pantoprazole Sodium 40 mg 40 mg DAILY IVP 03/19/17 09:00 03/25/17 10:36 (Keppra Inj/NS Inj) 105 ml @ 400 mls/hr Q12H IV 03/18/17 18:00 03/25/17 05:28 (NS Flush) 2 ml UNSCH PRN IV FLUSH 03/18/17 17:45 (NS Flush) 2 ml BID IV FLUSH 03/18/17 21:00 03/25/17 10:37 (Tylenol) 650 mg Q6H PRN PO 03/18/17 17:45 03/23/17 21:56 ([place] 5-325 Mg) 1 tab Q4H PRN PO 03/18/17 17:45 03/25/17 12:55 (Morphine Inj) 2 mg Q2H PRN IV 03/18/17 17:45 (Tears Naturale Opth Soln) 1 drop TID EACH EYE 03/18/17 18:00 03/25/17 12:55 (Zofran Inj) 4 mg Q6H PRN IV 03/18/17 17:45 Miscellaneous Information 1 Q361D XX 03/18/17 17:45 (Chlorhexidine 2% Cloth) Taper DAILY@04 TOP 03/19/17 04:00 03/15/18 03:59 03/25/17 02:07 (Chlorhexidine 2% Cloth) 3 pack UNSCH PRN TOP 03/18/17 17:45 (Nancy-Colace) 1 tab BID PO 03/18/17 21:00 03/25/17 10:35 (Milk Of Magnesia Liq) 30 ml Q12H PRN PO 03/18/17 17:45 (Senokot) 17.2 mg Q12H PRN PO 03/18/17 17:45 (Dulcolax Supp) 10 mg DAILY PRN RECTAL 03/18/17 17:45 (Lactulose Liq) 30 ml DAILY PRN PO 03/18/17 17:45 (D50w (Vial) Inj) 50 ml UNSCH PRN IV 03/18/17 17:45 (Glucagon Inj) 1 mg UNSCH PRN OTHER 03/18/17 17:45 (Aricept) 10 mg HS PO 03/18/17 21:00 03/24/17 21:01 (Ismo) 10 mg TID PO 03/19/17 09:00 03/25/17 12:56 Memantine 10 mg 10 mg BID PO 03/18/17 21:00 03/25/17 10:35 Potassium Chloride 100 ml @ 50 mls/hr Q2H PRN IV 03/18/17 18:15 (KCl 20 Meq Premix Inj) 100 ml @ 50 mls/hr Q2H PRN IV 03/18/17 18:15 Potassium Bicarb/ Potassium Chloride 50 meq 50 meq UNSCH PRN PO 03/18/17 18:15 Potassium Chloride 100 ml @ 25 mls/hr UNSCH PRN IV 03/18/17 18:15 Potassium Chloride 100 ml @ 50 mls/hr Q2H PRN IV 03/18/17 18:15 (Magnesium Sulfate Inj/NS Inj) 100 ml @ 50 mls/hr UNSCH PRN IV 03/18/17 18:15 Magnesium Oxide 800 mg 800 mg UNSCH PRN PO 03/18/17 18:15 (Magnesium Sulfate Inj/NS Inj) 100 ml @ 50 mls/hr UNSCH PRN IV 03/18/17 18:15 Potassium Phosphate 2000 mg 2,000 mg Q4H PRN PO 03/18/17 18:15 (Sodium Phosphate Inj/NS 250 ml Inj) 250 ml @ 42 mls/hr UNSCH PRN IV 03/18/17 18:15 03/23/17 05:51 (K-Phos) 2,000 mg UNSCH PRN PO/TUBE 03/18/17 18:15 (Trandate Inj) 10 mg Q1HR PRN IV 03/18/17 19:00 03/24/17 21:00 (Apresoline Inj) 10 mg Q1HR PRN IV PUSH 03/18/17 18:15 (Vasotec Inj) 1.25 mg Q6H PRN IV PUSH 03/18/17 18:15 (Pill Splitter) 1 ea UNSCH PRN OTHER 03/18/17 18:30 (Synthroid) 150 mcg DAILY@06 PO 03/20/17 06:00 03/25/17 05:28 (Synthroid) 25 mcg DAILY@06 PO 03/20/17 06:00 03/25/17 05:27 (Nutrisource Fiber Powder) 1 pack TID G-TUBE 03/19/17 13:00 03/25/17 12:56 (Lovenox Inj) 30 mg Q12HR SQ 03/20/17 21:00 03/25/17 10:38 (Peridex 0.12% Liq) 15 ml BID@08,20 MT 03/21/17 08:00 03/24/17 21:00 (Beneprotein Powder) 1 pack TID G-TUBE 03/21/17 09:00 03/25/17 12:56 Insulin Human Regular 1 1 Q6HR SQ 03/23/17 12:00 03/25/17 06:18 (Zosyn 4.5 Gm Premix) 100 ml @ 200 mls/hr Q8H IV 03/23/17 18:00 03/25/17 10:36 (Tenormin) 50 mg BID PO 03/25/17 10:00 03/25/17 10:00 (Ecotrin Ec) 81 mg DAILY PO 03/26/17 09:00 A/P Assessment and Plan 1. Left Temporal Intraparenchymal Hemorrhage, left basal ganglia hemorrhage, Left Mid parietal subarachnoid hemorrhage/small 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 Keppra 500 mg IV twice a day for seven days for seizure prophylaxis Repeat head CT. 03/19 revealed stable delayed hemorrhage, CTA brain 03/18 revealed no aneurysm Repeat head CT 03/21 revealed no expansion of current interpretable hemorrhage left thalamus/basal ganglia. Continue Aricept 10 mg daily and Namenda 10 mg twice a day in a.m. for dementia as patient has passed swallow evaluation 2. Hypertension/CAD status post PCI and stent placement x5, CHF chronic diastolic Heart failure, EF 55-60% 2010, Hyperlipidemia, continue Beta blockers, Cardizem, no intervention as per medical lab specialist, held aspirin due to Brain Hemorrhage, currently in Atrial Flutter. 3. Right Lower Lobe PE, CT pulmonary angiogram 03/20 revealed second subsegmental right lower lobe pulmonary embolus. Dopplers bilateral lower extremity negative 4. GERD/Diverticulosis by history. on [place] thick and Pureed diet but with poor intake, NG tube placed Abdominal ultrasound 03/20 revealed some sludge in the gallbladder LFTs negative/asymptomatic examination. Otherwise negative 5. BPH/Hematuria has Ball Cath to remove Ball once Hematuria improves. 6. Hypothyroidism continue hormonal replacement. 7. Microcytic Anemia/IVC filter placement, on Lovenox 30 mg BID for PE, not able to fully anticoagulate Hematology/Oncology following, IV filter placed 03/21, Bilateral lower extremity negative for DVT, 8. OA/Lumbar Degenerative disc disease, for PT evaluation. Prophylaxis - GI - Protonix - DVT - SCD/Lovenox. DNR status Discharge Planning Expected in one to two days. Fermín Davis MD Mar 25, 2017 14:07
--- NOTE | 2017-03-25 14:31 | HHI.HCPN ---
Reason for visit a. To assist with evaluation and management of symptoms including: Dysphagia , restlessness b. To assist medical decision maker(s) with: better understanding of current medical conditions; weighing benefits/burdens of medical treatment options; making medical treatment decisions. . Subjective/Interval History Pt slightly more responsive for me today then yesterday, open eyes and nod. Pt not able to follow commands. When I ask "Is the nica blue on a clear fredy day. " He is not able to answer, just stare. Pt has baseline dementia. Mostly pt close eyes and goes to sleep. Could not elicit history. There is coughing. Family/friend interactions Spoke with son Tony who is at bedside and pt's other son Shelton over the phone. Pt's family very hopeful as pt is now more responsive. They want to take it day by day, but they do not want to transition to comfort measures only. In terms of peg tube, Tony said no, and Shelton is not sure. For now they want to take it day by day and goals are evolving. They are much more hopeful now as pt is more responsive. I went through the tremendous challenge pt faces, aspiration risk, multiple hospitalization. The acknowledge that, but seeing more response they are more hopeful. Advance Directives Living Will: Never completed Health Care Surrogate: Never completed Durable Power of Bonsai Culturist: Never completed Objective Vital Signs Date Time Temp Pulse Resp B/P Pulse Ox O2 Delivery O2 Flow Rate FiO2 03/25/17 13:36 18 03/25/17 07:00 97 Room Air 03/25/17 06:00 66 03/25/17 04:00 67 03/25/17 04:00 98.7 67 15 111/54 93 03/25/17 02:00 66 03/25/17 00:00 67 03/25/17 00:00 98.7 67 19 145/67 99 03/24/17 22:00 99 03/24/17 21:01 99 03/24/17 20:00 83 03/24/17 20:00 99.1 92 19 122/87 97 03/24/17 19:00 97 Room Air 03/24/17 18:00 83 03/24/17 16:00 98.3 68 18 119/57 97 03/24/17 16:00 68 Intake & Output 03/25/17 03/25/17 07:00 19:00 Intake Total 1168 ml Output Total 1100 ml Balance 68 ml IV Total 168 ml Tube Feeding 1000 ml Output Urine Total 1100 ml # Bowel Movements 1 Physical Exam CONSTITUTIONAL/GENERAL: This is an adequately nourished patient, more responsive. still sleepy and close eyes most of the visit. TUBES/LINES/DRAINS: Nasal cannula oxygen, Ball catheter, Dobbhoff tube SKIN: No jaundice, rashes, or lesions. Ecchymoses on upper extremities. No wounds seen anteriorly. Skin temperature appropriate. Not diaphoretic. HEAD: Atraumatic. Normocephalic. EYES: Pupils equal and round and reactive. No scleral icterus. No injection or drainage. Fundi not examined. ENT: Nose without bleeding or purulent drainage. NECK: Trachea midline. Supple, nontender. No palpable thyroid enlargement or nodularity. CARDIOVASCULAR: Regular rate and rhythm, with grade 1-2 systolic murmur. No JVD. RESPIRATORY/CHEST: Symmetric, unlabored respirations. Scattered rhonchi GASTROINTESTINAL: Abdomen soft, non-tender, nondistended. No hepato-splenomegaly , or palpable masses. No guarding. Bowel sounds present. GENITOURINARY: Without palpable bladder distension. Ball catheter in place. MUSCULOSKELETAL: Extremities without clubbing, cyanosis, or edema. No joint tenderness or effusion noted. No calf tenderness. No mottling or clubbing. LYMPHATICS: No palpable cervical or supraclavicular adenopathy. NEUROLOGICAL: Quite lethargic, opens eye, does not follow commands, right hemiplegia, occasionally moves left hand/fingers. PSYCHIATRIC: No obvious anxiety/agitation . Diagnostic Tests Laboratory Laboratory Tests Test 03/22/17 03/23/17 03/23/17 20:14 03:35 16:58 Magnesium Level 1.9 MG/DL 1.9 MG/DL (1.5-2.5) (1.5-2.5) Troponin I 0.58 NG/ML 0.44 NG/ML (0.02-0.05) (0.02-0.05) White Blood Count 8.4 TH/MM3 (4.0-11.0) Red Blood Count 5.05 MIL/MM3 (4.50-5.90) Hemoglobin 11.9 GM/DL (13.0-17.0) Hematocrit 35.9 % (39.0-51.0) Mean Corpuscular Volume 71.1 FL (80.0-100.0) Mean Corpuscular Hemoglobin 23.6 PG (27.0-34.0) Mean Corpuscular Hemoglobin 33.2 % Concent (32.0-36.0) Red Cell Distribution Width 22.5 % (11.6-17.2) Platelet Count 162 TH/MM3 (150-450) Mean Platelet Volume 8.8 FL (7.0-11.0) Sodium Level 139 MEQ/L (136-145) Potassium Level 3.6 MEQ/L (3.5-5.1) Chloride Level 106 MEQ/L (98-107) Carbon Dioxide Level 25.1 MEQ/L (21.0-32.0) Anion Gap 8 MEQ/L (5-15) Blood Urea Nitrogen 12 MG/DL (7-18) Creatinine 0.76 MG/DL (0.60-1.30) Estimat Glomerular Filtration 98 ML/MIN (>89) Rate Random Glucose 180 MG/DL (74-106) Calcium Level 8.4 MG/DL (8.5-10.1) Phosphorus Level 1.8 MG/DL 2.6 MG/DL (2.5-4.9) (2.5-4.9) Total Bilirubin 0.4 MG/DL (0.2-1.0) Direct Bilirubin 0.1 MG/DL (0.0-0.2) Indirect Bilirubin 0.3 MG/DL (0.0-0.8) Aspartate Amino Transf 40 U/L (15-37) (AST/SGOT) Alanine Aminotransferase 37 U/L (12-78) (ALT/SGPT) Alkaline Phosphatase 90 U/L (45-117) Total Creatine Kinase 117 U/L (39-308) Total Protein 6.7 GM/DL (6.4-8.2) Albumin 2.6 GM/DL (3.4-5.0) Result Diagram: 03/23/17 0335 03/23/17 0335 Microbiology Microbiology Date/Time Procedure Status Source Growth 03/23/17 18:50 Aerobic Blood Culture - Preliminary Resulted Blood Peripheral NO GROWTH IN 2 DAYS 03/23/17 18:50 Anaerobic Blood Culture - Preliminary Resulted Blood Peripheral NO GROWTH IN 2 DAYS 03/23/17 19:00 Aerobic Blood Culture - Preliminary Resulted Blood Peripheral NO GROWTH IN 2 DAYS 03/23/17 19:00 Anaerobic Blood Culture - Preliminary Resulted Blood Peripheral NO GROWTH IN 2 DAYS Imaging Last Impressions Chest X-Ray 03/23/17 0000 Signed Impressions: Service Date/Time: Thursday, March 23, 2017 17:38 - CONCLUSION: No acute cardiopulmonary disease demonstrated. Morgan Perkins MD Head CT 03/21/17 0600 Signed Impressions: Service Date/Time: Tuesday, March 21, 2017 04:22 - CONCLUSION: Small left temporal parenchymal and subdural blood unchanged. No new/acute intracranial abnormality. Chronic white matter changes are again noted. Morgan Perkins MD IVC Filter Placement X-Ray 03/21/17 0000 Signed Impressions: Service Date/Time: Tuesday, March 21, 2017 09:49 - CONCLUSION: Uncomplicated inferior vena cava filter placement as above. Nelson Menendez MD Abdomen X-Ray 03/21/17 Signed Impressions: Service Date/Time: Tuesday, March 21, 2017 17:00 - CONCLUSION: Feeding tube is coiled in the stomach. Po Bustos MD FACR Lower Extremity Ultrasound 03/20/17 Signed Impressions: Service Date/Time: March 14:53 - CONCLUSION: 1. No DVT identified within either lower extremity. Jairon Bustos MD CT Angiography 03/20/17 0000 Signed Impressions: Service Date/Time: March 11:37 - CONCLUSION: 1. The examination is positive for pulmonary embolus. 2. Incidental findings as noted above. Jairon Bustos MD Abdomen Ultrasound 03/20/17 Signed Impressions: Service Date/Time: March 14:37 - CONCLUSION: 1. There is a small amount of sludge within the dependent portion the gallbladder. There is no significant pericholecystic fluid. The common duct is normal in caliber. 2. Limited examination due to overlying bowel gas. Jairon Bustos MD Head CTA 03/18/17 0000 Signed Impressions: Service Date/Time: Saturday, March 18, 2017 20:13 - CONCLUSION: 1. No arteriovenous malformation. 2. Atherosclerotic changes without significant large vessel stenosis. Maury Feng MD Assessment and Plan Disease Oriented Problem List: (1) acute and subacute strokes, with lethargy, aphasia, right hemiplegia, (2) moderate dementia (3) CAD, status post multiple stents (4) GI bleeding, November 2016, secondary to duodenitis/esophagitis/gastritis (5) atrial fibrillation, recently on aspirin (6) diverticulosis (7) Pulmonary embolism (8) degenerative joint disease (9) hyperlipidemia (10) hypertension (11) hypothyroidism (12) anemia (13) CHF Symptom Scale: (1) restlessness 0-10 Scale: Unable to quantify (2) dyspnea 0-10 Scale: Unable to quantify (3) pain 0-10 Scale: Unable to quantify Pertinent Non-Medical Issues Psychosocial: , 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 Spiritual: The patient is Jewish, and the family does think that the patient would want a tool and die manager to visit him. Legal: The patient lacks capacity for decision-making, and he will not regain that capacity. The patient's spouse would be the decision-maker, but she wants to defer decision making to her 3 children but at the same time participate in the discussions about goals and treatment choices. Ethical issues impacting care: None . Important Contacts Son: Shelton Benjamin (CALL FIRST) [phone] Spouse: Erna [phone] Son: Tony (in [place]) Daughter: Shalini (in [place]) . Prognosis The patient's prognosis is quite poor. He has underlying moderate dementia, has been declining for the past year, suffered an ischemic stroke with right hemiplegia 3 weeks prior to this admission, and now has hemorrhagic stroke. He is appropriate for hospice services if/when the goals become comfort oriented. . Code Status: No Code Plan * No Capacity to make medical decision. * DNR * DECISION-MAKING: The patient lacks capacity for decision-making, and he will not regain that capacity. The patient's spouse would be the proxy decision- maker, but she wants to defer decision making to her 3 children but at the same time participate in the discussions about goals and treatment choices. The patient's and his son Shelton both request that any phone calls go first to the son (Shelton [phone]) and not to the . * GOALS:Spoke with son Tony who is at bedside and pt's other son Van over the phone. Pt's family very hopeful as pt is now more responsive. They want to take it day by day, but they do not want to transition to comfort measures only. In terms of peg tube, Tony said no, and Shelton is not sure. For now they want to take it day by day and goals are evolving. They are much more hopeful now as pt is more responsive. I went through the tremendous challenge pt faces , aspiration risk, multiple hospitalization. The acknowledge that, but seeing more response they are more hopeful. * SYMPTOMS: The patient does not appear to be in pain or to be dyspneic at this time. He has significant dysphagia, is not protecting his airway well. * Palliative Care will continue to follow the patient during this hospitalization. . Attestation To help prompt me to consider important information that might be impacting today's encounter and assessment, information from prior notes written by myself or my colleagues may have been "brought forward" into today's note. My signature on this note, however, is an attestation that I personally performed the exam, history, and/or decision-making noted today, and, unless otherwise indicated, the interactions with patient, family, and staff as well as the review of records all occurred today. I also attest that the listed assessment and stated plan reflect my best clinical judgment today based on the combination of historical information, prior notes, and today's exam/ interactions. When time spent is documented, it refers only to time spent today by the signer, or if indicated, combined time spent today by collaborating physician/nurse practitioner. Benedicto Bruno MD Mar 25, 2017 14:30
[2017-03-25] MEDS: DONEPEZIL HCL 5 MG TAB PO SCH (21:06)
[2017-03-26] VITALS (9 sets, daily range): BP systolic 112–144; BP diastolic 57–88; PULSE 67–134; RESP 18–24; TEMP 95.7–98.7; O2SAT 92–97
[2017-03-26] MEDS: PIPERACIL-TAZO 4.5 GM PREMIX 100 ML IV SCH ×2 (03:29→08:32)
[2017-03-26] MEDS: CHLORHEXIDINE GLUCONATE 2 % 1 PACK (2 CLOTHS) TOP SCH (04:00)
[2017-03-26] MEDS ORDERED: DILTIAZEM HCL 60 MG TAB PO ONE ×2 (04:45→23:00)
[2017-03-26] MEDS: LEVOTHYROXINE SODIUM 25 MCG TAB PO SCH (05:06)
[2017-03-26] MEDS: LEVOTHYROXINE SODIUM 150 MCG TAB PO SCH (05:14)
[2017-03-26] MEDS: levETIRAcetam INJ 500 MG in SODIUM CHLORIDE 0.9% INJ 100 ML IV SCH ×2 (05:15→17:10)
[2017-03-26 05:16] LABS: BASOPHIL % 0.5 % (0.0-2.0); EOSINOPHIL # 0.4 TH/MM3 (0-0.4); EOSINOPHIL % 5.8 % (0.0-4.0); HEMATOCRIT 34.2 % (39.0-51.0); HEMO FLAGS DIFF FINAL; LYMPH % 13.6 % (9.0-44.0); MEAN CELL VOLUME 72.3 FL (80.0-100.0); MEAN CORPUSCULAR HEMOGLOBIN 23.7 PG (27.0-34.0); MEAN CORPUSCULAR HGB CONC 32.8 % (32.0-36.0); MONO % 12.2 % (0.0-8.0); NEUT % 67.9 % (16.0-70.0); PLATELET COUNT 184 TH/MM3 (150-450); RED BLOOD COUNT 4.73 MIL/MM3 (4.50-5.90); RED CELL DISTRIBUTION WIDTH 23.7 % (11.6-17.2); WHITE BLOOD COUNT 7.4 TH/MM3 (4.0-11.0)
[2017-03-26 05:33] LABS: BICARBONATE 26.7 MEQ/L (21.0-32.0); POTASSIUM 3.5 MEQ/L (3.5-5.1)
[2017-03-26] MEDS: INSULIN NovoLIN REGULAR SUPPLEMENTAL SCALE SQ SCH ×3 (06:53→17:22)
[2017-03-26] MEDS: CHLORHEXIDINE 0.12% (ORAL KIT) 15 ML CUP MT SCH ×2 (08:00→20:00)
[2017-03-26] MEDS: SODIUM CHLORIDE 0.9% FLUSH 10 ML FLUSH IV FLUSH SCH ×2 (08:30→23:18)
[2017-03-26] MEDS: BENEPROTEIN POWDER 1 PACK G-TUBE SCH ×3 (08:30→17:13)
[2017-03-26] MEDS: PANTOPRAZOLE SODIUM 40 MG VIAL IVP SCH (08:30)
[2017-03-26] MEDS: ARTIFICIAL TEARS OPTH SOLN 15 ML BTL EACH EYE SCH ×3 (08:30→17:13)
[2017-03-26] MEDS: NUTRISOURCE FIBER POWDER 1 PACK G-TUBE SCH ×3 (08:30→17:13)
[2017-03-26] MEDS: MEMANTINE HCL 10 MG TAB PO SCH ×2 (08:31→23:17)
[2017-03-26] MEDS: ATENOLOL 50 MG TAB PO SCH ×2 (08:31→23:17)
[2017-03-26] MEDS: ENOXAPARIN SODIUM 30 MG/0.3 ML SYRINGE SQ SCH ×2 (08:31→23:17)
[2017-03-26] MEDS: DOCUSATE SODIUM 50 MG/SENNA 8.6 MG TAB PO SCH (08:34)
[2017-03-26] MEDS: ISOSORBIDE MONONITRATE 20 MG TAB PO SCH ×3 (09:00→17:13)
[2017-03-26] MEDS: ASPIRIN EC 81 MG TABEC PO SCH (09:00)
--- NOTE | 2017-03-26 13:33 | HHI.HCPN ---
Reason for visit a. To assist with evaluation and management of symptoms including: Dysphagia , restlessness b. To assist medical decision maker(s) with: better understanding of current medical conditions; weighing benefits/burdens of medical treatment options; making medical treatment decisions. . Subjective/Interval History Pt is overall fatigued and sleepy. He does open eyes briefly, but could not give history. He is not grimacing or moaning. Family/friend interactions Spoke with son Van who is the point of contact for family. Answered question and updated son on pt's status. Spoke about community DNR, for which he will speak to pt's about. While in the hospital he is a DNR, but goals are aggressive short of resucitation. He is amenable to a Bipap if needed. Family remains hopeful. Advance Directives Living Will: Never completed Health Care Surrogate: Never completed Durable Power of Assistant Associate Professor: Never completed Objective Vital Signs Date Time Temp Pulse Resp B/P Pulse Ox O2 Delivery O2 Flow Rate FiO2 03/26/17 12:21 97.3 68 18 113/57 94 03/26/17 11:36 94 03/26/17 08:25 96.9 69 18 144/67 92 03/26/17 08:04 Room Air 03/26/17 07:37 67 03/26/17 04:00 97.4 134 20 116/69 96 03/26/17 02:00 119 03/26/17 00:00 96.3 133 18 112/72 96 03/25/17 20:00 97.0 132 18 129/86 97 03/25/17 18:00 88 03/25/17 17:30 96.7 70 24 117/64 99 03/25/17 16:00 97.0 85 20 138/67 97 03/25/17 16:00 66 03/25/17 14:00 88 03/25/17 14:00 66 03/25/17 13:36 18 Intake & Output 03/26/17 03/26/17 07:00 19:00 Intake Total 1780 ml Output Total 600 ml Balance 1180 ml IV Total 560 ml Tube Feeding 720 ml Tube Irrigant 500 ml Output Urine Total 600 ml # Voids 1 # Bowel Movements 1 Physical Exam CONSTITUTIONAL/GENERAL: This is an adequately nourished patient, lethargic on my vist. TUBES/LINES/DRAINS: Nasal cannula oxygen, Ball catheter, Dobbhoff tube SKIN: No jaundice, rashes, or lesions. Ecchymoses on upper extremities. No wounds seen anteriorly. Skin temperature appropriate. Not diaphoretic. HEAD: Atraumatic. Normocephalic. EYES: Pupils equal and round and reactive. No scleral icterus. No injection or drainage. Fundi not examined. ENT: Nose without bleeding or purulent drainage. NECK: Trachea midline. Supple, nontender. No palpable thyroid enlargement or nodularity. CARDIOVASCULAR: Regular rate and rhythm, with grade 1-2 systolic murmur. No JVD. RESPIRATORY/CHEST: Symmetric, unlabored respirations. Scattered rhonchi GASTROINTESTINAL: Abdomen soft, non-tender, nondistended. No hepato-splenomegaly , or palpable masses. No guarding. Bowel sounds present. GENITOURINARY: Without palpable bladder distension. Ball catheter in place. MUSCULOSKELETAL: Extremities without clubbing, cyanosis, or edema. No joint tenderness or effusion noted. No calf tenderness. No mottling or clubbing. LYMPHATICS: No palpable cervical or supraclavicular adenopathy. NEUROLOGICAL: Quite lethargic, opens eye, does not follow commands, right hemiplegia, occasionally moves left hand/fingers. PSYCHIATRIC: No obvious anxiety/agitation . Diagnostic Tests Laboratory Laboratory Tests Test 03/23/17 03/26/17 16:58 05:05 Phosphorus Level 2.6 MG/DL (2.5-4.9) White Blood Count 7.4 TH/MM3 (4.0-11.0) Red Blood Count 4.73 MIL/MM3 (4.50-5.90) Hemoglobin 11.2 GM/DL (13.0-17.0) Hematocrit 34.2 % (39.0-51.0) Mean Corpuscular Volume 72.3 FL (80.0-100.0) Mean Corpuscular Hemoglobin 23.7 PG (27.0-34.0) Mean Corpuscular Hemoglobin 32.8 % Concent (32.0-36.0) Red Cell Distribution Width 23.7 % (11.6-17.2) Platelet Count 184 TH/MM3 (150-450) Mean Platelet Volume 8.7 FL (7.0-11.0) Neutrophils (%) (Auto) 67.9 % (16.0-70.0) Lymphocytes (%) (Auto) 13.6 % (9.0-44.0) Monocytes (%) (Auto) 12.2 % (0.0-8.0) Eosinophils (%) (Auto) 5.8 % (0.0-4.0) Basophils (%) (Auto) 0.5 % (0.0-2.0) Neutrophils # (Auto) 5.0 TH/MM3 (1.8-7.7) Lymphocytes # (Auto) 1.0 TH/MM3 (1.0-4.8) Monocytes # (Auto) 0.9 TH/MM3 (0-0.9) Eosinophils # (Auto) 0.4 TH/MM3 (0-0.4) Basophils # (Auto) 0.0 TH/MM3 (0-0.2) CBC Comment DIFF FINAL Differential Comment Sodium Level 138 MEQ/L (136-145) Potassium Level 3.5 MEQ/L (3.5-5.1) Chloride Level 102 MEQ/L (98-107) Carbon Dioxide Level 26.7 MEQ/L (21.0-32.0) Anion Gap 9 MEQ/L (5-15) Blood Urea Nitrogen 10 MG/DL (7-18) Creatinine 0.76 MG/DL (0.60-1.30) Estimat Glomerular Filtration 98 ML/MIN (>89) Rate Random Glucose 190 MG/DL (74-106) Calcium Level 8.4 MG/DL (8.5-10.1) Magnesium Level 2.0 MG/DL (1.5-2.5) Result Diagram: 03/26/17 0505 03/26/17 0505 Microbiology Microbiology Date/Time Procedure Status Source Growth 03/23/17 18:50 Aerobic Blood Culture - Preliminary Resulted Blood Peripheral NO GROWTH IN 3 DAYS 03/23/17 18:50 Anaerobic Blood Culture - Preliminary Resulted Blood Peripheral NO GROWTH IN 3 DAYS 03/23/17 19:00 Aerobic Blood Culture - Preliminary Resulted Blood Peripheral NO GROWTH IN 3 DAYS 03/23/17 19:00 Anaerobic Blood Culture - Preliminary Resulted Blood Peripheral NO GROWTH IN 3 DAYS Assessment and Plan Disease Oriented Problem List: (1) acute and subacute strokes, with lethargy, aphasia, right hemiplegia, (2) moderate dementia (3) CAD, status post multiple stents (4) GI bleeding, November 2016, secondary to duodenitis/esophagitis/gastritis (5) atrial fibrillation, recently on aspirin (6) diverticulosis (7) Pulmonary embolism (8) degenerative joint disease (9) hyperlipidemia (10) hypertension (11) hypothyroidism (12) anemia (13) CHF Symptom Scale: (1) restlessness 0-10 Scale: Unable to quantify (2) dyspnea 0-10 Scale: Unable to quantify (3) pain 0-10 Scale: Unable to quantify Pertinent Non-Medical Issues Psychosocial: , 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 Spiritual: The patient is Episcopal, and the family does think that the patient would want a service center appraiser to visit him. Legal: The patient lacks capacity for decision-making, and he will not regain that capacity. The patient's spouse would be the decision-maker, but she wants to defer decision making to her 3 children but at the same time participate in the discussions about goals and treatment choices. Ethical issues impacting care: None . Important Contacts Son: Shelton Benjamin (CALL FIRST) [phone] Spouse: Erna [phone] Son: Tony (in [place]) Daughter: Shalini (in [place]) . Prognosis The patient's prognosis is quite poor. He has underlying moderate dementia, has been declining for the past year, suffered an ischemic stroke with right hemiplegia 3 weeks prior to this admission, and now has hemorrhagic stroke. He is appropriate for hospice services if/when the goals become comfort oriented. . Code Status: No Code Plan * DNR * DECISION-MAKING: The patient lacks capacity for decision-making, and he will not regain that capacity. The patient's spouse would be the proxy decision- maker, but she wants to defer decision making to her 3 children but at the same time participate in the discussions about goals and treatment choices. The patient's and his son Shelton both request that any phone calls go first to the son (Shelton [phone]) and not to the . * GOALS:Spoke with son Shelton who is the point of contact for family. Answered question and updated son on pt's status. Spoke about community DNR, for which he will speak to pt's about. While in the hospital he is a DNR, but goals are aggressive short of resucitation. He is amenable to a Bipap if needed. Family sees improvement and remains very hopful. * Palliative Care will continue to follow the patient during this hospitalization. . Attestation To help prompt me to consider important information that might be impacting today's encounter and assessment, information from prior notes written by myself or my colleagues may have been "brought forward" into today's note. My signature on this note, however, is an attestation that I personally performed the exam, history, and/or decision-making noted today, and, unless otherwise indicated, the interactions with patient, family, and staff as well as the review of records all occurred today. I also attest that the listed assessment and stated plan reflect my best clinical judgment today based on the combination of historical information, prior notes, and today's exam/ interactions. When time spent is documented, it refers only to time spent today by the signer, or if indicated, combined time spent today by collaborating physician/nurse practitioner. Benedicto Bruno MD Mar 26, 2017 13:33
--- NOTE | 2017-03-26 13:52 | HHI.PR ---
Subjective Remarks Meat Apprentice notes: This is a 81-year-old male. Date of admission 03/18/2017. Past medical history dementia disorder, atrial fibrillation currently in sinus bradycardia, hypertension, coronary artery disease history of 5 stents, chronic diastolic heart failure with ejection fraction 55% 2010, diverticulosis, hypothyroidism, osteoarthritis, dyslipidemia. 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 CTA revealed occlusion in the left MCA distributions and focal stenosis throughout the bilateral posterior cerebral artery distributions. During this admission he was seen by neurology/Dr. Conroy. His symptomatology upon included aphasia both expressive and receptive, dysphagia, apraxia, right-sided weakness and a right facial droop. At that time he was on Xarelto due to atrial fibrillation and not deemed not a candidate for TPA. Not an interventional candidate per IR due to hypercoagulable state. Due to the petechial hemorrhage not a candidate for Xarelto. Prior to discharge patient improved strength in his right upper lower extremity with x-ray is left upper and lower extremity. He was sent to [facility] on aspirin 325 mill grams daily. Today, patient was noticed that facility with increasing weakness is a right upper lobe extremity. The [place] L4 CT head revealed acute versus subacute blood proximally and the prior sites of the left temporal CVA basal ganglia infarct. Also a small subarachnoid hemorrhage in the left mid parietal region. Dr. Miller was notified in which patient be admitted to neuro ICU overnight. 03/19: Seen and examined. More lethargic this a.m. Will follow commands of left upper extremity only. Able to withdrawal and non-purposefully move left lower extremity. Right upper extremity flaccid. Inconsistent right lower extremity examination.. A.m. head CT pending 03/20: Examination neurologically similar. Arousable. He consumes bites mouth. GCS currently 9 [id number] 03/21: Tmax 99.1. Patient with slightly with cough this AM. Will reassess swallow evaluation today. Plan ir to place IVC filter today. Dopplers legs negative. No obvious signs of infection. Will check chest x-ray for possible silent aspiration. 03/22: Afebrile. Protecting airway. Moves left upper extremity to command and spontaneously. Pulled out NG tube yesterday. 03/23: Afebrile. Protecting airway. Hematuria per overnight online content coordinator checkout online. Not apparent this AM. Continues to move left lower extremity. Says "what" yesterday. Heart rate better controlled on Cardizem drip 10 mg an hour/oral Cardizem. DNR. 03/24: Dobbhoff in place. Remains encephalopathic, on Cardizem drip for rate control. Hospitalist Notes: 03/25: Patient seen in his bedroom, stable, discussed with Charge nurse, he may be transferred to Medical floor with Telemetry, Neurosurgery following and non destructive evaluation specialist no further hematuria removed Ball Catheter. 03/26: Stable continue with NG tube as per Relatives and nurse the patient started to eat in am today, he is basically non verbal for me and Lethargic, no nausea, vomit or diarrhea. Discussed about the use of antibiotic, was not found sign of infection, was started antibiotic in Intensive Care but the CXR taken at the time of starting antibiotic do not have infiltrates will remove this antibiotic, discussed with her Daughter and one of his Sons, in the room. Objective Vital Signs Date Time Temp Pulse Resp B/P Pulse Ox O2 Delivery O2 Flow Rate FiO2 03/26/17 12:21 97.3 68 18 113/57 94 03/26/17 11:36 94 03/26/17 08:25 96.9 69 18 144/67 92 03/26/17 08:04 Room Air 03/26/17 07:37 67 03/26/17 04:00 97.4 134 20 116/69 96 03/26/17 02:00 119 03/26/17 00:00 96.3 133 18 112/72 96 03/25/17 20:00 97.0 132 18 129/86 97 03/25/17 18:00 88 03/25/17 17:30 96.7 70 24 117/64 99 03/25/17 16:00 97.0 85 20 138/67 97 03/25/17 16:00 66 03/25/17 14:00 88 03/25/17 14:00 66 I/O 03/25/17 03/25/17 03/25/17 03/26/17 03/26/17 03/26/17 07:00 15:00 23:00 07:00 15:00 23:00 Intake Total 648 ml 400 ml 1780 ml Output Total 650 ml 1000 ml 600 ml Balance -2 ml -600 ml 1180 ml Intake Oral 0 ml IV Total 128 ml 560 ml Tube Feeding 520 ml 400 ml 720 ml Tube Irrigant 500 ml Output Urine Total 650 ml 1000 ml 600 ml # Voids 1 # Bowel Movements 0 0 1 Result Diagram: 03/26/17 0505 03/26/17 0505 Imaging Last Impressions Chest X-Ray 03/23/17 0000 Signed Impressions: Service Date/Time: Thursday, March 23, 2017 17:38 - CONCLUSION: No acute cardiopulmonary disease demonstrated. Morgan Perkins MD Head CT 03/21/17 0600 Signed Impressions: Service Date/Time: Tuesday, March 21, 2017 04:22 - CONCLUSION: Small left temporal parenchymal and subdural blood unchanged. No new/acute intracranial abnormality. Chronic white matter changes are again noted. Morgan Perkins MD IVC Filter Placement X-Ray 03/21/17 0000 Signed Impressions: Service Date/Time: Tuesday, March 21, 2017 09:49 - CONCLUSION: Uncomplicated inferior vena cava filter placement as above. Nelson Menendez MD Abdomen X-Ray 03/21/17 0000 Signed Impressions: Service Date/Time: Tuesday, March 21, 2017 17:00 - CONCLUSION: Feeding tube is coiled in the stomach. Po Bustos MD FACR Lower Extremity Ultrasound 03/20/17 0000 Signed Impressions: Service Date/Time: March 14:53 - CONCLUSION: 1. No DVT identified within either lower extremity. Jairon Bustos MD CT Angiography 03/20/17 0000 Signed Impressions: Service Date/Time: March 11:37 - CONCLUSION: 1. The examination is positive for pulmonary embolus. 2. Incidental findings as noted above. Jairon Bustos MD Abdomen Ultrasound 03/20/17 0000 Signed Impressions: Service Date/Time: March 14:37 - CONCLUSION: 1. There is a small amount of sludge within the dependent portion the gallbladder. There is no significant pericholecystic fluid. The common duct is normal in caliber. 2. Limited examination due to overlying bowel gas. Jairon Bustos MD Head CTA 03/18/17 0000 Signed Impressions: Service Date/Time: Saturday, March 18, 2017 20:13 - CONCLUSION: 1. No arteriovenous malformation. 2. Atherosclerotic changes without significant large vessel stenosis. Maury Feng MD Procedures No procedures. Other Results Laboratory Tests Test 03/23/17 03/23/17 03/26/17 03:35 16:58 05:05 Total Bilirubin 0.4 MG/DL Direct Bilirubin 0.1 MG/DL Indirect Bilirubin 0.3 MG/DL Aspartate Amino Transf 40 U/L (AST/SGOT) Alanine Aminotransferase 37 U/L (ALT/SGPT) Alkaline Phosphatase 90 U/L Total Creatine Kinase 117 U/L Troponin I 0.44 NG/ML Total Protein 6.7 GM/DL Albumin 2.6 GM/DL Phosphorus Level 2.6 MG/DL White Blood Count 7.4 TH/MM3 Red Blood Count 4.73 MIL/MM3 Hemoglobin 11.2 GM/DL Hematocrit 34.2 % Mean Corpuscular Volume 72.3 FL Mean Corpuscular Hemoglobin 23.7 PG Mean Corpuscular Hemoglobin 32.8 % Concent Red Cell Distribution Width 23.7 % Platelet Count 184 TH/MM3 Mean Platelet Volume 8.7 FL Neutrophils (%) (Auto) 67.9 % Lymphocytes (%) (Auto) 13.6 % Monocytes (%) (Auto) 12.2 % Eosinophils (%) (Auto) 5.8 % Basophils (%) (Auto) 0.5 % Neutrophils # (Auto) 5.0 TH/MM3 Lymphocytes # (Auto) 1.0 TH/MM3 Monocytes # (Auto) 0.9 TH/MM3 Eosinophils # (Auto) 0.4 TH/MM3 Basophils # (Auto) 0.0 TH/MM3 CBC Comment DIFF FINAL Differential Comment Sodium Level 138 MEQ/L Potassium Level 3.5 MEQ/L Chloride Level 102 MEQ/L Carbon Dioxide Level 26.7 MEQ/L Anion Gap 9 MEQ/L Blood Urea Nitrogen 10 MG/DL Creatinine 0.76 MG/DL Estimat Glomerular Filtration 98 ML/MIN Rate Random Glucose 190 MG/DL Calcium Level 8.4 MG/DL Magnesium Level 2.0 MG/DL Objective Remarks GENERAL: No acute distress SKIN: Warm and dry. Rash to bilateral buttocks stage 0 ulcer HEAD: Atraumatic. Normocephalic. EYES: Pupils equal and round about 3 mm bilaterally. Positive arcus senilis. No scleral icterus. No injection or drainage. ENT: No nasal bleeding or discharge. NG tube in place. NECK: Trachea midline. No JVD. CARDIOVASCULAR: IRR. S1, S2. No S4. No murmur appreciated RESPIRATORY: clear to auscultation. Breath sounds equal bilaterally. GASTROINTESTINAL: Abdomen soft, non-tender, nondistended. Hypoactive sounds MUSCULOSKELETAL: Extremities without difficulty and peripheral edema. No obvious deformities. NEUROLOGICAL: Lethargic, Right Paresis. Medications and IVs Current Medications Medications (Trade) Dose Ordered Sig/Tori Route Start Time Stop Time Status Last Admin (Narcan Inj) 0.4 mg UNSCH PRN IV 03/18/17 16:45 (Catapres) 0.1 mg Q6H PRN PO 03/18/17 17:45 Pantoprazole Sodium 40 mg 40 mg DAILY IVP 03/19/17 09:00 03/26/17 08:30 (Keppra Inj/NS Inj) 105 ml @ 400 mls/hr Q12H IV 03/18/17 18:00 03/26/17 05:15 (NS Flush) 2 ml UNSCH PRN IV FLUSH 03/18/17 17:45 (NS Flush) 2 ml BID IV FLUSH 03/18/17 21:00 03/26/17 08:30 (Tylenol) 650 mg Q6H PRN PO 03/18/17 17:45 03/23/17 21:56 ([place] 5-325 Mg) 1 tab Q4H PRN PO 03/18/17 17:45 03/25/17 12:55 (Morphine Inj) 2 mg Q2H PRN IV 03/18/17 17:45 (Tears Naturale Opth Soln) 1 drop TID EACH EYE 03/18/17 18:00 03/26/17 12:20 (Zofran Inj) 4 mg Q6H PRN IV 03/18/17 17:45 Miscellaneous Information 1 Q361D XX 03/18/17 17:45 (Chlorhexidine 2% Cloth) Taper DAILY@04 TOP 03/19/17 04:00 03/15/18 03:59 03/25/17 02:07 (Chlorhexidine 2% Cloth) 3 pack UNSCH PRN TOP 03/18/17 17:45 (Nancy-Colace) 1 tab BID PO 03/18/17 21:00 03/25/17 10:35 (Milk Of Magnesia Liq) 30 ml Q12H PRN PO 03/18/17 17:45 (Senokot) 17.2 mg Q12H PRN PO 03/18/17 17:45 (Dulcolax Supp) 10 mg DAILY PRN RECTAL 03/18/17 17:45 (Lactulose Liq) 30 ml DAILY PRN PO 03/18/17 17:45 (D50w (Vial) Inj) 50 ml UNSCH PRN IV 03/18/17 17:45 (Glucagon Inj) 1 mg UNSCH PRN OTHER 03/18/17 17:45 (Aricept) 10 mg HS PO 03/18/17 21:00 03/25/17 21:06 (Ismo) 10 mg TID PO 03/19/17 09:00 03/26/17 12:20 Memantine 10 mg 10 mg BID PO 03/18/17 21:00 03/26/17 08:31 Potassium Chloride 100 ml @ 50 mls/hr Q2H PRN IV 03/18/17 18:15 (KCl 20 Meq Premix Inj) 100 ml @ 50 mls/hr Q2H PRN IV 03/18/17 18:15 Potassium Bicarb/ Potassium Chloride 50 meq 50 meq UNSCH PRN PO 03/18/17 18:15 Potassium Chloride 100 ml @ 25 mls/hr UNSCH PRN IV 03/18/17 18:15 Potassium Chloride 100 ml @ 50 mls/hr Q2H PRN IV 03/18/17 18:15 (Magnesium Sulfate Inj/NS Inj) 100 ml @ 50 mls/hr UNSCH PRN IV 03/18/17 18:15 Magnesium Oxide 800 mg 800 mg UNSCH PRN PO 03/18/17 18:15 (Magnesium Sulfate Inj/NS Inj) 100 ml @ 50 mls/hr UNSCH PRN IV 03/18/17 18:15 Potassium Phosphate 2000 mg 2,000 mg Q4H PRN PO 03/18/17 18:15 (Sodium Phosphate Inj/NS 250 ml Inj) 250 ml @ 42 mls/hr UNSCH PRN IV 03/18/17 18:15 03/23/17 05:51 (K-Phos) 2,000 mg UNSCH PRN PO/TUBE 03/18/17 18:15 (Trandate Inj) 10 mg Q1HR PRN IV 03/18/17 19:00 03/24/17 21:00 (Apresoline Inj) 10 mg Q1HR PRN IV PUSH 03/18/17 18:15 (Vasotec Inj) 1.25 mg Q6H PRN IV PUSH 03/18/17 18:15 (Pill Splitter) 1 ea UNSCH PRN OTHER 03/18/17 18:30 (Synthroid) 150 mcg DAILY@06 PO 03/20/17 06:00 03/26/17 05:14 (Synthroid) 25 mcg DAILY@06 PO 03/20/17 06:00 03/26/17 05:06 (Nutrisource Fiber Powder) 1 pack TID G-TUBE 03/19/17 13:00 03/26/17 12:20 (Lovenox Inj) 30 mg Q12HR SQ 03/20/17 21:00 03/26/17 08:31 (Peridex 0.12% Liq) 15 ml BID@08,20 MT 03/21/17 08:00 03/25/17 20:00 (Beneprotein Powder) 1 pack TID G-TUBE 03/21/17 09:00 03/26/17 12:20 Insulin Human Regular 1 1 Q6HR SQ 03/23/17 12:00 03/26/17 11:55 (Zosyn 4.5 Gm Premix) 100 ml @ 200 mls/hr Q8H IV 03/23/17 18:00 03/26/17 08:32 (Tenormin) 50 mg BID PO 03/25/17 10:00 03/26/17 08:31 (Ecotrin Ec) 81 mg DAILY PO 03/26/17 09:00 A/P Assessment and Plan 1. Left Temporal Intraparenchymal Hemorrhage, left basal ganglia hemorrhage, Left Mid parietal subarachnoid hemorrhage/small 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 Keppra 500 mg IV twice a day for seven days for seizure prophylaxis Repeat head CT. 03/19 revealed stable delayed hemorrhage, CTA brain 03/18 revealed no aneurysm Repeat head CT 03/21 revealed no expansion of current interpretable hemorrhage left thalamus/basal ganglia. Continue Aricept 10 mg daily and Namenda 10 mg twice a day in a.m. for dementia as patient has passed swallow evaluation as per his son this morning was eating. 2. Hypertension/CAD status post PCI and stent placement x5, CHF chronic diastolic Heart failure, EF 55-60% 2010, Hyperlipidemia, continue Beta blockers, Cardizem, no intervention as per cash reconciliation specialist, held aspirin due to Brain Hemorrhage, currently in atrial flutter. 3. Right Lower Lobe PE, CT pulmonary angiogram 03/20 revealed second subsegmental right lower lobe pulmonary embolus. Dopplers bilateral lower extremity negative, status post Inferior Vena Cava filter. 4. GERD/Diverticulosis by history. on Kappa thick and Pureed diet but with poor intake, NG tube placed Abdominal ultrasound 03/20 revealed some sludge in the gallbladder LFTs negative/asymptomatic examination. Otherwise negative 5. BPH/Hematuria has Ball Cath to remove Ball once Hematuria improves. 6. Hypothyroidism continue hormonal replacement. 7. Microcytic Anemia/IVC filter placement, on Lovenox 30 mg BID for PE, not able to fully anticoagulate Hematology/Oncology following, IV filter placed 03/21, Bilateral lower extremity negative for DVT, 8. OA/Lumbar Degenerative disc disease, for PT evaluation. Prophylaxis - GI - Protonix - DVT - SCD/Lovenox. DNR status He had Ball Cath has NG tube Not able to participate in Rehabilitation discussed with Kitchen Clerk he was accepted by [facility]. Discontinue antibiotics no signs of infection replace Potassium Discharge Planning Expected to discharge tomorrow to Rehab at [facility]. Fermín Davis MD Mar 26, 2017 13:52
[2017-03-26] MEDS ORDERED: POTASSIUM CHLORIDE 20 MEQ PWD PACKET DOBHOFF ONE (15:15)
--- NOTE | 2017-03-26 23:04 | HHI.PR ---
Addendum to Inpatient Note Addendum Reason: Additional Documentation Additional Information pt had persistent tachycardia yesterday and today, needing cardizem po pt was previously on cardizem drip , then po cardizem then was switched back to atenolol which was home med per his machine splitter question whether this tachycardia is due this switch in meds for pt's primary day team to decide on whether pt should be back on cardizem po scheduled rather than atenolol Tha Dudley MD Mar 26, 2017 23:04
[2017-03-26] MEDS: DONEPEZIL HCL 5 MG TAB PO SCH (23:17)
[2017-03-27] VITALS (8 sets, daily range): BP systolic 111–130; BP diastolic 59–86; PULSE 67–131; RESP 20–24; TEMP 96.7–98.8; O2SAT 96–100
[2017-03-27] MEDS: CHLORHEXIDINE GLUCONATE 2 % 1 PACK (2 CLOTHS) TOP SCH (04:00)
[2017-03-27] MEDS: MORPHINE SULFATE 4 MG/ML INJ IV PRN (04:11)
[2017-03-27] MEDS: SODIUM CHLORIDE 0.9% FLUSH 10 ML FLUSH IV FLUSH PRN (04:11)
[2017-03-27] MEDS: LEVOTHYROXINE SODIUM 150 MCG TAB PO SCH (05:24)
[2017-03-27] MEDS: LEVOTHYROXINE SODIUM 25 MCG TAB PO SCH (05:24)
[2017-03-27] MEDS: levETIRAcetam INJ 500 MG in SODIUM CHLORIDE 0.9% INJ 100 ML IV SCH ×2 (05:25→17:07)
[2017-03-27] MEDS: INSULIN NovoLIN REGULAR SUPPLEMENTAL SCALE SQ SCH ×4 (06:00→17:25)
[2017-03-27] MEDS: CHLORHEXIDINE 0.12% (ORAL KIT) 15 ML CUP MT SCH ×2 (08:00→20:00)
[2017-03-27] MEDS: ASPIRIN EC 81 MG TABEC PO SCH (08:18)
[2017-03-27] MEDS: ATENOLOL 50 MG TAB PO SCH ×3 (08:18→23:30)
[2017-03-27] MEDS: MEMANTINE HCL 10 MG TAB PO SCH ×2 (08:18→19:59)
[2017-03-27] MEDS: ISOSORBIDE MONONITRATE 20 MG TAB PO SCH ×3 (08:18→17:07)
[2017-03-27] MEDS: ENOXAPARIN SODIUM 30 MG/0.3 ML SYRINGE SQ SCH ×2 (08:18→19:59)
[2017-03-27] MEDS: PANTOPRAZOLE SODIUM 40 MG VIAL IVP SCH (08:18)
[2017-03-27] MEDS: ARTIFICIAL TEARS OPTH SOLN 15 ML BTL EACH EYE SCH ×3 (08:19→16:57)
[2017-03-27] MEDS: SODIUM CHLORIDE 0.9% FLUSH 10 ML FLUSH IV FLUSH SCH ×2 (09:00→23:30)
[2017-03-27] MEDS: BENEPROTEIN POWDER 1 PACK G-TUBE SCH ×3 (09:00→16:58)
[2017-03-27] MEDS: NUTRISOURCE FIBER POWDER 1 PACK G-TUBE SCH ×3 (09:00→16:58)
--- NOTE | 2017-03-27 13:18 | HHI.PR ---
Subjective Remarks Kraft Mill Operator notes: This is a 81-year-old male. Date of admission 03/18/2017. Past medical history dementia disorder, atrial fibrillation currently in sinus bradycardia, hypertension, coronary artery disease history of 5 stents, chronic diastolic heart failure with ejection fraction 55% 2010, diverticulosis, hypothyroidism, osteoarthritis, dyslipidemia. 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 CTA revealed occlusion in the left MCA distributions and focal stenosis throughout the bilateral posterior cerebral artery distributions. During this admission he was seen by neurology/Dr. Conroy. His symptomatology upon included aphasia both expressive and receptive, dysphagia, apraxia, right-sided weakness and a right facial droop. At that time he was on Xarelto due to atrial fibrillation and not deemed not a candidate for TPA. Not an interventional candidate per IR due to hypercoagulable state. Due to the petechial hemorrhage not a candidate for Xarelto. Prior to discharge patient improved strength in his right upper lower extremity with x-ray is left upper and lower extremity. He was sent to [facility] on aspirin 325 mill grams daily. Today, patient was noticed that facility with increasing weakness is a right upper lobe extremity. The [place] L4 CT head revealed acute versus subacute blood proximally and the prior sites of the left temporal CVA basal ganglia infarct. Also a small subarachnoid hemorrhage in the left mid parietal region. Dr. Miller was notified in which patient be admitted to neuro ICU overnight. 03/19: Seen and examined. More lethargic this a.m. Will follow commands of left upper extremity only. Able to withdrawal and non-purposefully move left lower extremity. Right upper extremity flaccid. Inconsistent right lower extremity examination.. A.m. head CT pending 03/20: Examination neurologically similar. Arousable. He consumes bites mouth. GCS currently 9 [id number] 03/21: Tmax 99.1. Patient with slightly with cough this AM. Will reassess swallow evaluation today. Plan ir to place IVC filter today. Dopplers legs negative. No obvious signs of infection. Will check chest x-ray for possible silent aspiration. 03/22: Afebrile. Protecting airway. Moves left upper extremity to command and spontaneously. Pulled out NG tube yesterday. 03/23: Afebrile. Protecting airway. Hematuria per overnight train electronic technician checkout online. Not apparent this AM. Continues to move left lower extremity. Says "what" yesterday. Heart rate better controlled on Cardizem drip 10 mg an hour/oral Cardizem. DNR. 03/24: Dobbhoff in place. Remains encephalopathic, on Cardizem drip for rate control. Hospitalist Notes: 03/25: Patient seen in his bedroom, stable, discussed with Charge nurse, he may be transferred to Medical floor with Telemetry, Neurosurgery following and adjudication specialist no further hematuria removed Ball Catheter. 03/26: Stable continue with NG tube as per Relatives and nurse the patient started to eat in am today, he is basically non verbal for me and Lethargic. Discussed about the use of antibiotic, was not found sign of infection, was started antibiotic in Intensive Care but the CXR taken at the time of starting antibiotic do not have infiltrates will remove this antibiotic, discussed with her Daughter and one of his Sons, in the room. 03/27: Discussed again today and gave Leave of absence to his Daughter, seen in the presence of nurse Miss Mac in the room, discussed with Manufacturing Technologist she is asking for Palliative care, who is already in the case, was placed new consult to be sure they see the patient today and possible Hospice placement. no nausea, vomit or diarrhea. Objective Vital Signs Date Time Temp Pulse Resp B/P Pulse Ox O2 Delivery O2 Flow Rate FiO2 03/27/17 10:30 97 21 03/27/17 08:19 98.0 105 20 113/63 97 03/27/17 07:01 130 03/27/17 04:00 98.6 129 22 113/82 97 03/27/17 00:00 98.8 67 20 126/73 96 03/26/17 20:00 95.7 122 24 128/83 97 03/26/17 20:00 98.7 122 24 128/88 97 03/26/17 16:00 97.3 78 18 133/82 94 I/O 03/26/17 03/26/17 03/26/17 03/27/17 03/27/17 03/27/17 07:00 15:00 23:00 07:00 15:00 23:00 Intake Total 1780 ml 712 ml Output Total 600 ml 450 ml 400 ml Balance 1180 ml 262 ml -400 ml IV Total 560 ml 311 ml Tube Feeding 720 ml 401 ml Tube Irrigant 500 ml Output Urine Total 600 ml 450 ml 400 ml # Voids 1 3 4 # Bowel Movements 1 2 Result Diagram: 03/26/17 0505 03/26/17 0505 Imaging Last Impressions Chest X-Ray 03/23/17 0000 Signed Impressions: Service Date/Time: Thursday, March 23, 2017 17:38 - CONCLUSION: No acute cardiopulmonary disease demonstrated. Morgan Perkins MD Head CT 03/21/17 0600 Signed Impressions: Service Date/Time: Tuesday, March 21, 2017 04:22 - CONCLUSION: Small left temporal parenchymal and subdural blood unchanged. No new/acute intracranial abnormality. Chronic white matter changes are again noted. Morgna Perkins MD IVC Filter Placement X-Ray 03/21/17 0000 Signed Impressions: Service Date/Time: Tuesday, March 21, 2017 09:49 - CONCLUSION: Uncomplicated inferior vena cava filter placement as above. Nelson Menendez MD Abdomen X-Ray 03/21/17 0000 Signed Impressions: Service Date/Time: Tuesday, March 21, 2017 17:00 - CONCLUSION: Feeding tube is coiled in the stomach. Po Bustos MD FACR Lower Extremity Ultrasound 03/20/17 0000 Signed Impressions: Service Date/Time: March 14:53 - CONCLUSION: 1. No DVT identified within either lower extremity. Jairon Bustos MD CT Angiography 03/20/17 0000 Signed Impressions: Service Date/Time: March 11:37 - CONCLUSION: 1. The examination is positive for pulmonary embolus. 2. Incidental findings as noted above. Jairon Bustos MD Abdomen Ultrasound 03/20/17 0000 Signed Impressions: Service Date/Time: March 14:37 - CONCLUSION: 1. There is a small amount of sludge within the dependent portion the gallbladder. There is no significant pericholecystic fluid. The common duct is normal in caliber. 2. Limited examination due to overlying bowel gas. Jairon Bustos MD Head CTA 03/18/17 0000 Signed Impressions: Service Date/Time: Saturday, March 18, 2017 20:13 - CONCLUSION: 1. No arteriovenous malformation. 2. Atherosclerotic changes without significant large vessel stenosis. Maury Feng MD Procedures No procedures. Other Results Laboratory Tests Test 03/23/17 03/23/17 03/26/17 03:35 16:58 05:05 Total Bilirubin 0.4 MG/DL Direct Bilirubin 0.1 MG/DL Indirect Bilirubin 0.3 MG/DL Aspartate Amino Transf 40 U/L (AST/SGOT) Alanine Aminotransferase 37 U/L (ALT/SGPT) Alkaline Phosphatase 90 U/L Total Creatine Kinase 117 U/L Troponin I 0.44 NG/ML Total Protein 6.7 GM/DL Albumin 2.6 GM/DL Phosphorus Level 2.6 MG/DL White Blood Count 7.4 TH/MM3 Red Blood Count 4.73 MIL/MM3 Hemoglobin 11.2 GM/DL Hematocrit 34.2 % Mean Corpuscular Volume 72.3 FL Mean Corpuscular Hemoglobin 23.7 PG Mean Corpuscular Hemoglobin 32.8 % Concent Red Cell Distribution Width 23.7 % Platelet Count 184 TH/MM3 Mean Platelet Volume 8.7 FL Neutrophils (%) (Auto) 67.9 % Lymphocytes (%) (Auto) 13.6 % Monocytes (%) (Auto) 12.2 % Eosinophils (%) (Auto) 5.8 % Basophils (%) (Auto) 0.5 % Neutrophils # (Auto) 5.0 TH/MM3 Lymphocytes # (Auto) 1.0 TH/MM3 Monocytes # (Auto) 0.9 TH/MM3 Eosinophils # (Auto) 0.4 TH/MM3 Basophils # (Auto) 0.0 TH/MM3 CBC Comment DIFF FINAL Differential Comment Sodium Level 138 MEQ/L Potassium Level 3.5 MEQ/L Chloride Level 102 MEQ/L Carbon Dioxide Level 26.7 MEQ/L Anion Gap 9 MEQ/L Blood Urea Nitrogen 10 MG/DL Creatinine 0.76 MG/DL Estimat Glomerular Filtration 98 ML/MIN Rate Random Glucose 190 MG/DL Calcium Level 8.4 MG/DL Magnesium Level 2.0 MG/DL Objective Remarks GENERAL: No acute distress SKIN: Warm and dry. Rash to bilateral buttocks stage 0 ulcer HEAD: Atraumatic. Normocephalic. EYES: Pupils equal and round about 3 mm bilaterally. Positive arcus senilis. No scleral icterus. No injection or drainage. ENT: No nasal bleeding or discharge. NG tube in place. NECK: Trachea midline. No JVD. CARDIOVASCULAR: IRR. S1, S2. No S4. No murmur appreciated RESPIRATORY: clear to auscultation. Breath sounds equal bilaterally. GASTROINTESTINAL: Abdomen soft, non-tender, nondistended. Hypoactive sounds MUSCULOSKELETAL: Extremities without difficulty and peripheral edema. No obvious deformities. NEUROLOGICAL: Lethargic, Right Paresis. Medications and IVs Current Medications Medications (Trade) Dose Ordered Sig/Tori Route Start Time Stop Time Status Last Admin (Narcan Inj) 0.4 mg UNSCH PRN IV 03/18/17 16:45 (Catapres) 0.1 mg Q6H PRN PO 03/18/17 17:45 Pantoprazole Sodium 40 mg 40 mg DAILY IVP 03/19/17 09:00 03/27/17 08:18 (Keppra Inj/NS Inj) 105 ml @ 400 mls/hr Q12H IV 03/18/17 18:00 03/27/17 05:25 (NS Flush) 2 ml UNSCH PRN IV FLUSH 03/18/17 17:45 03/27/17 04:11 (NS Flush) 2 ml BID IV FLUSH 03/18/17 21:00 03/27/17 09:00 (Tylenol) 650 mg Q6H PRN PO 03/18/17 17:45 03/23/17 21:56 ([place] 5-325 Mg) 1 tab Q4H PRN PO 03/18/17 17:45 03/25/17 12:55 (Morphine Inj) 2 mg Q2H PRN IV 03/18/17 17:45 03/27/17 04:11 (Tears Naturale Opth Soln) 1 drop TID EACH EYE 03/18/17 18:00 03/27/17 08:19 (Zofran Inj) 4 mg Q6H PRN IV 03/18/17 17:45 Miscellaneous Information 1 Q361D XX 03/18/17 17:45 (Chlorhexidine 2% Cloth) Taper DAILY@04 TOP 03/19/17 04:00 03/15/18 03:59 03/25/17 02:07 (Chlorhexidine 2% Cloth) 3 pack UNSCH PRN TOP 03/18/17 17:45 (Milk Of Magnesia Liq) 30 ml Q12H PRN PO 03/18/17 17:45 (Senokot) 17.2 mg Q12H PRN PO 03/18/17 17:45 (Dulcolax Supp) 10 mg DAILY PRN RECTAL 03/18/17 17:45 (Lactulose Liq) 30 ml DAILY PRN PO 03/18/17 17:45 (D50w (Vial) Inj) 50 ml UNSCH PRN IV 03/18/17 17:45 (Glucagon Inj) 1 mg UNSCH PRN OTHER 03/18/17 17:45 (Aricept) 10 mg HS PO 03/18/17 21:00 03/26/17 23:17 (Ismo) 10 mg TID PO 03/19/17 09:00 03/27/17 08:18 (Namenda) 10 mg BID PO 03/18/17 21:00 03/27/17 08:18 (Mag-Ox) 800 mg UNSCH PRN PO 03/18/17 18:15 (Trandate Inj) 10 mg Q1HR PRN IV 03/18/17 19:00 03/24/17 21:00 (Apresoline Inj) 10 mg Q1HR PRN IV PUSH 03/18/17 18:15 (Vasotec Inj) 1.25 mg Q6H PRN IV PUSH 03/18/17 18:15 (Pill Splitter) 1 ea UNSCH PRN OTHER 03/18/17 18:30 (Synthroid) 150 mcg DAILY@06 PO 03/20/17 06:00 03/27/17 05:24 (Synthroid) 25 mcg DAILY@06 PO 03/20/17 06:00 03/27/17 05:24 (Nutrisource Fiber Powder) 1 pack TID G-TUBE 03/19/17 13:00 03/26/17 17:13 (Lovenox Inj) 30 mg Q12HR SQ 03/20/17 21:00 03/27/17 08:18 (Peridex 0.12% Liq) 15 ml BID@08,20 MT 03/21/17 08:00 03/25/17 20:00 (Beneprotein Powder) 1 pack TID G-TUBE 03/21/17 09:00 03/26/17 17:13 (NovoLIN R SUPPLEMENTAL SCALE) 1 Q6HR SQ 03/23/17 12:00 03/26/17 17:22 (Tenormin) 50 mg BID PO 03/25/17 10:00 03/27/17 08:18 (Ecotrin Ec) 81 mg DAILY PO 03/26/17 09:00 03/27/17 08:18 A/P Assessment and Plan 1. Left Temporal Intraparenchymal Hemorrhage, left basal ganglia hemorrhage, Left Mid parietal subarachnoid hemorrhage/small 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 Keppra 500 mg IV twice a day for seven days for seizure prophylaxis Repeat head CT. 03/19 revealed stable delayed hemorrhage, CTA brain 03/18 revealed no aneurysm Repeat head CT 03/21 revealed no expansion of current interpretable hemorrhage left thalamus/basal ganglia. Continue Aricept 10 mg daily and Namenda 10 mg twice a day in a.m. for dementia as patient has passed swallow evaluation as per nurse he ate in am, but he removed his NG tube will replace again. 2. Hypertension/CAD status post PCI and stent placement x5, CHF chronic diastolic Heart failure, EF 55-60% 2010, Hyperlipidemia, continue Beta blockers, no intervention as per intensive care medicine specialist, held aspirin due to Brain Hemorrhage, currently in atrial flutter. during the night had rapid ventricular response, at this time stable will follow present care has Blood pressure low to increase medicines. 3. Right Lower Lobe PE, CT pulmonary angiogram 03/20 revealed second subsegmental right lower lobe pulmonary embolus. Dopplers bilateral lower extremity negative, status post Inferior Vena Cava filter. 4. GERD/Diverticulosis by history. on [place] thick and Pureed diet but with poor intake, NG tube placed Abdominal ultrasound 03/20 revealed some sludge in the gallbladder LFTs negative/asymptomatic examination. Otherwise negative 5. BPH/Hematuria has Ball Cath to remove Ball once Hematuria improves. 6. Hypothyroidism continue hormonal replacement. 7. Microcytic Anemia/IVC filter placement, on Lovenox 30 mg BID for PE, not able to fully anticoagulate Hematology/Oncology following, IV filter placed 03/21, Bilateral lower extremity negative for DVT, 8. OA/Lumbar Degenerative disc disease, for PT evaluation. Prophylaxis - GI - Protonix - DVT - SCD/Lovenox. DNR status NG tube removed by patient will need to place a new one before discharge. discussed with Manufacturing Technologist he was accepted by [facility]. discussed with Nurse and Manufacturing Technologist will need to get recommendations by Palliative care for probable Hospice placement Discharge Planning Expected to discharge later today or in am tomorrow. Fermín Davis MD Mar 27, 2017 13:18
[2017-03-27] MEDS ORDERED: METOPROLOL TARTRATE 5 MG/5 ML VIAL IV PUSH ONE (13:30)
--- NOTE | 2017-03-27 16:55 | HHI.HCPN ---
Reason for visit a. To assist with evaluation and management of symptoms including: Dysphagia , restlessness b. To assist medical decision maker(s) with: better understanding of current medical conditions; weighing benefits/burdens of medical treatment options; making medical treatment decisions. . Subjective/Interval History Pt is overall fatigued and sleepy. He does open eyes briefly, but could not give history. He is not grimacing or moaning. Family/friend interactions Spoke with pt's son Shelton, who is the point of contact. Pt's daughter and son jarek not in the room. Offered hospice again to them, and that I am not seeing the rebound that is anticipated. Review with them in Hospice, they would take out the NG and stop the tube feeds. Pt son understands he likely will aspirate again. Pt is not eating or taking up nutrition. Shelton will talk it over with the rest of the family. Pt's does not want to participate and have the children make the decision. Will reconvene with pt's son tomorrow after their family discussion. Advance Directives Living Will: Never completed Health Care Surrogate: Never completed Durable Power of Rug Weaver: Never completed Objective Vital Signs Date Time Temp Pulse Resp B/P Pulse Ox O2 Delivery O2 Flow Rate FiO2 03/27/17 16:16 97.5 71 20 111/59 100 03/27/17 12:00 96.7 96 20 121/86 97 03/27/17 10:30 97 21 03/27/17 08:19 98.0 105 20 113/63 97 03/27/17 07:01 130 03/27/17 04:00 98.6 129 22 113/82 97 03/27/17 00:00 98.8 67 20 126/73 96 03/26/17 20:00 95.7 122 24 128/83 97 03/26/17 20:00 98.7 122 24 128/88 97 Intake & Output 03/27/17 03/27/17 07:00 19:00 Intake Total 120 ml Output Total 400 ml Balance -400 ml 120 ml Intake Oral 120 ml Output Urine Total 400 ml # Voids 6 3 # Bowel Movements 0 Physical Exam CONSTITUTIONAL/GENERAL: This is an adequately nourished patient, more responsive. still sleepy and close eyes most of the visit. TUBES/LINES/DRAINS: Nasal cannula oxygen, Ball catheter, Dobbhoff tube SKIN: No jaundice, rashes, or lesions. Ecchymoses on upper extremities. No wounds seen anteriorly. Skin temperature appropriate. Not diaphoretic. HEAD: Atraumatic. Normocephalic. EYES: Pupils equal and round and reactive. No scleral icterus. No injection or drainage. Fundi not examined. ENT: Nose without bleeding or purulent drainage. NECK: Trachea midline. Supple, nontender. No palpable thyroid enlargement or nodularity. CARDIOVASCULAR: Regular rate and rhythm, with grade 1-2 systolic murmur. No JVD. RESPIRATORY/CHEST: Symmetric, unlabored respirations. Scattered rhonchi GASTROINTESTINAL: Abdomen soft, non-tender, nondistended. No hepato-splenomegaly , or palpable masses. No guarding. Bowel sounds present. GENITOURINARY: Without palpable bladder distension. Ball catheter in place. MUSCULOSKELETAL: Extremities without clubbing, cyanosis, or edema. No joint tenderness or effusion noted. No calf tenderness. No mottling or clubbing. LYMPHATICS: No palpable cervical or supraclavicular adenopathy. NEUROLOGICAL: Quite lethargic, opens eye, does not follow commands, right hemiplegia, occasionally moves left hand/fingers. PSYCHIATRIC: No obvious anxiety/agitation . Diagnostic Tests Laboratory Laboratory Tests Test 03/26/17 05:05 White Blood Count 7.4 TH/MM3 (4.0-11.0) Red Blood Count 4.73 MIL/MM3 (4.50-5.90) Hemoglobin 11.2 GM/DL (13.0-17.0) Hematocrit 34.2 % (39.0-51.0) Mean Corpuscular Volume 72.3 FL (80.0-100.0) Mean Corpuscular Hemoglobin 23.7 PG (27.0-34.0) Mean Corpuscular Hemoglobin 32.8 % Concent (32.0-36.0) Red Cell Distribution Width 23.7 % (11.6-17.2) Platelet Count 184 TH/MM3 (150-450) Mean Platelet Volume 8.7 FL (7.0-11.0) Neutrophils (%) (Auto) 67.9 % (16.0-70.0) Lymphocytes (%) (Auto) 13.6 % (9.0-44.0) Monocytes (%) (Auto) 12.2 % (0.0-8.0) Eosinophils (%) (Auto) 5.8 % (0.0-4.0) Basophils (%) (Auto) 0.5 % (0.0-2.0) Neutrophils # (Auto) 5.0 TH/MM3 (1.8-7.7) Lymphocytes # (Auto) 1.0 TH/MM3 (1.0-4.8) Monocytes # (Auto) 0.9 TH/MM3 (0-0.9) Eosinophils # (Auto) 0.4 TH/MM3 (0-0.4) Basophils # (Auto) 0.0 TH/MM3 (0-0.2) CBC Comment DIFF FINAL Differential Comment Sodium Level 138 MEQ/L (136-145) Potassium Level 3.5 MEQ/L (3.5-5.1) Chloride Level 102 MEQ/L (98-107) Carbon Dioxide Level 26.7 MEQ/L (21.0-32.0) Anion Gap 9 MEQ/L (5-15) Blood Urea Nitrogen 10 MG/DL (7-18) Creatinine 0.76 MG/DL (0.60-1.30) Estimat Glomerular Filtration 98 ML/MIN (>89) Rate Random Glucose 190 MG/DL (74-106) Calcium Level 8.4 MG/DL (8.5-10.1) Magnesium Level 2.0 MG/DL (1.5-2.5) Result Diagram: 03/26/17 0505 03/26/17 0505 Assessment and Plan Disease Oriented Problem List: (1) acute and subacute strokes, with lethargy, aphasia, right hemiplegia, (2) moderate dementia (3) CAD, status post multiple stents (4) GI bleeding, November 2016, secondary to duodenitis/esophagitis/gastritis (5) atrial fibrillation, recently on aspirin (6) diverticulosis (7) Pulmonary embolism (8) degenerative joint disease (9) hyperlipidemia (10) hypertension (11) hypothyroidism (12) anemia (13) CHF Symptom Scale: (1) restlessness 0-10 Scale: Unable to quantify (2) dyspnea 0-10 Scale: Unable to quantify (3) pain 0-10 Scale: Unable to quantify Pertinent Non-Medical Issues Psychosocial: , 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 Spiritual: The patient is Voodoo, and the family does think that the patient would want a precision instrument maker to visit him. Legal: The patient lacks capacity for decision-making, and he will not regain that capacity. The patient's spouse would be the decision-maker, but she wants to defer decision making to her 3 children but at the same time participate in the discussions about goals and treatment choices. Ethical issues impacting care: None . Important Contacts Son: Shelton Benjamin (CALL FIRST) [phone] Spouse: Erna [phone] Son: Jarek (in [place]) Daughter: Shalini (in [place]) . Prognosis The patient's prognosis is quite poor. He has underlying moderate dementia, has been declining for the past year, suffered an ischemic stroke with right hemiplegia 3 weeks prior to this admission, and now has hemorrhagic stroke. He is appropriate for hospice services if/when the goals become comfort oriented. . Code Status: No Code Plan * DNR * DECISION-MAKING: The patient lacks capacity for decision-making, and he will not regain that capacity. The patient's spouse would be the proxy decision- maker, but she wants to defer decision making to her 3 children but at the same time participate in the discussions about goals and treatment choices. The patient's and his son Shelton both request that any phone calls go first to the son (Shelton [phone]) and not to the . * GOALS:Spoke with pt's son Shelton, who is the point of contact. Pt's daughter and son jarek not in the room. Offered hospice again to them, and that I am not seeing the rebound that is anticipated. Review with them in Hospice, they would take out the NG and stop the tube feeds. Pt son understands he likely will aspirate again. Pt is not eating or taking up nutrition. Shelton will talk it over with the rest of the family. Pt's does not want to participate and have the children make the decision. Will reconvene with pt's son tomorrow after their family discussion. * Palliative Care will continue to follow the patient during this hospitalization. . Time Spent Total Floor Time (mins): 35 Face to Face Time (mins): 20 Attestation To help prompt me to consider important information that might be impacting today's encounter and assessment, information from prior notes written by myself or my colleagues may have been "brought forward" into today's note. My signature on this note, however, is an attestation that I personally performed the exam, history, and/or decision-making noted today, and, unless otherwise indicated, the interactions with patient, family, and staff as well as the review of records all occurred today. I also attest that the listed assessment and stated plan reflect my best clinical judgment today based on the combination of historical information, prior notes, and today's exam/ interactions. When time spent is documented, it refers only to time spent today by the signer, or if indicated, combined time spent today by collaborating physician/nurse practitioner. Benedicto Bruno MD Mar 27, 2017 16:55
--- NOTE | 2017-03-27 17:16 | RADRPT ---
EXAM DATE/TIME: 03/27/2017 16:53 [facility] COMPARISON: CHEST SINGLE AP, March 23, 2017, 17:38. INDICATIONS : Dobhoff placement. MEDICAL HISTORY : None. SURGICAL HISTORY : None. ENCOUNTER: Initial ACUITY: 1 day PAIN SCORE: Non-responsive. LOCATION: middle abdomen. FINDINGS: The examination demonstrates the tip of the weighted feeding tube to be within the pyloric channel. The bowel gas pattern is within normal limits. The limited portion of lung bases clear. There degenerative changes within the spine. CONCLUSION: 1. The tip of the feeding tube is in the pyloric channel. Jairon Bustos MD on March 27, 2017 at 17:14 Board Certified Radiologist. This report was verified electronically.
--- NOTE | 2017-03-27 19:05 | RADRPT ---
EXAM DATE/TIME: 03/27/2017 18:34 [facility] COMPARISON: ABDOMEN SINGLE VIEW, March 27, 2017, 16:53. INDICATIONS : Evaluate NG tube placement. MEDICAL HISTORY : None. SURGICAL HISTORY : None. ENCOUNTER: Initial ACUITY: 1 day PAIN SCORE: Non-responsive. LOCATION: abdomen. FINDINGS: There is a Dobbhoff feeding tube with tip in the first portion of the duodenum. Nonobstructive bowel gas pattern. CONCLUSION: Tip of the feeding tube is slightly more distal than earlier today, now in the first portion of the d uodenum. Morgan Perkins MD on March 27, 2017 at 19:02 Board Certified Radiologist. This report was verified electronically.
[2017-03-27] MEDS ORDERED: DILTIAZEM HCL 30 MG TAB PO ONE (19:45)
[2017-03-27] MEDS: DONEPEZIL HCL 5 MG TAB PO SCH (20:04)
[2017-03-28] VITALS: BP 146/65; PULSE 119; RESP 22; TEMP 98.7; O2SAT 96
--- NOTE | 2017-03-28 02:37 | RADRPT ---
EXAM DATE/TIME: 03/28/2017 01:29 [facility] COMPARISON: CHEST SINGLE AP, March 23, 2017, 17:38. INDICATIONS : Evaluate for DOBHOFF placement. MEDICAL HISTORY : None. SURGICAL HISTORY : None. ENCOUNTER: Initial ACUITY: 1 day PAIN SCORE: Non-responsive. LOCATION: Abdomen FINDINGS: Dobbhoff tube is within the stomach. The cardiac silhouette is enlarged in transverse diameter. There is subsegmental atelectasis in the left base. The right lung is free of acute parenchymal opacity. CONCLUSION: 1. Dobbhoff tube in the stomach Alex Huang MD on March 28, 2017 at 2:34 Board Certified Radiologist. This report was verified electronically.
[2017-03-28] MEDS ORDERED: DILTIAZEM HCL 30 MG TAB PO ONE (02:45)
[2017-03-28 04:00] VITALS: BP 142/78; PULSE 57; RESP 16; TEMP 97.3; O2SAT 97
[2017-03-28] MEDS: CHLORHEXIDINE GLUCONATE 2 % 1 PACK (2 CLOTHS) TOP SCH (04:00)
--- NOTE | 2017-03-28 04:07 | RADRPT ---
EXAM DATE/TIME: 03/28/2017 03:33 [place] COMPARISON: ABDOMEN SINGLE VIEW, March 27, 2017, 16:53. INDICATIONS : Evaluate for DOBHOFF placement. MEDICAL HISTORY : None. SURGICAL HISTORY : None. ENCOUNTER: Subsequent ACUITY: 1 day PAIN SCORE: Non-responsive. LOCATION: Abdomen FINDINGS: Examination of the abdomen demonstrates a normal bowel gas pattern. No free air is identified. No o rganomegaly is evident. Osseous structures are intact. Dobbhoff tube is present in the third portion the duodenum. An inferior vena cava filter is in place. CONCLUSION: 1. Dobbhoff tube in third portion of the duodenum Alex Huang MD on March 28, 2017 at 4:06 Board Certified Radiologist. This report was verified electronically.
[2017-03-28] MEDS: INSULIN NovoLIN REGULAR SUPPLEMENTAL SCALE SQ SCH ×4 (06:00→17:40)
[2017-03-28] MEDS: LEVOTHYROXINE SODIUM 150 MCG TAB PO SCH (06:01)
[2017-03-28] MEDS: levETIRAcetam INJ 500 MG in SODIUM CHLORIDE 0.9% INJ 100 ML IV SCH ×2 (06:01→17:43)
[2017-03-28] MEDS: LEVOTHYROXINE SODIUM 25 MCG TAB PO SCH (06:01)
[2017-03-28 08:22] VITALS: BP 147/74; PULSE 86; RESP 20; TEMP 96.9; O2SAT 97
[2017-03-28] MEDS: ENOXAPARIN SODIUM 30 MG/0.3 ML SYRINGE SQ SCH ×2 (10:02→22:07)
[2017-03-28] MEDS: PANTOPRAZOLE SODIUM 40 MG VIAL IVP SCH (10:02)
[2017-03-28] MEDS: MEMANTINE HCL 10 MG TAB PO SCH ×2 (10:03→22:06)
[2017-03-28] MEDS: ISOSORBIDE MONONITRATE 20 MG TAB PO SCH ×3 (10:03→17:41)
[2017-03-28] MEDS: ASPIRIN EC 81 MG TABEC PO SCH (10:03)
[2017-03-28] MEDS: ATENOLOL 50 MG TAB PO SCH ×2 (10:03→22:06)
[2017-03-28] MEDS: SODIUM CHLORIDE 0.9% FLUSH 10 ML FLUSH IV FLUSH SCH ×2 (10:03→22:06)
[2017-03-28] MEDS: ARTIFICIAL TEARS OPTH SOLN 15 ML BTL EACH EYE SCH ×3 (10:04→15:57)
[2017-03-28] MEDS: BENEPROTEIN POWDER 1 PACK G-TUBE SCH ×3 (10:04→15:57)
[2017-03-28] MEDS: NUTRISOURCE FIBER POWDER 1 PACK G-TUBE SCH ×3 (10:04→15:57)
[2017-03-28] MEDS: CHLORHEXIDINE 0.12% (ORAL KIT) 15 ML CUP MT SCH ×2 (10:04→20:00)
[2017-03-28 11:42] VITALS: PULSE 103
[2017-03-28 12:36] VITALS: BP 124/70; PULSE 109; RESP 20; TEMP 97.6; O2SAT 97
[2017-03-28] MEDS: ACETAMINOPHEN/HYDROcodone 325 MG/5 MG TAB PO PRN (15:56)
--- NOTE | 2017-03-28 16:04 | HHI.PR ---
Subjective Remarks In bed, she appears in nad. Not eating much. Family (daughter at bedside considers feeding tube and /or hospice. patient is pleasantly confused. Patient denies having any pain, no fever or chills. No n/v/d/c. Objective Vitals Vital Signs Date Time Temp Pulse Resp B/P Pulse Ox O2 Delivery O2 Flow Rate FiO2 03/28/17 12:36 97.6 109 20 124/70 97 03/28/17 11:42 103 03/28/17 08:22 96.9 86 20 147/74 97 03/28/17 04:00 97.3 57 16 142/78 97 03/28/17 00:00 98.7 119 22 146/65 96 03/27/17 20:00 98.7 131 24 130/80 98 03/27/17 16:16 97.5 71 20 111/59 100 I/O 03/27/17 03/27/17 03/27/17 03/28/17 03/28/17 03/28/17 07:00 15:00 23:00 07:00 15:00 23:00 Intake Total 120 ml Output Total 200 ml Balance 120 ml -200 ml Intake Oral 120 ml Output Urine Total 200 ml # Voids 4 3 2 4 # Bowel Movements 0 Result Diagram: 03/26/17 0505 03/26/17 0505 Imaging Last Impressions Abdomen X-Ray 03/28/17 0000 Signed Impressions: Service Date/Time: Tuesday, March 28, 2017 03:33 - CONCLUSION: 1. Dobbhoff tube in third portion of the duodenum Alex Huang MD Chest X-Ray 03/23/17 0000 Signed Impressions: Service Date/Time: Thursday, March 23, 2017 17:38 - CONCLUSION: No acute cardiopulmonary disease demonstrated. Morgan Perkins MD Head CT 03/21/17 0600 Signed Impressions: Service Date/Time: Tuesday, March 21, 2017 04:22 - CONCLUSION: Small left temporal parenchymal and subdural blood unchanged. No new/acute intracranial abnormality. Chronic white matter changes are again noted. Morgan Perkins MD IVC Filter Placement X-Ray 03/21/17 0000 Signed Impressions: Service Date/Time: Tuesday, March 21, 2017 09:49 - CONCLUSION: Uncomplicated inferior vena cava filter placement as above. Nelson Menendez MD Lower Extremity Ultrasound 03/20/17 Signed Impressions: Service Date/Time: March 14:53 - CONCLUSION: 1. No DVT identified within either lower extremity. Jairon Bustos MD CT Angiography 03/20/17 Signed Impressions: Service Date/Time: March 11:37 - CONCLUSION: 1. The examination is positive for pulmonary embolus. 2. Incidental findings as noted above. Jairon Bustos MD Abdomen Ultrasound 03/20/17 Signed Impressions: Service Date/Time: March 14:37 - CONCLUSION: 1. There is a small amount of sludge within the dependent portion the gallbladder. There is no significant pericholecystic fluid. The common duct is normal in caliber. 2. Limited examination due to overlying bowel gas. Jairon Bustos MD Head CTA 03/18/17 Signed Impressions: Service Date/Time: Saturday, March 18, 2017 20:13 - CONCLUSION: 1. No arteriovenous malformation. 2. Atherosclerotic changes without significant large vessel stenosis. Maury Feng MD Objective Remarks GENERAL: Elderly female, in bed, doesn't appear in acute distress SKIN: Warm and dry. Rash to bilateral buttocks stage 0 ulcer HEAD: Atraumatic. Normocephalic. EYES: Pupils equal and round about 3 mm bilaterally. Positive arcus senilis. No scleral icterus. No injection or drainage. ENT: No nasal bleeding or discharge. NG tube in place. NECK: Trachea midline. No JVD. CARDIOVASCULAR: IRR. S1, S2. No S4. No murmur appreciated RESPIRATORY: clear to auscultation. Breath sounds equal bilaterally. GASTROINTESTINAL: Abdomen soft, non-tender, nondistended. Hypoactive sounds MUSCULOSKELETAL: Extremities without difficulty and peripheral edema. No obvious deformities. NEUROLOGICAL: Lethargic, Right Paresis. A/P Problem List: (1) Intracranial hemorrhage ICD Code: I62.9 Status: Acute (2) Coronary artery disease ICD Code: I25.10 Status: Acute (3) Incontinence ICD Code: R32 Status: Acute (4) Hypertension ICD Code: I10 Status: Acute (5) Hypothyroidism ICD Code: E03.9 Status: Acute (6) Dementia ICD Code: F03.90 Status: Acute (7) BPH (benign prostatic hyperplasia) ICD Code: N40.0 Status: Acute (8) Subarachnoid hemorrhage ICD Code: I60.9 Status: Acute (9) Microcytic anemia ICD Code: D50.9 Status: Acute (10) Hyperglycemia ICD Code: R73.9 Status: Acute (11) Hypoalbuminemia ICD Code: E88.09 Status: Acute (12) Diverticulosis ICD Code: K57.90 Status: Acute (13) Chronic diastolic heart failure ICD Code: I50.32 Status: Acute Assessment and Plan Left Temporal Intraparenchymal Hemorrhage, left basal ganglia hemorrhage, Left Mid parietal subarachnoid hemorrhage/small 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 Keppra 500 mg IV twice a day for seven days for seizure prophylaxis Repeat head CT. 03/19 revealed stable delayed hemorrhage, CTA brain 03/18 revealed no aneurysm Repeat head CT 03/21 revealed no expansion of current interpretable hemorrhage left thalamus/basal ganglia. Continue Aricept 10 mg daily and Namenda 10 mg twice a day in a.m. for dementia as patient has passed swallow evaluation as per nurse he ate in am, but he removed his NG tube will replace again. Hypertension/CAD status post PCI and stent placement x5, CHF chronic diastolic Heart failure, EF 55-60% 2010, Hyperlipidemia, continue Beta blockers, no intervention as per affiliate marketing specialist, held aspirin due to Brain Hemorrhage, currently in atrial flutter. during the night had rapid ventricular response, at this time stable will follow present care has Blood pressure low to increase medicines. Right Lower Lobe PE, CT pulmonary angiogram 03/20 revealed second subsegmental right lower lobe pulmonary embolus. Dopplers bilateral lower extremity negative, status post Inferior Vena Cava filter. GERD/Diverticulosis by history. on [place] thick and Pureed diet but with poor intake, NG tube placed Abdominal ultrasound 03/20 revealed some sludge in the gallbladder LFTs negative/asymptomatic examination. Otherwise negative BPH/Hematuria has Ball Cath to remove Ball once Hematuria improves. Hypothyroidism continue hormonal replacement. Microcytic Anemia/IVC filter placement, on Lovenox 30 mg BID for PE, not able to fully anticoagulate Hematology/Oncology following, IV filter placed 03/21, Bilateral lower extremity negative for DVT, OA/Lumbar Degenerative disc disease, for PT evaluation. Prophylaxis - GI - Protonix - DVT - SCD/Lovenox. DNR status NG tube removed by patient will need to place a new one before discharge. Failed calorie count. Might consider feeding tube. Discussed with the daughter Discussed with Analytical Strategist he was accepted by [facility]. discussed with Nurse and Analytical Strategist Discussed with the daughter at bedside, she will like to talk with palliative care for further goals of care, says she might consider hospice. Will need to get recommendations by Palliative care for probable Hospice placement Discharge Planning Expected to discharge later today or in am tomorrow. Daughter exploring hospice possibility. Problem Qualifiers (1) Coronary artery disease: Qualified Code: I25.10 - Coronary artery disease without angina pectoris, unspecified vessel or lesion type, unspecified whether [place] or transplanted heart (2) Incontinence: Qualified Code: R32 - Urinary incontinence, unspecified type (3) Hypertension: Qualified Code: I10 - Essential hypertension (4) Hypothyroidism: Qualified Code: E89.0 - Postoperative hypothyroidism (5) Dementia: Qualified Code: F03.90 - Dementia without behavioral disturbance, unspecified dementia type (6) BPH (benign prostatic hyperplasia): Qualified Code: N40.1 - Benign prostatic hyperplasia with lower urinary tract symptoms, unspecified morphology (7) Diverticulosis: Qualified Code: K57.90 - Diverticulosis of intestine without bleeding, unspecified intestinal tract location Kae Ford MD Mar 28, 2017 16:04
--- NOTE | 2017-03-28 17:18 | HHI.HCPN ---
Reason for visit a. To assist with evaluation and management of symptoms including: Dysphagia , restlessness b. To assist medical decision maker(s) with: better understanding of current medical conditions; weighing benefits/burdens of medical treatment options; making medical treatment decisions. . Subjective/Interval History Pt is overall fatigued and sleepy. Per son he did eat and wake up. Still has NG tube. Spoke with son jarek and he said family amenable to hospice. He understand tube feedings will be stopped. Family/friend interactions see above Advance Directives Living Will: Never completed Health Care Surrogate: Never completed Durable Power of Gig Tender: Never completed Objective Vital Signs Date Time Temp Pulse Resp B/P Pulse Ox O2 Delivery O2 Flow Rate FiO2 03/28/17 12:36 97.6 109 20 124/70 97 03/28/17 11:42 103 03/28/17 08:22 96.9 86 20 147/74 97 03/28/17 04:00 97.3 57 16 142/78 97 03/28/17 00:00 98.7 119 22 146/65 96 03/27/17 20:00 98.7 131 24 130/80 98 Intake & Output 03/28/17 03/28/17 07:00 19:00 Output Total 200 ml Balance -200 ml Output Urine Total 200 ml # Voids 6 Physical Exam CONSTITUTIONAL/GENERAL: This is an adequately nourished patient, more responsive. still sleepy and close eyes most of the visit. TUBES/LINES/DRAINS: Nasal cannula oxygen, Ball catheter, Dobbhoff tube SKIN: No jaundice, rashes, or lesions. Ecchymoses on upper extremities. No wounds seen anteriorly. Skin temperature appropriate. Not diaphoretic. HEAD: Atraumatic. Normocephalic. EYES: Pupils equal and round and reactive. No scleral icterus. No injection or drainage. Fundi not examined. ENT: Nose without bleeding or purulent drainage. NECK: Trachea midline. Supple, nontender. No palpable thyroid enlargement or nodularity. CARDIOVASCULAR: Regular rate and rhythm, with grade 1-2 systolic murmur. No JVD. RESPIRATORY/CHEST: Symmetric, unlabored respirations. Scattered rhonchi GASTROINTESTINAL: Abdomen soft, non-tender, nondistended. No hepato-splenomegaly , or palpable masses. No guarding. Bowel sounds present. GENITOURINARY: Without palpable bladder distension. Ball catheter in place. MUSCULOSKELETAL: Extremities without clubbing, cyanosis, or edema. No joint tenderness or effusion noted. No calf tenderness. No mottling or clubbing. LYMPHATICS: No palpable cervical or supraclavicular adenopathy. NEUROLOGICAL: Quite lethargic, opens eye, does not follow commands, right hemiplegia, occasionally moves left hand/fingers. PSYCHIATRIC: No obvious anxiety/agitation . Diagnostic Tests Laboratory Laboratory Tests Test 03/26/17 05:05 White Blood Count 7.4 TH/MM3 (4.0-11.0) Red Blood Count 4.73 MIL/MM3 (4.50-5.90) Hemoglobin 11.2 GM/DL (13.0-17.0) Hematocrit 34.2 % (39.0-51.0) Mean Corpuscular Volume 72.3 FL (80.0-100.0) Mean Corpuscular Hemoglobin 23.7 PG (27.0-34.0) Mean Corpuscular Hemoglobin 32.8 % Concent (32.0-36.0) Red Cell Distribution Width 23.7 % (11.6-17.2) Platelet Count 184 TH/MM3 (150-450) Mean Platelet Volume 8.7 FL (7.0-11.0) Neutrophils (%) (Auto) 67.9 % (16.0-70.0) Lymphocytes (%) (Auto) 13.6 % (9.0-44.0) Monocytes (%) (Auto) 12.2 % (0.0-8.0) Eosinophils (%) (Auto) 5.8 % (0.0-4.0) Basophils (%) (Auto) 0.5 % (0.0-2.0) Neutrophils # (Auto) 5.0 TH/MM3 (1.8-7.7) Lymphocytes # (Auto) 1.0 TH/MM3 (1.0-4.8) Monocytes # (Auto) 0.9 TH/MM3 (0-0.9) Eosinophils # (Auto) 0.4 TH/MM3 (0-0.4) Basophils # (Auto) 0.0 TH/MM3 (0-0.2) CBC Comment DIFF FINAL Differential Comment Sodium Level 138 MEQ/L (136-145) Potassium Level 3.5 MEQ/L (3.5-5.1) Chloride Level 102 MEQ/L (98-107) Carbon Dioxide Level 26.7 MEQ/L (21.0-32.0) Anion Gap 9 MEQ/L (5-15) Blood Urea Nitrogen 10 MG/DL (7-18) Creatinine 0.76 MG/DL (0.60-1.30) Estimat Glomerular Filtration 98 ML/MIN (>89) Rate Random Glucose 190 MG/DL (74-106) Calcium Level 8.4 MG/DL (8.5-10.1) Magnesium Level 2.0 MG/DL (1.5-2.5) Result Diagram: 03/26/17 0505 03/26/17 0504 Assessment and Plan Disease Oriented Problem List: (1) acute and subacute strokes, with lethargy, aphasia, right hemiplegia, (2) moderate dementia (3) CAD, status post multiple stents (4) GI bleeding, November 2016, secondary to duodenitis/esophagitis/gastritis (5) atrial fibrillation, recently on aspirin (6) diverticulosis (7) Pulmonary embolism (8) degenerative joint disease (9) hyperlipidemia (10) hypertension (11) hypothyroidism (12) anemia (13) CHF Symptom Scale: (1) restlessness 0-10 Scale: Unable to quantify (2) dyspnea 0-10 Scale: Unable to quantify (3) pain 0-10 Scale: Unable to quantify Pertinent Non-Medical Issues Psychosocial: , 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 Spiritual: The patient is [place]anda[place], and the family does think that the patient would want a store clerk cashier to visit him. Legal: The patient lacks capacity for decision-making, and he will not regain that capacity. The patient's spouse would be the decision-maker, but she wants to defer decision making to her 3 children but at the same time participate in the discussions about goals and treatment choices. Ethical issues impacting care: None . Important Contacts Son: Shelton Benjamin (CALL FIRST) [phone] Spouse: Erna [phone] Son: Jarek (in [place]) Daughter: Shalini (in [place]) . Prognosis The patient's prognosis is quite poor. He has underlying moderate dementia, has been declining for the past year, suffered an ischemic stroke with right hemiplegia 3 weeks prior to this admission, and now has hemorrhagic stroke. He is appropriate for hospice services if/when the goals become comfort oriented. . Code Status: No Code Plan * DNR * DECISION-MAKING: The patient lacks capacity for decision-making, and he will not regain that capacity. The patient's spouse would be the proxy decision- maker, but she wants to defer decision making to her 3 children but at the same time participate in the discussions about goals and treatment choices. The patient's and his son Shelton both request that any phone calls go first to the son (Shelton [phone]) and not to the . * GOALS:Spoke with pt's Jarek, and he state family is amenable to hospice consult. * Palliative Care will continue to follow the patient during this hospitalization. . Time Spent Total Floor Time (mins): 35 Face to Face Time (mins): 20 >50% Counseling/Coord of Care: Yes Attestation To help prompt me to consider important information that might be impacting today's encounter and assessment, information from prior notes written by myself or my colleagues may have been "brought forward" into today's note. My signature on this note, however, is an attestation that I personally performed the exam, history, and/or decision-making noted today, and, unless otherwise indicated, the interactions with patient, family, and staff as well as the review of records all occurred today. I also attest that the listed assessment and stated plan reflect my best clinical judgment today based on the combination of historical information, prior notes, and today's exam/ interactions. When time spent is documented, it refers only to time spent today by the signer, or if indicated, combined time spent today by collaborating physician/nurse practitioner. Benedicto Bruno MD Mar 28, 2017 17:18
[2017-03-28 20:00] VITALS: BP 110/69; PULSE 115; RESP 24; TEMP 97.5; O2SAT 97
[2017-03-28] MEDS: DONEPEZIL HCL 5 MG TAB PO SCH (22:06)
[2017-03-29] VITALS (9 sets, daily range): BP systolic 99–166; BP diastolic 55–104; PULSE 86–130; RESP 16–24; TEMP 96.1–97.9; O2SAT 91–97
[2017-03-29] MEDS: ACETAMINOPHEN/HYDROcodone 325 MG/5 MG TAB PO PRN (03:16)
[2017-03-29] MEDS: CHLORHEXIDINE GLUCONATE 2 % 1 PACK (2 CLOTHS) TOP SCH (04:00)
[2017-03-29] MEDS: SODIUM CHLORIDE 0.9% FLUSH 10 ML FLUSH IV FLUSH PRN ×2 (04:16→04:57)
[2017-03-29] MEDS: levETIRAcetam INJ 500 MG in SODIUM CHLORIDE 0.9% INJ 100 ML IV SCH ×2 (04:56→17:25)
[2017-03-29] MEDS ORDERED: DILTIAZEM HCL 30 MG TAB PO ONE ×2 (05:15→17:30)
[2017-03-29] MEDS: LEVOTHYROXINE SODIUM 25 MCG TAB PO SCH (05:35)
[2017-03-29] MEDS: LEVOTHYROXINE SODIUM 150 MCG TAB PO SCH (05:35)
[2017-03-29] MEDS: INSULIN NovoLIN REGULAR SUPPLEMENTAL SCALE SQ SCH ×4 (06:00→17:26)
[2017-03-29] MEDS: CHLORHEXIDINE 0.12% (ORAL KIT) 15 ML CUP MT SCH ×2 (09:11→20:00)
[2017-03-29] MEDS: ARTIFICIAL TEARS OPTH SOLN 15 ML BTL EACH EYE SCH ×3 (09:12→17:25)
[2017-03-29] MEDS: BENEPROTEIN POWDER 1 PACK G-TUBE SCH ×3 (09:12→17:25)
[2017-03-29] MEDS: NUTRISOURCE FIBER POWDER 1 PACK G-TUBE SCH ×3 (09:12→17:25)
[2017-03-29] MEDS: SODIUM CHLORIDE 0.9% FLUSH 10 ML FLUSH IV FLUSH SCH ×2 (09:12→21:33)
[2017-03-29] MEDS: PANTOPRAZOLE SODIUM 40 MG VIAL IVP SCH (09:14)
[2017-03-29] MEDS: ISOSORBIDE MONONITRATE 20 MG TAB PO SCH ×3 (09:15→17:26)
[2017-03-29] MEDS: MEMANTINE HCL 10 MG TAB PO SCH ×2 (09:15→21:33)
[2017-03-29] MEDS: ATENOLOL 50 MG TAB PO SCH (09:15)
[2017-03-29] MEDS: ENOXAPARIN SODIUM 30 MG/0.3 ML SYRINGE SQ SCH ×2 (09:16→21:33)
[2017-03-29] MEDS: ASPIRIN EC 81 MG TABEC PO SCH (09:16)
--- NOTE | 2017-03-29 09:46 | HHI.PR ---
Subjective Remarks Patient was eating 50 5 of the breakfast per daughter at bedside. Daughter wants dubhoff removed. Patient doesn't appear in distress. No n/v/d/c. Family has a meeting with hospice today Objective Vitals Vital Signs Date Time Temp Pulse Resp B/P Pulse Ox O2 Delivery O2 Flow Rate FiO2 03/29/17 08:00 96.7 100 16 134/104 97 03/29/17 04:30 97.0 128 21 141/97 97 03/29/17 04:00 96.1 128 18 166/103 97 03/29/17 00:00 96.4 120 24 142/97 93 03/28/17 20:00 97.5 115 24 110/69 97 03/28/17 12:36 97.6 109 20 124/70 97 03/28/17 11:42 103 I/O 03/28/17 03/28/17 03/28/17 03/29/17 03/29/17 03/29/17 07:00 15:00 23:00 07:00 15:00 23:00 Intake Total 240 ml Balance 240 ml Intake Oral 240 ml # Voids 4 2 6 3 # Bowel Movements 0 Result Diagram: 03/26/17 0505 03/26/17 0505 Imaging Last Impressions Abdomen X-Ray 03/28/17 0000 Signed Impressions: Service Date/Time: Tuesday, March 28, 2017 03:33 - CONCLUSION: 1. Dobbhoff tube in third portion of the duodenum Alex Huang MD Chest X-Ray 03/23/17 0000 Signed Impressions: Service Date/Time: Thursday, March 23, 2017 17:38 - CONCLUSION: No acute cardiopulmonary disease demonstrated. Morgan Perkins MD Head CT 03/21/17 0600 Signed Impressions: Service Date/Time: Tuesday, March 21, 2017 04:22 - CONCLUSION: Small left temporal parenchymal and subdural blood unchanged. No new/acute intracranial abnormality. Chronic white matter changes are again noted. Morgan Perkins MD IVC Filter Placement X-Ray 03/21/17 0000 Signed Impressions: Service Date/Time: Tuesday, March 21, 2017 09:49 - CONCLUSION: Uncomplicated inferior vena cava filter placement as above. Nelson Menendez MD Lower Extremity Ultrasound 03/20/17 0000 Signed Impressions: Service Date/Time: March 14:53 - CONCLUSION: 1. No DVT identified within either lower extremity. Jairon Bustos MD CT Angiography 03/20/17 Signed Impressions: Service Date/Time: March 11:37 - CONCLUSION: 1. The examination is positive for pulmonary embolus. 2. Incidental findings as noted above. Jairon Bustos MD Abdomen Ultrasound 03/20/17 Signed Impressions: Service Date/Time: March 14:37 - CONCLUSION: 1. There is a small amount of sludge within the dependent portion the gallbladder. There is no significant pericholecystic fluid. The common duct is normal in caliber. 2. Limited examination due to overlying bowel gas. Jairon Bustos MD Head CTA 03/18/17 Signed Impressions: Service Date/Time: Saturday, March 18, 2017 20:13 - CONCLUSION: 1. No arteriovenous malformation. 2. Atherosclerotic changes without significant large vessel stenosis. Maury Feng MD Objective Remarks GENERAL: Elderly female, in bed, doesn't appear in acute distress SKIN: Warm and dry. Rash to bilateral buttocks stage 0 ulcer HEAD: Atraumatic. Normocephalic. EYES: Pupils equal and round about 3 mm bilaterally. Positive arcus senilis. No scleral icterus. No injection or drainage. ENT: No nasal bleeding or discharge. NG tube in place. NECK: Trachea midline. No JVD. CARDIOVASCULAR: IRR. S1, S2. No S4. No murmur appreciated RESPIRATORY: clear to auscultation. Breath sounds equal bilaterally. GASTROINTESTINAL: Abdomen soft, non-tender, nondistended. Hypoactive sounds MUSCULOSKELETAL: Extremities without difficulty and peripheral edema. No obvious deformities. NEUROLOGICAL: Lethargic, Right Paresis. A/P Problem List: (1) Intracranial hemorrhage ICD Code: I62.9 Status: Acute (2) Coronary artery disease ICD Code: I25.10 Status: Acute (3) Incontinence ICD Code: R32 Status: Acute (4) Hypertension ICD Code: I10 Status: Acute (5) Hypothyroidism ICD Code: E03.9 Status: Acute (6) Dementia ICD Code: F03.90 Status: Acute (7) BPH (benign prostatic hyperplasia) ICD Code: N40.0 Status: Acute (8) Subarachnoid hemorrhage ICD Code: I60.9 Status: Acute (9) Microcytic anemia ICD Code: D50.9 Status: Acute (10) Hyperglycemia ICD Code: R73.9 Status: Acute (11) Hypoalbuminemia ICD Code: E88.09 Status: Acute (12) Diverticulosis ICD Code: K57.90 Status: Acute (13) Chronic diastolic heart failure ICD Code: I50.32 Status: Acute Assessment and Plan Left Temporal Intraparenchymal Hemorrhage, left basal ganglia hemorrhage, Left Mid parietal subarachnoid hemorrhage/small 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 Keppra 500 mg IV twice a day for seven days for seizure prophylaxis Repeat head CT. 03/19 revealed stable delayed hemorrhage, CTA brain 03/18 revealed no aneurysm Repeat head CT 03/21 revealed no expansion of current interpretable hemorrhage left thalamus/basal ganglia. Continue Aricept 10 mg daily and Namenda 10 mg twice a day in a.m. for dementia as patient has passed swallow evaluation as per nurse he ate in am, but he removed his NG tube will replace again. Hypertension/CAD status post PCI and stent placement x5, CHF chronic diastolic Heart failure, EF 55-60% 2010, Hyperlipidemia, continue Beta blockers, no intervention as per engine specialist, held aspirin due to Brain Hemorrhage, currently in atrial flutter. during the night had rapid ventricular response, at this time stable will follow present care has Blood pressure low to increase medicines. Right Lower Lobe PE, CT pulmonary angiogram 03/20 revealed second subsegmental right lower lobe pulmonary embolus. Dopplers bilateral lower extremity negative, status post Inferior Vena Cava filter. GERD/Diverticulosis by history. on [place] thick and Pureed diet but with poor intake, NG tube placed Abdominal ultrasound 03/20 revealed some sludge in the gallbladder LFTs negative/asymptomatic examination. Otherwise negative BPH/Hematuria has Ball Cath to remove Ball once Hematuria improves. Hypothyroidism continue hormonal replacement. Microcytic Anemia/IVC filter placement, on Lovenox 30 mg BID for PE, not able to fully anticoagulate Hematology/Oncology following, IV filter placed 03/21, Bilateral lower extremity negative for DVT, OA/Lumbar Degenerative disc disease, for PT evaluation. Prophylaxis - GI - Protonix - DVT - SCD/Lovenox. DNR status NG tube removed by patient will need to place a new one before discharge. Failed calorie count. Might consider feeding tube. Discussed with the daughter. Daughter doesn't want feeding tube , she wants Dobbhoff removed. Also not considering PEG tube for feeding. Explained to the daughter patient doesn't have enough calorie/protein intake. Will DC Dobbhoff. Discussed with Ambulette Driver he was accepted by [facility]. discussed with Nurse and Ambulette Driver Discussed with the daughter at bedside, she will like to talk with palliative care for further goals of care, says she might consider hospice. Will need to get recommendations by Palliative care for probable Hospice placement Discharge Planning Expected to discharge later today or in am tomorrow. Family inclines towards hospice possibility. Meeting with hospice today for evaluation. Likely DC to hospice today Problem Qualifiers (1) Coronary artery disease: Qualified Code: I25.10 - Coronary artery disease without angina pectoris, unspecified vessel or lesion type, unspecified whether [place] or transplanted heart (2) Incontinence: Qualified Code: R32 - Urinary incontinence, unspecified type (3) Hypertension: Qualified Code: I10 - Essential hypertension (4) Hypothyroidism: Qualified Code: E89.0 - Postoperative hypothyroidism (5) Dementia: Qualified Code: F03.90 - Dementia without behavioral disturbance, unspecified dementia type (6) BPH (benign prostatic hyperplasia): Qualified Code: N40.1 - Benign prostatic hyperplasia with lower urinary tract symptoms, unspecified morphology (7) Diverticulosis: Qualified Code: K57.90 - Diverticulosis of intestine without bleeding, unspecified intestinal tract location Kae Ford MD Mar 29, 2017 09:46
[2017-03-29] MEDS ORDERED: PANT40TA3 PO (11:20)
[2017-03-29] MEDS ORDERED: ASPI-99 PO (11:20)
--- NOTE | 2017-03-29 11:25 | HHI.DS ---
Discharge Summary Admission Date Mar 18, 2017 at 17:13 Discharge Date: Mar 29, 2017 Admitting Diagnosis Subarachnoid Hemorrhage (1) Intracranial hemorrhage ICD Code: I62.9 Diagnosis: Principal (2) Coronary artery disease ICD Code: I25.10 Diagnosis: Principal (3) Incontinence ICD Code: R32 Diagnosis: Principal (4) Hypertension ICD Code: I10 Diagnosis: Principal (5) Hypothyroidism ICD Code: E03.9 Diagnosis: Principal (6) Dementia ICD Code: F03.90 Diagnosis: Principal (7) BPH (benign prostatic hyperplasia) ICD Code: N40.0 Diagnosis: Principal (8) Subarachnoid hemorrhage ICD Code: I60.9 Diagnosis: Principal (9) Microcytic anemia ICD Code: D50.9 Diagnosis: Principal (10) Hyperglycemia ICD Code: R73.9 Diagnosis: Principal (11) Hypoalbuminemia ICD Code: E88.09 Diagnosis: Principal (12) Diverticulosis ICD Code: K57.90 Diagnosis: Principal (13) Chronic diastolic heart failure ICD Code: I50.32 Diagnosis: Principal Procedures NONE Brief History - From Admission This is a 81-year-old male. Date of admission 03/18/2017. Past medical history dementia disorder, atrial fibrillation currently in sinus bradycardia, hypertension, coronary artery disease history of 5 stents, chronic diastolic heart failure with ejection fraction 55% 2010, diverticulosis, hypothyroidism, osteoarthritis, dyslipidemia. 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 CTA revealed occlusion in the left MCA distributions and focal stenosis throughout the bilateral posterior cerebral artery distributions. During this admission he was seen by neurology/Dr. Conroy. His symptomatology upon included aphasia both expressive and receptive, dysphagia, apraxia, right-sided weakness and a right facial droop. At that time he was on Xarelto due to atrial fibrillation and not deemed not a candidate for TPA. Not an interventional candidate per IR due to hypercoagulable state. Due to the petechial hemorrhage not a candidate for Xarelto. Prior to discharge patient improved strength in his right upper lower extremity with x-ray is left upper and lower extremity. He was sent to [facility] on aspirin 325 mill grams daily. Today, patient was noticed that facility with increasing weakness is a right upper lobe extremity. The [place] L4 CT head revealed acute versus subacute blood proximally and the prior sites of the left temporal CVA basal ganglia infarct. Also a small subarachnoid hemorrhage in the left mid parietal region. Dr. Miller was notified in which patient be admitted to neuro ICU overnight. CBC/BMP: 03/26/17 0505 03/26/17 0505 Imaging Last Impressions Abdomen X-Ray 03/28/17 0000 Signed Impressions: Service Date/Time: Tuesday, March 28, 2017 03:33 - CONCLUSION: 1. Dobbhoff tube in third portion of the duodenum Alex Huang MD Chest X-Ray 03/23/17 0000 Signed Impressions: Service Date/Time: Thursday, March 23, 2017 17:38 - CONCLUSION: No acute cardiopulmonary disease demonstrated. Morgan Perkins MD Head CT 03/21/17 0600 Signed Impressions: Service Date/Time: Tuesday, March 21, 2017 04:22 - CONCLUSION: Small left temporal parenchymal and subdural blood unchanged. No new/acute intracranial abnormality. Chronic white matter changes are again noted. Morgan Perkins MD IVC Filter Placement X-Ray 03/21/17 0000 Signed Impressions: Service Date/Time: Tuesday, March 21, 2017 09:49 - CONCLUSION: Uncomplicated inferior vena cava filter placement as above. Nelson Menendez MD Lower Extremity Ultrasound 03/20/17 0000 Signed Impressions: Service Date/Time: March 14:53 - CONCLUSION: 1. No DVT identified within either lower extremity. Jairon Bustos MD CT Angiography 03/20/17 0000 Signed Impressions: Service Date/Time: March 11:37 - CONCLUSION: 1. The examination is positive for pulmonary embolus. 2. Incidental findings as noted above. Jairon Bustos MD Abdomen Ultrasound 03/20/17 0000 Signed Impressions: Service Date/Time: March 14:37 - CONCLUSION: 1. There is a small amount of sludge within the dependent portion the gallbladder. There is no significant pericholecystic fluid. The common duct is normal in caliber. 2. Limited examination due to overlying bowel gas. Jairon Bustos MD Head CTA 03/18/17 0000 Signed Impressions: Service Date/Time: Saturday, March 18, 2017 20:13 - CONCLUSION: 1. No arteriovenous malformation. 2. Atherosclerotic changes without significant large vessel stenosis. Maury Feng MD PE at Discharge GENERAL: Elderly female, in bed, doesn't appear in acute distress SKIN: Warm and dry. Rash to bilateral buttocks stage 0 ulcer HEAD: Atraumatic. Normocephalic. EYES: Pupils equal and round about 3 mm bilaterally. Positive arcus senilis. No scleral icterus. No injection or drainage. ENT: No nasal bleeding or discharge. NG tube in place. NECK: Trachea midline. No JVD. CARDIOVASCULAR: IRR. S1, S2. No S4. No murmur appreciated RESPIRATORY: clear to auscultation. Breath sounds equal bilaterally. GASTROINTESTINAL: Abdomen soft, non-tender, nondistended. Hypoactive sounds MUSCULOSKELETAL: Extremities without difficulty and peripheral edema. No obvious deformities. NEUROLOGICAL: Lethargic, Right Paresis. Hospital Course Left Temporal Intraparenchymal Hemorrhage, left basal ganglia hemorrhage, Left Mid parietal subarachnoid hemorrhage/small 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 Keppra 500 mg IV twice a day for seven days for seizure prophylaxis Repeat head CT. 03/19 revealed stable delayed hemorrhage, CTA brain 03/18 revealed no aneurysm Repeat head CT 03/21 revealed no expansion of current interpretable hemorrhage left thalamus/basal ganglia. Continue Aricept 10 mg daily and Namenda 10 mg twice a day in a.m. for dementia as patient has passed swallow evaluation as per nurse he ate in am, but he removed his NG tube will replace again. Hypertension/CAD status post PCI and stent placement x5, CHF chronic diastolic Heart failure, EF 55-60% 2010, Hyperlipidemia, continue Beta blockers, no intervention as per forestry extension specialist, held aspirin due to Brain Hemorrhage, currently in atrial flutter. during the night had rapid ventricular response, at this time stable will follow present care has Blood pressure low to increase medicines. Right Lower Lobe PE, CT pulmonary angiogram 03/20 revealed second subsegmental right lower lobe pulmonary embolus. Dopplers bilateral lower extremity negative, status post Inferior Vena Cava filter. GERD/Diverticulosis by history. on [place] thick and Pureed diet but with poor intake, NG tube placed Abdominal ultrasound 03/20 revealed some sludge in the gallbladder LFTs negative/asymptomatic examination. Otherwise negative BPH/Hematuria has Ball Cath to remove Ball once Hematuria improves. Hypothyroidism continue hormonal replacement. Microcytic Anemia/IVC filter placement, on Lovenox 30 mg BID for PE, not able to fully anticoagulate Hematology/Oncology following, IV filter placed 03/21, Bilateral lower extremity negative for DVT, OA/Lumbar Degenerative disc disease, for PT evaluation. Prophylaxis - GI - Protonix - DVT - SCD/Lovenox. DNR status NG tube removed by patient will need to place a new one before discharge. Failed calorie count. Might consider feeding tube. Discussed with the daughter. Daughter doesn't want feeding tube , she wants Dobbhoff removed. Also not considering PEG tube for feeding. Explained to the daughter patient doesn't have enough calorie/protein intake. Will DC Dobbhoff. Discussed with [facility] he was accepted by [facility]. discussed with Nurse and [facility]er Discussed with the daughter at bedside, she will like to talk with palliative care for further goals of care, says she might consider hospice. DC to hospice Pt Condition on Discharge: Stable Discharge Disposition: Hospice/Med Facility Discharge Time: > 30 minutes Discharge Instructions DIET: Follow Instructions for: Heart Healthy Diet Speech Therapy-Diet Recommends: Pureed, Pudding Thickened Liquids Additional Diet Instructions: hEALTHY HEART DIET. pUREED, pUDDING THICK . sUPOLLEMENT WITH VITAL 1.5 TUBE FEEDINGS AT 60 CC/HR ( HOWEVER FAMILY REFUSING FEEDING TUBE AT THIS TIME). FEEDIGN TUBE WAS REMOVED. Activities you can perform: Regular-No Restrictions New Medications: Pantoprazole (Pantoprazole) 40 Mg Tab 40 MG PO DAILY Reflux #[address] (Adult Aspirin EC Low Strength) 81 Mg Tabec 81 MG PO DAILY Blood Clot Prevention #30 TAB Continued Medications: Amlodipine (Amlodipine) 2.5 Mg Tab 2.5 MG PO DAILY Blood Pressure Management #30 Ref 0 TAB Atenolol (Atenolol) 50 Mg Tab 50 MG PO BID Blood Pressure Management #60 Ref 0 TAB Bisacodyl Supp (Dulcolax Supp) 10 Mg Supp 10 MG RECTAL DAILY PRN CONSTIPATION Ref 0 SUPP Donepezil (Donepezil) 10 Mg Tab 10 MG PO HS Dementia #30 Ref 0 TAB Furosemide (Furosemide) 40 Mg Tab 20 MG PO EVERY OTHER DAY #30 Ref 0 TAB Isosorbide Mononitrate (Isosorbide Mononitrate) 10 Mg Tab 10 MG PO TID Take 2 doses 7 hours apart. Prevent Chest Pain TAB Levothyroxine (Levothyroxine) 200 Mcg Tab 200 MCG PO DAILY Thyroid #30 Ref 0 TAB Memantine (Namenda) 10 Mg Tab 10 MG PO BID Alzheimer Disease Ref 0 TAB Multiple Vitamins W/ Minerals (Multi Vitamin and Mineral) 1 Tab Tab 1 TAB DAILY Nitroglycerin SL (Nitrostat SL) 0.4 Mg Subl 0.4 MG SL DIRECTED 1 tablet under the tongue as needed for chest pain. Repeat every 5 minutes for a total of 3 DOSES or call 911 if NO relief. PRN CHEST PAIN #100 Ref 0 TAB.SL Potassium Chloride Liq (Potassium Chloride Liq) 20 Meq/15 Ml Soln 10 MEQ PO DAILY Electrolyte Replacement Ref 0 ML Skin Protectants, Misc. (Gale Protect) 1 Cre Cre DIRECTED r buttock, Q shift and PRN Discontinued Medications: Aspirin (Aspirin) 325 Mg Tab 325 MG PO DAILY CVA #30 Ref 0 TAB Kae Ford MD Mar 29, 2017 11:24
[2017-03-29] MEDS: DONEPEZIL HCL 5 MG TAB PO SCH (21:33)
[2017-03-29] MEDS: ATENOLOL 25 MG TAB PO SCH (21:33)
[2017-03-30] VITALS (7 sets, daily range): BP systolic 107–125; BP diastolic 57–89; PULSE 97–130; RESP 19–20; TEMP 96.6–98.2; O2SAT 92–98
[2017-03-30] MEDS: MORPHINE SULFATE 4 MG/ML INJ IV PRN ×4 (00:30→22:10)
[2017-03-30] MEDS: CHLORHEXIDINE GLUCONATE 2 % 1 PACK (2 CLOTHS) TOP SCH (03:05)
[2017-03-30] MEDS: levETIRAcetam INJ 500 MG in SODIUM CHLORIDE 0.9% INJ 100 ML IV SCH ×2 (05:54→18:53)
[2017-03-30] MEDS: LEVOTHYROXINE SODIUM 150 MCG TAB PO SCH (05:54)
[2017-03-30] MEDS: LEVOTHYROXINE SODIUM 25 MCG TAB PO SCH (05:54)
[2017-03-30] MEDS: INSULIN NovoLIN REGULAR SUPPLEMENTAL SCALE SQ SCH ×3 (06:00→12:00)
[2017-03-30] MEDS: SODIUM CHLORIDE 0.9% FLUSH 10 ML FLUSH IV FLUSH SCH (09:00)
[2017-03-30] MEDS: PANTOPRAZOLE SODIUM 40 MG VIAL IVP SCH (09:00)
[2017-03-30] MEDS: ARTIFICIAL TEARS OPTH SOLN 15 ML BTL EACH EYE SCH ×2 (09:00→13:00)
[2017-03-30] MEDS: NUTRISOURCE FIBER POWDER 1 PACK G-TUBE SCH (09:00)
[2017-03-30] MEDS: BENEPROTEIN POWDER 1 PACK G-TUBE SCH (09:00)
[2017-03-30] MEDS: ENOXAPARIN SODIUM 30 MG/0.3 ML SYRINGE SQ SCH (10:10)
[2017-03-30] MEDS: ISOSORBIDE MONONITRATE 20 MG TAB PO SCH ×2 (10:11→13:00)
[2017-03-30] MEDS: ATENOLOL 25 MG TAB PO SCH (10:11)
[2017-03-30] MEDS: ASPIRIN EC 81 MG TABEC PO SCH (10:12)
[2017-03-30] MEDS: MEMANTINE HCL 10 MG TAB PO SCH (10:13)
--- NOTE | 2017-03-30 12:22 | HHI.PR ---
Subjective Remarks Was noted tachycardic. He is sleepy at this time. Received morphine. Family at bedside. Plan for hospice when bed available. Objective Vitals Vital Signs Date Time Temp Pulse Resp B/P Pulse Ox O2 Delivery O2 Flow Rate FiO2 03/30/17 11:54 98.2 100 20 123/78 92 03/30/17 08:00 96.9 100 20 120/89 98 03/30/17 04:00 97.2 125 20 108/57 97 03/30/17 00:00 97.7 128 19 125/78 98 03/29/17 20:27 130 03/29/17 20:00 97.9 86 20 128/96 94 99/55 03/29/17 16:00 96.3 130 18 131/92 91 I/O 03/29/17 03/29/17 03/29/17 03/30/17 03/30/17 03/30/17 07:00 15:00 23:00 07:00 15:00 23:00 Intake Total 240 ml 100 ml Balance 240 ml 100 ml Intake Oral 240 ml IV Total 100 ml # Voids 3 2 1 2 # Bowel Movements 0 1 0 Result Diagram: 03/26/17 0505 03/26/17 0505 Imaging Last Impressions Abdomen X-Ray 03/28/17 0000 Signed Impressions: Service Date/Time: Tuesday, March 28, 2017 03:33 - CONCLUSION: 1. Dobbhoff tube in third portion of the duodenum Alex Huang MD Chest X-Ray 03/23/17 0000 Signed Impressions: Service Date/Time: Thursday, March 23, 2017 17:38 - CONCLUSION: No acute cardiopulmonary disease demonstrated. Morgan Perkins MD Head CT 03/21/17 0600 Signed Impressions: Service Date/Time: Tuesday, March 21, 2017 04:22 - CONCLUSION: Small left temporal parenchymal and subdural blood unchanged. No new/acute intracranial abnormality. Chronic white matter changes are again noted. Morgan Perkins MD IVC Filter Placement X-Ray 03/21/17 0000 Signed Impressions: Service Date/Time: Tuesday, March 21, 2017 09:49 - CONCLUSION: Uncomplicated inferior vena cava filter placement as above. Nelson Menendez MD Lower Extremity Ultrasound 03/20/17 0000 Signed Impressions: Service Date/Time: March 14:53 - CONCLUSION: 1. No DVT identified within either lower extremity. Jairon Bustos MD CT Angiography 03/20/17 Signed Impressions: Service Date/Time: March 11:37 - CONCLUSION: 1. The examination is positive for pulmonary embolus. 2. Incidental findings as noted above. Jairon Bustos MD Abdomen Ultrasound 03/20/17 Signed Impressions: Service Date/Time: March 14:37 - CONCLUSION: 1. There is a small amount of sludge within the dependent portion the gallbladder. There is no significant pericholecystic fluid. The common duct is normal in caliber. 2. Limited examination due to overlying bowel gas. Jairon Bustos MD Head CTA 03/18/17 Signed Impressions: Service Date/Time: Saturday, March 18, 2017 20:13 - CONCLUSION: 1. No arteriovenous malformation. 2. Atherosclerotic changes without significant large vessel stenosis. Maury Feng MD Objective Remarks GENERAL: Elderly female, in bed, doesn't appear in acute distress SKIN: Warm and dry. Rash to bilateral buttocks stage 0 ulcer HEAD: Atraumatic. Normocephalic. EYES: Pupils equal and round about 3 mm bilaterally. Positive arcus senilis. No scleral icterus. No injection or drainage. ENT: No nasal bleeding or discharge. NG tube in place. NECK: Trachea midline. No JVD. CARDIOVASCULAR: IRR. S1, S2. No S4. No murmur appreciated RESPIRATORY: clear to auscultation. Breath sounds equal bilaterally. GASTROINTESTINAL: Abdomen soft, non-tender, nondistended. Hypoactive sounds MUSCULOSKELETAL: Extremities without difficulty and peripheral edema. No obvious deformities. NEUROLOGICAL: Lethargic, Right Paresis. Procedures NONE A/P Problem List: (1) Intracranial hemorrhage ICD Code: I62.9 Status: Acute (2) Coronary artery disease ICD Code: I25.10 Status: Acute (3) Incontinence ICD Code: R32 Status: Acute (4) Hypertension ICD Code: I10 Status: Acute (5) Hypothyroidism ICD Code: E03.9 Status: Acute (6) Dementia ICD Code: F03.90 Status: Acute (7) BPH (benign prostatic hyperplasia) ICD Code: N40.0 Status: Acute (8) Subarachnoid hemorrhage ICD Code: I60.9 Status: Acute (9) Microcytic anemia ICD Code: D50.9 Status: Acute (10) Hyperglycemia ICD Code: R73.9 Status: Acute (11) Hypoalbuminemia ICD Code: E88.09 Status: Acute (12) Diverticulosis ICD Code: K57.90 Status: Acute (13) Chronic diastolic heart failure ICD Code: I50.32 Status: Acute Assessment and Plan Left Temporal Intraparenchymal Hemorrhage, left basal ganglia hemorrhage, Left Mid parietal subarachnoid hemorrhage/small 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 Keppra 500 mg IV twice a day for seven days for seizure prophylaxis Repeat head CT. 03/19 revealed stable delayed hemorrhage, CTA brain 03/18 revealed no aneurysm Repeat head CT 03/21 revealed no expansion of current interpretable hemorrhage left thalamus/basal ganglia. Continue Aricept 10 mg daily and Namenda 10 mg twice a day in a.m. for dementia as patient has passed swallow evaluation as per nurse he ate in am, but he removed his NG tube will replace again. Hypertension/CAD status post PCI and stent placement x5, CHF chronic diastolic Heart failure, EF 55-60% 2010, Hyperlipidemia, continue Beta blockers, no intervention as per presales senior specialist, held aspirin due to Brain Hemorrhage, currently in atrial flutter. during the night had rapid ventricular response, at this time stable will follow present care has Blood pressure low to increase medicines. A fib with RVR. Received cardizen 03/29/17. EKG reviewed. Increase tenormin to 75 mg po bid.Monitor on tele Right Lower Lobe PE, CT pulmonary angiogram 03/20 revealed second subsegmental right lower lobe pulmonary embolus. Dopplers bilateral lower extremity negative, status post Inferior Vena Cava filter. GERD/Diverticulosis by history. on [place] thick and Pureed diet but with poor intake, NG tube placed Abdominal ultrasound 03/20 revealed some sludge in the gallbladder LFTs negative/asymptomatic examination. Otherwise negative BPH/Hematuria has Ball Cath to remove Ball once Hematuria improves. Hypothyroidism continue hormonal replacement. Microcytic Anemia/IVC filter placement, on Lovenox 30 mg BID for PE, not able to fully anticoagulate Hematology/Oncology following, IV filter placed 6/9, Bilateral lower extremity negative for DVT. OA/Lumbar Degenerative disc disease, for PT evaluation. Prophylaxis - GI - Protonix - DVT - SCD/Lovenox. DNR status NG tube removed by patient will need to place a new one before discharge. Failed calorie count. Might consider feeding tube. Discussed with the daughter. Daughter doesn't want feeding tube , she wants Dobbhoff removed. Also not considering PEG tube for feeding. Explained to the daughter patient doesn't have enough calorie/protein intake. DC Dobbhoff. Discussed with [facility] he was accepted by [facility]. discussed with Nurse and [facility] Discussed with sons at bedside, family decided for hospice,, [facility] Discharge Planning DC to hospice when bed available Discussed with the nurse, family at bedside. Problem Qualifiers (1) Coronary artery disease: Qualified Code: I25.10 - Coronary artery disease without angina pectoris, unspecified vessel or lesion type, unspecified whether [place] or transplanted heart (2) Incontinence: Qualified Code: R32 - Urinary incontinence, unspecified type (3) Hypertension: Qualified Code: I10 - Essential hypertension (4) Hypothyroidism: Qualified Code: E89.0 - Postoperative hypothyroidism (5) Dementia: Qualified Code: F03.90 - Dementia without behavioral disturbance, unspecified dementia type (6) BPH (benign prostatic hyperplasia): Qualified Code: N40.1 - Benign prostatic hyperplasia with lower urinary tract symptoms, unspecified morphology (7) Diverticulosis: Qualified Code: K57.90 - Diverticulosis of intestine without bleeding, unspecified intestinal tract location Kae Ford MD Mar 30, 2017 12:22
--- NOTE | 2017-03-30 12:24 | EKG ---
Date Performed: 03/29/2017 Time Performed: 17:08:20 PTAGE: 81 years EKG: ATRIAL FLUTTER/TACHYCARDIA WITH RAPID VENTRICULAR RESPONSE MARKED LEFT AXIS DEVIATION PATTE RN CONSISTENT WITH PULMONARY DISEASE NONSPECIFIC ST & T-WAVE ABNORMALITY ABNORMAL ECG PREVIOUS TRACING : 03/22/2017 13.11 COMPARED TO THE PREVIOUS EKG OF RAPID VENTRICULAR RESPONSE IS NEW DOCTOR: Tano Alba Interpretating Date/Time 03/30/2017 12:21:14
[2017-03-30] MEDS: CHLORHEXIDINE 0.12% (ORAL KIT) 15 ML CUP MT SCH (20:00)
== END 2017-03-30 22:42 | disposition hospice, inpatient (51) | DRG 40 ==
LOC: NEPE 14:51 → NEDA 17:13 → N03B 20:31 → N05A 03-25 17:05
PROVIDERS: ADMIT Hospitalist; ATTEND Hospitalist
PROC: 0DH67UZ Insertion of Feeding Device into Stomach, Via Natural or Artificial Opening (ICD-10-PCS; 2017-03-18)
PROC: 0T9B70Z Drainage of Bladder with Drainage Device, Via Natural or Artificial Opening (ICD-10-PCS; 2017-03-18)
PROC: 06H03DZ Insertion of Intraluminal Device into Inferior Vena Cava, Percutaneous Approach (ICD-10-PCS; principal; 2017-03-21)
DX: I61.0 Nontraumatic intracerebral hemorrhage in hemisphere, subcortical (principal); I26.99 Other pulmonary embolism without acute cor pulmonale; G93.40 Encephalopathy, unspecified; E44.1 Mild protein-calorie malnutrition; I11.0 Hypertensive heart disease with heart failure; I50.32 Chronic diastolic (congestive) heart failure; R13.10 Dysphagia, unspecified; I69.351 Hemiplegia and hemiparesis following cerebral infarction affecting right dominant side; I48.2 Chronic atrial fibrillation; F03.90 Unspecified dementia, unspecified severity, without behavioral disturbance, psychotic disturbance, mood disturbance, and anxiety; R00.1 Bradycardia, unspecified; I61.1 Nontraumatic intracerebral hemorrhage in hemisphere, cortical; E89.0 Postprocedural hypothyroidism; E78.00 Pure hypercholesterolemia, unspecified; E78.5 Hyperlipidemia, unspecified; I25.10 Atherosclerotic heart disease of native coronary artery without angina pectoris; M19.90 Unspecified osteoarthritis, unspecified site; Z79.02 Long term (current) use of antithrombotics/antiplatelets; Z95.5 Presence of coronary angioplasty implant and graft; R32 Unspecified urinary incontinence; N40.0 Benign prostatic hyperplasia without lower urinary tract symptoms; D50.9 Iron deficiency anemia, unspecified; K57.90 Diverticulosis of intestine, part unspecified, without perforation or abscess without bleeding; R73.9 Hyperglycemia, unspecified; M51.36 Other intervertebral disc degeneration, lumbar region; I69.320 Aphasia following cerebral infarction; Z51.5 Encounter for palliative care; K21.0 Gastro-esophageal reflux disease with esophagitis; R45.1 Restlessness and agitation; I60.8 Other nontraumatic subarachnoid hemorrhage; I35.0 Nonrheumatic aortic (valve) stenosis; Z66 Do not resuscitate; R31.9 Hematuria, unspecified; R05 Cough
CPT/HCPCS: 36600; 37191; 70450; 70496; 71010; 71275; 74000; 76700; 80048; 80053; 80076; 81001; 82550; 82805; 82947; 82948; 83735; 83880; 84100; 84439; 84443; 84484; 85025; 85027; 85610; 85730; 86850; 86900; 86901; 87040; 87641; 93005; 93306; 93970; 95819; 96360; C1769; C1880; C1887; C9113; J0282; J0461; J1650; J1953; J2270; J2543; J3370; J3475; J7030; J7040; J7050; J7060; Q9967